=== PATIENT | male | born 1950 | race Caucasian/White ===

== ENCOUNTER → 2018-11-29 | Outpatient (CLI) | payer MEDICARE, OTHER, SELFPAY ==
--- NOTE | 2018-11-29 17:10 | EKG12_ITS ---
Test Reason : PRE-OP Blood Pressure : / mmHG Vent. Rate : 080 BPM Atrial Rate : 080 BPM P-R Int : 146 ms QRS Dur : 092 ms QT Int : 352 ms P-R-T Axes : 056 024 051 degrees QTc Int : 405 ms Normal sinus rhythm with sinus arrhythmia Normal ECG Confirmed by JAX TEIXEIRA, MELODY ([id number]), editor department BERTA MORENO ([id number]) on 11/30/2018 1:43:32 PM Referred By: Rik Banda Confirmed By:MELODY CAMARA MD
[2018-11-29 17:55] LABS: Hematocrit 49.4 % (40-54); Hemoglobin 16.3 g/dL (13.0-16.5); Mean Corpuscular Volume 96.9 fL (80-94); Mean Platelet Vol. 11.1 fl (6.2-12.0); Platelet Count 218 K/mm3 (150-450); RBC Distribution Width CV 12.7 % (11.6-14.6); RBC Distribution Width SD 45.4 fl (35.1-43.9); White Blood Count 8.5 K/mm3 (4.4-11.0)
[2018-11-29 18:00] LABS: Anion Gap 5 (5-15); BUN 18 mg/dL (7-18); BUN/Creat Ratio 10.3 RATIO (10-20); Calcium,Total 9.3 mg/dL (8.5-10.1); Chloride 111 mmol/L (98-107); Creatinine, Serum 1.75 mg/dL (0.70-1.30); EST Glomerular Filtration Rate 41 mL/min (>60); Est Glom Filt Rate - Afr Amer 50 mL/min (>60); Glucose 101 mg/dL (74-106); Potassium 4.5 mmol/L (3.5-5.1); Sodium Level 141 mmol/L (136-145)
== END | disposition home or self-care (01) ==
PROVIDERS: Family Provider Family Medicine; PCP Family Medicine; Referring Provider Urology; Visit Provider Urology
DX: Z01.818 Encounter for other preprocedural examination (principal); R97.20 Elevated prostate specific antigen [PSA]
CPT/HCPCS: 36415; 80048; 85027; 93005

== ENCOUNTER → 2018-12-15 | Outpatient (CLI) | payer MEDICARE, OTHER, SELFPAY ==
--- NOTE | 2018-12-15 15:37 | CT_ITS ---
STUDY: CT ABDOMEN AND PELVIS WITHOUT CONTRAST REASON FOR EXAM: Male, 68 years old. Lower back pain. Elevated creatinine. RADIATION DOSAGE (If Supplied By Facility): CTDIvol = ( 14.36 ) mGy, DLP = ( 720.98 ) mGycm TECHNIQUE: Transaxial images were obtained from the dome of the diaphragm to the symphysis pubis without oral contrast, and without intravenous contrast. Sagittal and coronal images were reconstructed. Individualized dose optimization techniques were used for this CT. COMPARISON: None. FINDINGS: There is a 3 mm calcified granuloma along the pleural surface and right lower lobe as seen on image 2 series 2. Image 4 there is a 4 mm calcification in the medial right lung base. A small crescentic calcification in the right lung base along the pleural surface.: The lungs are otherwise clear. The visualized portions of the heart are within normal limits. Normal liver. Normal gallbladder and extrahepatic biliary system. There are multiple benign calcified granulomata of the spleen. Normal pancreas. Normal bilateral adrenal glands. Multiple small exophytic cyst off the upper pole the right kidney. Off the lower pole there is a larger 5.5 x 5.2 x 5.2 cm simple cyst. No renal calculi or hydronephrosis. Normal right ureter. There is a 9.2 x 7.4 x 6.4 cm exophytic simple cyst off the upper pole with an otherwise normal left kidney. Normal left ureter. Normal visualized stomach. Normal small intestine. Descending and sigmoid diverticulosis without acute inflammatory change. The proximal colon is unremarkable. The appendix is visualized and appears normal. There is diffuse atherosclerotic calcification of the abdominal aorta, without a demonstrated aneurysm. Normal inferior vena cava. Normal retroperitoneum. Normal urinary bladder. The prostate is mildly enlarged. There is no pelvic lymphadenopathy. No free air or free fluid is seen within the peritoneal cavity. Normal abdominal wall. There is loss of normal lumbar lordosis. There are diffuse degenerative changes of the visualized lumbar spine. CT/Abdomen/Pelvis without Cont IMPRESSION: 1. Large bilateral renal cysts. 2. Degenerative changes of the lumbar spine with straightening of lumbar lordosis. 3. Mildly enlarged prostate. 4. Old granulomatous disease. 5. Diverticulosis without acute inflammatory change. Electronically Signed: Prabhjot Taylor DO at 19:24 EDT Tel [phone], Service support ,
== END | disposition home or self-care (01) ==
PROVIDERS: Family Provider Family Medicine; PCP Family Medicine; Referring Provider Urology; Visit Provider Urology
DX: N20.0 Calculus of kidney (principal)
CPT/HCPCS: 74176

== ENCOUNTER → 2018-12-31 15:15 | Outpatient (CLI) | payer MEDICARE, OTHER, SELFPAY | PROVIDERS: Family Provider Family Medicine; PCP Family Medicine; Referring Provider Urology; Visit Provider Urology | DX: R97.20 Elevated prostate specific antigen [PSA] (principal) ==

== ENCOUNTER → 2019-01-03 | Outpatient (CLI) | payer MEDICARE, OTHER, SELFPAY ==
--- NOTE | 2018-12-31 08:00 | PROSBIL_PTH ---
PATIENT: DAVID NORRIS LOC: [facility] U#:[id number] AGE/SX: 68/M ROOM: RE01/03/[address]: Dr. Rik Banda MD : 1950 BED: DIS: 01/03/2019 SPEC #: [id number] RECD: 01/03/19 14:51 STATUS: EMMA RERoman #: [id number] ROSALES: 12/31/18 08:[address]: Rik Banda DEPT: SURGICAL PATHOLOGY RECD BY: Dayana Stephenson ENTERED: 01/03/19 14:52 SP TYPE: PROST BX DANG DR: DO Josy Campbell Tissues: A - PROSTATE RIGHT B - PROSTATE RIGHT C - PROSTATE RIGHT D - PROSTATE LEFT E - PROSTATE LEFT F - PROSTATE LEFT Procedures: PROSTATE BX HEADER OPERATION: Prostate biopsy PRE-OP DIAGNOSIS: Elevated PSA TISSUE SUBMITTED: A - Right base, B - Right mid, C - Right apex, D - Left base, E - Left mid, F - Left apex MICROSCOPIC DIAGNOSIS A. Right prostate, base, core biopsy: Adenocarcinoma: Flaquito grade: 6 (3+3) Cores involved: 1 out of 2 Tissue involved: 20% Greatest tumor length: 3.5 mm B. Right prostate, mid, core biopsy: Adenocarcinoma: Flaquito grade: 6 (3+3) Cores involved: 1 out of 3 Tissue involved: 20% Greatest tumor length: 4 mm (discontinuous) C. Right prostate, apex, core biopsy: Adenocarcinoma: Flaquito grade: 8 (5+3) Cores involved: 2 out of 2 Tissue involved: 70% Greatest tumor length: 7.5 mm Focal perineural invasion: Present D. Left prostate, base, core biopsy: Adenocarcinoma: Flaquito grade: 7 (3+4) Cores involved: 2 out of 2 Tissue involved: 33% Greatest tumor length: 4.5 mm Focal perineural invasion: Present E. Left prostate, mid, core biopsy: Adenocarcinoma: [place] grade: 6 (3+3) Cores involved: 2 out of 2 Tissue involved: 45% Greatest tumor length: 6 mm (discontinuous) Focal perineural invasion: Present F. Left prostate, apex, core biopsy: Adenocarcinoma: Flaquito grade: 7 (3+4) Cores involved: 2 out of 2 Tissue involved: 50% Greatest tumor length: 4 mm (discontinuous) AM:alen 01/04/19 COMMENT Case has been reviewed in consultation with Dr. Abdul who concurs with the above diagnosis. IDC:SJ MICROSCOPIC DESCRIPTION Slides are reviewed. GROSS DESCRIPTION A - Received is one container designated prostate, right base. The specimen consists of two elongated fragments of light white-white soft tissue each measuring 1 cm in length and 0.1 cm in diameter. The specimen is totally submitted in one cassette. B - Received is one container designated prostate, right mid. The specimen consists of three elongated fragments of light white-white soft tissue measuring 0.5 to 1.5 cm in length and 0.1 cm in diameter. The specimen is totally submitted in one cassette. C - Received is one container designated prostate, right apex. The specimen consists of two elongated fragments of light white-white soft tissue each measuring 1.5 cm in length and 0.1 cm in diameter. The specimen is totally submitted in one cassette. D - Received is one container designated prostate, left base. The specimen consists of two elongated fragments of light white-white soft tissue measuring 1 and 1.3 cm in length and 0.1 cm in diameter. The specimen is totally submitted in one cassette. E - Received is one container designated prostate, left mid. The specimen consists of two elongated fragments of light white-white soft tissue each measuring 1 cm in length and 0.1 cm in diameter. The specimen is totally submitted in one cassette. F - Received is one container designated prostate, left apex. The specimen consists of two elongated fragments of light white-white soft tissue measuring 1 and 1.2 cm in length and 0.1 cm in diameter. The specimen is totally submitted in one cassette. / SJ:rg 01/03/19 TC:0 [facility]: [id number]
== END | disposition home or self-care (01) ==
LOC: LABSPEC 14:37
PROVIDERS: Family Provider Family Medicine; PCP Family Medicine; Referring Provider Urology; Visit Provider Urology
DX: R97.20 Elevated prostate specific antigen [PSA] (principal)
CPT/HCPCS: 88305; G0416

== ENCOUNTER → 2019-01-12 | Outpatient (CLI) | payer MEDICARE, OTHER, SELFPAY ==
--- NOTE | 2019-01-12 10:18 | NM_ITS ---
CLINICAL: 68-year-old male with reported history of carcinoma of the prostate. WHOLE BODY 99m Tc MDP RADIONUCLIDE BONE SCINTIGRAPHY COMPARISON: CT of the abdomen-pelvis report 12/15/2018 FINDINGS: Following the intravenous administration of 27.0 mCi of 99m Tc MDP, whole body bone images reveal: 1. Increased radiopharmaceutical concentration is defined in the mid cervical spine posteriorly on the left, the upper and lower cervical spine posteriorly on the right, the acromioclavicular and sternoclavicular compartments of both shoulders, bilateral elbows, the left wrist, both hands, third lumbar vertebra posteriorly on the left, right posterior sacrum, bilateral knees, the right-left ankles. 2. The remaining skeletal structures are scintigraphically unremarkable with normal-appearing renal images and urinary bladder activity identified. Mild asymmetric increased uptake is noted in the greater trochanteric aspect of the left proximal femur most consistent with periostitis and/or trochanteric bursitis. NM/Bone Scan Whole Body IMPRESSION: 1. The increase in radiopharmaceutical concentration identified in the cervical and lumbar spine, sacrum, bilateral shoulders, right and left elbows, left wrist, hands bilaterally, both knee and ankle articulations is most consistent with degenerative arthritis. 2. There is no definitive typical scintigraphic evidence of skeletal metastatic disease on the current examination. Electronically Signed: Tom Acevedo DO at 23:57 EDT Tel , Service support ,
== END | disposition home or self-care (01) ==
LOC: NM 10:15
PROVIDERS: Family Provider Family Medicine; PCP Family Medicine; Referring Provider Urology; Visit Provider Urology
DX: C61 Malignant neoplasm of prostate (principal)
CPT/HCPCS: 78306

== ENCOUNTER → 2019-02-15 | Outpatient (CLI) | payer MEDICARE, OTHER, SELFPAY ==
--- NOTE | 2019-02-15 11:30 | MRI_ITS ---
STUDY: MR PELVIS WITHOUT CONTRAST REASON FOR EXAM: Male, 68 years old. Prostate cancer. Biopsy 6 weeks ago. Scheduled for surgery February 23. TECHNIQUE: Standardized fat and water weighted pulse sequences were obtained in all 3 orthogonal planes. COMPARISON: None. FINDINGS: The prostate is enlarged measuring 4.3 x 5.1 x 4.7 cm with a volume of 52 mL the seminal vesicles are grossly normal. There is a focal area of high signal on diffusion-weighted imaging in the right peripheral zone which demonstrates hypointense signal on ADC mapping and T2-weighted imaging. This is best seen on image 17 of series 5. This measures 0.6 x 0.6 x 0.5 cm in size. The more inferior in the right peripheral zone isn't an area of high signal on diffusion-weighted imaging which is of hypointense signal on ADC mapping and T2-weighted imaging. This measures 1.0 x 0.9 cm and is best seen on image 21 of series 5. There is an area of vaguely increased signal intensity on diffusion-weighted imaging in the left peripheral zone which is hypointense on ADC mapping and T2 weighted imaging. This measures roughly 1.1 x 0.9 cm and is best seen on image 19 of series 5. In the transitional zone. There are multiple focal areas hypointensity on the T2 weighted imaging which have corresponding areas of hypointensity on ADC mapping and high signal intensity on diffusion-weighted imaging. These areas are all less than 1.5 cm in diameter. There is a mildly trabeculated thick-walled urinary bladder. There are no filling defects. Normal visualized small intestine. There is sigmoid diverticulosis without acute inflammatory change. There is no pelvic fluid. There is no pelvic mass lesion or lymphadenopathy. Normal visualized pelvic arteries. Normal osseous structures. Normal abdominal wall. MRI/Pelvis (Routine) IMPRESSION: 1. Enlarged prostate. 2. Multiple small foci in the peripheral zone suspicious for malignancy. The findings suggest PIRADS category 4 lesions. 3. Multiple foci in the transitional zone also suspicious for malignancy. This is scored as PIRADS category 4 lesions 4. No evidence of extraprostatic extension. Lymph node involvement or bone metastases. Electronically Signed: Prabhjot Taylor DO at 20:22 EST Tel [phone], Service support ,
== END | disposition home or self-care (01) ==
LOC: MRI 09:51
PROVIDERS: Family Provider Family Medicine; PCP Family Medicine; Referring Provider Urology; Visit Provider Urology
DX: C61 Malignant neoplasm of prostate (principal)
CPT/HCPCS: 72195

== ENCOUNTER 2019-02-23 08:09 | Inpatient (IN) | payer MEDICARE, OTHER, SELFPAY ==
[2019-02-15 10:15] VITALS: BP 144/78; PULSE 66; RESP 16; TEMP 36.2; O2SAT 95; BMI 30.4
[2019-02-15 10:40] LABS: Hematocrit 44.7 % (40-54); Hemoglobin 14.8 g/dL (13.0-16.5); Mean Corp Hgb Conc 33.1 g/dL (32-36); Mean Corpuscular Hgb 31.5 pg (27.0-32.0); Mean Corpuscular Volume 95.1 fL (80-94); Mean Platelet Vol. 11.1 fl (6.2-12.0); Platelet Count 201 K/mm3 (150-450); RBC Distribution Width CV 12.3 % (11.6-14.6); RBC Distribution Width SD 43.5 fl (35.1-43.9); White Blood Count 7.4 K/mm3 (4.4-11.0)
[2019-02-15 11:13] LABS: ALB/GLOB Ratio 1.1 RATIO (0.9-2.4); AST(SGOT) 18 U/L (15-37); Alanine Aminotransfer ALT/SGPT 38 U/L (16-61); Albumin, Serum 3.8 g/dL (3.2-5.0); Alkaline Phosphatase 64 U/L (45-117); Anion Gap 8 (5-15); BUN 14 mg/dL (7-18); Calcium,Total 8.9 mg/dL (8.5-10.1); Chloride 108 mmol/L (98-107); Creatinine, Serum 1.17 mg/dL (0.70-1.30); EST Glomerular Filtration Rate 66 mL/min (>60); Est Glom Filt Rate - Afr Amer 80 mL/min (>60); Estimated Creatinine Clearance 58.46 ml/min; Globulin 3.5 g/dL (2.2-4.2); Glucose 122 mg/dL (74-106); Potassium 4.2 mmol/L (3.5-5.1); Protein, Total 7.3 g/dL (6.4-8.2); Sodium Level 141 mmol/L (136-145)
[2019-02-23] VITALS (15 sets, daily range): BP systolic 81–147; BP diastolic 40–97; PULSE 55–83; RESP 14–18; TEMP 36.4–37.3; O2SAT 94–99; BMI 30.4
[2019-02-23] MEDS: Lactated Ringers 1,000 ML 100 ML IV ×3 (06:36→10:45)
[2019-02-23] MEDS: Cefazolin 2 GM in 0.9% Normal Saline 100 ML IV (08:00)
--- NOTE | 2019-02-23 08:00 | LYMN_PTH ---
PATIENT: DAVID NORRIS LOC: [facility] U#:[id number] AGE/SX: 68/M [place] [facility] [place]: Dr. Rik Banda MD : 1950 BED: 1 DIS: 02/24/2019 SPEC #: [id number] RECD: 02/23/19 15:23 STATUS: EMMA DANIEL #: [id number] ROSALES: 02/23/19 08:[address]: Rik Banda DEPT: SURGICAL PATHOLOGY RECD BY: Manuela Ansari ENTERED: 02/24/19 10:02 SP TYPE: LYMPH NODE OTHR DR: Dr. Josy Zaman, DO Josy Zaman Tissues: A - LYMPH NODE BIOPSY B - LYMPH NODE BIOPSY C - Adipose tissue D - PROSTATE BIOPSY Procedures: Surgery Specimen Level IV Surgery Specimen Level V Surgery Specimen Level HEADER OPERATION: Lap robotic radical prostatectomy PRE-OP DIAGNOSIS: Malignant neoplasm of prostate, nodular prostate with lower urinary tract symptoms, elevated PSA TISSUE SUBMITTED: A. Right lymph node, B. Left lymph node, C. Fat over prostate, D. Prostate MICROSCOPIC DIAGNOSIS A. Right lymph nodes, biopsy: Two out of two lymph nodes, negative for metastatic carcinoma. B. Left lymph nodes, biopsy: Two out of two lymph nodes, negative for metastatic carcinoma. C. Fat over prostate: A piece of mature adipose tissue, negative for carcinoma. D. Prostate, radical prostatectomy: Prostatic adenocarcinoma. See cancer summary below. SJ:alen 02/25/19 PROSTATE CANCER (RADICAL) SUMMARY: Procedure - radical prostatectomy Prostate size - 4 cm craniocaudally, 4.5 cm anterior posteriorly and 4.5 cm transversely. Prostate weight - 52 gm Lymph node sampling - pelvic lymph node dissection Histologic type - adenocarcinoma (acinar, not otherwise specified) Histologic grade (Flaquito Pattern): Primary pattern - 3 Secondary pattern - 4 Tertiary pattern - not identified Total Flaquito score - 7 Tumor Quantitation: Proportion (%) of prostate involved by tumor - ~20-30% Extraprostatic extension - present, focal Seminal vesicle invasion - not identified Margins - apical margin is involved by invasive carcinoma. Treatment effect on carcinoma - no known presurgical therapy. Lymph-Vascular invasion - not identified Perineural invasion - present, frequent Regional lymph nodes: Number examined - 4 Number involved - 0 Distant metastasis - not applicable Additional pathologic findings - high-grade prostatic intraepithelial neoplasia (HGPIN). - Chronic inflammation. - Benign prostatic hyperplasia. PATHOLOGIC STAGE: pT2c PN0 Mx The above summary is in compliance with [employer] [place] [employer] (CAP) Cancer Protocols Checklist and [place] [employer] Committee on Cancer (AJCC), Staging Manual, 8th Ed. COMMENT The tumor involves both right and left lobes in the apical, mid and basal portion of the prostate. Please make reference to previous specimen ([id number]) right prostate, base, mid and apex and left prostate, base, mid and apex with diagnosis of adenocarcinoma. Case has been reviewed in consultation with Dr. Verduzco who concurs with the above diagnosis. IDC:AM MICROSCOPIC DESCRIPTION Slides are reviewed. GROSS DESCRIPTION A - Received in fixative is one container labeled with the patient's name and designated right lymph node. The specimen consists of a piece of adipose tissue measuring 3.5 x 2.5 x 1 cm. No obvious lymph node is identified. The entire specimen is submitted in three cassettes. Cassettes 2 & 3 contain a possible bisected fatty lymph node. B - Received in fixative is one container labeled with the patient's name and designated left lymph node. Two possible fatty lymph nodes are identified. The entire specimen is submitted in three cassettes as follows: 1 & 2 - each containing one bisected lymph node, 3 - rest of the specimen. C. Received in fixative is one container labeled with the patient's name and designated fat over prostate. The specimen consists of an irregular piece of yellow adipose tissue measuring 5 x 4 x 0.3 cm. No mass lesion is identified. The entire specimen is submitted in three cassettes. D - Received in fixative is one container labeled with the patient's name and designated prostate. The specimen consists of a radical prostatectomy specimen consisting of prostate tissue and bilateral seminal vesicle and vas deferens. The entire specimen weighs 52 gm. The prostate measures 4 cm craniocaudally, 4.5 cm anterior posteriorly and 4.5 cm transversely. The right seminal vesicle measures 2 x 1 x 0.5 cm and the right vas deferens measures 2.5 cm in length and 0.5 cm in diameter. The left seminal vesicle measures 2 x 1 x 0.5 cm and left vas deferens measures 2 cm in length and 0.4 cm in diameter. The prostate is inked as follows: anterior surface - yellow, posterior surface - black, right lateral surface - blue, left lateral surface - green. The seminal vesicle and vas deferens is also inked as follows: posterior surface, left seminal vesicle and vas deferens - black, inferior surface, right seminal vesicle and vas deferens - blue, inferior surface left seminal vesicle and vas deferens - green. Sections of the prostate tissue do not reveal any mass lesion. [employer] sections are submitted in 20 cassettes as follows: 1 - right and left seminal vesicles, 2 - apical distal margin, 3 - bladder base margin, 4 - most basal portion of the prostate, 5-10 - apical portion prostate 11-14 - medial portion prostate, 15-20 - basal portion of prostate. / SJ:rg 02/24/19 TC:0 CPT: 88706, 61765 x2, 44401
--- NOTE | 2019-02-23 08:18 | DCINST_ITS ---
- Discharge Diagnoses Current Active Problems: prostate cancer Reason(s) for Visit for Discharge Instructions: robotic prostatectomy You will use the following diet at home:: Regular Your food should be the consistency of: Regular Discharge Activity: May Not Drive, May Shower Return to work on:: 04/06/19 Lifting Restrictions: no lifing. Call your doctor if your incision/area has: Continuous Slow Oozing, Sudden Increased Bleeding, Increased Pain/ Swelling, Increased Redness, Foul Smelling Discharge, Swelling at the incision site Suture Line Care: Avoid Pulling/Pushing, Avoid Pinching/Bending Catheter: [place] to leg bag Drain: [place] Instructions: Radical Prostatectomy Allergies/Adverse Reactions: Allergies shellfish derived Allergy (Verified 02/23/19 06:10) Swelling Medications to take at Discharge Bupropion HCl [Bupropion Xl] 300 mg PO QHS 02/15/19 Diclofenac Sodium [Voltaren] 1 gm TOPICAL PRN PRN 02/15/19 Lovastatin [Mevacor] 40 mg PO QHS 02/15/19 Metoprolol Tartrate [Lopressor (Beta Erica)] 50 mg PO QHS 02/15/19 Niacin [Niacin ER] 500 mg PO QHS 02/15/19 Omeprazole [Prilosec] 40 mg PO QHS 02/15/19 Acetaminophen [Tylenol Extra Strength] 500 mg PO Q4H PRN PRN #20 tab 02/23/19 Ciprofloxacin [Cipro] 500 mg PO BID #20 tab 02/23/19 Docusate Sodium [Colace] 100 mg PO BID #20 cap 02/23/19 Ibuprofen 600 mg PO Q6H PRN PRN #20 tab 02/23/19 The following prescriptions were given: Ciprofloxacin [Cipro] 500 mg PO BID #20 tab Transmission Status: Pending to [id number] Docusate Sodium [Colace] 100 mg PO BID #20 cap Transmission Status: Pending to [id number] Ibuprofen 600 mg PO Q6H PRN PRN #20 tab PRN Reason: Pain Score 1-10/10 Transmission Status: Pending to [id number] Acetaminophen [Tylenol Extra Strength] 500 mg PO Q4H PRN PRN #20 tab PRN Reason: Pain Or Fever Transmission Status: Pending to [id number] Primary Care Physician: Josy Zaman [Primary Care Provider] - Test Results: Test results from this visit will be discussed in further detail at your follow- up appointment, if applicable. Please Follow Up With: Rik Banda MD When: call for an appt on Mar 07 to d/c ramya Proposed Discharge Date: 02/24/19
[2019-02-23] MEDS: Bupivacaine Mpf 0.5% 30 ML VIAL (12:00)
--- NOTE | 2019-02-23 12:11 | OP.PCM_ITS ---
Report of Operation Date of Procedure: 02/23/19 Pre-Operative Diagnosis: Prostate cancer, frequency urgency. Post-Operative Diagnosis: Same Surgery/Procedure Performed:: Laparoscopic robotic assisted radical prostatectomy, bilateral lymph node dissection, EMG monitoring of pelvic nerves and sphincter Description of Surgical Findings:: 68-year-old male who has prostate cancer was elected to undergo radical prostatectomy, we plan to do bilateral nerve sparing surgery. And we plan to do monitoring of the nerves to make sure the nerves are spared. Patient was taken back to the operating room after smooth induction of general anesthesia he was placed supine on the operating room table. He was then placed in dorsolithotomy position with the back padded and arms and legs properly padded in position. We then prepped and draped the patient's abdomen and testicles and penis in usual sterile fashion, made a small incision at the umbilicus and advanced the Veress needle into the peritoneal cavity. We then insufflated the peritoneal cavity with CO2 gas. I then made an incision in the umbilicus and then placed a camera trocar at the umbilicus. We then placed a right arm trocar left arm trocar and second left arm trocar these were robotic trochars. We then placed the air seal port. And then we placed a suction technician assistant port. We then docked the robot and started with the dissection I first mobilized the sigmoid colon off the l ateral wall this allowed my fourth arm to retract the colon out of the pelvis I then incised the peritoneum over the vas deferens and dissected the vas deferens down to the prostate I opened up the vas deferens and several vesicles on both the right and left side I went below the prostate and dissected the mom BAs fascia from below the prostate all the way to the apex I then put came back to the right vas deferens and dissected the right vas deferens free and transected it I then dissected the right seminal vesicle free. We then went to the left side we transected the left vas deferens and then dissected the left seminal vesicle completely. I then pulled out the pelvis we then incised the lateral attachments of the bladder to the anterior wall released the bladder created the space of Retzius I came across the medial and lateral umbilical ligament and then retracted the prostate and bladder and then created the space of Retzius we then opened up the space on the right side of the space in the left side above the bladder created the space of Retzius. We then went to the lymph nodes in the right side identified the iliac external iliac artery and vein and dissected to the lymph node at [place] in the dissected inferiorly and then we identified the left obturator nerve and an artery. We used clips to ligate then the lymphatic vessels to the lymph node packet and the custom feed corn operator space using the iliac vein the lateral wall and the obturator nerve as our triangle and once we dissected all the lymph nodes off the custom feed corn operator space this was sent off as a specimen as a permanent specimen. We then went to the left side again dissected the lymph node packet off the lateral pelvic wall in front of the iliac vein down to the custom feed corn operator nerve and off the lateral pelvic wall we came across with clips to then released the lymph node packet off the left side and this was done in a meticulous fashion and then the pocket was then sent as a permanent specimen. We then took the fat over the prostate and the fat of the prostate removing the fat of the prostate this was sent off the specimen we then incised the lateral pelvic wall fascia and then dissected the apical prostate area disse cting the levator muscles off the prostate all the way to the apex on the right side on the left side with incised the endopelvic fascia and then freed up the levator muscles off the prostate on the left side all the way to the apex the dorsal vein complex was then identified we then sutured the dorsal vein complex with an 0 Vicryl stitch. I then came back between the junction between the bladder and prostate identified the junction removing the catheter around and then dissected down to the catheter once we get to the catheter we deflated the balloon and then we did dissected below the catheter pulled the catheter back and then the prostate off the bladder and the posterior aspect until we got to the vas deferens and several vesicles. We went to the right side and first we placed the EMG electrodes into the pelvis we identified the pudendal arches and pudendal nerve branch bundles off the right and left side once these were identified then we incised the endopelvic fascia of the prostate swept the sounds very carefully all the way up to the prostate edge worked her way back to the pedicle the pedicles and taken with clips and then we freed up the neurovascular bundle off the right posterior aspect of the prostate all the way to the apex it was somewhat sticky and diffuse places but came off very nicely in general. Once with spared of the neurovascular bundle on the right side all the way to the apex we checked for the EMG electrodes and again this was still present and strong we then went to the left side we incised the endopelvic fascia over the prostate on the left side dissected laterally sweeping the the tissue off the prostate and the left side and then we came to the pedicle on the left side and then swept the nerve bundle off the posterior aspect of the left prostate all the way up to the apex this was a complete nerve sparing on the left side as well we checked for EMG electrodes action potential in the left side again and there was potential was active before and after the dissection we then transected to the dorsal vein complex we placed an extra stitch in the dorsal vein complex we then transected to the urethra and then the prostate was released and put into an Endo Catch bag. Once the prostate was then put an Endo Catch bag we obtain hemostasis and we used FloSeal to attain good hemostasis in the pelvis we then irrigated the pelvis out there was minimal to no blood loss at this point and very minimal bleeding we then performed an anastomosis between the bladder neck and the urethra over catheter this was done with a 3-0 Vicryl's V lock stitch, we ran from the 6 o'clock position to the 12 o'clock position on the right side and on the left side with the same thing pulled the bladder over the urethra and a very nice tight anastomotic fashion we then placed a new catheter into the bladder irrigated there was no leakage whatsoever we inflated 10 cc and the new catheter sits down the suture and then pulled back in the catheter. Catheter was then draining clear yellow urine we then pulled out of the pelvis inspected the abdomen everything looked clear no active bleeding we then extracted the prostate to the supraumbilical site and we then closed our 10-12 Luis Harrison air seal port with a stitch. The robot was undocked we then closed all the stitches with subcuticular stitches patient anesthetic was reversed he was extubated and taken back to the PACU in stable condition. Type of Anesthesia:: General Drains: bui - Admit VTE Documentation VTE Present on Admission: No VTE Mechan Device Prophylaxis: SCD's
[2019-02-23] MEDS: Ketorolac 15 MG/ML Vial IV ×3 (12:52→23:03)
[2019-02-23] MEDS: 0.45% Normal Saline 1,000 ML 125 ML IV ×2 (14:55→23:06)
[2019-02-23] MEDS: Atorvastatin Calcium 10 MG Tablet PO (21:22)
[2019-02-23] MEDS: Docusate Sodium 100 MG Capsule PO (21:22)
[2019-02-23] MEDS: Ciprofloxacin 500 MG Tablet PO (21:22)
[2019-02-23] MEDS: Niacin SA 500 MG Tablet PO (21:22)
[2019-02-23] MEDS: buPROPion (XL) 300 MG TABLET.XL PO (21:22)
[2019-02-24 01:56] VITALS: BP 134/67; PULSE 65; RESP 16; TEMP 36.7; O2SAT 98
[2019-02-24] MEDS: Enoxaparin 40 MG/0.4 ML Syringe SC (05:18)
[2019-02-24] MEDS: Ketorolac 15 MG/ML Vial IV (05:19)
[2019-02-24 05:25] LABS: Hemoglobin 11.9 g/dL (13.0-16.5); Mean Corp Hgb Conc 33.1 g/dL (32-36); Mean Corpuscular Volume 96.8 fL (80-94); Mean Platelet Vol. 11.2 fl (6.2-12.0); Platelet Count 161 K/mm3 (150-450); RBC Distribution Width CV 12.7 % (11.6-14.6); Red Blood Count 3.72 M/mm3 (4.6-6.2); White Blood Count 13.1 K/mm3 (4.4-11.0)
[2019-02-24 05:33] LABS: Anion Gap 7 (5-15); BUN 20 mg/dL (7-18); BUN/Creat Ratio 16.5 RATIO (10-20); Calcium,Total 8.4 mg/dL (8.5-10.1); Chloride 107 mmol/L (98-107); Creatinine, Serum 1.21 mg/dL (0.70-1.30); EST Glomerular Filtration Rate 63 mL/min (>60); Est Glom Filt Rate - Afr Amer 77 mL/min (>60); Estimated Creatinine Clearance 56.53 ml/min; Glucose 101 mg/dL (74-106); Sodium Level 142 mmol/L (136-145)
[2019-02-24] MEDS: 0.45% Normal Saline 1,000 ML 125 ML IV (06:50)
[2019-02-24 07:15] VITALS: O2SAT 97
--- NOTE | 2019-02-24 10:55 | CASEMGMT ---
RN CM Face to Face with patient for initial transition planning/care coordination assessment. RN CM introduced self and role at [facility]. Patient lying in bed, alert and oriented. Patient willing to participate in assessment and is able to answer all questions appropriately. Care providers, pharmacy, and demographics verified. Patient wishes to discharge home, denies need for home health at this time. Patient states he has no further needs or concerns at this time. CM to follow for discharge planning needs that may arise. PCP: Austyn Specialists: Veronika urologist Preferred Pharmacy: [facility] Insurance: [facility], [facility] Prescription Benefit: yes Living Will/HPOA: none LNOK: Living Arrangements: Patient lives with in 2 story home, patient able to ambulate stairs. Patient independent at home. Transportation: self, , son DME/HHC: Patient has cane. Denies need for further DME or HHC. Disposition Plan: Patient to discharge home with family support and follow-up plans in place. Siria BENTLEY, RN, CM
[2019-02-24 11:21] VITALS: BP 134/70; PULSE 72; RESP 18; TEMP 36.7; O2SAT 98
[2019-02-24] MEDS: Pantoprazole Sodium 20 MG Tablet PO (11:23)
[2019-02-24] MEDS: Ciprofloxacin 500 MG Tablet PO (11:23)
[2019-02-24] MEDS: Docusate Sodium 100 MG Capsule PO (11:23)
== END 2019-02-24 14:49 | disposition home or self-care (01) | DRG 708 ==
LOC: SDC 11:03 → MS3 11:03
PROVIDERS: Admitting Provider Urology; Family Provider Family Medicine; PCP Family Medicine; Referring Provider Urology; Visit Provider Urology
PROC: 0VT04ZZ Resection of Prostate, Percutaneous Endoscopic Approach (ICD-10-PCS; CPT 55866; principal; 2019-02-23 07:40)
DX: C61 Malignant neoplasm of prostate (principal); E29.1 Testicular hypofunction; J44.9 Chronic obstructive pulmonary disease, unspecified; I10 Essential (primary) hypertension; K21.9 Gastro-esophageal reflux disease without esophagitis; F32.9 Major depressive disorder, single episode, unspecified; E78.49 Other hyperlipidemia; E66.3 Overweight; Z87.891 Personal history of nicotine dependence; Z79.899 Other long term (current) drug therapy
CPT/HCPCS: 36415; 80048; 80053; 85027; 86850; 86900; 86901; 88304; 88305; 88307; 88309; 99251; J7120; G0463; J2405

== ENCOUNTER → 2019-04-18 09:06 | Outpatient (CLI) | payer MEDICARE, OTHER, SELFPAY ==
[2019-02-23 06:17] VITALS: BMI 30.4
[2019-04-18 09:55] LABS: PSA,Total- Diagnostic < 0.01 ng/mL (0.0-4.0)
== END ==
PROVIDERS: Family Provider Family Medicine; PCP Family Medicine; Referring Provider Urology; Visit Provider Urology
DX: C61 Malignant neoplasm of prostate (principal)
CPT/HCPCS: 36415; 84153

== ENCOUNTER → 2019-08-16 | Outpatient (CLI) | payer MEDICARE, OTHER, SELFPAY ==
[2019-08-16 12:30] LABS: PSA,Total- Diagnostic < 0.01 ng/mL (0.0-4.0)
== END | disposition home or self-care (01) ==
LOC: LAB 10:40
PROVIDERS: PCP Family Medicine; Referring Provider Urology; Visit Provider Urology
DX: C61 Malignant neoplasm of prostate (principal)
CPT/HCPCS: 36415; 84153

== ENCOUNTER → 2019-11-29 | Outpatient (CLI) | payer MEDICARE, OTHER, SELFPAY ==
[2019-02-23 06:17] VITALS: BMI 30.4
[2019-11-29 08:15] LABS: Bacteria 0 SEEN /hpf (None Seen); Mucous, Urine 0 SEEN /hpf (<or=2+); Red Blood Cells-Urine 0 SEEN /hpf (0-5); White Blood Cells 0 SEEN /hpf (0-5)
[2019-11-29 08:57] LABS: Absolute Lymphocyte Count 2.28 X10^3/uL (0.83-4.51); Absolute Neutrophil Count 4.9 X10^3/uL (2.0-7.7); Basophil# 0.08 X10^3/uL; Eosinophil# 0.21 X10^3/uL; Eosinophils% 2.5 % (0-5); Hematocrit 51.1 % (40-54); Hemoglobin 16.7 g/dL (13.0-16.5); Lymphocyte # 2.28 X10^3/ul (4.0); Lymphocyte % 27.5 % (19-41); Mean Corp Hgb Conc 32.7 g/dL (32-36); Mean Corpuscular Hgb 31.2 pg (27.0-32.0); Mean Corpuscular Volume 95.5 fL (80-94); Mean Platelet Vol. 11.7 fl (6.2-12.0); Monocyte# 0.84 X10^3/uL; Monocyte% 10.1 % (0-10); NRBC Flagged by Analyzer 0 % (0-5); Neutrophil # 4.86 X10^3/uL (2.7-7.7); Neutrophil % 58.5 % (47-70); Platelet Count 209 K/mm3 (150-450); RBC Distribution Width CV 12.8 % (11.6-14.6); RBC Distribution Width SD 45.6 fl (35.1-43.9); Red Blood Count 5.35 M/mm3 (4.6-6.2); White Blood Count 8.3 K/mm3 (4.4-11.0)
[2019-11-29 08:59] LABS: Color, Urine Yellow (Yellow); Glucose, Dipstick Normal (Normal); Ketone-Dipstick Negative (Negative); Leukocyte Esterase-Dipstick Negative /ul (Negative); Nitrite-Dipstick Negative (Negative); Occult Blood-Urine Negative /ul (Negative); Protein-Dipstick 15 mg/dl (Negative); Urine Bilirubin Dipstick Negative (Negative); Urine Clarity Sl. Cloudy (Clear); Urine Urobilinogen Normal (Normal)
[2019-11-29 09:22] LABS: Squamous Epithelial Cells - UA 0-5 SEEN /hpf (0-5)
[2019-11-29 09:40] LABS: ALB/GLOB Ratio 1.1 RATIO (0.9-2.4); AST(SGOT) 32 U/L (15-37); Alanine Aminotransfer ALT/SGPT 54 U/L (16-61); Albumin, Serum 3.9 g/dL (3.2-5.0); Alkaline Phosphatase 71 U/L (45-117); Anion Gap 2 (5-15); BUN 14 mg/dL (7-18); BUN/Creat Ratio 11.1 RATIO (10-20); Calcium,Total 8.9 mg/dL (8.5-10.1); Chloride 106 mmol/L (98-107); Cholesterol 131 mg/dL (200); Creatinine, Serum 1.26 mg/dL (0.70-1.30); EST Glomerular Filtration Rate 60 mL/min (>60); Est Glom Filt Rate - Afr Amer 73 mL/min (>60); Globulin 3.7 g/dL (2.2-4.2); Glucose 107 mg/dL (74-106); High Density Lipoprotein 31 mg/dL; PSA,Total- Diagnostic < 0.01 ng/mL (0.0-4.0); Potassium 4.9 mmol/L (3.5-5.1); Protein, Total 7.6 g/dL (6.4-8.2); Sodium Level 138 mmol/L (136-145); Thyroid Stim Hormone (TSH) 2.49 uIU/mL (0.358-3.74); Triglycerides 226 mg/dL; Very Low Density Lipoprotein 45 mg/dL (5-40)
== END | disposition home or self-care (01) ==
LOC: LAB 08:09
PROVIDERS: PCP Family Medicine; Referring Provider Urology; Visit Provider Urology
DX: C61 Malignant neoplasm of prostate (principal); E78.2 Mixed hyperlipidemia; Z13.29 Encounter for screening for other suspected endocrine disorder
CPT/HCPCS: 36415; 80053; 80061; 81001; 84153; 84443; 85025

== ENCOUNTER → 2020-06-04 08:00 | Outpatient (CLI) | payer MEDICARE, OTHER, SELFPAY ==
[2019-02-23 06:17] VITALS: BMI 30.4
[2020-06-04 09:18] LABS: PSA,Total- Diagnostic < 0.01 ng/mL (0.0-4.0)
== END ==
PROVIDERS: PCP Family Medicine; Referring Provider Urology; Visit Provider Urology
DX: C61 Malignant neoplasm of prostate (principal)
CPT/HCPCS: 36415; 84153

== ENCOUNTER → 2020-12-04 08:17 | Outpatient (CLI) | payer MEDICARE, OTHER, SELFPAY ==
[2020-12-04 10:31] LABS: PSA,Total- Diagnostic 0.01 ng/mL (0.0-4.0)
== END ==
PROVIDERS: PCP Family Medicine; Referring Provider Urology; Visit Provider Urology
DX: C61 Malignant neoplasm of prostate (principal)
CPT/HCPCS: 36415; 84153

== ENCOUNTER 2024-11-01 20:40 | Inpatient (IN) | payer MEDICARE, OTHER, SELFPAY ==
[2024-11-01 20:41] VITALS: BP 145/87; PULSE 116; RESP 18; TEMP 36.6; O2SAT 98; BMI 25.7
--- NOTE | 2024-11-01 22:53 | CT_ITS ---
PROCEDURE: ABDOMEN/PELVIS W IV CONT ONLY 11/01/2024 REASON FOR EXAM: ABD PAIN TECHNIQUE: ABDOMEN/PELVIS W IV CONT ONLY Coronal and Sagittal reconstruction series were provided. CONTRAST: Isovue 370 VOLUME: 100 mL One or more dose reduction techniques were used (e.g., Automated exposure control, adjustment of the mA and/or kV according to patient size, use of iterative reconstruction technique. RADIATION DOSE SUMMARY: CTDlvol: 33 mGy DLP: 837 mGycm COMPARISON: 12/15/2018 FINDINGS: Clear lung bases. Normal heart size. Diffuse hepatic steatosis. Status post cholecystectomy. Interval development of a pancreatic cyst, series 2 images 31/38, measuring approximately 2.3 x 3 by 3 cm. Distal pancreatic duct is dilated. There may be focal pancreatitis close to the mass with peripancreatic fat stranding and fluid. There is a peripancreatic loculated fluid collection, series 601, image 46, measuring about 1.6 cm, could be a pseudocyst. Normal spleen, adrenal glands,. Bilateral simple renal cysts. No hydronephrosis. No acute bladder findings. Status post prostatectomy. No retroperitoneal or pelvic adenopathy. No free air. Nondistended bowel. Status post right hemicolectomy, with ileocolic anastomosis. Diverticulosis. No acute large bowel findings. Lumbar spine degeneration. There is a lipoma in the perineum, base of penis on the left, series 2, image 116, doubtful clinical significance. 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 Suspect focal p ancreatitis as result of the tumor. Reading Location: [place] [id number]
[2024-11-01 23:03] LABS: Hematocrit 38.0 % (40-54); Hemoglobin 13.1 g/dL (13.0-16.5); Immature Granulocytes Count 0.060 X10^3/uL (0.0-0.0); Mean Corp Hgb Conc 34.5 g/dL (32-36); Mean Corpuscular Volume 90.7 fL (80-94); Mean Platelet Vol. 10.7 fl (6.2-12.0); NRBC Flagged by Analyzer 0 % (0-5); Platelet Count 288 K/mm3 (150-450); RBC Distribution Width CV 12.6 % (11.6-14.6); RBC Distribution Width SD 41.2 fl (35.1-43.9); Red Blood Count 4.19 M/mm3 (4.6-6.2); White Blood Count 10.2 K/mm3 (4.4-11.0)
[2024-11-01 23:28] LABS: Lipase 147 U/L (13-75); Magnesium 2.1 mg/dL (1.5-2.2)
[2024-11-01] MEDS: 0.9% Normal Saline (1000mL) 1,000 ML 999 ML IV (23:28)
[2024-11-01 23:34] LABS: AST(SGOT) 31 U/L (<=37); Alanine Aminotransfer ALT/SGPT 22 U/L (<=46); Albumin, Serum 4.1 g/dL (3.4-4.8); Alkaline Phosphatase 71 U/L (40-129); Anion Gap 16 (5-15); BUN 10 mg/dL (4-19); BUN/Creat Ratio 11.5 RATIO (10-20); Bilirubin, Direct 0.10 mg/dL (0.00-0.30); Calcium,Total 10.5 mg/dL (7.6-11.0); Carbon Dioxide 20.9 mmol/L (21.0-32.0); Chloride 95 mmol/L (98-108); Estimated Creatinine Clearance 72.07 ml/min (50-250); Globulin 3.5 g/dL (2.2-4.2); Glucose 114 mg/dL (70-99); Potassium 4.0 mmol/L (3.3-5.1)
[2024-11-02] VITALS (9 sets, daily range): BP systolic 125–151; BP diastolic 70–97; PULSE 68–98; RESP 16–18; TEMP 36.4–37.2; O2SAT 92–100; BMI 25.0; BMI 25.6
--- NOTE | 2024-11-02 01:01 | PCM.HP.STD ---
HPI - General General Date of Admission: 11/02/24 Date of Service: 11/02/24 Chief Complaint: Abdominal pain. HPI Narrative The patient is a 74 y/o M w/ PMHx: CKD stage II per previous GFR trending, HTN, HLD, GERD, Anxiety and Depression, Former tobacco use, recent evaluation at for pancreatic mass w/ MRCP/ERCP and Bx w/ mass reportedly nonmalignant who presents to the [facility] ED on 11/02/24 with history of persistent abdominal discomfort for the last several months noted to be dull aching throbbing and stabbing intermittently however severely worsened with any oral intake attempts worsening in the last 4 days than his baseline stating that it actually started when he stressed himself going to catch his when she was about to fall with a significant persistent severe 10 out of 10 abdominal pain with associated nausea with no emesis prompting eventual ED evaluation to be cautious. He does report that the pain medications in the ED did take his pain down to 3-4 out of 10 in severity. He notes he is supposed to have a follow-up in 2 weeks with his [facility] physician Dr. Miguel Angel Ervin and if there is a future plan for surgical intervention but not acutely. Workup in the ED included T98, heart rate 116, BP 145/87, respiratory rate 18, 98% on room air, CBC with WBC 10.2, with 13.1, platelet 288 without marked shift, CMP with sodium 132, chloride 95, carbon oxide 20.9, anion gap 16, BUN/Cr 10/0.87, GFR 91, glucose 114, magnesium 2.1, hepatic profile not marked appearing aside from lipase 147, CT abdomen and pelvis with IV contrast only with a cystic pancreatic mass possibly a cystic pancreatic malignancy with suspected focal pancreatitis as a result of the tumor. In the ED patient ministered 1 L normal saline, Zofran 4 mg IV x 1, morphine 4 mg IV x 1, Dilaudid 0.5 mg IV x 1. [facility] Medical History (Updated 11/02/24 @ 01:[address] Lake Myers, ) Pancreatic mass History of prostate cancer History of malignant neoplasm of appendix GERD (gastroesophageal reflux disease) Hyperlipidemia HTN (hypertension) Home Medications ?Medication ?Instructions ?Recorded ?Last Taken ?Type Lovastatin [Mevacor] 40 mg PO QHS cholesterol 02/15/19 Unknown History bupropion HCl 300 mg 24 hr tablet, 300 mg PO QHS depression 02/15/19 Unknown History extended release diclofenac sodium 1 % topical gel 1 gm topical PRN PRN arthritis 02/15/19 Unknown History niacin 500 mg tablet,extended 500 mg PO QHS heart health 02/15/19 Unknown History release 24 hr omeprazole 20 mg capsule,delayed 40 mg PO QHS gerd 02/15/19 02/23/19 04:30 History release acetaminophen 500 mg tablet 500 mg PO Q4H PRN PRN Pain Or 02/23/19 Unknown Rx Fever #20 tabs docusate sodium 100 mg capsule 100 mg PO BID #20 caps 02/23/19 Unknown Rx ibuprofen 600 mg tablet 600 mg PO Q6H PRN PRN Pain Score 02/23/19 Unknown Rx -01/20 #20 tabs metoprolol succinate 50 mg 50 mg PO QHS bp/hr 02/23/19 Unknown History tablet,extended release 24 hr zisnuz-scdodeca-idjuzek cap PO 09/25/24 Unknown History 36,000-114,000-180,000 unit capsule,delay rel (Creon) Allergy/AdvReac Type Severity Reaction Status Date / Time shellfish derived Allergy Swelling Verified 11/01/24 20:47 Family History (Updated 11/02/24 @ 01:[address] Hanna Holt MD) Mother Cancer Heart disease Father Cancer Heart disease Surgical History (Updated 09/25/24 @ 11:55 by Radha Remy) History of laparoscopy History of cholecystectomy History of appendectomy History of prostatectomy Social History (Updated 11/02/24 @ 01:[address] Hanna Holt MD) household members: spouse Smoking Status: Former smoker alcohol intake: never substance use type: does not use ROS ROS Narrative Admission Review of Systems: CONSTITUTIONAL: No fever, chills, + weakness or fatigue, weight loss. HEENT: Eyes: No visual loss, blurred vision, double vision or yellow sclerae. Ears, Nose, Throat: No hearing loss, sneezing, congestion, runny nose or sore throat. SKIN: No rash or itching, lesions, wounds. CARDIOVASCULAR: No chest pain, chest pressure or chest discomfort, palpitations, edema, orthopnea, syncopal events. RESPIRATORY: No shortness of breath, cough or sputum, wheezing, hemoptysis. GASTROINTESTINAL: + anorexia, nausea, abdominal pain. No vomiting, diarrhea, melena, BRBPR. GENITOURINARY: No dysuria, frequency, urgency or retention. NEUROLOGICAL: No headache, dizziness, syncope, paralysis, ataxia, numbness or tingling in the extremities, focal weakness, change in bowel or bladder control, seizure. MUSCULOSKELETAL: + muscle, back pain, joint pain or stiffness. HEMATOLOGIC: No anemia, bleeding or bruising. LYMPHATICS: No enlarged nodes. No history of splenectomy. PSYCHIATRIC: No history of depression or anxiety. ENDOCRINOLOGIC: No reports of sweating, cold or heat intolerance. No polyuria or polydipsia. ALLERGIES: + History of shellfish allergic reaction. Vital Signs Vital Signs Vital Signs: 11/01/24 20:41 Temperature 98 F Temperature Source Oral Pulse Rate 116 H Respiratory Rate 18 Blood Pressure 145/87 H Blood Pressure Mean 106 Pulse Ox 98 Oxygen Delivery Method Room Air Weight Weight: 169 lb Body Mass Index (BMI) 25.7 Physical Exam Narrative Physical Examination: General: Awake, alert, oriented x 3 and cooperative, seated upright in ED bed, notes pain significantly improved after recent ED pain medication. Skin: Normal color, normal turgor, no icterus, no cyanosis except occasional stage ecchymoses, abrasion. HEENT: AT/NC, EOMI, PERRLA, moderately dry MM, no carotid bruits or JVD noted. Lungs: Mildly diminished, greater bases, poor effort, no rales, ronchi or wheezing. Heart: Mildly tachycardic with regular rhythm; no gallop, rub audible. Abdomen: Soft, some mild discomfort to palpation of the epigastric region although patient did have recent Dilaudid therapy, no marked distention evident, mildly hyperactive BS, no obvious HSM. Extremities: No cyanosis, clubbing, or edema. Neurological: Patient awake, alert, oriented as noted, cognitive function intact; pupils equally reactive to light and accommodation, cranial nerves grossly normal, moving all 4 extremities, no focal deficits, strength mildly to moderately global decrease Psychiatric: Affect appears fatigued, mildly uncomfortable with evaluation but improved given recent ED pain medication, no acute evidence of depressive or anxiety feelings. Results Lab / Micro Data 11/01/24 22:52 11/01/24 22:52 Labs: Laboratory Results - last 24 hr 11/01/24 22:52: WBC 10.2, RBC 4.19 L, Hgb 13.1, Hct 38.0 L, MCV 90.7, MCH 31.3, MCHC 34.5, RDW Std Deviation 41.2, RDW Coeff of Sandie 12.6, Plt Count 288, MPV 10.7, Immature Gran % (Auto) 0.600, Neut % (Auto) 70.0, Lymph % (Auto) 19.1, Bay % (Auto) 8.4, Eos % (Auto) 1.4, Baso % (Auto) 0.5, Absolute Neuts (auto) 7.2, Absolute Lymphs (auto) 1.95, Nucleated RBC % 0, Sodium 132 L, Potassium 4.0, Chloride 95 L, Carbon Dioxide 20.9 L, Anion Gap 16 H, BUN 10, Creatinine 0.87, Estim Creat Clear Calc 72.07, Est GFR (MDRD) Non-Af 91, BUN/Creatinine Ratio 11.5, Glucose 114 H, Calcium 10.5, Magnesium 2.1, Total Bilirubin 0.49, Direct Bilirubin 0.10, AST 31, ALT 22, Alkaline Phosphatase 71, Total Protein 7.6, Albumin 4.1, Globulin 3.5, Lipase 147 H Imaging Radiology Impression Abdomen/Pelvis CT 11/01/24 22:53 IMPRESSION: Cystic pancreatic mass, 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 Suspect focal pancreatitis as result of the tumor. Reading Location: [place] [id number] Assessment & Plan Assessment/Plan (1) Pancreatitis: PLAN: Plan The patient is a 74 y/o M w/ PMHx: CKD stage II per previous GFR trending, HTN, HLD, GERD, Anxiety and Depression, Former tobacco use, recent evaluation at for pancreatic mass w/ MRCP/ERCP and Bx w/ mass reportedly nonmalignant who presents to the [facility] ED on 11/02/24 with history of persistent abdominal discomfort for the last several months noted to be dull aching throbbing and stabbing intermittently however severely worsened with any oral intake attempts worsening in the last 4 days than his baseline stating that it actually started when he stressed himself going to catch his when she was about to fall with a significant persistent severe 10 out of 10 abdominal pain with associated nausea with no emesis prompting eventual ED evaluation to be cautious. #1. Acute pancreatitis w/ abdominal pain complicated by cystic pancreatic mass recently worked up at the [facility] noted to be nonmalignant in nature: Given recent evaluation at the [facility] with MRI of the abdomen, ERCP with biopsy noted to be nonmalignant will defer any further aggressive evaluation or consults however given ongoing abdominal pain and evidence of inflammation with acute pancreatitis, Will admit to [facility], maintain on IVFs, NPO until pain improving, maintain on low-dose scheduled Toradol x 5 doses, maintain on IV PPI, IV/po pain control, trend lipase, CMP. Once patient abdominal pain is improving with advance diet and once able to discharge would have patient follow-up with his surgeon to further discuss plans of more definitive intervention. #2. Acute hyponatremia, hypochloremia: Secondary to poor oral intake likely secondary to abdominal pain, admission sodium 132, chloride 95, will continue aggressive hydration given #1 repeat CMP in AM. #3. Severe protein calorie malnutrition: Patient with significantly poor oral intake overall several weeks with associated weight loss, inability to adequately maintain appropriate nutrition, nutrition consulted for recommendations. #4. Chronic Kidney Disease Stage II per previous GFR trending: Admission BUN/Cr 10/0.87, GFR 91 however previously was in the 60s, baseline renal function primarily previously 1.1-1.2, last noted 11/28/2022 creatinine 1.26 thus labs are remote, repeat BMP in AM to further elucidate chronic creatinine level. #5. Anxiety and depression: Will continue patient home bupropion regimen. #6. Hypertension: Continue home regimen including metoprolol with hold parameters as needed, PRN hydralazine. #7. Hyperlipidemia: Will continue patient on statin therapy. #8. GERD: Will maintain on IV PPI. #9. Former tobacco use: Encourage continued tobacco cessation. #10. DVT prophylaxis: Lovenox. #11. CODE status: Patient ARA is his and living will is currently in place. Discussed CODE status at length including difference between FULL code, DNR-CCA and DNR-CC status. Following discussions about the differences in these status, requested Full Code status. Charges/Coding Visit Charges Inpatient E&M: 23497 Init Hosp L3
--- NOTE | 2024-11-02 01:04 | EDS_ITS ---
HPI History of Present Illness Chief Complaint: Abd Pain Informant: patient and family Narrative Narrative: Patient is a 74-year-old male with past med history of hypertension hyperlipidemia. He states that in September of this year he underwent an MRI which showed a pancreatic mass. Then in early October he had an ERCP which he reports stated it was not cancerous. He states he has been on [place] and this has been controlling his pain. However over the last few days his pain has worsened and he has minimal ability to eat and drink. Secondary to the persistent pain the fact that he has not been eating and drinking and the fact [place] is no longer controlling his symptoms he presents for evaluation [facility] Medical History (Updated 11/02/24 @ 02:[address] Lake Myers, DO) Pancreatic mass History of prostate cancer History of malignant neoplasm of appendix GERD (gastroesophageal reflux disease) Hyperlipidemia HTN (hypertension) Home Medications ?Medication ?Instructions ?Recorded ?Last Taken ?Type Lovastatin [Mevacor] 40 mg PO QHS cholesterol 08/29 Unknown History bupropion HCl 300 mg 24 hr tablet, 300 mg PO QHS depre ssion 02/15/19 Unknown History extended release diclofenac sodium 1 % topical gel 1 gm topical PRN PRN arthritis 02/15/19 Unknown History niacin 500 mg tablet,extended 500 mg PO QHS heart heal th 02/15/19 Unknown History release 24 hr omeprazole 20 mg capsule,delayed 40 mg PO QHS gerd 08/2902/23/19 04:30 History release acetaminophen 500 mg tablet 500 mg PO Q4H PRN PRN Pain Or 02/23/19 Unknown Rx Fever #20 tabs docusate sodium 100 mg capsule 100 mg PO BID #20 caps 02/23/19 Unknown Rx ibuprofen 600 mg tablet 600 mg PO Q6H PRN PRN Pain S core 02/23/19 Unknown Rx -01/20 #20 tabs metoprolol succinate 50 mg 50 mg PO QHS bp/hr 02/23/19 Unknown History tablet,extended release 24 hr [id number] cap PO 09/25/24 Unknown Hist ory 36,000-114,000-180,000 unit capsule,delay rel ([place]) Allergy/AdvReac Type Severity Reaction Status Date / Time shellfish derived Allergy Swelling Verified 11/01/24 20:47 Family History (Updated 11/02/24 @ 01:[address] Hanna Holt MD) Mother Cancer Heart disease Father Cancer Heart disease Surgical History (Updated 09/25/24 @ 11:55 by Radha Remy) History of laparoscopy History of cholecystectomy History of appendectomy History of prostatectomy Social History (Updated 11/02/24 @ 01:[address] Hanna Holt MD) household members: spouse Smoking Status: Former smoker alcohol intake: never substance use type: does not use ROS ROS ED Constitutional Constitutional ED: Denies chills or fever(s) ENT ENT ED: Denies sore throat Cardiovascular Cardiovascular: Denies chest pain Respiratory/Chest Respiratory/Chest: Denies cough or dyspnea Gastrointestinal Gastrointestinal: Reports abdominal pain and nausea; Denies diarrhea or vomiting Genitourinary Genitourinary ED: Denies dysuria Musculoskeletal Musculoskeletal: Denies back pain or myalgias Integumentary Denies rash Neurologic Neurologic: Reports weakness; Denies headache(s) Hematologic/Lymphatic Hematologic/Lymphatic: Denies easy bleeding or easy bruising EXAM Physical Exam Const Vital Signs: 11/01/24 20:41 11/02/24 00:00 Temperature 98 F Temperature Source Oral Pulse Rate 116 H 98 Respiratory Rate 18 18 Blood Pressure 145/87 H 144/74 H Blood Pressure Mean 106 97 Pulse Ox 98 99 Oxygen Delivery Method Room Air Positive well nourished and well developed General Appearance ED: well developed; Negative for pallor HEENT Reports dry mucous membranes HEENT Narrative: No tongue or lip swelling no oral lesions no airway edema or compromise; no secondary findings in the posterior pharynx to suggest infection Mucous membranes are dry and tacky Mouth ED: Yes dry mucous membranes Mouth: dry mucous membranes Eyes PERRL and EOMs intact bilaterally General Eye ED: Negative for scleral icterus Neck supple Neck Narrative: No nuchal rigidity or meningeal signs Resp normal respiratory effort and clear to auscultation bilaterally Cardio regular rate and regular rhythm Rate: other Other Details: Radial and carotid pulses are equal and symmetric GI non-distended and no masses GI Narrative: Abdomen is soft and nondistended with normal active bowel sounds. No voluntary guarding or rigidity or pulsatile mass. No obvious incarcerated hernia noted. There is pain on palpation in the midepigastric region. No peritoneal signs however Auscultation: normoactive bowel sounds Palpation: soft Extremity normal to inspection Extremity Narrative: No asymmetric edema no pitting edema negative Homans' sign bilaterally Neuro oriented x3, CN's II-XII intact bilaterally and no sensory deficits noted Sensorium / Orientation: alert Motor Exam: strength 5/5 throughout Psych mental status grossly normal Skin no rashes or lesions noted and No skin turgor normal Skin Narrative: Skin turgor is elevated consistent with dehydration General Skin Exam: Negative for jaundice or pallor MDM MDM MDM Narrative Medical decision making narrative: Patient arrived to the ER overall stable vitals and a soft nonsurgical abdomen. With his known pancreatic mass and now worsening pain there is concern for potential secondary infection or pancreatitis and with his recent surgical procedure potential perforation. Secondary to this basic labs were obtained as well as a CT scan with IV contrast. Labs revealed no clinically significant fin dings going against clinically significant electrolyte abnormality or acute kidney injury. CT scan confirmed/displayed the mass roughly the same size as the MRI but now it shows focal inflammation concerning for acute pancreatitis. This would explain his worsening pain and symptoms. I do feel he would benefit from IV hydration and IV pain control and therefore I discussed the case with the hospitalist. She agrees to accept him to their service for continued monitoring and care History & Record Review Discussion w/independent historian: Patient and Family Lab Data Attestation: I reviewed the patient's lab results. Labs: Laboratory Results - last 24 hr 11/01/24 22:52 WBC 10.2 RBC 4.19 L Hgb 13.1 Hct 38.0 L MCV 90.7 MCH 31.3 MCHC 34.5 RDW Std Deviation 41.2 RDW Coeff of Sandie 12.6 Plt Count 288 MPV 10.7 Immature Gran % (Auto) 0.600 Neut % (Auto) 70.0 Lymph % (Auto) 19.1 [place] % (Auto) 8.4 Eos % (Auto) 1.4 Baso % (Auto) 0.5 Absolute Neuts (auto) 7.2 Absolute Lymphs (auto) 1.95 Nucleated RBC % 0 Sodium 132 L Potassium 4.0 Chloride 95 L Carbon Dioxide 20.9 L Anion Gap 16 H BUN 10 Creatinine 0.87 Estim Creat Clear Calc 72.07 Est GFR (MDRD) Non-Af 91 BUN/Creatinine Ratio 11.5 Glucose 114 H Calcium 10.5 Phosphorus 3.0 Magnesium 2.1 Total Bilirubin 0.49 Direct Bilirubin 0.10 AST 31 ALT 22 Alkaline Phosphatase 71 Total Protein 7.6 Albumin 4.1 Globulin 3.5 Lipase 147 H Radiography Diagnostic Testing: Clinical Impression(s) from Imaging Studies Abdomen/Pelvis CT 11/01/24 22:53 IMPRESSION: Cystic pancreatic mass, 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 Suspect focal pancreatitis as result of the tumor. Reading Location: [place] [id number] Management Discussion w/another healthcare provider: Hospitalist Discharge Plan Dx/Rx/DC Orders Clinical Impression: Pancreatitis, HTN (hypertension), Hyperlipidemia, Pancreatic mass, Dehydration Disposition Disposition: Acute Care Hospital [facility]
[2024-11-02] MEDS: HYDROmorphone 0.5 MG/0.5 ML SYRINGE IV (01:16)
--- OUTSIDE RECORDS SUMMARY | 2024-11-02 01:16 | XMS RPT_ITS | CCD ---
Author Organization [facility] Care Team Providers Care Candle Extrusion Machine Operator Name Role Phone Narendra Zaman Primary Care Provider MONSE CLIENT ACCOUNT MANAGERROSITA, AVILA Primary Care Physician [phone] Narendra Zaman DO Primary Care Provid er MONSE CLIENT ACCOUNT MANAGERROSITA, AVILA Primary Care Physician [phone] KEYURTES CLIENT ACCOUNT MANAGER-PACKING AND WRAPPING SUPERVISOR, AVILA Attending Unavailabl e BALTES CLIENT ACCOUNT MANAGER-PACKING AND WRAPPING SUPERVISOR, AVILA Primary Care Unavailabl e BALTES CLIENT ACCOUNT MANAGER-PACKING AND WRAPPING SUPERVISOR, AVILA Attending Unavailabl e BALTES CLIENT ACCOUNT MANAGER-PACKING AND WRAPPING SUPERVISOR, AVILA Primary Care Unavailabl DR BILL Okeefe MD Attending Unavailabl e BALTES CLIENT ACCOUNT MANAGER-PACKING AND WRAPPING SUPERVISOR, AVILA Primary Care Unavailabl e BALTES CLIENT ACCOUNT MANAGER-PACKING AND WRAPPING SUPERVISOR, AVILA Attending Unavailabl e BALTES CLIENT ACCOUNT MANAGER-PACKING AND WRAPPING SUPERVISOR, AVILA Primary Care Unavailabl e JOSE LOPEZ DO Attending Unavailable MONSE CLIENT ACCOUNT MANAGER-PACKING AND WRAPPING SUPERVISOR, AVILA Primary Care UnavailDr. Josy Centeno DO Primary Care Provider Dr. Josy Zaman DO Referring Provider [phone] Tito Rodriguez Attending Provider [phone] Tito Abad NP Attending Unavailable Josy Zaman Referring Unavailable Josy Zaman Primary Care Unavailable MONSE CLIENT ACCOUNT MANAGER-PACKING AND WRAPPING SUPERVISOR, AVILA Primary Care Unavailabl e BALTES CLIENT ACCOUNT MANAGER-PACKING AND WRAPPING SUPERVISOR, AVILA Attending Unavailabl e BALTES CLIENT ACCOUNT MANAGER-PACKING AND WRAPPING SUPERVISOR, AVILA Primary Care Unavailabl e BALTES CLIENT ACCOUNT MANAGER-PACKING AND WRAPPING SUPERVISOR, AVILA Attending Unavailabl e BALTES CLIENT ACCOUNT MANAGER-PACKING AND WRAPPING SUPERVISOR, AVILA Attending Unavailabl e BALTES CLIENT ACCOUNT MANAGER-PACKING AND WRAPPING SUPERVISOR, AVILA Primary Care UnavailDR BILL Montez MD Attending Unavailabl e BALTES CLIENT ACCOUNT MANAGER-PACKING AND WRAPPING SUPERVISOR, AVILA Primary Care Unavailabl e BALTES CLIENT ACCOUNT MANAGER-PACKING AND WRAPPING SUPERVISOR, AVILA Attending Jimi SHEA APRN-PACKING AND WRAPPING SUPERVISOR, AVILA Primary Care Unavailabl e MONSE CLIENT ACCOUNT MANAGER-PACKING AND WRAPPING SUPERVISOR, AVILA Attending Jimi SHEA APRN-PACKING AND WRAPPING SUPERVISOR, AVILA Primary Care Unavailabl e Unavailable Primary Care Provider MIGUEL ANGEL Fall Referring Unavailable DAVID VORA Attending Unavailable Allergies Allergy Classification Reported Allergen(s) Allergy Type Date of Onset Reaction(s) Facility Shellfish (4 sources) Shellfish Food Allergy 0 Anaphylaxis [facility] (20 sources) Shellfish; Translations: [shellfish derived] Drug Allergy 0 Anaphylaxis [facility] (20 sources) Pepper (Genus Capsicum); Translations: [PEPPER (GENUS CAPSICUM)] Propensity to adverse reactions to drug 0 Unknown [facility] (14 sources) Bee/Wasp/Ant venom Allergy to substance Swelling [facility] (14 sources) Ibuprofen; Translations: [ibuprofen] Drug Allergy Angina (disorder) [facility] Comment on above: angina (14 sources) Shellfish Food allergy Swelling (morphologic abnormality) [facility] Medications Current Medications Medication Drug Class(es) Dates Sig (Normalized) Sig (Original) acetaminophen 500 mg oral tablet (1 source) Start: 02-23-2019 take 1 tablet by mouth every four hours as needed for pain Acetaminophen 500 MG tablet Active 500 mg PO EVERY 4 HOURS NEEDED as needed for Pain Or Fever February 23, 2019 1:00am acetaminophen 325 mg / HYDROcodone bitartrate 5 mg oral tablet (2 sources) Opioid Agonist Start: 09-13-2024 End: 09-19-2024 take 1 tablet by mouth twice daily as needed for pain acetaminophen-hydro codone 325 mg-5 mg oral tablet Dose = 1 tab(s), Oral, BID, PRN for pain, X 6 day(s), # 12 tab(s), 0 Refill(s), Pharmacy: [facility], Abdominal pain Pancreatitis, 169, cm, 09/13/24 9:56:00 EDT, Height, 78.8, kg, 09/13/24 9:56:00 EDT, Dosing Weight Start Date: 09/13/24 Stop Date: 09/19/24 Status: Ordered Quantity: 12.0 Unit: tab(s) Repeat number: 1 Indications: Unspecified abdominal pain; Acute pancreatitis without necrosis or infection, unspecified; amylase [id number] unt / lipase 99923 unt / protease [id number] unt delayed release oral capsule (4 sources) Start: 09-13-2024 Lsqajb-Bdxhphdm-Obl lase (Creon) 36,000-114,000- 180,000 unit capsule,delayed release(DR/EC) Active NMA PO September 25, 2024 12:00am atorvastatin 10 mg oral tablet (1 source) HMG-CoA Reductase Inhibitor Start: 11-15-2021 Lipitor 10 mg oral tablet Dose : 10 mg = 1 tab(s), Oral, qHS, 0 Refill(s) Start Date: 11/15/21 Status: Ordered 24 hr buPROPion hydrochloride 150 mg extended release oral tablet (20 sources) Aminoketone Start: 09-06-2024 take 1 tablet by mouth every hour, then take 1 tablet by mouth every twenty-four hours buPROPion 150 mg/24 hours (XL) oral tablet, extended release Dose : 150 mg = 1 tab(s), Oral, q24h, dose decreased, # 90 tab(s), 3 Refill(s), Pharmacy: [facility], Mood disorder, 169, cm, 03/18/24 10:24:00 EST, Height, kg, 03/18/24 10:24:00 EST, Dosing Weight Start Date: 09/06/24 Status: Ordered Quantity: 90.0 Unit: tab(s) Repeat number: 4 Indications: Unspecified mood [affective] disorder; Start: 09-17-2023 take 1 tablet by harini th every hour, then take 1 tablet by mouth every twenty-four hours buPROPion 150 mg/24 hours (XL) oral tablet, extended release Dose : 150 mg = 1 tab(s), Oral, q24h, dose decreased, # 90 tab(s), 3 Refill(s), Pharmacy: [facility], Mood disorder, 169, cm, 09/17/23 10:26:00 EDT, Height, kg, 09/17/23 10:26:00 EDT, Dosing Weight Start Date: 09/17/23 Status: Ordered Start: 12-16-2022 take 1 tablet by harini th every hour, then take 1 tablet by mouth every twenty-four hours buPROPion 150 mg/24 hours (XL) oral tablet, extended release Dose : 150 mg = 1 tab(s), Oral, q24h, dose decreased, # 90 tab(s), 3 Refill(s), Pharmacy: [facility] ([facility]), Mood disorder, 170.2, cm, 11/26/22 14:29:00 EDT, Height, kg, 11/26/22 14:29:00 EDT, Dosing Weight Start Date: 12/16/22 Status: Ordered Start: 09-13-2022 take 1 tablet by harini th every hour, then take 1 tablet by mouth once daily at bedtime buPROPion 300 mg/24 hours (XL) oral tablet, extended release Dose : 300 mg = 1 tab(s), Oral, qHS, # 90 tab(s), 3 Refill(s), Pharmacy: [facility] ([facility] ), Mood disorder, 170.2, cm, 09/12/22 9:56:00 EDT, Height, kg, 09/12/22 9:56:00 EDT, Dosing Weight Start Date: 09/13/22 Status: Ordered Start: 01-16-2022 take 1 tablet by harini th every hour, then take 1 tablet by mouth once daily at bedtime buPROPion 300 mg/24 hours (XL) oral tablet, extended release Dose : 300 mg = 1 tab(s), Oral, qHS, # 90 tab(s), 1 Refill(s), Pharmacy: [facility] ([facility]), Mood disorder, 168.91, cm, 01/16/22 10:58:00 EDT, Height, kg, 01/16/22 10:58:00 EDT, Dosing Weight Start Date: 01/16/22 Status: Ordered Start: 09-10-2021 take 1 tablet by harini th every hour, then take 1 tablet by mouth once daily at bedtime buPROPion 300 mg/24 hours (XL) oral tablet, extended release Dose : 300 mg = 1 tab(s), Oral, qHS, # 90 tab(s), 1 Refill(s), Pharmacy: [facility], Mood disorder, 168.91, cm, 09/10/21 9:56:00 EDT, Height Start Date: 09/10/21 Status: Ordered Start: 06-24-2021 take 1 tablet by mouth once da chaim buPROPion XL (WELLBUTRIN XL) 300 mg 24 hr tablet TAKE 1 TABLET BY MOUTH DAILY 90 tablet 3 06/24/2021 Active Start: 12-12-2019 End: 06-26-2020 take 1 tablet by mouth once daily buPROPion XL (WELLBU DINESH XL) 300 mg 24 hr tablet TAKE 1 TABLET BY MOUTH DAILY 90 tablet 3 06/26/2020 Active Start: 02-15-2019 take 1 tablet by harini th every twenty-four hours at bedtime Bupropion Hcl 300 MG tablet extended release 24 hr Active 300 mg PO AT BEDTIME February 15, 2019 1:00am Start: 06-19-2018 take 1 tablet by harini th every hour, then take 1 tablet by mouth once daily at bedtime buPROPion 300 mg/24 hours (XL) oral tablet, extended release Dose : 300 mg = 1 tab(s), Oral, qHS, 0 Refill(s) Start Date: 06/19/18 Status: Ordered Comment on above: Take 1 tablet by harini th once daily. TAKE 1 TABLET BY HARINI TH DAILY cephalexin 500 mg oral tablet (1 source) Cephalosporin Antibacterial Start: 09-26-19 take 1 tablet by mouth three times daily Cephalexin 500 mg tablet Active 500 mg PO THREE TIMES A DAY 30 September 25, 2024 12:00am October 04, 2024 12:00am diclofenac sodium 0.01 mg/mg topical gel (1 source) Nonsteroidal Anti-inflammatory Drug Start: 02-16-20 Diclofenac Sodium 1 APPLIC gel Active 1 g TOPICAL NEEDED as needed for arthritis February 15, 2019 1:00am diphenhydrAMINE hydrochloride 25 mg oral capsule (20 sources) Histamine-1 Receptor Antagonist Start: 09-13-19 Benadryl 25 mg oral capsule Dose : 25 mg = 1 cap(s), Oral, qHS, 0 Refill(s) Start Date: 09/12/20 Status: Ordered Repeat number: 1 Comment on above: Take 25 mg by mouth daily at bedtime. docusate sodium 100 mg oral capsule (1 source) Start: 02-24-20 take 1 capsule by mouth twice daily Docusate Sodium 100 MG capsule Active 100 mg PO TWICE A DAY February 23, 2019 1:00am ibuprofen 600 mg oral tablet (1 source) Nonsteroidal Anti-inflammatory Drug Start: 02-24-20 take 1 tablet by mouth every six hours as needed for pain Ibuprofen 600 MG tablet Active 600 mg PO EVERY 6 HOURS NEEDED as needed for Pain Score February 23, 2019 9:15am losartan potassium 100 mg oral tablet (20 sources) Angiotensin 2 Receptor Erica Start: 02-26-20 losartan 50 mg oral tablet Dose : 50 mg = 1 tab(s), Oral, qDay, # 90 tab(s), 3 Refill(s), Pharmacy: [facility], Hypertension, 169, cm, 09/17/23 10:26:00 EDT, Height, kg, 09/17/23 10:26:00 EDT, Dosing Weight Start Date: 09/17/23 Status: Ordered Start: 08-23-2020 End: 11-21-2020 losartan 100 mg oral tablet Dose : 100 mg = 1 tab(s), Oral, qDay, # 100 tab(s), 3 Refill(s), Pharmacy[facility], 169, cm, 03/18/24 10:24:00 EST, Height, kg, 03/18/24 10:24:00 EST, Dosing Weight Start Date: 09/06/24 Status: Ordered Quantity: 100.0 Unit: tab(s) Repeat number: 4 Start: 08-02-2020 End: 09-20-2020 take 1 tablet by mouth once daily losartan (COZAAR) 50 mg tablet Indications: Essential (primary) hypertension Take 1 tablet by mouth once daily. 30 tablet 3 08/02/2020 09/20/2020 Discontinued (Course of therapy completed) Comment on above: Take 1 tablet by harini th once daily. TAKE ONE TABLET BY M OUTH DAILY lovastatin 40 mg oral tablet (20 sources) HMG-CoA Reductase Inhibitor Start: 06-24-2021 lovastatin 40 mg oral tablet Dose : 40 mg = 1 tab(s), Oral, qDay, # 100 tab(s), 3 Refill(s), Pharmacy: [facility], 169, cm, 03/18/24 10:24:00 EST, Height, kg, 03/18/24 10:24:00 EST, Dosing Weight Start Date: 09/06/24 Status: Ordered Quantity: 100.0 Unit: tab(s) Repeat number: 4 Start: 06-19-2018 End: 06-26-2020 take 1 tablet by mouth once daily lovastatin 40 mg tablet TAKE 1 TABLET BY MOUTH DAILY 90 tablet 3 06/24/2021 Active Comment on above: Take 1 tablet by harini th once daily. TAKE 1 TABLET BY HARINI TH DAILY metoprolol tartrate 50 mg oral tablet (20 sources) beta-Adrenergic Erica Start: 09-06-2024 Metoprolol Succinate ER 50 mg oral TABLET extended release Dose : 50 mg = 1 tab(s), Oral, qDay, # 100 tab(s), 3 Refill(s), Pharmacy: [facility], Hypertension, 169, cm, 03/18/24 10:24:00 EST, Height, kg, 03/18/24 10:24:00 EST, Dosing Weight Start Date: 09/06/24 Status: Ordered Quantity: 100.0 Unit: tab(s) Repeat number: 4 Indications: Essential (primary) hypertension; Start: 09-17-2023 Metoprolol Suc cinate ER 50 mg oral TABLET extended release Dose : 50 mg = 1 tab(s), Oral, qDay, # 90 tab(s), 3 Refill(s), Pharmacy: [facility], Hypertension, 169, cm, 09/17/23 10:26:00 EDT, Height, kg, 09/17/23 10:26:00 EDT, Dosing Weight Start Date: 09/17/23 Status: Ordered Start: 09-13-2022 Metoprolol Suc cinate ER 50 mg oral TABLET extended release Dose : 50 mg = 1 tab(s), Oral, qDay, # 90 tab(s), 3 Refill(s), Pharmacy: [facility] ([facility] ), Hypertension, 170.2, cm, 09/12/22 9:56:00 EDT, Height, kg, 09/12/22 9:56:00 EDT, Dosing Weight Start Date: 6/3/23 Status: Ordered Start: 01-16-2022 Metoprolol Suc cinate ER 50 mg oral TABLET extended release Dose : 50 mg = 1 tab(s), Oral, qDay, # 90 tab(s), 1 Refill(s), Pharmacy: [facility] ([facility]), Hypertension, 168.91, cm, 01/16/22 10:58:00 EDT, Height, kg, 01/16/22 10:58:00 EDT, Dosing Weight Start Date: 01/16/22 Status: Ordered Start: 09-10-2021 Metoprolol Suc cinate ER 50 mg oral TABLET extended release Dose : 50 mg = 1 tab(s), Oral, qDay, # 90 tab(s), 1 Refill(s), Pharmacy: [facility], Hypertension, 168.91, cm, 09/10/21 9:56:00 EDT, Height Start Date: 09/10/21 Status: Ordered Start: 08-02-2020 Metoprolol Suc cinate ER 50 mg oral TABLET extended release Dose : 50 mg = 1 tab(s), Oral, qDay, # 30 tab(s), 0 Refill(s) Start Date: 08/02/20 Status: Ordered Start: 08-02-2020 End: 02-19-2021 take 1 tablet by mouth once daily metoprolol succinate ER (TOPROL XL) 50 mg 24 hr tablet Indications: Essential (primary) hypertension Take 1 tablet by mouth once daily. 90 tablet 3 11/21/2020 Active Start: 11-22-2019 End: 08-23-2020 take 1 tablet by mouth once daily metoprolol succinate ER (TOPROL XL) 100 mg Indications: Essential hypertension Take 1 tablet by mouth once daily. 30 tablet 1 04/17/2020 08/23/2020 Discontinued (Course of therapy completed) Start: 02-23-2019 End: 11-15-2021 metoprolol succinate 50 mg o ral TABLET extended release Start: 11/15/21 8:00:00 EDT, Dose = 50 mg, = 1 tab(s), Oral, give with food/meal, 0, 11/15/21 2:15:00 EDT Start Date: 11/15/21 Stop Date: 11/15/21 Status: Completed Comment on above: Take 100 mg by mouth once daily. Take 1 tablet by harini th once daily. Multiple Vitamins oral capsule (11 sources) Start: 09-12-2020 take 1 capsule by mouth once daily Multiple Vitamins oral capsule Dose = 1 cap(s), Oral, Daily, 0 Refill(s) Start Date: 09/12/20 Status: Ordered 24 hr niacin 500 mg extended release oral tablet (20 sources) Nicotinic Acid Start: 02-15-2019 take 1 tablet by mouth every twenty-four hours at bedtime Niacin 500 MG tablet extended release 24 hr Active 500 mg PO AT BEDTIME February 15, 2019 1:00am Start: 06-19-2018 niacin 500 mg oral tablet Dose : 500 mg = 1 tab(s), Oral, qHS, 0 Refill(s) Start Date: 06/19/18 Status: Ordered Repeat number: 1 take 1 tablet by harini th once daily niacin ER (NIASPAN) 500 mg tablet Take 500 mg by mouth once daily. Active Comment on above: Take 500 mg by mouth once daily. omeprazole 40 mg delayed release oral capsule (20 sources) Proton Pump Inhibitor Start: 09-06-2024 omeprazole 40 mg oral delayed release capsule Dose : 40 mg = 1 cap(s), Oral, qDay, # 90 cap(s), 3 Refill(s), Pharmacy: [facility], 169, cm, 03/18/24 10:24:00 EST, Height, kg, 03/18/24 10:24:00 EST, Dosing Weight Start Date: 09/06/24 Status: Ordered Quantity: 90.0 Unit: cap(s) Repeat number: 4 Start: 01-16-2022 omeprazole 20 mg oral delayed release capsule Dose : 20 mg = 1 cap(s), Oral, qDay, # 90 cap(s), 0 Refill(s), Pharmacy: [facility] ([facility]), GERD (gastroesophageal reflux disease), 168.91, cm, 01/16/22 10:58:00 EDT, Height Start Date: 01/16/22 Status: Ordered Start: 02-15-2019 take 2 capsules by m outh at bedtime Omeprazole 20 MG capsule Active 40 mg PO AT BEDTIME February 15, 2019 1:00am Start: 06-19-2018 End: 06-26-2020 omeprazole 40 mg oral delaye d release capsule Dose : 40 mg = 1 cap(s), Oral, qDay, # 90 cap(s), 3 Refill(s), [facility], 169, cm, 09/17/23 10:26:00 EDT, Height, kg, 09/17/23 10:26:00 EDT, Dosing Weight Start Date: 09/17/23 Status: Ordered Comment on above: Take 1 capsule by [facility] once daily. 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 Dissolve 1 kwame under the tongue 30-60 minutes prior to sexual activity 90 Kwame 1 04/17/2020 Active End: 04-17-2020 tadalafil 20 mg kwame (CPD) Take 20 mg by mouth as directed. Dissolve 1 kwame under the tongue 30-60 minutes prior to sexual activity 0 04/17/2020 Discontinued Comment on above: Take 1 Kwame by [facility] as directed. Dissolve 1 kwame under the tongue 30-60 minutes prior to sexual activity Take 20 mg by mouth as directed. Dissolve 1 kwame under the tongue 30-60 minutes prior to sexual activity Vitamin B Complex with Folic Acid oral tablet (3 sources) Start: 11-26-2022 take 1 tablet by mouth once daily Vitamin B Complex with Folic Acid oral tablet tab(s), Oral, qDay, 0 Refill(s) Start Date: 11/26/22 Status: Ordered Completed/Discontinued Medications Medication Drug Class(es) Dates Sig (Normalized) Sig (Original) 5 ml bupivacaine hydrochloride 2.5 mg/ml injection (1 source) Amide Local Anesthetic Start: 09-20-2020 End: 09-20-2020 bupivacaine (PF) 0.25 % (2.5 mg/mL) 2.5 mg injection (SENSORCAINE MPF) ciprofloxacin 500 mg oral tablet (4 sources) Quinolone Antimicrobial Start: 06-28-2020 End: 07-12-2020 take 1 tablet by mouth twice daily ciprofloxacin HCl (CIPRO) 500 mg tablet Take 1 tablet by mouth twice daily for 14 doses. 14 tablet 0 06/29/2020 07/06/2020 Active Start: 02-23-2019 End: 09-25-2024 take 1 tablet by mouth twice daily ciprofloxacin HCl (CIPRO) 500 mg tablet Take 1 tablet by mouth twice daily for 14 days. 14 tablet 0 03/14/2020 03/28/2020 Comment on above: Take 1 tablet by harini th twice daily for 14 days. Take 1 tablet by harini th twice daily for 14 doses. [id number] 0.3 ml EPINEPHrine 1 mg/ml auto-injector (18 sources) alpha-Adrenergic Agonist, beta-Adrenergic Agonist, Catecholamine End: 08-23-2020 EPINEPHrine (EPIPEN 2-THOMAS) 0.3 mg/0.3 mL auto-injector Inject 0.3 mg intramuscularly as needed. 0 08/23/2020 Discontinued (Course of therapy completed) EPINEPHrine (EPI PEN 2-THOMAS) 0.3 mg/0.3 mL auto-injector Inject 0.3 mg intramuscularly as needed. 0 Active Comment on above: Inject 0.3 mg intram uscularly as needed. 1 ml evolocumab 140 mg/ml auto-injector (11 sources) [id number] Inhibitor Start: End: inject 140 mg by subcutaneous injection every other week evolocumab (REPATHA SURECLICK) 140 mg/mL pen injector Inject 140 mg subcutaneously every 2 weeks. 2 Pen 1 04/19/2020 08/23/2020 Discontinued (Course of therapy completed) Comment on above: Inject 140 mg subcut aneously every 2 weeks. Fish, flax seed, borage (14 sources) Start: Fish, flax seed, borage Fish, flax seed, borage, 2,400 mg, Oral, Daily, 2-1200 mg caps, 0 Refill(s), 89.13 Start Date: 03/12/21 Status: Ordered Repeat number: 1 Start: 03-12-2021 Fish, flax see d, borage Fish, flax seed, borage, 2,400 mg, Oral, Daily, 2-1200 mg caps, 0 Refill(s), 89.13 Start Date: 03/12/21 Status: Ordered Lidocaine (1 source) Antiarrhythmic, Amide Local Anesthetic Start: 09-20-2020 End: 09-20-2020 lidocaine 20 mg/mL (2 %) 60 mg injection (XYLOCAINE) mariguana flower-smokes (6 sources) Start: 03-13-2023 mariguana flower-smokes mariguana flower-smokes, usually once, sometimes twice, 0 Refill(s), 92.3 Start Date: 03/13/23 Status: Ordered Repeat number: 1 Start: 03-13-2023 mariguana flow er-smokes mariguana flower-smokes, usually once, sometimes twice, 0 Refill(s), 92.3 Start Date: 03/13/23 Status: Ordered metroNIDAZOLE 500 mg oral tablet (3 sources) Nitroimidazole Antimicrobial Start: 06-28-2020 End: 07-12-2020 take 1 tablet by mouth three times daily metroNIDAZOLE (FLAGYL) 500 mg tablet Take 1 tablet by mouth three times daily for 21 doses. 21 tablet 0 06/29/2020 07/06/2020 Active Start: 03-14-2020 End: 03-28-2020 take 1 tablet by mouth three times daily metroNIDAZOLE (FLAGYL) 500 mg tablet Take 1 tablet by mouth three times daily for 14 days. 21 tablet 0 03/14/2020 03/28/2020 Comment on above: Take 1 tablet by harini th three times daily for 14 days. Take 1 tablet by harini th three times daily for 21 doses. oxyCODONE hydrochloride 5 mg oral tablet (2 sources) Opioid Agonist Start: 07-22-2021 oxyCODONE 5 mg oral tablet ( IMMEDIATE release ) Dose : 5 mg = 1 tab(s), Oral, q6h, PRN for pain, 0 Refill(s), 90.2 Start Date: 07/22/21 Status: Ordered 1 ml testosterone cypionate 200 mg/ml injection (20 sources) Androgen Start: 07-02-2020 End: 07-02-2020 testosterone cypionate 200 mg injection (DEPO-TESTOSTERONE) Start: 05-31-2020 End: 05-31-2020 testosterone cypionate 200 m g injection (DEPO-TESTOSTERONE) Start: 05-03-2020 End: 05-03-2020 testosterone cypionate 200 m g injection (DEPO-TESTOSTERONE) Start: 03-29-2020 End: 03-29-2020 testosterone cypionate 200 m g injection (DEPO-TESTOSTERONE) Start: 03-01-2020 End: 03-01-2020 testosterone cypionate 200 m g injection (DEPO-TESTOSTERONE) Start: 01-25-2020 End: 08-23-2020 testosterone cypionate (DEPO -TESTOSTERONE) 200 mg/mL injection Indications: Adult ADHD Inject 1 mL intramuscularly every 4 weeks for 30 days. 1 mL 1 05/03/2020 08/23/2020 Discontinued (Course of therapy completed) Comment on above: INJECT 1 ML INTRAMUS CULARLY EVERY 4 WEEKS Inject 1 mL intramus cularly every 4 weeks for 31 days. Inject 1 mL intramus cularly every 4 weeks for 30 days. 1 ml triamcinolone acetonide 40 mg/ml injection (1 source) Corticosteroid Start: 09-20-2020 End: 09-20-2020 triamcinolone acetonide 40 mg injection (KENALOG 40) Problems Active Problems Problem Classification Problem Date Documented Da te Episodic/Chronic Abdominal pain (1 source) Abdominal pain; Translations: [Unspecified abdominal pain] Onset: 2 Episodic Anxiety disorders (2 sources) Anxiety disorder; Translations: [Other specified anxiety disorders] Onset: 2 Chronic Attention-deficit conduct and disruptive behavior disorders (1 source) Adult attention deficit hyperactivity disorder ; Translations: [Adult ADHD] Chronic Cancer of colon (9 sources) 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 Cancer of prostate (14 sources) History of malignant neoplasm of prostate 03-13-2021 Episodic Disorders of lipid metabolism (20 sources) Mixed hyperlipidemia; Translations: [Mixed hyperlipidemia] Onset: 2 04-17-2020 Chronic Esophageal disorders (1 source) Gastroesophageal reflux disease; Translations: [Gastro-esophageal reflux disease without esophagitis] 09-25-2024 Chronic Essential hypertension (20 sources) Essential hypertension; Translations: [Essential (primary) hypertension] Onset: 1 04-17-2020 Chronic Mood disorders (16 sources) Mood disorder; Translations: [Depressive disorder] Onset: 2 03-13-2021 Chronic Osteoarthritis (1 source) Disorder of shoulder; Translations: [Primary osteoarthritis, unspecified shoulder] Chronic Other endocrine disorders (5 sources) Testicular hypofunction; Translations: [Testicular hypofunction] Chronic Other gastrointestinal disorders (14 sources) History of diverticulitis 11-30-2021 Episodic Other gastrointestinal disorders (14 sources) History of pancreatitis 03-12-2021 Episodic Other male genital disorders (20 sources) Secondary erectile dysfunction; Translations: [Male erectile dysfunction, unspecified] Onset: 1 04-17-2020 Chronic Pancreatic disorders (not diabetes) (16 sources) Acute pancreatitis; Translations: [Acute pancreatitis without necrosis or infection, unspecified] Onset: 2 Episodic Residual codes; unclassified (7 sources) History of partial resection of colon 09-24-2022 Episodic Skin and subcutaneous tissue infections (2 sources) Cellulitis; Translations: [Cellulitis, unspecified] 09-25-2024 Episodic Spondylosis; intervertebral disc disorders; other back problems (14 sources) Decreased range of cervical spine movement 09-12-2020 Episodic Unclassified (20 sources) Patient encounter status; Translations: [Screening for thyroid disorder] Onset: 1 04-17-2020 Past or Other Problems Problem Classification Problem Date Documented Da te Episodic/Chronic Other screening for suspected conditions (not mental disorders or infectious disease) (20 sources) Patient encounter status; Translations: [Encounter for screening for other suspected endocrine disorder] Onset: 04-17-2020 04-17-2020 Episodic Results Test Name Value Interpretation Reference Range Facility [facility] 10-19-2024 [facility] Telephone ([facility]) -- DAVID BALDERRAMA ([id number]) 1950 M Date Time Provider Department 10/19/24 MIGUEL ANGEL ERVIN [facility] During your visit today, we recorded the following information about you: Alberto Ng 10/19/2024 4:47 PM Signed calling #[phone] Patient stated he missed a call regarding his lab results, wondering if he is able to still get those results via phone call. Verified call back number listed Thank you Alberto Mcdonald 10/21/2024 8:33 AM Signed Patient calling back to follow up on message on getting results, would like a phone call of some kind today. Number listed in pervious message is the best number Thank you, Miguel Angel Soto MD 10/21/2024 11:11 AM Signed Spoke to patient and informed him that overall, the fluid analysis argues against a cancerous or precancerous cyst. The issue is his ongoing pain. He got ~1 week relief with celiac plexus block, then pain returns. I asked him to have the MRI from [facility] sent to me for review in [facility] conference. He has my office address and will do so jean. I asked him to contact my office 10 days after requesting the images if he has not heard from me. MD Hernandez Tolentino Emma 10/25/2024 7:52 AM Signed Scanned into chart Alberto Ng 10/25/2024 3:47 PM Signed Patient called to make sure we received results as you were waiting for those, let him know we did receive the report and they were sent for review Thank you Alberto Dia Allergies As of Date: 10/19/2024 Noted Allergy Reaction SHELLFISH DERIVED 01/31/2020 10 - Anaphylaxis PEPPER (GENUS CAPSICUM) 01/31/2020 16 - Unknown Date Reviewed: 10/13/2024 Reviewed by: Analia Boothe RN - Fully Assessed Reason for Visit: Results [95] Cmt: Lab Results/ MRI results Prescriptions as of 10/25/2024 - buPROPion XL (WELLBUTRIN XL) 300 mg 24 hr tablet TAKE 1 TABLET BY MOUTH DAILY - lovastatin 40 mg tablet TAKE 1 TABLET BY MOUTH DAILY - losartan (COZAAR) 50 mg tablet TAKE ONE TABLET BY MOUTH DAILY - metoprolol succinate ER (TOPROL XL) 50 mg 24 hr tablet Take 1 tablet by mouth once daily. - losartan (COZAAR) 100 mg tablet Take 1 tablet by mouth once daily. - omeprazole (PRILOSEC) 40 mg capsule TAKE 1 CAPSULE BY MOUTH DAILY - tadalafil 20 mg kwame (CPD) Take 1 Kwame by mouth as directed. Dissolve 1 kwame under the tongue 30-60 minutes prior to sexual activity - diphenhydrAMINE (BENADRYL) 25 mg capsule Take 25 mg by mouth daily at bedtime. - niacin ER (NIASPAN) 500 mg tablet Take 500 mg by mouth once daily. Problem List As Of Date 10/19/2024 Noted Resolved Mixed hyperlipidemia [E78.2] Essential (primary) hypertension [I10] 04/17/2020 ED (erectile dysfunction) of organic origin [N5*04/17/2020 Screening for thyroid disorder [Z13.29] 04/17/2020 Encounter Status:Closed by ALBERTO NG on 10/21/24 [facility] ANES POSTPROC EVALon 025 ANES POSTPROC EVAL HNO ID: [id number] Author: TITO SEWELL MD Service: ? 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 Post Anesthesia Patient Status Patient Evaluation: PACU. PACU/ICU Patient Condition: stable. Anticipated Disposition: phase 2 then home. Neurological Status: aware and responsive. Pulmonary Status: breathing comfortably on room air Airway Control: returned to baseline unsupported. Cardiovascular Status: stable. Pain Management: clinically adequate Postoperative Hydration: acceptable. Intraoperative Events: no significant anesthesia events Post Operative Nausea/Vomiting Status: no significant post operative nausea or vomiting Recommendation: continue current plan of care. Anesthesia Observations No Documentation SIGNATURE: Tito Sewell MD PATIENT NAME: David Balderrama DATE: October 13, 2024 TIME: 12:05 PM CSN: [id number] [facility] ANES PRE-OPon 10-13-2024 ANES PRE-OP HNO ID: [id number] Author: TITO SEWELL MD Service: ? Author Type: Anesthesiologist Type: Anesthesia Preprocedure Evaluation Filed: 10/13/2024 10:31 Note Text: ANESTHESIOLOGY DAY OF SURGERY NOTE : 1950 Procedure Information Date/Time: 10/13/24 1100 Scheduled providers: Miguel Angel Ervin MD; Tito Sewell MD; David Vora APRN.LIAISON PLANNER Procedure: EGD - THERAPEUTIC, EUS, OR TUBE INTERVENTIONS Location: Gastroenterology Estimated body mass index is 30.87 kg/m? as calculated from the following: Height as of 09/20/20: 172.7 cm (5' 8). Weight as of 09/20/20: 92.1 kg (203 lb). Most recent hematocrit and potassium results: Hematocrit 49.7 04/18/2020 Potassium 4.6 04/18/2020 Relevant Problems CARDIO (+) Essential (primary) hypertension I - PHYSICAL EVALUATION AIRWAY Patient intubated: No. Tracheostomy tube not present Mallampati: II. TM distance: >3 FB. Neck ROM: full ROM without neurological symptoms. Mouth opening: adequate. Short neck: no. Thick neck: no II - ANESTHESIA PLAN ASA Score: 3 Anesthetic Plan: MAC NPO Status: adequate Beta Erica Monitoring Plan Monitoring plan: standard ASA. Post Procedure Analgesic Plan Postoperative analgesic plan: parenteral or oral opioids and multimodal analgesia. Informed Consent Anesthetic risks, benefits, alternatives, personnel and consent discussed: yes. Patient / Responsible Green Party agrees to proceed: yes Patient / Surrogate agrees to blood products: Yes Potential Anesthesia issues that may suggest increased risk of complications or contraindication to planned procedure: potential difficult IV access and potential difficult intubation. No vitals data found for the desired time range. Outpatient Medications as of 10/13/2024 Medication Sig buPROPion XL (WELLBUTRIN XL) 300 mg 24 hr tablet TAKE 1 TABLET BY MOUTH DAILY lovastatin 40 mg tablet TAKE 1 TABLET BY MOUTH DAILY losartan (COZAAR) 50 mg tablet TAKE ONE TABLET BY MOUTH DAILY metoprolol succinate ER (TOPROL XL) 50 mg 24 hr tablet Take 1 tablet by mouth once daily. losartan (COZAAR) 100 mg tablet Take 1 tablet by mouth once daily. omeprazole (PRILOSEC) 40 mg capsule TAKE 1 CAPSULE BY MOUTH DAILY tadalafil 20 mg kwame (CPD) Take 1 Kwame by mouth as directed. Dissolve 1 kwame under the tongue 30-60 minutes prior to sexual activity diphenhydrAMINE (BENADRYL) 25 mg capsule Take 25 mg by mouth daily at bedtime. niacin ER (NIASPAN) 500 mg tablet Take 500 mg by mouth once daily. No current facility-administered medications on file as of 10/13/2024. I have interviewed and examined the patient. I have reviewed the medical record and/or the pre-anesthesia evaluation, pertinent labs, and test results. This contains updated information obtained within 48 hours of Surgery/Procedure. SIGNATURE: Tito Sewell MD PATIENT NAME: David Balderrama DATE: October 13, 2024 TIME: 10:30 AM CSN: [id number] [facility] CEA, FLUIDon 10-13-2024 CEA, BODY FLUID 31.2 ng/mL [facility] Comment on above: Order Comment: Speci men Type: FLUID SPECIMEN Ordering Facility: [facility] Address: [address] [place] [address] Result Comment: INTE RPRETIVE INFORMATION: Carcinoembryonic Antigen, Fluid The Jannette CEA electrochemiluminescent immunoassay was used. Results obtained with different assay methods or kits cannot be used interchangeably. The CEA assay value, regardless of level, should not be interpreted as evidence for the presence or absence of malignant disease. For information on body fluid reference ranges and/or interpretive guidance visit [email or web address] This test was developed and its performance characteristics determined by [facility] [employer] [facility]. It has not been cleared or approved by the US Food and Drug Administration. This test was performed in a CLIA certified laboratory and is intended for clinical purposes. Performed By: [facility] [address] [place] [address] Production Counter: Aaron Jackson MD, PhD CLIA Number: [id number] Performed By: #### C EAGA #### [employer] CLIA [id number] [address] [place], [place] [id number] SOURCE, FLUID Pancreatic [facility] Comment on above: Order Comment: Speci men Type: FLUID SPECIMEN Ordering Facility: [facility] Address: [address] [place] [address] Result Comment: Cyst of Pancreas Performed By: #### C EAFL #### [facility] CLIA [id number] [address] [place] [address] CYTOLOGY NON-GYNon 5 AP DISCLAIMER [facility] Comment on above: Order Comment: Speci men Type: SPECIMEN OBTAINED BY [employer] Ordering Facility: [facility] Address: [address] [place] [address] Result Comment: Garcai palacios Developed Test (LDT) Disclaimer: Performance characteristics of immunohistochemical, immunofluorescent, and chromogenic in-situ hybridization tests have been determined by the performing laboratory within [facility]'s [facility] Pathology and Laboratory Medicine Department ([facility], [facility], [facility], [facility], [facility], [facility], or [facility]) in a manner consistent with CLIA requirements. One or more of these tests may not have been cleared or approved by the FDA. [facility] is regulated under CLIA as qualified to perform high-complexity testing. These tests are used for clinical purposes. These should not be regarded as investigational or for research. Positive and negative controls stain appropriately. Performed By: #### C YTONON #### [facility] CLIA [id number] [address] [place] [address] [place] CASE REPORT [facility] Comment on above: Order Comment: Speci men Type: SPECIMEN OBTAINED BY [employer] Ordering Facility: [facility] Address: [address] [place] [address] Result Comment: [facility] Cytology Report Case: [id number] Authorizing Provider: Miguel Angel Ervin MD Collected: 10/13/2024 11:17 AM Ordering Location: Gastroenterology Received: 10/13/2024 04:03 PM Pathologist: Fiordaliza Armstrong MD Specimen: Pancreas, pancreatic cyst Performed By: #### C YTONON #### [facility] CLIA [id number] [address] [place], [place] [id number] [place] CLINICAL HISTORY Pancreatic cyst r/o cancer [facility] Comment on above: Order Comment: Speci men Type: SPECIMEN OBTAINED BY [employer]IR[employer] Ordering Facility: [facility] Address: [address] [place] [address] Performed By: #### C YTONON #### [facility] CLIA [id number] [address] [place], [place] [id number] [place] FINAL DIAGNOSIS [facility] Comment on above: Order Comment: Speci men Type: SPECIMEN OBTAINED BY [employer]IR[employer] Ordering Facility: [facility] Address: [address] [place] [address] Result Comment: A - Pancreas, FNA - pancreatic cyst Negative for malignant cells. Cyst contents. No mucin identified on routine stain. at 1052 EDT Performed By: #### C YTONON #### [facility] CLIA [id number] [address] [place] [address] [place] FINAL PERFORMING LAB Normal [facility] Comment on above: Order Comment: Speci men Type: SPECIMEN OBTAINED BY [employer]IR[employer] Ordering Facility: [facility] Address: [address] [place] [address] Result Comment: Tech nical component, camera systems engineer screening performed at: [facility], [address] [place], [place] [id number] CLIA: [id number] Diagnostic interpretation performed at: [facility], [address] [place] [address] [place] [address] CLIA# [id number] Production Counter: Zeeshan Liu MD Performed By: #### C YTONON #### [facility] CLIA [id number] [address] [place], [place] [id number] [place] GROSS DESCRIPTION A. Pancreas Normal [facility] Comment on above: Order Comment: Speci men Type: SPECIMEN OBTAINED BY ASPIRATION Ordering Facility: [facility] Address: [address] [place] [address] Result Comment: 25 c c hazy red CytoLyt . ThinPrep prepared Performed By: #### C BELEN #### [facility] CLIA [id number] [address] [place] [address] [place] [address] [place] EGD Study observation Narrat iveon 10-13-2024 [facility] Radiology Study observation (narrative) [facility] GLUCOSE, BODY FLUIDon 2024 Glucose (Body fld) [Mass/Vol] 77 mg/dL See Comment [facility] Comment on above: Synovial fluid: Syno vial fluid glucose measurement may be useful in classifying various joint disorders. A concurrent plasma glucose measurement should be performed to determine the glucose plasma minus glucose synovial fluid difference, which is normally <= 10.0 mg/dL. Artificial lowering of synovial fluid glucose, due to glycolytic action of leukocytes, may result from analyses that occur more than one hour from the time of collection. Reference: 1. CLSI. Analysis of Body Fluids in Clinical Chemistry Approved Guideline. CLSI document C49A. FRANKIE Betacnourt: Clinical Laboratory Standards [place]: 2007. Glucose (Body fld) [Mass/Vol ]on 10-13-2024 [facility] Glucose Fld-mCncon Glucose (Body fld) [Mass/Vol] 77 mg/dL Normal See Comment [facility] Comment on above: Order Comment: Speci men Type: FLUID SPECIMEN Ordering Facility: [facility] Address: [address] [place] [address] Result Comment: Syno vial fluid: Synovial fluid glucose measurement may be useful in classifying various joint disorders. A concurrent plasma glucose measurement should be performed to determine the glucose plasma minus glucose synovial fluid???difference, which is normally <= 10.0 mg/dL. Artificial lowering of synovial fluid glucose, due to glycolytic action of leukocytes, may result from analyses that occur more than one hour from the time of collection. Reference: 1. CLSI. Analysis of Body Fluids in Clinical Chemistry Approved Guideline. CLSI document C49A. FRANKIE Betancourt: Clinical Laboratory Standards [place]: 2007. Performed By: #### 2 344-0 #### [facility] CLIA [id number] [address] [place] [address] [place] HISTORY PHYSICALon HISTORY PHYSICAL HNO ID: [id number] Author: MIGUEL ANGEL ERVIN MD Service: Gastroenterology Author Type: Physician Type: H&P Filed: 10/13/2024 11:33 Note Text: HISTORY AND PHYSICAL David Balderrama, 73 year old male Current history and physical on file: No Is a new History and Physical required for today's visit? Yes Indication for procedure: Abdominal pain, pancreatic cyst PROCEDURE(S) SCHEDULED FOR: EUS/FNA (Endoscopic Ultrasound with or without Fine Needle Aspiration), based on clinical findings. Celiac plexus block BASELINE BEHAVIOR: Calm BASELINE ORIENTATION: A AND O x3 All medications and allergies reviewed: Yes Skin Assessment: Warm dry mucus membranes pink Airway/Respiratory Assessment: Airway: visualization of the uvula- Yes Mouth: opening greater than 2 fingerbreadths- Yes Neck: full range of motion- Yes Breath sounds clear/equal- Yes Cardiac Assessment: Regular rate and rhythm without murmur Abdominal Assessment: Abdomen soft, non-tender, no masses or organomegaly. Sedation Plan: Deep Additional Comments: Dr. Gonsales's referral notes reviewed and explained procedure explained to patient. Concerning appearing pancreatic body cyst, EUs-FNA to rule out a cystic neoplasm. Patient is having a lot of epigastric pain. Discussed option for celiac plexus block and patient agrees with this in hopes of obtaining some added pain relief. Miguel Angel Ervin MD [facility] NURSING PROGon 10-13-2024 NURSING PROG HNO ID: [id number] Author: ANALIA BOOTHE RN Service: ? Author Type: Registered Nurse Type: Nursing Progress Note Filed: 10/13/2024 11:51 Note Text: AMBULATORY PATIENT EDUCATION NOTE TOPIC: GI PROCEDURES: Endoscopic Ultrasound (EUS) with or without Fine Needle Aspiration (FNA) READINESS TO LEARN INSTRUCTION PROVIDED TO: Patient, readness to learn accessed prior to procedure COGNITIVE ABILITY: Alert and oriented PTED MOTIVATION TO LEARN: Eager FAMILY SUPPORT: High - Very involved in pt care IPATIENT LEARNS BEST BY: Individual Instruction FACTORS AFFECTING LEARNING: None PHYSICAL LIMITATIONS AFFECTING LEARNING: None LEARNING RESPONSE METHOD OF INSTRUCTION: Individual instruction PATIENT / FAMILY RESPONSE: Verbalizes understanding of: WORSENING CONDITION-Signs and symptoms of a worsening condition that warrant a call to the physician FOLLOW-UP PLAN: Complete - No need for follow-up SUPPLEMENTAL MATERIAL: Procedure Discharge Instructions REFERRAL (RECOMMENDATION): None Electronically Signed By: Analia Boothe RN [facility] NURSING PROG HNO ID: [id number] Author: CHINA TAFOYA RN Service: Nursing Author Type: Registered Nurse Type: Nursing Progress Note Filed: 10/13/2024 10:29 Note Text: PRE OP LEARNING ASSESSMENT PROCEDURE/SURGERY: GI PROCEDURES: EGD READINESS TO LEARN COGNITIVE ABILITY: Alert and oriented MOTIVATION TO LEARN: Eager FAMILY SUPPORT: High - Very involved in pt care PATIENT LEARNS BEST BY: Individual Instruction FACTORS AFFECTING LEARNING: None PHYSICAL LIMITATIONS AFFECTING LEARNING: None Electronically Signed By: China Tafoya RN In Department: GASTROENTEROLOGY [facility] NURSING PROGon 10-06-2024 NURSING PROG HNO ID: [id number] Author: PASCUAL FARIAS RN Service: ? Author Type: Registered Nurse Type: Nursing Progress Note Filed: 10/06/2024 12:51 Note Text: Attempted to reach the patient at the contact number that they provided [phone] (home) . Unable to speak with patient so without identifying the patient the following information was left on their voice mail: Date of procedure, location and report time A message was left informing the patient/patient operations support representative they must have a responsible adult accompany them to their procedure; and remain in the endoscopy area until they are discharged. Failure to have a responsible adult accompany the patient to their procedure appointment prevents the use of sedation or anesthesia for their procedure; and can result in cancellation of the procedure NPO instructions were reviewed. Instructions to contact their primary care provider regarding their medications and which medications to stop in preparation for their procedure Instructions to completely read and follow the written instructions that they recieved regarding their procedure. Number to call with questions or concerns [phone] Number to call to cancel their procedure [phone] Pascual Farias RN [facility] Joseph 10-05-2024 CNPN Telephone ([facility]) -- DAVID BALDERRAMA ([id number]) 1950 M Date Time Provider Department 10/05/24 MIGUEL ANGEL ERVIN GASTMN During your visit today, we recorded the following information about you: Alberto Ng 10/05/2024 12:59 PM Signed Scanned full doc into chart Miguel Angel Ervin MD 10/06/2024 11:30 AM Signed Schedulers, please call patient to arrange: EUS with me for evaluation of a pancreatic cystic lesion. Miguel Angel Ervin MD Allergies As of Date: 10/05/2024 Noted Allergy Reaction SHELLFISH DERIVED 01/31/2020 10 - Anaphylaxis PEPPER (GENUS CAPSICUM) 01/31/2020 16 - Unknown Date Reviewed: 09/20/2020 Reviewed by: Narendra Zaman DO - Fully Assessed Reason for Visit: Orders [681] Cmt: Referral Dr. 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 - losartan (COZAAR) 100 mg tablet Take 1 tablet by mouth once daily. - omeprazole (PRILOSEC) 40 mg capsule TAKE 1 CAPSULE BY MOUTH DAILY - tadalafil 20 mg kwame (CPD) Take 1 Kwame by mouth as directed. Dissolve 1 kwame under the tongue 30-60 minutes prior to sexual activity - diphenhydrAMINE (BENADRYL) 25 mg capsule Take 25 mg by mouth daily at bedtime. - niacin ER (NIASPAN) 500 mg tablet Take 500 mg by mouth once daily. Problem List As Of Date 10/05/2024 Noted Resolved Mixed hyperlipidemia [E78.2] Essential (primary) hypertension [I10] 04/17/2020 ED (erectile dysfunction) of organic origin [N5*04/17/2020 Screening for thyroid disorder [Z13.29] 04/17/2020 Encounter Status:Closed by MIGUEL ANGEL ERVIN on 10/06/24 [facility] MRI PANCREASon 09-30-2024 MRI PANCREAS ORIGINAL EXAMINATION: MRI OF THE ABDOMEN WITHOUT AND WITH CONTRAST, 09/30/2024 10:57 am TECHNIQUE: Multiplanar multisequence MRI of the abdomen was performed without and with the administration of intravenous contrast. COMPARISON: CT scans September 13, 2024, November 14, 2021 HISTORY: ORDERING SYSTEM PROVIDED HISTORY: Reason for Exam: rule out mass, thicking, pancreatitis PAIN ACROSS MID BACK, 30 POUND WT LOSS IN 4 MONTHS-HX PANCREATITISABNORMAL CT FINDINGS: There is a 2.2 cm lesion at the body of the pancreas. This is cystic, with some peripheral enhancement and at least 1 internal septation. No soft tissue or nodular component is evident and there is no other unusual enhancement. Distal to this, there is some pancreatic atrophy and ductal dilatation. More proximal portions of the pancreas are unremarkable. No peripancreatic infiltrative change seen. Bilateral renal cysts are present. No other kidney abnormality identified. No additional contributory finding. IMPRESSION: Cystic lesion at the body of the pancreas with distal ductal dilatation and parenchymal atrophy. 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 ERCP and EUS are recommended for initial further assessment. Interpreted by: Jess Carrasco MD Preliminary Report By: Jess Carrasco MD Electronically signed By Jess Carrasco MD Dictated Date: 09/30/2024 11:11:27 AM Prelim Date: 09/30/2024 11:18:39 AM Sign Date: 09/30/2024 11:18:39 AM Ordering Provider: AVILA Gill [facility] Urgent Care Visit Reporton 0 09-25-2024 Urgent Care Visit Report [facility] [address], [address] [place] [address] OFFICE VISIT Date of Service: 09/25/24 MR#: [id number] Acct: [id number] Name: DAVID BALDERRAMA Rep #: [id number] : 1950 Provider: ANGELES montaño Age/Sex: 73/M Location: [facility] Status: Signed Intake Vital Signs 02/23/19 06:17 09/25/24 11:56 Height 5 ft 8 in 5 ft 8 in Weight: 175 lb 6 oz BMI 26.6 BP 108/60 Blood Pressure Location Rt brachial Position Sitting Respiration 16 Pulse 92 Pulse Source NIBP Temp 98.8 F Temp Source Oral Pulse Oximetry (%) 95 Oxygen Delivery Method room air Intake Visit Reasons: BUG BITE L SHOULDER Chief Complaint: left shoulder Grab Operator Required: No Is patient in pain?: Yes Allergies shellfish derived Allergy (Verified 09/25/24 12:01) Swelling Have you fallen in the past year?: No Nurse's Note: c/o bug bite to left shoulder x 1 week. very large area of redness and warmth to left shoulder with what appears to be puncture wound. c/o tenderness to same. PFSH Medical History (Updated 09/25/24 @ 12:15 by Tito Abad [employer] WORK[employer], [employer]) History of prostate cancer History of malignant neoplasm of appendix GERD (gastroesophageal reflux disease) Hyperlipidemia HTN (hypertension) Surgical History (Updated 09/25/24 @ 11:55 by Radha Remy) History of laparoscopy History of cholecystectomy History of appendectomy History of prostatectomy Family History (Updated 09/25/24 @ 11:55 by Radha Remy) Other Cancer Heart disease Social History (Updated 09/25/24 @ 11:55 by Radha Remy) Smoking Status: Former smoker alcohol intake: never substance use type: does not use HPI HPI Chief Complaint: left shoulder Details: DAVID BALDERRAMA, is a 73 M who presents to the office today for concerns regarding bite. He feels this to be worsening. ROS Const Constitutional: No body ache, chills, fatigue, fever(s) or headache(s) ENT ENT: No headache(s) Skin Skin: Positive for redness Neuro Neurology: No headache(s) Endo Endocrine: No fatigue Exam Const General: cooperative, healthy appearing, comfortable and no acute distress Orientation: alert and awake Skin General: other Other: Left shoulder: redness, blanches, warm to touch, no drainage, center bite area, non-raised. Extends shoulder and into axillary region. Circular. Coding Level of Care Code Off vis,new,level 3 Diagnoses Cellulitis of other specified site L03.818 Site of cellulitis: other site Assessment and Plan Assessment and Plan (1) Cellulitis: Status: Acute Qualifiers: Site of cellulitis: other site Qualified Code(s): L03.818 - Cellulitis of other sites Plan: This is noted on left shoulder. Will add antibiotic. Recommended to add hydrocortisone cream to help with inflammation. Encouraged to get plenty of rest, drink lots of clear liquids, and use Tylenol or Ibuprofen (unless contraindicated) for fever and comfort. Patient also educated on other symptomatic management techniques. To be seen in 7-10 days if no improvement; sooner if worsening of symptoms.??? Patient advised of potential red flags and when appropriate to report to the ED.??? Patient verbalized understanding and agreement with all the above. Medications: New cephalexin 500 mg PO TID 10 days 30 tabs 0RF Discontinued ciprofloxacin HCl Discontinued Reason: Order Completed 500 mg PO BID 20 tabs 0RF Clinical Quality Measures Falls Risk Screening/Assistive Devices Have you fallen in the past year?: No 09/25/24 1217 Date Tito Abad NP [employer] Cosigner Signature: Date (if applicable) CC: Dr. Josy Zaman, [facility] CT ABDOMEN/PELVIS W/CONTRAST on 09-14-2024 CT ABDOMEN/PELVIS W/CONTRAST ORIGINAL EXAMINATION: CT OF THE ABDOMEN AND PELVIS WITH CONTRAST 09/14/2024 11:57 am TECHNIQUE: CT of the abdomen and pelvis was performed with the administration of intravenous contrast. Multiplanar reformatted images are provided for review. Automated exposure control, iterative reconstruction, and/or weight based adjustment of the mA/kV was utilized to reduce the radiation dose to as low as reasonably achievable. COMPARISON: November 14, 2021 HISTORY: ORDERING SYSTEM PROVIDED HISTORY: Reason for Exam: pain, unexplained weight loss pancreatitis pain 5 months, constipation, hx colon ca FINDINGS: Avhe-ae-yjfdhfkq degenerative changes are noted in the spine. SI joint and hip joint degenerative changes are also seen. No acute osseous abnormality seen. The lung bases are unremarkable. Minimal focal fatty infiltration along the falciform ligament fissure is evident. No other liver lesion. The gallbladder is not evident and may be absent or contracted. The adrenal glands and spleen are unremarkable. A prominent left upper pole renal cyst is evident and there are scattered right renal cysts as well. No other kidney finding. At the proximal body of the pancreas, there is abrupt ductal dilatation extending to the body and tail of the pancreas with minor parenchymal atrophy. These findings are new since the previous exam. I do not identify significant peripancreatic infiltrative changes on this exam. No adjacent fluid collections seen. No adenopathy, free air or free fluid is evident. The urinary bladder is grossly normal. Prominent sigmoid diverticulosis is present and there are scattered diverticula elsewhere as well. No evidence for diverticulitis. Right colon anastomosis is present from previous surgery. No other GI tract abnormality seen. No additional contributory finding. IMPRESSION: 1. Abrupt pancreatic ductal dilatation with mild distal atrophy at the proximal pancreatic body. These findings could indicate a stricture in the pancreatic duct, although a small/non visible pancreatic parenchymal neoplasm must be considered. MRI pancreas is recommended for additional further assessment when feasible. 2. Prominent diverticulosis without diverticulitis. 3. No indicators of active/acute edematous interstitial pancreatitis. 4. No other potential acute finding. Interpreted by: Jess Carrasco MD Preliminary Report By: Jess Carrasco MD Electronically signed By Jess Carrasco MD Dictated Date: 09/14/2024 12:43:02 PM Prelim Date: 09/14/2024 12:52:48 PM Sign Date: 09/14/2024 12:52:48 PM Ordering Provider: AVILA Gill [facility] XR CHEST 2 VIEWSon XR CHEST 2 VIEWS ORIGINAL EXAMINATION: TWO XRAY VIEWS OF THE CHEST09/13/2024 10:53 am COMPARISON: None HISTORY: ORDERING SYSTEM PROVIDED HISTORY: Reason for Exam: unexplained weight loss FINDINGS: The heart size is normal. There is no pulmonary consolidation. No pneumothorax or pleural effusion. No aggressive osseous lesions identified.Degenerative changes seen of the spine. IMPRESSION: No acute radiographic findings. Interpreted by: Rakan Mccabe MD Preliminary Report By: Rakan Mccabe MD Electronically signed By Rakan Mccabe MD Dictated Date: 09/14/2024 11:01:07 AM Prelim Date: 09/14/2024 11:01:42 AM Sign Date: 09/14/2024 11:01:42 AM Ordering Provider: AVILA Gill [facility] .Auto Diffon 09-13-2024 Basophil, Absolute 0.1 10 3/mcL Normal 0.0-0.3 [facility] Comment on above: Performed By: #### C RP, GFR, CMP, ANEU, PREET, CBC, ADIFF, LIP, ESR #### [address] [address] Basophils/100 WBC (Bld) 0.6 % Normal 0.0-2.5 [facility] Comment on above: Performed By: #### C RP, GFR, CMP, ANEU, PREET, CBC, ADIFF, LIP, ESR #### [address] [address] Eosinophil, Absolute 0.3 10 3/mcL Normal 0.0-0.7 [facility] Comment on above: Performed By: #### C RP, GFR, CMP, ANEU, PREET, CBC, ADIFF, LIP, ESR #### [address] [address] Eosinophils/100 WBC (Bld) 2.7 % Normal 0.0-6.0 [facility] Comment on above: Performed By: #### C RP, GFR, CMP, ANEU, PREET, CBC, ADIFF, LIP, ESR #### [address] [address] Lymphocyte, Absolute 1.9 10 3/mcL Normal 0.9-4.3 [facility] Comment on above: Performed By: #### C RP, GFR, CMP, ANEU, PREET, CBC, ADIFF, LIP, ESR #### [address] [address] Lymphocytes/100 WBC (Bld) 17.8 % Low 20.0-40.0 [facility] Comment on above: Performed By: #### C RP, GFR, CMP, ANEU, PREET, CBC, ADIFF, LIP, ESR #### [address] [address] Monocyte, Absolute 0.9 10 3/mcL Normal 0.1-1.4 [facility] Comment on above: Performed By: #### C RP, GFR, CMP, ANEU, PREET, CBC, ADIFF, LIP, ESR #### [address] [address] Monocytes/100 WBC (Bld) 8.3 % Normal 2.0-13.0 [facility] Comment on above: Performed By: #### C RP, GFR, CMP, ANEU, PREET, CBC, ADIFF, LIP, ESR #### [address] [address] Neutrophils/100 WBC (Bld) 70.6 % Normal 50.0-75.0 [facility] Comment on above: Performed By: #### C RP, GFR, CMP, ANEU, PREET, CBC, ADIFF, LIP, ESR #### [address] [address] .GFRon 09-13-2024 Estimated Glomerular Filtration Rate 77 ml/min/1.73sqm Normal [facility] Comment on above: Result Comment: Stages of Chronic Kidney Disease (CKD) Stage Description eGFR(ml/min/1.73 sq.m.) CKD 1 Normal kidney function or >=90 normal kindney function with possible kidney damage (ex. Proteinuria) CKD 2 Kidney damage with mild loss 60-89 of kidney function CKD 3a Mild to moderate loss of kidney 45-59 function CKD 3b Moderate to severe loss of 30-44 of kindey function CKD 4 Severe loss of kidney function 15-29 CKD 5 Kidney failure <15 Note: (go live 2024) the eGFR calculation was updated to the 2020 CKD-EPI creatinine equation without a race factor to calculate the eGFR results. Performed By: #### C RP, GFR, CMP, ANEU, PREET, CBC, ADIFF, LIP, ESR ####[address] [address] .NEUABSon 09-13-2024 Neutrophil, Absolute 7.5 10 3/mcL Normal 2.3-8.1 [facility] Comment on above: Performed By: #### C RP, GFR, CMP, ANEU, PREET, CBC, ADIFF, LIP, ESR #### [address] [address] AMYon 09-13-2024 Amylase [Catalytic activity/Vol] 72 U/L Normal 25-115 [facility] Comment on above: Performed By: #### C RP, GFR, CMP, ANEU, PREET, CBC, ADIFF, LIP, ESR #### [place] [address] CBCon 09-13-2024 Erythrocyte distribution width (RBC) [Ratio] 13.6 % Normal 11.5-15.5 [facility] Comment on above: Performed By: #### C RP, GFR, CMP, ANEU, PREET, CBC, ADIFF, LIP, ESR #### [place] [id number] Hematocrit (Bld) [Volume fraction] 42.7 % Normal 40.0-52.0 [facility] Comment on above: Performed By: #### C RP, GFR, CMP, ANEU, PREET, CBC, ADIFF, LIP, ESR #### [place] [id number] Hgb 14.4 G/dL Normal 13.0-17.5 [facility] Comment on above: Performed By: #### C RP, GFR, CMP, ANEU, PREET, CBC, ADIFF, LIP, ESR #### [place] [address] MCH (RBC) [Entitic mass] 31.6 pg Normal 27.0-33.0 [facility] Comment on above: Performed By: #### C RP, GFR, CMP, ANEU, PREET, CBC, ADIFF, LIP, ESR #### [place] [address] MCHC 33.8 G/dL Normal 32.0-36.0 [facility] Comment on above: Performed By: #### C RP, GFR, CMP, ANEU, PREET, CBC, ADIFF, LIP, ESR #### [address] [address] MCV (RBC) [Entitic vol] 93.6 fL Normal 81.0-100.0 [facility] Comment on above: Performed By: #### C RP, GFR, CMP, ANEU, PREET, CBC, ADIFF, LIP, ESR #### [address] [address] Platelet 216 10 3/mcL Normal 150-450 [facility] Comment on above: Performed By: #### C RP, GFR, CMP, ANEU, PREET, CBC, ADIFF, LIP, ESR #### [address] [address] Platelet mean volume (Bld) [Entitic vol] 10.3 fL Normal 6.4-10.5 [facility] Comment on above: Performed By: #### C RP, GFR, CMP, ANEU, PREET, CBC, ADIFF, LIP, ESR #### [address] [address] RBC 4.57 10 6/mcL Normal 4.50-6.00 [facility] Comment on above: Performed By: #### C RP, GFR, CMP, ANEU, PREET, CBC, ADIFF, LIP, ESR #### [address] [address] WBC 10.6 10 3/mcL Normal 4.5-10.8 [facility] Comment on above: Performed By: #### C RP, GFR, CMP, ANEU, PREET, CBC, ADIFF, LIP, ESR #### [address] [address] CMPon 09-13-2024 Albumin Level 4.1 G/dL Normal 3.4-4.8 [facility] Comment on above: Performed By: #### C RP, GFR, CMP, ANEU, PREET, CBC, ADIFF, LIP, ESR ####[facility] [place], [place] [address] Albumin/Globulin [Mass ratio] 1.2 {ratio} Normal 1.1-2.5 [facility] Comment on above: Performed By: #### C RP, GFR, CMP, ANEU, PREET, CBC, ADIFF, LIP, ESR ####[id number] [place], [place] [address] ALP [Catalytic activity/Vol] 76 U/L Normal 40-135 [facility] Comment on above: Performed By: #### C RP, GFR, CMP, ANEU, PREET, CBC, ADIFF, LIP, ESR ####[id number] [place], [place] [address] ALT [Catalytic activity/Vol] 36 U/L Normal 16-63 [facility] Comment on above: Performed By: #### C RP, GFR, CMP, ANEU, PREET, CBC, ADIFF, LIP, ESR ####[place] [address] [place], [place] [address] AST [Catalytic activity/Vol] 22 U/L Normal 10-40 [facility] Comment on above: Performed By: #### C RP, GFR, CMP, ANEU, PREET, CBC, ADIFF, LIP, ESR ####[id number] [place], [place] [address] Bili Total 0.5 mg/dL Normal 0.2-1.0 [facility] Comment on above: Result Comment: Use of this assay is not recommended for patients undergoing treatment with eltrombopag due to the potential for falsely elevated results. Performed By: #### C RP, GFR, CMP, ANEU, PREET, CBC, ADIFF, LIP, ESR ####[facility] [place], [place] [address] BUN/Creatinine Ratio 15 ratio Normal 7-27 [facility] Comment on above: Performed By: #### C RP, GFR, CMP, ANEU, PREET, CBC, ADIFF, LIP, ESR ####[facility] [place], [place] [address] Calcium [Mass/Vol] 9.8 mg/dL Normal 8.4-10.2 [facility] Comment on above: Performed By: #### C RP, GFR, CMP, ANEU, PREET, CBC, ADIFF, LIP, ESR ####[address] [address] Chloride [Moles/Vol] 104 mmol/L Normal 98-107 [facility] Comment on above: Performed By: #### C RP, GFR, CMP, ANEU, PREET, CBC, ADIFF, LIP, ESR ####[address] [address] CO2 [Moles/Vol] 28 mmol/L Normal 23-31 [facility] Comment on above: Performed By: #### C RP, GFR, CMP, ANEU, PREET, CBC, ADIFF, LIP, ESR ####[place] [address] [place], [place] [address] Creatinine [Mass/Vol] 1.03 mg/dL Normal 0.67-1.17 [facility] Comment on above: Performed By: #### C RP, GFR, CMP, ANEU, PREET, CBC, ADIFF, LIP, ESR ####[address] [address] Electrolyte Balance 7.0 mEq/L Normal 4.0-15.0 [facility] Comment on above: Performed By: #### C RP, GFR, CMP, ANEU, PREET, CBC, ADIFF, LIP, ESR ####[address] [address] Globulin 3.5 G/dL Normal 2.7-4.4 [facility] Comment on above: Performed By: #### C RP, GFR, CMP, ANEU, PREET, CBC, ADIFF, LIP, ESR ####[place] [address] [place], [place] [address] Glucose [Mass/Vol] 104 mg/dL Normal 83-110 [facility] Comment on above: Performed By: #### C RP, GFR, CMP, ANEU, PREET, CBC, ADIFF, LIP, ESR ####[address] [address] Potassium [Moles/Vol] 4.4 mmol/L Normal 3.5-5.1 [facility] Comment on above: Performed By: #### C RP, GFR, CMP, ANEU, PREET, CBC, ADIFF, LIP, ESR ####[address] [address] Sodium [Moles/Vol] 139 mmol/L Normal 136-145 [facility] Comment on above: Performed By: #### C RP, GFR, CMP, ANEU, PREET, CBC, ADIFF, LIP, ESR ####[place] [address] [place], [place] [address] Total Protein 7.6 G/dL Normal 6.4-8.2 [facility] Comment on above: Performed By: #### C RP, GFR, CMP, ANEU, PREET, CBC, ADIFF, LIP, ESR ####[place] [address] Urea nitrogen [Mass/Vol] 15 mg/dL Normal 7-18 [facility] Comment on above: Performed By: #### C RP, GFR, CMP, ANEU, PREET, CBC, ADIFF, LIP, ESR ####[address] [address] CRPon 09-13-2024 C-Reactive Protein 0.2 mg/dL Normal 0.0-0.3 [facility] Comment on above: Performed By: #### C RP, GFR, CMP, ANEU, PREET, CBC, ADIFF, LIP, ESR #### [address] [address] ESRon 09-13-2024 Erythrocyte Sed Rate 21 mm/hr High 0-20 [facility] Comment on above: Performed By: #### C RP, GFR, CMP, ANEU, PREET, CBC, ADIFF, LIP, ESR #### [place] [address] [place], [place] [address] LABORATORYOrdered By: SYSTEM SYSTEM on 09-13-2024 Albumin BCP dye [Mass/Vol] 4.1 G/dL Normal 3.4 - 4.8 G/dL AO ADM SS Albumin/Globulin [Mass ratio] 1.2 {ratio} Normal 1.1 - 2.5 ratio AO ADM SS ALP [Catalytic activity/Vol] 76 U/L Normal 40 - 135 U/L AO ADM SS ALT With P-5'-P [Catalytic activity/Vol] 36 U/L Normal 16 - 63 U/L AO ADM SS Amylase [Catalytic activity/Vol] 72 U/L Normal 25 - 115 U/L AO ADM SS AST With P-5'-P [Catalytic activity/Vol] 22 U/L Normal 10 - 40 U/L AO ADM SS Basophils (Bld) [#/Vol] 0.1 103/mcL Normal 0.0 - 0.3 10^3/mcL AO Workflow SS Basophils/100 WBC (Bld) 0.6 % Normal 0.0 - 2.5 % AO Workflow SS Bilirubin [Mass/Vol] 0.5 mg/dL Normal 0.2 - 1 .0 mg/dL AO ADM SS Comment on above: Interpretive Data: U se of this assay is not recommended for patients undergoing treatment with eltrombopag due to the potential for falsely elevated results. Calcium [Mass/Vol] 9.8 mg/dL Normal 8.4 - 10. 2 mg/dL AO ADM SS Chloride [Moles/Vol] 104 mmol/L Normal 98 - 10 7 mmol/L AO ADM SS CO2 [Moles/Vol] 28 mmol/L Normal 23 - 31 mmol/L AO ADM SS Creatinine [Mass/Vol] 1.03 mg/dL Normal 0.67 - 1.17 mg/dL AO ADM SS CRP [Mass/Vol] 0.2 mg/dL Normal 0.0 - 0.3 mg/dL AO ADM SS Electrolyte Balance 7.0 mEq/L Normal 4.0 - 15 .0 mEq/L AO ADM SS Eosinophil, Absolute 0.3 103/mcL Normal 0.0 - 0 .7 10^3/mcL AO Workflow SS Eosinophils/100 WBC (Bld) 2.7 % Normal 0.0 - 6.0 % AO Workflow SS Erythrocyte distribution width (RBC) [Ratio] 13.6 % Normal 11.5 - 15.5 % AO Workflow SS Estimated Glomerular Filtration Rate 77 ml/min/1.73sqm Invalid Interpretation Code AO Chemistry S Comment on above: Interpretive Data: Stages of Chronic Kidney Disease (CKD) Stage Description eGFR(ml/min/1.73 sq.m.) CKD 1 Normal kidney function or >=90 normal kindney function with possible kidney damage (ex. Proteinuria) CKD 2 Kidney damage with mild loss 60-89 of kidney function CKD 3a Mild to moderate loss of kidney 45-59 function CKD 3b Moderate to severe loss of 30-44 of kindey function CKD 4 Severe loss of kidney function 15-29 CKD 5 Kidney failure <15 Note: (go live 2024) the eGFR calculation was updated to the 2020 CKD-EPI creatinine equation without a race factor to calculate the eGFR results. Globulin 3.5 G/dL Normal 2.7 - 4.4 G/dL AO ADM SS Glucose [Mass/Vol] 104 mg/dL Normal 83 - 110 mg/dL AO ADM SS Hematocrit (Bld) [Volume fraction] 42.7 % Normal 40.0 - 52.0 % AO Workflow SS Hemoglobin (Bld) [Mass/Vol] 14.4 G/dL Normal 13.0 - 17.5 G/dL AO Workflow SS Lipase [Catalytic activity/Vol] 185 U/L High 16 - 77 U/L AO ADM SS Lymphocytes (Bld) [#/Vol] 1.9 103/mcL Normal 0.9 - 4.3 10^3/mcL AO Workflow SS Lymphocytes/100 WBC (Bld) 17.8 % Low 20.0 - 40.0 % AO Workflow SS MCH (RBC) [Entitic mass] 31.6 pg Normal 27.0 - 33.0 pg AO Workflow SS MCHC 33.8 G/dL Normal 32.0 - 36.0 G/dL AO Workflow SS MCV (RBC) [Entitic vol] 93.6 fL Normal 81.0 - 100.0 fL AO Workflow SS Monocytes (Bld) [#/Vol] 0.9 103/mcL Normal 0.1 - 1.4 10^3/mcL AO Workflow SS Monocytes/100 WBC (Bld) 8.3 % Normal 2.0 - 13.0 % AO Workflow SS Neutrophils (Bld) [#/Vol] 7.5 103/mcL Normal 2.3 - 8.1 10^3/mcL AO Workflow SS Neutrophils/100 WBC (Bld) 70.6 % Normal 50.0 - 75.0 % AO Workflow SS Platelet mean volume (Bld) [Entitic vol] 10.3 fL Normal 6.4 - 10.5 fL AO Workflow SS Platelets (Bld) [#/Vol] 216 103/mcL Normal 150 - 450 10^3/mcL AO Workflow SS Potassium [Moles/Vol] 4.4 mmol/L Normal 3.5 - 5.1 mmol/L AO ADM SS Protein [Mass/Vol] 7.6 G/dL Normal 6.4 - 8.2 G/dL AO ADM SS RBC (Bld) [#/Vol] 4.57 106/mcL Normal 4.50 - 6.0 0 10^6/mcL AO Workflow SS Sodium [Moles/Vol] 139 mmol/L Normal 136 - 145 mmol/L AO ADM SS Urea nitrogen [Mass/Vol] 15 mg/dL Normal 7 - 18 mg/dL AO ADM SS Urea nitrogen/Creatinine [Mass ratio] 15 ratio Normal 7 - 27 ratio AO ADM SS WBC (Bld) [#/Vol] 10.6 103/mcL Normal 4.5 - 10.8 10^3/mcL AO Workflow SS LABORATORYOrdered By: Sae Garsia on 09-13-2024 ESR Photometric method (Bld) [Velocity] 21 mm/hr High 0 - 20 mm/hr AO Man Heme SS LIPon 09-13-2024 Lipase Level 185 U/L High 16-77 [facility] Comment on above: Performed By: #### C RP, GFR, CMP, ANEU, PREET, CBC, ADIFF, LIP, ESR #### [place] [address] [place], [place] [address] .Auto Diffon 09-02-2024 Basophil, Absolute 0.0 10 3/mcL Normal 0.0-0.3 [facility] Comment on above: Performed By: #### A UYEN, ADIFF, A1C, GFR, CMP, LIP, CBC ####[facility] [place], [place] [address] Basophils/100 WBC (Bld) 0.4 % Normal 0.0-2.5 [facility] Comment on above: Performed By: #### A UYEN, ADIFF, A1C, GFR, CMP, LIP, CBC ####[facility] [place], [place] [address] Eosinophil, Absolute 0.1 10 3/mcL Normal 0.0-0.7 [facility] Comment on above: Performed By: #### A UYEN, ADIFF, A1C, GFR, CMP, LIP, CBC ####[place] [address] [place], [place] [address] Eosinophils/100 WBC (Bld) 0.5 % Normal 0.0-6.0 [facility] Comment on above: Performed By: #### A UYEN, ADIFF, A1C, GFR, CMP, LIP, CBC ####[address] [address] Lymphocyte, Absolute 1.5 10 3/mcL Normal 0.9-4.3 [facility] Comment on above: Performed By: #### A UYEN, ADIFF, A1C, GFR, CMP, LIP, CBC ####[place] [address] [place], [place] [address] Lymphocytes/100 WBC (Bld) 12.7 % Low 20.0-40.0 [facility] Comment on above: Performed By: #### A UYEN, ADIFF, A1C, GFR, CMP, LIP, CBC ####[address] [address] Monocyte, Absolute 0.8 10 3/mcL Normal 0.1-1.4 [facility] Comment on above: Performed By: #### A UYEN, ADIFF, A1C, GFR, CMP, LIP, CBC ####[address] [address] Monocytes/100 WBC (Bld) 6.6 % Normal 2.0-13.0 [facility] Comment on above: Performed By: #### A UYEN, ADIFF, A1C, GFR, CMP, LIP, CBC ####[address] [address] Neutrophils/100 WBC (Bld) 79.8 % High 50.0-75.0 [facility] Comment on above: Performed By: #### A UYEN, ADIFF, A1C, GFR, CMP, LIP, CBC ####[address] [address] .GFRon 09-02-2024 Estimated Glomerular Filtration Rate 87 ml/min/1.73sqm Normal [facility] Comment on above: Result Comment: Stages of Chronic Kidney Disease (CKD) Stage Description eGFR(ml/min/1.73 sq.m.) CKD 1 Normal kidney function or >=90 normal kindney function with possible kidney damage (ex. Proteinuria) CKD 2 Kidney damage with mild loss 60-89 of kidney function CKD 3a Mild to moderate loss of kidney 45-59 function CKD 3b Moderate to severe loss of 30-44 of kindey function CKD 4 Severe loss of kidney function 15-29 CKD 5 Kidney failure <15 Note: (go live 2024) the eGFR calculation was updated to the 2020 CKD-EPI creatinine equation without a race factor to calculate the eGFR results. Performed By: #### A UYEN, ADIFF, A1C, GFR, CMP, LIP, CBC ####[place] [address] [place], [place] [address] .NEUABSon 09-02-2024 Neutrophil, Absolute 9.5 10 3/mcL High 2.3-8.1 [facility] Comment on above: Performed By: #### A UYEN, ADIFF, A1C, GFR, CMP, LIP, CBC ####[place] [address] [place], [place] [address] A1Con 09-02-2024 Glucose [Mass/Vol] 117 mg/dL Normal [facility] Comment on above: Result Comment: June mated Average Glucose calculated by equation ((28.7xA1C)-46.7) Estimated average glucose (eAG) is a calculated value from Hemoglobin A1C and is operations support representative of the average blood glucose level in the last 2-3 month period. Normal range: less than 114 mg/dL Performed By: #### A UYEN, ADIFF, A1C, GFR, CMP, LIP, CBC ####[place] [address] [place], [place] [address] HbA1c (Bld) [Mass fraction] 5.7 % Normal 4.3-6.4 [facility] Comment on above: Performed By: #### A UYEN, ADIFF, A1C, GFR, CMP, LIP, CBC ####[place] [address] [place], [place] [address] CBCon 09-02-2024 Erythrocyte distribution width (RBC) [Ratio] 13.9 % Normal 11.5-15.5 [facility] Comment on above: Order Comment: STAT Performed By: #### A UYEN, ADIFF, A1C, GFR, CMP, LIP, CBC ####[address] [address] Hematocrit (Bld) [Volume fraction] 41.9 % Normal 40.0-52.0 [facility] Comment on above: Order Comment: STAT Performed By: #### A UYEN, ADIFF, A1C, GFR, CMP, LIP, CBC ####[address] [address] Hgb 14.1 G/dL Normal 13.0-17.5 [facility] Comment on above: Order Comment: STAT Performed By: #### A UYEN, ADIFF, A1C, GFR, CMP, LIP, CBC ####[place] [id number] MCH (RBC) [Entitic mass] 31.5 pg Normal 27.0-33.0 [facility] Comment on above: Order Comment: STAT Performed By: #### A UYEN, ADIFF, A1C, GFR, CMP, LIP, CBC ####[address] [address] MCHC 33.6 G/dL Normal 32.0-36.0 [facility] Comment on above: Order Comment: STAT Performed By: #### A UYEN, ADIFF, A1C, GFR, CMP, LIP, CBC ####[address] [address] MCV (RBC) [Entitic vol] 93.5 fL Normal 81.0-100.0 [facility] Comment on above: Order Comment: STAT Performed By: #### A UYEN, ADIFF, A1C, GFR, CMP, LIP, CBC ####[address] [address] Platelet 220 10 3/mcL Normal 150-450 [facility] Comment on above: Order Comment: STAT Performed By: #### A UYEN, ADIFF, A1C, GFR, CMP, LIP, CBC ####Jermaine [address] [place], [place] [address] Platelet mean volume (Bld) [Entitic vol] 9.1 fL Normal 6.4-10.5 [facility] Comment on above: Order Comment: STAT Performed By: #### A UYEN, ADIFF, A1C, GFR, CMP, LIP, CBC ####Jermaine [address] [place], [place] [address] RBC 4.49 10 6/mcL Low 4.50-6.00 [facility] Comment on above: Order Comment: STAT Performed By: #### A UYEN, ADIFF, A1C, GFR, CMP, LIP, CBC ####[address] [place], [place] [address] WBC 11.9 10 3/mcL High 4.5-10.8 [facility] Comment on above: Order Comment: STAT Performed By: #### A UYEN, ADIFF, A1C, GFR, CMP, LIP, CBC ####Jermaine [address] [place], [place] [address] CMPon 09-02-2024 Albumin Level 4.0 G/dL Normal 3.4-4.8 [facility] Comment on above: Order Comment: STAT Performed By: #### A UYEN, ADIFF, A1C, GFR, CMP, LIP, CBC ####Jermaine [address] [place], [place] [address] Albumin/Globulin [Mass ratio] 1.1 {ratio} Normal 1.1-2.5 [facility] Comment on above: Order Comment: STAT Performed By: #### A UYEN, ADIFF, A1C, GFR, CMP, LIP, CBC ####[facility] [place], [place] [address] ALP [Catalytic activity/Vol] 84 U/L Normal 40-135 [facility] Comment on above: Order Comment: STAT Performed By: #### A UYEN, ADIFF, A1C, GFR, CMP, LIP, CBC ####[facility] [place], [place] [address] ALT [Catalytic activity/Vol] 35 U/L Normal 16-63 [facility] Comment on above: Order Comment: STAT Performed By: #### A UYEN, ADIFF, A1C, GFR, CMP, LIP, CBC ####[address] [address] AST [Catalytic activity/Vol] 20 U/L Normal 10-40 [facility] Comment on above: Order Comment: STAT Performed By: #### A UYEN, ADIFF, A1C, GFR, CMP, LIP, CBC ####[address] [address] Bili Total 0.6 mg/dL Normal 0.2-1.0 [facility] Comment on above: Order Comment: STAT Result Comment: Use of this assay is not recommended for patients undergoing treatment with eltrombopag due to the potential for falsely elevated results. Performed By: #### A UYEN, ADIFF, A1C, GFR, CMP, LIP, CBC ####[place] [id number] BUN/Creatinine Ratio 15 ratio Normal 7-27 [facility] Comment on above: Order Comment: STAT Performed By: #### A UYEN, ADIFF, A1C, GFR, CMP, LIP, CBC ####[address] [address] Calcium [Mass/Vol] 9.9 mg/dL Normal 8.4-10.2 [facility] Comment on above: Order Comment: STAT Performed By: #### A UYEN, ADIFF, A1C, GFR, CMP, LIP, CBC ####[address] [address] Chloride [Moles/Vol] 104 mmol/L Normal 98-107 [facility] Comment on above: Order Comment: STAT Performed By: #### A UYEN, ADIFF, A1C, GFR, CMP, LIP, CBC ####[place] [address] [place], [place] [address] CO2 [Moles/Vol] 30 mmol/L Normal 23-31 [facility] Comment on above: Order Comment: STAT Performed By: #### A UYEN, ADIFF, A1C, GFR, CMP, LIP, CBC ####Jermaine [address] [place], [place] [address] Creatinine [Mass/Vol] 0.93 mg/dL Normal 0.67-1.17 [facility] Comment on above: Order Comment: STAT Performed By: #### A UYEN, ADIFF, A1C, GFR, CMP, LIP, CBC ####Jermaine [address] [place], [place] [address] Electrolyte Balance 5.0 mEq/L Normal 4.0-15.0 [facility] Comment on above: Order Comment: STAT Performed By: #### A UYEN, ADIFF, A1C, GFR, CMP, LIP, CBC ####Jermaine [address] [place], [place] [address] Globulin 3.6 G/dL Normal 2.7-4.4 [facility] Comment on above: Order Comment: STAT Performed By: #### A UYEN, ADIFF, A1C, GFR, CMP, LIP, CBC ####[address] [address] Glucose [Mass/Vol] 137 mg/dL High 83-110 [facility] Comment on above: Order Comment: STAT Performed By: #### A UYEN, ADIFF, A1C, GFR, CMP, LIP, CBC ####Jermaine [address] [place], [place] [address] Potassium [Moles/Vol] 4.4 mmol/L Normal 3.5-5.1 [facility] Comment on above: Order Comment: STAT Performed By: #### A UYEN, ADIFF, A1C, GFR, CMP, LIP, CBC ####[place] [address] [place], [place] [address] Sodium [Moles/Vol] 139 mmol/L Normal 136-145 [facility] Comment on above: Order Comment: STAT Performed By: #### A UYEN, ADIFF, A1C, GFR, CMP, LIP, CBC ####[place] [address] [place], [place] [address] Total Protein 7.6 G/dL Normal 6.4-8.2 [facility] Comment on above: Order Comment: STAT Performed By: #### A UYEN, ADIFF, A1C, GFR, CMP, LIP, CBC ####[address]ermaine [address] [place], [place] [address] Urea nitrogen [Mass/Vol] 14 mg/dL Normal 7-18 [facility] Comment on above: Order Comment: STAT Performed By: #### A UYEN, ADIFF, A1C, GFR, CMP, LIP, CBC ####[address] [place], [place] [address] LIPon 09-02-2024 Lipase Level >375 High 16-77 [facility] Comment on above: Order Comment: STAT Performed By: #### A UYEN, ADIFF, A1C, GFR, CMP, LIP, CBC ####[address] [place], [place] [address] HFPon 06-29-2024 Bili Indirect 0.8 mg/dL Normal [facility] Comment on above: Performed By: #### L IP, HFP ####Jermaine [address] [place], [place] [address] Albumin Level 4.2 G/dL Normal 3.4-4.8 [facility] Comment on above: Performed By: #### L IP, HFP ####Jermaine [address] [place], [place] [address] Albumin/Globulin [Mass ratio] 1.2 {ratio} Normal 1.1-2.5 [facility] Comment on above: Performed By: #### L IP, HFP ####[address] [place], [place] [address] ALP [Catalytic activity/Vol] 84 U/L Normal 40-135 [facility] Comment on above: Performed By: #### L IP, HFP ####Jermaine [address] [place], [place] [address] ALT [Catalytic activity/Vol] 53 U/L Normal 16-63 [facility] Comment on above: Performed By: #### L IP, HFP ####Jermaine [address] [place], [place] [address] AST [Catalytic activity/Vol] 30 U/L Normal 10-40 [facility] Comment on above: Performed By: #### L IP, HFP ####Jermaine [address] [place], [place] [address] Bili Direct 0.2 mg/dL Normal 0.0-0.2 [facility] Comment on above: Result Comment: Use of this assay is not recommended for patients undergoing treatment with eltrombopag due to the potential for falsely elevated results. Performed By: #### L IP, HFP ####Jermaine [address] [place], [place] [address] Bili Total 1.0 mg/dL Normal 0.2-1.0 [facility] Comment on above: Result Comment: Use of this assay is not recommended for patients undergoing treatment with eltrombopag due to the potential for falsely elevated results. Performed By: #### L IP, HFP ####Jermaine [address] [place], [place] [address] Globulin 3.5 G/dL Normal 1.5-3.8 [facility] Comment on above: Performed By: #### L IP, HFP ####Jermaine [address] [place], [place] [address] Total Protein 7.7 G/dL Normal 6.4-8.2 [facility] Comment on above: Performed By: #### L IP, HFP ####[address] [place], [place] [address] LIPon 06-29-2024 Lipase Level 203 U/L High 16-77 [facility] Comment on above: Performed By: #### L IP, HFP ####Jermaine [address] [place], [place] [address] .Auto Diffon 03-24-2024 Basophil, Absolute 0.1 10 3/mcL Normal 0.0-0.2 [facility] Comment on above: Performed By: #### C MP, PSA, ANEU, ADIFF, CBC, LIPID, GFR ####[address] [place], [place] [address] Basophils/100 WBC (Bld) 0.9 % Normal 0.0-2.5 [facility] Comment on above: Performed By: #### C MP, PSA, ANEU, ADIFF, CBC, LIPID, GFR ####[facility] [place], [place] [address] Eosinophil, Absolute 0.2 10 3/mcL Normal 0.0-0.7 [facility] Comment on above: Performed By: #### C MP, PSA, ANEU, ADIFF, CBC, LIPID, GFR ####[address] [address] Eosinophils/100 WBC (Bld) 3.1 % Normal 0.0-7.0 [facility] Comment on above: Performed By: #### C MP, PSA, ANEU, ADIFF, CBC, LIPID, GFR ####[place] [address] [place], [place] [address] Lymphocyte, Absolute 2.2 10 3/mcL Normal 0.9-4.3 [facility] Comment on above: Performed By: #### C MP, PSA, ANEU, ADIFF, CBC, LIPID, GFR ####[address] [address] Lymphocytes/100 WBC (Bld) 27.9 % Normal 20.0-40.0 [facility] Comment on above: Performed By: #### C MP, PSA, ANEU, ADIFF, CBC, LIPID, GFR ####[place] [address] [place], [place] [address] Monocyte, Absolute 0.7 10 3/mcL Normal 0.1-1.4 [facility] Comment on above: Performed By: #### C MP, PSA, ANEU, ADIFF, CBC, LIPID, GFR ####[address] [address] Monocytes/100 WBC (Bld) 8.4 % Normal 2.0-13.0 [facility] Comment on above: Performed By: #### C MP, PSA, ANEU, ADIFF, CBC, LIPID, GFR ####[address] [address] Neutrophils/100 WBC (Bld) 59.7 % Normal 50.0-75.0 [facility] Comment on above: Performed By: #### C MP, PSA, ANEU, ADIFF, CBC, LIPID, GFR ####Jermaine [address] [place], [place] [address] .GFRon 03-24-2024 GFR 77 ml/min/1.73sqm Normal [facility] Comment on above: Result Comment: GFR Population mean for , Non- Americans Ages 20-29 = 116 mL/min/1.73 sq.m. Ages 30-39 = 107 mL/min/1.73 sq.m. Ages 40-49 = 99 mL/min/1.73 sq.m. Ages 50-59 = 93 mL/min/1.73 sq.m. Ages 60-69 = 85 mL/min/1.73 sq.m. Ages 70+ = 75 mL/min/1.73 sq.m. Chronic Kidney Disease: Less than 60 mL/min/1.73 square meters End Stage Renal Disease: Less than 15 mL/min/1.73 square meters Performed By: #### C MP, PSA, ANEU, ADIFF, CBC, LIPID, GFR ####[facility] [place], [place] [address] GFR Non- 64 ml/min/1.73sqm Normal [facility] Comment on above: Result Comment: GFR Population mean for , Non- Americans Ages 20-29 = 116 mL/min/1.73 sq.m. Ages 30-39 = 107 mL/min/1.73 sq.m. Ages 40-49 = 99 mL/min/1.73 sq.m. Ages 50-59 = 93 mL/min/1.73 sq.m. Ages 60-69 = 85 mL/min/1.73 sq.m. Ages 70+ = 75 mL/min/1.73 sq.m. Chronic Kidney Disease: Less than 60 mL/min/1.73 square meters End Stage Renal Disease: Less than 15 mL/min/1.73 square meters Performed By: #### C MP, PSA, ANEU, ADIFF, CBC, LIPID, GFR ####Jermaine [address] [place], [place] [address] .NEUABSon 03-24-2024 Neutrophil, Absolute 4.7 10 3/mcL Normal 2.3-8.1 [facility] Comment on above: Performed By: #### C MP, PSA, ANEU, ADIFF, CBC, LIPID, GFR ####[facility] [place], [place] [address] CBCon 03-24-2024 Erythrocyte distribution width (RBC) [Ratio] 13.3 % Normal 11.5-15.5 [facility] Comment on above: Performed By: #### C MP, PSA, ANEU, ADIFF, CBC, LIPID, GFR ####[address] [address] Hematocrit (Bld) [Volume fraction] 42.7 % Normal 40.0-52.0 [facility] Comment on above: Performed By: #### C MP, PSA, ANEU, ADIFF, CBC, LIPID, GFR ####[place] [id number] Hgb 14.6 G/dL Normal 13.0-17.5 [facility] Comment on above: Performed By: #### C MP, PSA, ANEU, ADIFF, CBC, LIPID, GFR ####[address] [address] MCH (RBC) [Entitic mass] 32.0 pg Normal 27.0-33.0 [facility] Comment on above: Performed By: #### C MP, PSA, ANEU, ADIFF, CBC, LIPID, GFR ####[place] [id number] MCHC 34.3 G/dL Normal 32.0-36.0 [facility] Comment on above: Performed By: #### C MP, PSA, ANEU, ADIFF, CBC, LIPID, GFR ####[address] [address] MCV (RBC) [Entitic vol] 93.4 fL Normal 81.0-100.0 [facility] Comment on above: Performed By: #### C MP, PSA, ANEU, ADIFF, CBC, LIPID, GFR ####Jermaine [address] [place], [place] [address] Platelet 173 10 3/mcL Normal 150-450 [facility] Comment on above: Performed By: #### C MP, PSA, ANEU, ADIFF, CBC, LIPID, GFR ####[address] [place], [place] [address] Platelet mean volume (Bld) [Entitic vol] 9.8 fL Normal 6.4-10.5 [facility] Comment on above: Performed By: #### C MP, PSA, ANEU, ADIFF, CBC, LIPID, GFR ####Jermaine [address] [place], [place] [address] RBC 4.58 10 6/mcL Normal 4.50-6.00 [facility] Comment on above: Performed By: #### C MP, PSA, ANEU, ADIFF, CBC, LIPID, GFR ####Jermaine [address] [place], [place] [address] WBC 7.9 10 3/mcL Normal 4.5-10.8 [facility] Comment on above: Performed By: #### C MP, PSA, ANEU, ADIFF, CBC, LIPID, GFR ####[facility] [place], [place] [address] CMPon 03-24-2024 Albumin Level 4.0 G/dL Normal 3.4-4.8 [facility] Comment on above: Performed By: #### C MP, PSA, ANEU, ADIFF, CBC, LIPID, GFR ####Jermaine [address] [place], [place] [address] Albumin/Globulin [Mass ratio] 1.4 {ratio} Normal 1.1-2.5 [facility] Comment on above: Performed By: #### C MP, PSA, ANEU, ADIFF, CBC, LIPID, GFR ####Jermaine [address] [place], [place] [address] ALP [Catalytic activity/Vol] 81 U/L Normal 40-135 [facility] Comment on above: Performed By: #### C MP, PSA, ANEU, ADIFF, CBC, LIPID, GFR ####[address] [address] ALT [Catalytic activity/Vol] 71 U/L High 16-63 [facility] Comment on above: Performed By: #### C MP, PSA, ANEU, ADIFF, CBC, LIPID, GFR ####[address] [address] AST [Catalytic activity/Vol] 39 U/L Normal 10-40 [facility] Comment on above: Performed By: #### C MP, PSA, ANEU, ADIFF, CBC, LIPID, GFR ####[address] [address] Bili Total 0.6 mg/dL Normal 0.2-1.0 [facility] Comment on above: Result Comment: Use of this assay is not recommended for patients undergoing treatment with eltrombopag due to the potential for falsely elevated results. Performed By: #### C MP, PSA, ANEU, ADIFF, CBC, LIPID, GFR ####[address] [address] BUN/Creatinine Ratio 15 ratio Normal 7-27 [facility] Comment on above: Performed By: #### C MP, PSA, ANEU, ADIFF, CBC, LIPID, GFR ####[address] [address] Calcium [Mass/Vol] 9.7 mg/dL Normal 8.4-10.2 [facility] Comment on above: Performed By: #### C MP, PSA, ANEU, ADIFF, CBC, LIPID, GFR ####[address] [address] Chloride [Moles/Vol] 105 mmol/L Normal 98-107 [facility] Comment on above: Performed By: #### C MP, PSA, ANEU, ADIFF, CBC, LIPID, GFR ####[address] [address] CO2 [Moles/Vol] 27 mmol/L Normal 23-31 [facility] Comment on above: Performed By: #### C MP, PSA, ANEU, ADIFF, CBC, LIPID, GFR ####[address] [address] Creatinine [Mass/Vol] 1.13 mg/dL Normal 0.70-1.30 [facility] Comment on above: Result Comment: Test ing performed on Siemens Dimension EXL analyzer using a modified kinetic Audra technique. Performed By: #### C MP, PSA, ANEU, ADIFF, CBC, LIPID, GFR ####[address] [address] Electrolyte Balance 8.0 mEq/L Normal 4.0-15.0 [facility] Comment on above: Performed By: #### C MP, PSA, ANEU, ADIFF, CBC, LIPID, GFR ####[address] [address] Globulin 2.9 G/dL Normal [facility] Comment on above: Performed By: #### C MP, PSA, ANEU, ADIFF, CBC, LIPID, GFR ####[address] [address] Glucose [Mass/Vol] 117 mg/dL High 83-110 [facility] Comment on above: Performed By: #### C MP, PSA, ANEU, ADIFF, CBC, LIPID, GFR ####[address] [address] Potassium [Moles/Vol] 4.7 mmol/L Normal 3.5-5.1 [facility] Comment on above: Performed By: #### C MP, PSA, ANEU, ADIFF, CBC, LIPID, GFR ####[address] [address] Sodium [Moles/Vol] 140 mmol/L Normal 136-145 [facility] Comment on above: Performed By: #### C MP, PSA, ANEU, ADIFF, CBC, LIPID, GFR ####[address] [address] Total Protein 6.9 G/dL Normal 6.4-8.2 [facility] Comment on above: Performed By: #### C MP, PSA, ANEU, ADIFF, CBC, LIPID, GFR ####[address] [place], [place] [address] Urea nitrogen [Mass/Vol] 17 mg/dL Normal 7-18 [facility] Comment on above: Performed By: #### C MP, PSA, ANEU, ADIFF, CBC, LIPID, GFR ####[facility] [place], [place] [address] LABORATORYOrdered By: SYSTEM SYSTEM on 03-24-2024 Albumin BCP dye [Mass/Vol] 4.0 G/dL Normal 3.4 - 4.8 G/dL AO ADM SS Albumin/Globulin [Mass ratio] 1.4 {ratio} Normal 1.1 - 2.5 ratio AO ADM SS ALP [Catalytic activity/Vol] 81 U/L Normal 40 - 135 U/L AO ADM SS ALT With P-5'-P [Catalytic activity/Vol] 71 U/L High 16 - 63 U/L AO ADM SS AST With P-5'-P [Catalytic activity/Vol] 39 U/L Normal 10 - 40 U/L AO ADM SS Basophils (Bld) [#/Vol] 0.1 103/mcL Normal 0.0 - 0.2 10^3/mcL AO Workflow SS Basophils/100 WBC (Bld) 0.9 % Normal 0.0 - 2.5 % AO Workflow SS Bilirubin [Mass/Vol] 0.6 mg/dL Normal 0.2 - 1 .0 mg/dL AO ADM SS Comment on above: Interpretive Data: U se of this assay is not recommended for patients undergoing treatment with eltrombopag due to the potential for falsely elevated results. Calcium [Mass/Vol] 9.7 mg/dL Normal 8.4 - 10. 2 mg/dL AO ADM SS Chloride [Moles/Vol] 105 mmol/L Normal 98 - 10 7 mmol/L AO ADM SS CO2 [Moles/Vol] 27 mmol/L Normal 23 - 31 mmol/L AO ADM SS Creatinine [Mass/Vol] 1.13 mg/dL Normal 0.70 - 1.30 mg/dL AO ADM SS Comment on above: Interpretive Data: T esting performed on Siemens Dimension EXL analyzer using a modified kinetic Audra technique. Electrolyte Balance 8.0 mEq/L Normal 4.0 - 15 .0 mEq/L AO ADM SS Eosinophil, Absolute 0.2 103/mcL Normal 0.0 - 0 .7 10^3/mcL AO Workflow SS Eosinophils/100 WBC (Bld) 3.1 % Normal 0.0 - 7.0 % AO Workflow SS Erythrocyte distribution width (RBC) [Ratio] 13.3 % Normal 11.5 - 15.5 % AO Workflow SS GFR/1.73 sq M.predicted among blacks MDRD (S/P/Bld) [Vol rate/Area] 77 ml/min/1.73sqm Invalid Interpretation Code AO Chemistry S Comment on above: Interpretive Data: GFR Population mean for , Non- Americans Ages 20-29 = 116 mL/min/1.73 sq.m. Ages 30-39 = 107 mL/min/1.73 sq.m. Ages 40-49 = 99 mL/min/1.73 sq.m. Ages 50-59 = 93 mL/min/1.73 sq.m. Ages 60-69 = 85 mL/min/1.73 sq.m. Ages 70+ = 75 mL/min/1.73 sq.m. Chronic Kidney Disease: Less than 60 mL/min/1.73 square meters End Stage Renal Disease: Less than 15 mL/min/1.73 square meters GFR/1.73 sq M.predicted among non-blacks MDRD (S/P/Bld) [Vol rate/Area] 64 ml/min/1.73sqm Invalid Interpretation Code AO Chemistry S Comment on above: Interpretive Data: GFR Population mean for , Non- Americans Ages 20-29 = 116 mL/min/1.73 sq.m. Ages 30-39 = 107 mL/min/1.73 sq.m. Ages 40-49 = 99 mL/min/1.73 sq.m. Ages 50-59 = 93 mL/min/1.73 sq.m. Ages 60-69 = 85 mL/min/1.73 sq.m. Ages 70+ = 75 mL/min/1.73 sq.m. Chronic Kidney Disease: Less than 60 mL/min/1.73 square meters End Stage Renal Disease: Less than 15 mL/min/1.73 square meters Globulin 2.9 G/dL Invalid Interpretation Code AO ADM SS Glucose [Mass/Vol] 117 mg/dL High 83 - 110 mg/dL AO ADM SS Hematocrit (Bld) [Volume fraction] 42.7 % Normal 40.0 - 52.0 % AO Workflow SS Hemoglobin (Bld) [Mass/Vol] 14.6 G/dL Normal 13.0 - 17.5 G/dL AO Workflow SS Lymphocytes (Bld) [#/Vol] 2.2 103/mcL Normal 0.9 - 4.3 10^3/mcL AO Workflow SS Lymphocytes/100 WBC (Bld) 27.9 % Normal 20.0 - 40.0 % AO Workflow SS MCH (RBC) [Entitic mass] 32.0 pg Normal 27.0 - 33.0 pg AO Workflow SS MCHC 34.3 G/dL Normal 32.0 - 36.0 G/dL AO Workflow SS MCV (RBC) [Entitic vol] 93.4 fL Normal 81.0 - 100.0 fL AO Workflow SS Monocytes (Bld) [#/Vol] 0.7 103/mcL Normal 0.1 - 1.4 10^3/mcL AO Workflow SS Monocytes/100 WBC (Bld) 8.4 % Normal 2.0 - 13.0 % AO Workflow SS Neutrophils (Bld) [#/Vol] 4.7 103/mcL Normal 2.3 - 8.1 10^3/mcL AO Workflow SS Neutrophils/100 WBC (Bld) 59.7 % Normal 50.0 - 75.0 % AO Workflow SS Platelet mean volume (Bld) [Entitic vol] 9.8 fL Normal 6.4 - 10.5 fL AO Workflow SS Platelets (Bld) [#/Vol] 173 103/mcL Normal 150 - 450 10^3/mcL AO Workflow SS Potassium [Moles/Vol] 4.7 mmol/L Normal 3.5 - 5.1 mmol/L AO ADM SS Prostate specific Ag [Mass/Vol] 0.21 ng/mL Normal 0.00 - 4.00 ng/mL AO ADM SS Protein [Mass/Vol] 6.9 G/dL Normal 6.4 - 8.2 G/dL AO ADM SS RBC (Bld) [#/Vol] 4.58 106/mcL Normal 4.50 - 6.0 0 10^6/mcL AO Workflow SS Sodium [Moles/Vol] 140 mmol/L Normal 136 - 145 mmol/L AO ADM SS Urea nitrogen [Mass/Vol] 17 mg/dL Normal 7 - 18 mg/dL AO ADM SS Urea nitrogen/Creatinine [Mass ratio] 15 ratio Normal 7 - 27 ratio AO ADM SS WBC (Bld) [#/Vol] 7.9 103/mcL Normal 4.5 - 10.8 10^3/mcL AO Workflow SS LABORATORYOrdered By: Cecile Yan on 03-24-2024 Cholesterol [Mass/Vol] 107 mg/dL Normal 0 - 200 mg/dL AO ADM SS Comment on above: Interpretive Data: C holesterol Reference Interval: Less than 200 Desirable 200-239 Borderline high risk 240 and above High risk Cholesterol in HDL [Mass/Vol] 37 mg/dL Low 40 - 60 mg/dL AO ADM SS Cholesterol in LDL [Mass/Vol] 50 mg/dL Normal 0 - 130 mg/dL AO ADM SS Triglyceride [Mass/Vol] 101 mg/dL Normal 0 - 150 mg/dL AO ADM SS Comment on above: Interpretive Data: T riglyceride Reference Interval: Less than 150 Normal 150-199 Borderline high risk 200-499 High risk 500 or higher Very high risk LIPIDon 03-24-2024 Cholesterol [Mass/Vol] 107 mg/dL Normal 0-200 [facility] Comment on above: Result Comment: Chol esterol Reference Interval: Less than 200 Desirable 200-239 Borderline high risk 240 and above High risk Performed By: #### C MP, PSA, ANEU, ADIFF, CBC, LIPID, GFR ####[id number] [place], [place] [address] Cholesterol in HDL [Mass/Vol] 37 mg/dL Low 40-60 [facility] Comment on above: Performed By: #### C MP, PSA, ANEU, ADIFF, CBC, LIPID, GFR ####[facility] [place], [place] [address] Cholesterol in LDL [Mass/Vol] 50 mg/dL Normal 0-130 [facility] Comment on above: Performed By: #### C MP, PSA, ANEU, ADIFF, CBC, LIPID, GFR ####[facility] [place], [place] [address] Triglyceride [Mass/Vol] 101 mg/dL Normal 0-150 [facility] Comment on above: Result Comment: Trig lyceride Reference Interval: Less than 150 Normal 150-199 Borderline high risk 200-499 High risk 500 or higher Very high risk Performed By: #### C MP, PSA, ANEU, ADIFF, CBC, LIPID, GFR ####[address] [place], [place] [address] PSAon 03-24-2024 Prostate Specific Antigen 0.21 ng/mL Normal 0.00-4.00 [facility] Comment on above: Performed By: #### C MP, PSA, ANEU, ADIFF, CBC, LIPID, GFR ####[address] [place], [place] [address] .GFRon 09-18-2023 GFR 74 ml/min/1.73sqm Normal [facility] ([place]) Comment on above: Result Comment: GFR Population mean for , Non- Americans Ages 20-29 = 116 mL/min/1.73 sq.m. Ages 30-39 = 107 mL/min/1.73 sq.m. Ages 40-49 = 99 mL/min/1.73 sq.m. Ages 50-59 = 93 mL/min/1.73 sq.m. Ages 60-69 = 85 mL/min/1.73 sq.m. Ages 70+ = 75 mL/min/1.73 sq.m. Chronic Kidney Disease: Less than 60 mL/min/1.73 square meters End Stage Renal Disease: Less than 15 mL/min/1.73 square meters Performed By: #### G FR, BMP #### [place] [address] [place], [place] [address] #### HCV1 #### [address] [address] GFR Non- 61 ml/min/1.73sqm Normal [facility] ([place] Comment on above: Result Comment: GFR Population mean for , Non- Americans Ages 20-29 = 116 mL/min/1.73 sq.m. Ages 30-39 = 107 mL/min/1.73 sq.m. Ages 40-49 = 99 mL/min/1.73 sq.m. Ages 50-59 = 93 mL/min/1.73 sq.m. Ages 60-69 = 85 mL/min/1.73 sq.m. Ages 70+ = 75 mL/min/1.73 sq.m. Chronic Kidney Disease: Less than 60 mL/min/1.73 square meters End Stage Renal Disease: Less than 15 mL/min/1.73 square meters Performed By: #### G FR, BMP #### [address] [address] #### HCV1 #### [address] [address] BMPon 09-18-2023 BUN/Creatinine Ratio 15 ratio Normal 7-27 [facility] ([place] Comment on above: Performed By: #### Beth PEARSON, BMP #### [place] [address] #### HCV1 #### [address] [address] Calcium [Mass/Vol] 9.6 mg/dL Normal 8.4-10.2 [facility] ([place]) Comment on above: Performed By: #### Beth FR, BMP #### [place] [address] #### HCV1 #### [address] [address] Chloride [Moles/Vol] 105 mmol/L Normal 98-107 [facility] ([place] Comment on above: Performed By: #### Beth PEARSON, BMP #### [place] [address] #### HCV1 #### [address] [address] CO2 [Moles/Vol] 31 mmol/L Normal 23-31 [facility] ([place] Comment on above: Performed By: #### Beth FR, BMP #### [address] [address] #### HCV1 #### [address] [address] Creatinine [Mass/Vol] 1.17 mg/dL Normal 0.70-1.30 [facility] ([place] Comment on above: Performed By: #### G FR, BMP #### [address] [address] #### HCV1 #### [address] [address] Electrolyte Balance 7.0 mEq/L Normal 4.0-15.0 [facility] ([place] Comment on above: Performed By: #### G FR, BMP #### [place] [address] #### HCV1 #### [address] [address] Glucose [Mass/Vol] 151 mg/dL High 83-110 [facility] ([place] Comment on above: Performed By: #### G FR, BMP #### [place] [address] #### HCV1 #### [address] [address] Potassium [Moles/Vol] 5.3 mmol/L High 3.5-5.1 [facility] ([place] Comment on above: Performed By: #### Beth FR, BMP #### [place] [address] #### HCV1 #### [address] [address] Sodium [Moles/Vol] 143 mmol/L Normal 136-145 [facility] ([place] Comment on above: Performed By: #### G FR, BMP #### [place] [address] #### HCV1 #### [address] [address] Urea nitrogen [Mass/Vol] 18 mg/dL Normal 7-18 [facility] ([place] Comment on above: Performed By: #### G FR, BMP #### [place] [id number] #### HCV1 #### [address] [address] HCVon 09-18-2023 Hep C Ab Non-Reactive Normal Non-Reactiv e [facility] ([place] Comment on above: Performed By: #### G FR BMP #### [address] [address] #### HCV1 #### [place] [address] Hep C Ab Int Normal [facility] ([place] Comment on above: Result Comment: Nonr eactive: Samples with a value < 0.80 are considered nonreactive (negative) for antibodies to HCV. A negative test result does not exclude the possibility of exposure to or infection with HCV. HCV antibodies may be undetectable in some stages of the infection and in some clinical conditions. See Interp Performed By: #### G FR BMP #### [place] [id number] #### HCV1 #### [address] [address] LABORATORYOrdered By: Andrew Roberts on 09-17-2023 Albumin DL <= 20 mg/L (U) [Mass/Vol] 1318 mcg/dL Invalid Interpretation Code AO ADM SS Albumin/Creatinine DL <= 20 mg/L (U) [Mass ratio] 11 mcg/mg Normal 0 - 30 mcg/mg AO ADM SS Creatinine (U) [Mass/Vol] 122.7 mg/dL Normal 39.0 - 259.0 mg/dL AO ADM SS MALBRon 09-17-2023 U Creatinine 122.7 mg/dL Normal 39.0-259.0 [facility] ([place] Comment on above: Performed By: #### M ALBR #### [address] [address] U Microalb 1318 mcg/dL Normal [facility] ([place] Comment on above: Performed By: #### M ALBR #### [address] [address] U Ratio Alb/Cre 11 mcg/mg Normal 0-30 [facility] ([place] Comment on above: Performed By: #### M ALBR #### [address] [address] HFPon 08-14-2023 Bili Indirect 0.7 mg/dL Normal [facility] ([place] Comment on above: Performed By: #### Beth FR, BMP #### [address] [address] #### HCV1 #### [place] [address] Albumin Level 4.5 G/dL Normal 3.4-4.8 [facility] ([place] Comment on above: Performed By: #### Beth FR, BMP #### [place] [id number] #### HCV1 #### [place] [address] Albumin/Globulin [Mass ratio] 1.4 {ratio} Normal 1.1-2.5 [facility] ([place] Comment on above: Performed By: #### Beth FR, BMP #### [place] [address] #### HCV1 #### [address] [address] ALP [Catalytic activity/Vol] 77 U/L Normal 40-135 [facility] ([place]) Comment on above: Performed By: #### Beth FR, BMP #### [address] [address] #### HCV1 #### [address] [address] ALT [Catalytic activity/Vol] 58 U/L Normal 16-63 [facility] ([place]) Comment on above: Performed By: #### Beth FR, BMP #### [address] [address] #### HCV1 #### [address] [address] AST [Catalytic activity/Vol] 28 U/L Normal 10-40 [facility] ([place]) Comment on above: Performed By: #### Beth FR, BMP #### [place] [id number] #### HCV1 #### [address] [address] Bili Direct 0.2 mg/dL Normal 0.0-0.2 [facility] ([place] Comment on above: Result Comment: Use of this assay is not recommended for patients undergoing treatment with eltrombopag due to the potential for falsely elevated results. Performed By: #### G FR, BMP #### [address] [address] #### HCV1 #### [place] [address] Bili Total 0.9 mg/dL Normal 0.2-1.0 [facility] ([place] Comment on above: Result Comment: Use of this assay is not recommended for patients undergoing treatment with eltrombopag due to the potential for falsely elevated results. Performed By: #### G , BMP #### [address] [address] #### HCV1 #### [place] [address] Globulin 3.2 G/dL Normal [facility] ([place] Comment on above: Performed By: #### G , BMP #### [place] [address] #### HCV1 #### [place] [address] Total Protein 7.7 G/dL Normal 6.4-8.2 [facility] ([place] Comment on above: Performed By: #### G FR, BMP #### [place] [address] #### HCV1 #### [place] [address] LABORATORYOrdered By: SYSTEM SYSTEM on 08-14-2023 Albumin BCP dye [Mass/Vol] 4.5 G/dL Normal 3.4 - 4.8 G/dL AO ADM SS Albumin/Globulin [Mass ratio] 1.4 {ratio} Normal 1.1 - 2.5 ratio AO ADM SS ALP [Catalytic activity/Vol] 77 U/L Normal 40 - 135 U/L AO ADM SS ALT With P-5'-P [Catalytic activity/Vol] 58 U/L Normal 16 - 63 U/L AO ADM SS AST With P-5'-P [Catalytic activity/Vol] 28 U/L Normal 10 - 40 U/L AO ADM SS Bilirubin [Mass/Vol] 0.9 mg/dL Normal 0.2 - 1 .0 mg/dL AO ADM SS Comment on above: Interpretive Data: U se of this assay is not recommended for patients undergoing treatment with eltrombopag due to the potential for falsely elevated results. Bilirubin.direct [Mass/Vol] 0.2 mg/dL Normal 0.0 - 0.2 mg/dL AO ADM SS Comment on above: Interpretive Data: U se of this assay is not recommended for patients undergoing treatment with eltrombopag due to the potential for falsely elevated results. Bilirubin.direct [Mass/Vol] 0.7 mg/dL Invalid Interpretation Code AO Chemistry S Globulin 3.2 G/dL Invalid Interpretation Code AO ADM SS Lipase [Catalytic activity/Vol] 193 U/L High 16 - 77 U/L AO ADM SS Protein [Mass/Vol] 7.7 G/dL Normal 6.4 - 8.2 G/dL AO ADM SS LIPon 08-14-2023 Lipase Level 193 U/L High 16-77 [facility] ([place] Comment on above: Performed By: #### G FR, BMP #### [address] [address] #### HCV1 #### [address] [address] .Auto Diffon 03-17-2023 Basophil, Absolute 0.0 10 3/mcL Normal 0.0-0.2 [facility] ([place] Comment on above: Performed By: #### P SA, ADIFF, GFR, LIPID, ANEU, CMP, CBC #### [address] [address] Basophils/100 WBC (Bld) 0.5 % Normal 0.0-2.5 [facility] ([place] Comment on above: Performed By: #### P SA, ADIFF, GFR, LIPID, ANEU, CMP, CBC #### [address] [address] Eosinophil, Absolute 0.3 10 3/mcL Normal 0.0-0.4 [facility] ([place] Comment on above: Performed By: #### P SA, ADIFF, GFR, LIPID, ANEU, CMP, CBC #### [address] [address] Eosinophils/100 WBC (Bld) 2.6 % Normal 0.0-7.0 [facility] ([place] Comment on above: Performed By: #### P SA, ADIFF, GFR, LIPID, ANEU, CMP, CBC #### [address] [address] Lymphocyte, Absolute 2.8 10 3/mcL Normal 0.8-3.9 [facility] ([place] Comment on above: Performed By: #### P SA, ADIFF, GFR, LIPID, ANEU, CMP, CBC #### [address] [address] Lymphocytes/100 WBC (Bld) 28.6 % Normal 10.0-50.0 [facility] ([place] Comment on above: Performed By: #### P SA, ADIFF, GFR, LIPID, ANEU, CMP, CBC #### [address] [address] Monocyte, Absolute 0.8 10 3/mcL Normal 0.2-1.0 [facility] ([place] Comment on above: Performed By: #### P SA, ADIFF, GFR, LIPID, ANEU, CMP, CBC #### [address] [address] Monocytes/100 WBC (Bld) 8.5 % Normal 1.7-13.0 [facility] ([place] Comment on above: Performed By: #### P SA, ADIFF, GFR, LIPID, ANEU, CMP, CBC #### [address] [address] Neutrophils/100 WBC (Bld) 59.8 % Normal 37.0-80.0 [facility] ([place] Comment on above: Performed By: #### P SA, ADIFF, GFR, LIPID, ANEU, CMP, CBC #### [address] [address] .GFRon 03-17-2023 GFR 64 ml/min/1.73sqm Normal [facility] ([place] Comment on above: Result Comment: GFR Population mean for , Non- Americans Ages 20-29 = 116 mL/min/1.73 sq.m. Ages 30-39 = 107 mL/min/1.73 sq.m. Ages 40-49 = 99 mL/min/1.73 sq.m. Ages 50-59 = 93 mL/min/1.73 sq.m. Ages 60-69 = 85 mL/min/1.73 sq.m. Ages 70+ = 75 mL/min/1.73 sq.m. Chronic Kidney Disease: Less than 60 mL/min/1.73 square meters End Stage Renal Disease: Less than 15 mL/min/1.73 square meters Performed By: #### P SA, ADIFF, GFR, LIPID, ANEU, CMP, CBC #### [address] [address] GFR Non- 52 ml/min/1.73sqm Normal [facility] ([place] Comment on above: Result Comment: GFR Population mean for , Non- Americans Ages 20-29 = 116 mL/min/1.73 sq.m. Ages 30-39 = 107 mL/min/1.73 sq.m. Ages 40-49 = 99 mL/min/1.73 sq.m. Ages 50-59 = 93 mL/min/1.73 sq.m. Ages 60-69 = 85 mL/min/1.73 sq.m. Ages 70+ = 75 mL/min/1.73 sq.m. Chronic Kidney Disease: Less than 60 mL/min/1.73 square meters End Stage Renal Disease: Less than 15 mL/min/1.73 square meters Performed By: #### P SA, ADIFF, GFR, LIPID, ANEU, CMP, CBC #### [address] [address] .NEUABSon 03-17-2023 Neutrophil, Absolute 5.8 10 3/mcL Normal 2.9-6.2 [facility] ([place] Comment on above: Performed By: #### P SA, ADIFF, GFR, LIPID, ANEU, CMP, CBC #### [address] [address] CBCon 03-17-2023 Erythrocyte distribution width (RBC) [Ratio] 13.3 % Normal 11.5-14.5 [facility] ([place] Comment on above: Performed By: #### P SA, ADIFF, GFR, LIPID, ANEU, CMP, CBC #### [place] [address] Hematocrit (Bld) [Volume fraction] 43.7 % Normal 42.0-52.0 [facility] ([place] Comment on above: Performed By: #### P SA, ADIFF, GFR, LIPID, ANEU, CMP, CBC #### [place] [id number] Hgb 14.6 G/dL Normal 14.0-18.0 [facility] ([place] Comment on above: Performed By: #### P SA, ADIFF, GFR, LIPID, ANEU, CMP, CBC #### [address] [address] MCH (RBC) [Entitic mass] 31.2 pg Normal 27.0-31.2 [facility] ([place] Comment on above: Performed By: #### P SA, ADIFF, GFR, LIPID, ANEU, CMP, CBC #### [address] [address] MCHC 33.4 G/dL Normal 31.8-35.4 [facility] ([place] Comment on above: Performed By: #### P SA, ADIFF, GFR, LIPID, ANEU, CMP, CBC #### [address] [address] MCV (RBC) [Entitic vol] 93.3 fL Normal 80.0-94.0 [facility] ([place] Comment on above: Performed By: #### P SA, ADIFF, GFR, LIPID, ANEU, CMP, CBC #### [place] [id number] Platelet 219 10 3/mcL Normal 130-400 [facility] ([place] Comment on above: Performed By: #### P SA, ADIFF, GFR, LIPID, ANEU, CMP, CBC #### [address] [address] Platelet mean volume (Bld) [Entitic vol] 9.5 fL Normal 7.4-10.4 [facility] ([place] Comment on above: Performed By: #### P SA, ADIFF, GFR, LIPID, ANEU, CMP, CBC #### [address] [address] RBC 4.68 10 6/mcL Normal 4.04-6.13 [facility] ([place] Comment on above: Performed By: #### P SA, ADIFF, GFR, LIPID, ANEU, CMP, CBC #### [address] [address] WBC 9.7 10 3/mcL Normal 4.6-10.8 [facility] ([place] Comment on above: Performed By: #### P SA, ADIFF, GFR, LIPID, ANEU, CMP, CBC #### [address] [address] CMPon 03-17-2023 Albumin Level 4.2 G/dL Normal 3.4-4.8 [facility]) Comment on above: Performed By: #### P SA, ADIFF, GFR, LIPID, ANEU, CMP, CBC #### [address] [address] Albumin/Globulin [Mass ratio] 1.2 {ratio} Normal 1.1-2.5 [facility]) Comment on above: Performed By: #### P SA, ADIFF, GFR, LIPID, ANEU, CMP, CBC #### [address] [address] ALP [Catalytic activity/Vol] 77 U/L Normal 40-135 [facility]) Comment on above: Performed By: #### P SA, ADIFF, GFR, LIPID, ANEU, CMP, CBC #### [address] [address] ALT [Catalytic activity/Vol] 73 U/L High 16-63 [facility] ([place] Comment on above: Performed By: #### P SA, ADIFF, GFR, LIPID, ANEU, CMP, CBC #### [address] [address] AST [Catalytic activity/Vol] 34 U/L Normal 10-40 [facility] ([place] Comment on above: Performed By: #### P SA, ADIFF, GFR, LIPID, ANEU, CMP, CBC #### [address] [address] Bili Total 0.5 mg/dL Normal 0.2-1.0 [facility] ([place] Comment on above: Result Comment: Use of this assay is not recommended for patients undergoing treatment with eltrombopag due to the potential for falsely elevated results. Performed By: #### P SA, ADIFF, GFR, LIPID, ANEU, CMP, CBC #### [address] [address] BUN/Creatinine Ratio 15 ratio Normal 7-27 [facility] ([place] Comment on above: Performed By: #### P SA, ADIFF, GFR, LIPID, ANEU, CMP, CBC #### [address] [address] Calcium [Mass/Vol] 10.1 mg/dL Normal 8.4-10.2 [facility] ([place] Comment on above: Performed By: #### P SA, ADIFF, GFR, LIPID, ANEU, CMP, CBC #### [address] [address] Chloride [Moles/Vol] 103 mmol/L Normal 98-107 [facility] ([place] Comment on above: Performed By: #### P SA, ADIFF, GFR, LIPID, ANEU, CMP, CBC #### [address] [address] CO2 [Moles/Vol] 27 mmol/L Normal 23-31 [facility] ([place] Comment on above: Performed By: #### P SA, ADIFF, GFR, LIPID, ANEU, CMP, CBC #### [address] [address] Creatinine [Mass/Vol] 1.34 mg/dL High 0.70-1.30 [facility] ([place] Comment on above: Performed By: #### P SA, ADIFF, GFR, LIPID, ANEU, CMP, CBC #### [address] [address] Electrolyte Balance 13.0 mEq/L Normal 4.0-15.0 [facility] ([place] Comment on above: Performed By: #### P SA, ADIFF, GFR, LIPID, ANEU, CMP, CBC #### [address] [address] Globulin 3.5 G/dL Normal [facility] ([place] Comment on above: Performed By: #### P SA, ADIFF, GFR, LIPID, ANEU, CMP, CBC #### [address] [address] Glucose [Mass/Vol] 116 mg/dL High 83-110 [facility] ([place] Comment on above: Performed By: #### P SA, ADIFF, GFR, LIPID, ANEU, CMP, CBC #### [address] [address] Potassium [Moles/Vol] 4.9 mmol/L Normal 3.5-5.1 [facility] ([place] Comment on above: Performed By: #### P SA, ADIFF, GFR, LIPID, ANEU, CMP, CBC #### [address] [address] Sodium [Moles/Vol] 143 mmol/L Normal 136-145 [facility] ([place] Comment on above: Performed By: #### P SA, ADIFF, GFR, LIPID, ANEU, CMP, CBC #### [address] [address] Total Protein 7.7 G/dL Normal 6.4-8.2 [facility] ([place] Comment on above: Performed By: #### P SA, ADIFF, GFR, LIPID, ANEU, CMP, CBC #### [address] [address] Urea nitrogen [Mass/Vol] 20 mg/dL High 7-18 [facility] ([place] Comment on above: Performed By: #### P SA, ADIFF, GFR, LIPID, ANEU, CMP, CBC #### [address] [address] LIPIDon 03-17-2023 Cholesterol [Mass/Vol] 120 mg/dL Normal 0-200 [facility] ([place] Comment on above: Result Comment: Chol esterol Reference Interval: Less than 200 Desirable 200-239 Borderline high risk 240 and above High risk Performed By: #### G FR, BMP #### [address] [address] #### HCV1 #### [address] [address] Cholesterol in HDL [Mass/Vol] 37 mg/dL Low 40-60 [facility] ([place] Comment on above: Performed By: #### G FR, BMP #### [address] [address] #### HCV1 #### [address] [address] Cholesterol in LDL [Mass/Vol] 57 mg/dL Normal 0-130 [facility] ([place] Comment on above: Performed By: #### G FR, BMP #### [place] [address] #### HCV1 #### [address] [address] Triglyceride [Mass/Vol] 129 mg/dL Normal 0-150 [facility] ([place] Comment on above: Result Comment: Trig lyceride Reference Interval: Less than 150 Normal 150-199 Borderline high risk 200-499 High risk 500 or higher Very high risk Performed By: #### G FR, BMP #### [address] [address] #### HCV1 #### [address] [address] PSAon 03-17-2023 Prostate Specific Antigen 0.05 ng/mL Normal 0.00-4.00 [facility] ([place] Comment on above: Performed By: #### P SA, ADIFF, GFR, LIPID, ANEU, CMP, CBC #### [place] [address] [place], [place] [address] LABORATORYOrdered By: Modesta Aggarwal on 02-17-2022 Cholesterol [Mass/Vol] 121 mg/dL Invalid Interpretation Code 0 - 200 mg/dL AO ADM SS Cholesterol in HDL [Mass/Vol] 41 mg/dL Invalid Interpretation Code 40 - 60 mg/dL AO ADM SS Cholesterol in LDL [Mass/Vol] 59 mg/dL Invalid Interpretation Code 0 - 130 mg/dL AO ADM SS Prostate specific Ag [Mass/Vol] ng/mL Invalid Interpretation Code 0.00 - 4.00 ng/mL AO ADM SS Triglyceride [Mass/Vol] 104 mg/dL Invalid Interpretation Code 0 - 150 mg/dL AO ADM SS LABORATORYOrdered By: Yani Lopez on 11-15-2021 Albumin BCP dye [Mass/Vol] 3.6 G/dL Invalid Interpretation Code 3.4 - 4.8 G/dL AO ADM SS Albumin/Globulin [Mass ratio] 1.4 {ratio} Invalid Interpretation Code 1.1 - 2.5 ratio AO ADM SS ALP [Catalytic activity/Vol] 68 U/L Invalid Interpretation Code 40 - 135 U/L AO ADM SS ALT With P-5'-P [Catalytic activity/Vol] 37 U/L Invalid Interpretation Code 16 - 63 U/L AO ADM SS AST With P-5'-P [Catalytic activity/Vol] 18 U/L Invalid Interpretation Code 10 - 40 U/L AO ADM SS Basophil, Absolute 0.0 103/mcL Invalid Interpretation Code 0.0 - 0.2 10^3/mcL AO Workflow SS Basophils/100 WBC (Bld) 0.6 % Invalid Interpretation Code 0.0 - 2.5 % AO Workflow SS Bilirubin [Mass/Vol] 0.8 mg/dL Invalid Interpretation Code 0.2 - 1.0 mg/dL AO ADM SS Calcium [Mass/Vol] 9.1 mg/dL Invalid Interpretation Code 8.4 - 10.2 mg/dL AO ADM SS Chloride [Moles/Vol] 105 mmol/L Invalid Interpretation Code 98 - 107 mmol/L AO ADM SS Cholesterol [Mass/Vol] 101 mg/dL Invalid Interpretation Code 0 - 200 mg/dL AO ADM SS Cholesterol in HDL [Mass/Vol] 30 mg/dL Invalid Interpretation Code 40 - 60 mg/dL AO ADM SS Cholesterol in LDL [Mass/Vol] 54 mg/dL Invalid Interpretation Code 0 - 130 mg/dL AO ADM SS CO2 [Moles/Vol] 22 mmol/L Invalid Interpretation Code 23 - 31 mmol/L AO ADM SS Creatinine [Mass/Vol] 1.15 mg/dL Invalid Interpretation Code 0.70 - 1.30 mg/dL AO ADM SS Electrolyte Balance 11.0 mEq/L Invalid Interpretation Code 4.0 - 15.0 mEq/L AO ADM SS Eosinophil, Absolute 0.1 103/mcL Invalid Interpretation Code 0.0 - 0.4 10^3/mcL AO Workflow SS Eosinophils/100 WBC (Bld) 1.0 % Invalid Interpretation Code 0.0 - 7.0 % AO Workflow SS Erythrocyte distribution width (RBC) [Ratio] 13.1 % Invalid Interpretation Code 11.5 - 14.5 % AO Workflow SS Globulin 2.5 G/dL Invalid Interpretation Code AO ADM SS Glucose [Mass/Vol] 90 mg/dL Invalid Interpretation Code 83 - 110 mg/dL AO ADM SS Hematocrit (Bld) [Volume fraction] 37.4 % Invalid Interpretation Code 42.0 - 52.0 % AO Workflow SS Hemoglobin (Bld) [Mass/Vol] 12.9 G/dL Invalid Interpretation Code 14.0 - 18.0 G/dL AO Workflow SS Lipase [Catalytic activity/Vol] 743 U/L Invalid Interpretation Code 73 - 393 U/L AO ADM SS Lymphocyte, Absolute 2.4 103/mcL Invalid Interpretation Code 0.8 - 3.9 10^3/mcL AO Workflow SS Lymphocytes/100 WBC (Bld) 27.2 % Invalid Interpretation Code 10.0 - 50.0 % AO Workflow SS Magnesium [Mass/Vol] 1.9 mg/dL Invalid Interpretation Code 1.8 - 2.4 mg/dL AO ADM SS MCH (RBC) [Entitic mass] 31.7 pg Invalid Interpretation Code 27.0 - 31.2 pg AO Workflow SS MCHC 34.5 G/dL Invalid Interpretation Code 31.8 - 35.4 G/dL AO Workflow SS MCV (RBC) [Entitic vol] 91.9 fL Invalid Interpretation Code 80.0 - 94.0 fL AO Workflow SS Monocyte, Absolute 0.8 103/mcL Invalid Interpretation Code 0.2 - 1.0 10^3/mcL AO Workflow SS Monocytes/100 WBC (Bld) 9.2 % Invalid Interpretation Code 1.7 - 13.0 % AO Workflow SS Neutrophil, Absolute 5.4 103/mcL Invalid Interpretation Code 2.9 - 6.2 10^3/mcL AO Workflow SS Neutrophils/100 WBC (Bld) 62.0 % Invalid Interpretation Code 37.0 - 80.0 % AO Workflow SS Platelet mean volume (Bld) [Entitic vol] 9.2 fL Invalid Interpretation Code 7.4 - 10.4 fL AO Workflow SS Platelets (Bld) [#/Vol] 190 103/mcL Invalid Interpretation Code 130 - 400 10^3/mcL AO Workflow SS Potassium [Moles/Vol] 4.1 mmol/L Invalid Interpretation Code 3.5 - 5.1 mmol/L AO ADM SS Protein [Mass/Vol] 6.1 G/dL Invalid Interpretation Code 6.4 - 8.2 G/dL AO ADM SS RBC (Bld) [#/Vol] 4.07 106/mcL Invalid Interpretation Code 4.04 - 6.13 10^6/mcL AO Workflow SS Sodium [Moles/Vol] 138 mmol/L Invalid Interpretation Code 136 - 145 mmol/L AO ADM SS Triglyceride [Mass/Vol] 87 mg/dL Invalid Interpretation Code 0 - 150 mg/dL AO ADM SS Urea nitrogen [Mass/Vol] 20 mg/dL Invalid Interpretation Code 7 - 18 mg/dL AO ADM SS Urea nitrogen/Creatinine [Mass ratio] 17 ratio Invalid Interpretation Code 7 - 27 ratio AO ADM SS WBC 8.7 103/mcL Invalid Interpretation Code 4.6 - 10.8 10^3/mcL AO Workflow SS LABORATORYOrdered By: SYSTEM SYSTEM on 11-15-2021 GFR 76 ml/min/1.73sqm Invalid Interpretation Code AO Chemistry S GFR Non- 63 ml/min/1.73sqm Invalid Interpretation Code AO Chemistry S Monocyte distribution width Auto (Bld) [Entitic vol] Not Performed 1 *NA* (11/15/21 5:30 AM) Invalid Interpretation Code 0.00 - 20.00 AO Hematology S Comment on above: Result Comment: MDW testing performed only on adult ER patients between the ages of 18-89 years. LABORATORYOrdered By: Yani Lopez on 11-14-2021 Albumin BCP dye [Mass/Vol] 4.2 G/dL Invalid Interpretation Code 3.4 - 4.8 G/dL AO ADM SS Albumin/Globulin [Mass ratio] 1.3 {ratio} Invalid Interpretation Code 1.1 - 2.5 ratio AO ADM SS ALP [Catalytic activity/Vol] 73 U/L Invalid Interpretation Code 40 - 135 U/L AO ADM SS ALT With P-5'-P [Catalytic activity/Vol] 48 U/L Invalid Interpretation Code 16 - 63 U/L AO ADM SS AST With P-5'-P [Catalytic activity/Vol] 20 U/L Invalid Interpretation Code 10 - 40 U/L AO ADM SS Bilirubin [Mass/Vol] 0.6 mg/dL Invalid Interpretation Code 0.2 - 1.0 mg/dL AO ADM SS Calcium [Mass/Vol] 9.9 mg/dL Invalid Interpretation Code 8.4 - 10.2 mg/dL AO ADM SS Chloride [Moles/Vol] 102 mmol/L Invalid Interpretation Code 98 - 107 mmol/L AO ADM SS CO2 [Moles/Vol] 26 mmol/L Invalid Interpretation Code 23 - 31 mmol/L AO ADM SS Creatinine [Mass/Vol] 1.17 mg/dL Invalid Interpretation Code 0.70 - 1.30 mg/dL AO ADM SS Electrolyte Balance 9.0 mEq/L Invalid Interpretation Code 4.0 - 15.0 mEq/L AO ADM SS Globulin 3.2 G/dL Invalid Interpretation Code AO ADM SS Glucose [Mass/Vol] 126 mg/dL Invalid Interpretation Code 83 - 110 mg/dL AO ADM SS Lipase [Catalytic activity/Vol] U/L 1 Invalid Interpretation Code 73 - 393 U/L AO ADM SS Potassium [Moles/Vol] 4.3 mmol/L Invalid Interpretation Code 3.5 - 5.1 mmol/L AO ADM SS Protein [Mass/Vol] 7.4 G/dL Invalid Interpretation Code 6.4 - 8.2 G/dL AO ADM SS Sodium [Moles/Vol] 137 mmol/L Invalid Interpretation Code 136 - 145 mmol/L AO ADM SS Urea nitrogen [Mass/Vol] 19 mg/dL Invalid Interpretation Code 7 - 18 mg/dL AO ADM SS Urea nitrogen/Creatinine [Mass ratio] 16 ratio Invalid Interpretation Code 7 - 27 ratio AO ADM SS Appearance (U) Slightly Cloudy *ABN* (11/14/21 6:31 AM) Invalid Interpretation Code Clear AO Auto Urine SS Basophil, Absolute 0.1 103/mcL Invalid Interpretation Code 0.0 - 0.2 10^3/mcL AO Workflow SS Basophils/100 WBC (Bld) 0.4 % Invalid Interpretation Code 0.0 - 2.5 % AO Workflow SS Bilirubin Ql (U) Negative (11/14/21 6:31 AM) Invalid Interpretation Code Negative AO Auto Urine SS Color (U) Yellow (11/14/21 6:31 AM) Invalid Interpretation Code AO Auto Urine SS Crystals.amorphous LM.HPF (Urine sed) [#/Area] 1 /[HPF] Invalid Interpretation Code AO Auto Urine SS Eosinophil, Absolute 0.0 103/mcL Invalid Interpretation Code 0.0 - 0.4 10^3/mcL AO Workflow SS Eosinophils/100 WBC (Bld) 0.4 % Invalid Interpretation Code 0.0 - 7.0 % AO Workflow SS Erythrocyte distribution width (RBC) [Ratio] 13.4 % Invalid Interpretation Code 11.5 - 14.5 % AO Workflow SS Glucose Test strip (U) [Mass/Vol] Negative Invalid Interpretation Code Negativemg/ dL AO Auto Urine SS Hematocrit (Bld) [Volume fraction] 44.2 % Invalid Interpretation Code 42.0 - 52.0 % AO Workflow SS Hemoglobin (Bld) [Mass/Vol] 15.4 G/dL Invalid Interpretation Code 14.0 - 18.0 G/dL AO Workflow SS Hemoglobin Auto test strip (U) [Mass/Vol] Trace *ABN* (11/14/21 6:31 AM) Invalid Interpretation Code Negative AO Auto Urine SS Ketones Ql (U) 15 mg/dL Invalid Interpretation Code Negativemg/ dL AO Auto Urine SS Lymphocyte, Absolute 1.9 103/mcL Invalid Interpretation Code 0.8 - 3.9 10^3/mcL AO Workflow SS Lymphocytes/100 WBC (Bld) 15.2 % Invalid Interpretation Code 10.0 - 50.0 % AO Workflow SS MCH (RBC) [Entitic mass] 31.8 pg Invalid Interpretation Code 27.0 - 31.2 pg AO Workflow SS MCHC 34.8 G/dL Invalid Interpretation Code 31.8 - 35.4 G/dL AO Workflow SS MCV (RBC) [Entitic vol] 91.5 fL Invalid Interpretation Code 80.0 - 94.0 fL AO Workflow SS Monocyte distribution width Auto (Bld) [Entitic vol] 18.25 Invalid Interpretation Code 0.00 - 20.00 AO Workflow SS Comment on above: Result Comment: For ED adult patients suspected of sepsis, MDW<=20.0 does not rule out sepsis or risk of sepsis Monocyte, Absolute 0.8 103/mcL Invalid Interpretation Code 0.2 - 1.0 10^3/mcL AO Workflow SS Monocytes/100 WBC (Bld) 6.2 % Invalid Interpretation Code 1.7 - 13.0 % AO Workflow SS Neutrophil, Absolute 9.7 103/mcL Invalid Interpretation Code 2.9 - 6.2 10^3/mcL AO Workflow SS Neutrophils/100 WBC (Bld) 77.8 % Invalid Interpretation Code 37.0 - 80.0 % AO Workflow SS Platelet mean volume (Bld) [Entitic vol] 9.2 fL Invalid Interpretation Code 7.4 - 10.4 fL AO Workflow SS Platelets (Bld) [#/Vol] 244 103/mcL Invalid Interpretation Code 130 - 400 10^3/mcL AO Workflow SS RBC (Bld) [#/Vol] 4.83 106/mcL Invalid Interpretation Code 4.04 - 6.13 10^6/mcL AO Workflow SS UA Leuk Est Negative (11/14/21 6:31 AM) Invalid Interpretation Code Negative AO Auto Urine SS UA Mucous 4+ /HPF Invalid Interpretation Code AO Auto Urine SS UA Nitrite Negative (11/14/21 6:31 AM) Invalid Interpretation Code Negative AO Auto Urine SS UA pH 6.0 (11/14/21 6:31 AM) Invalid Interpretation Code 5.0 - 8.0 AO Auto Urine SS UA Protein 30 mg/dL Invalid Interpretation Code Negativemg/ dL AO Auto Urine SS UA RBC 0-5 /HPF Invalid Interpretation Code None Seen/HPF AO Auto Urine SS UA Spec Grav >=1.030 *ABN* (11/14/21 6:31 AM) Invalid Interpretation Code 1.015-1.025 AO Auto Urine SS UA Specimen Type Clean Catch (11/14/21 6:31 AM) Invalid Interpretation Code AO Auto Urine SS UA Squam Epithelial None Seen /HPF Invalid Interpretation Code None Seen/HPF AO Auto Urine SS UA Urobilinogen 0.2 E.U./dL Invalid Interpretation Code 0.2-1.0E.U. /dL AO Auto Urine SS WBC 12.5 103/mcL Invalid Interpretation Code 4.6 - 10.8 10^3/mcL AO Workflow SS WBC LM.HPF (Urine sed) [#/Area] None Seen /HPF Invalid Interpretation Code None Seen/HPF AO Auto Urine SS LABORATORYOrdered By: SYSTEM SYSTEM on 11-14-2021 GFR 74 ml/min/1.73sqm Invalid Interpretation Code AO Chemistry S GFR Non- 61 ml/min/1.73sqm Invalid Interpretation Code AO Chemistry S CNPNon 08-23-2021 CNPN Telephone (FPDOYL) -- DAVID BALDERRAMA ([id number]) 1950 M Date Time Provider Department 08/23/21 NARENDRA ZAMAN During your visit today, we recorded the following information about you: Basia Guerrero 08/23/2021 1:06 PM Signed Left message for pt to return call to schedule and appt for 6 mos htn f/u Basia Masters Allergies As of Date: 08/23/2021 Noted Allergy Reaction SHELLFISH DERIVED 01/31/2020 10 - Anaphylaxis PEPPER (GENUS CAPSICUM) 01/31/2020 16 - Unknown Date Reviewed: 09/20/2020 Reviewed by: Narendra Zaman DO - Fully Assessed Reason for Visit: Appointment [186] Prescriptions as of 08/23/2021 - buPROPion XL (WELLBUTRIN XL) 300 mg 24 hr tablet TAKE 1 TABLET BY MOUTH DAILY - lovastatin 40 mg tablet TAKE 1 TABLET BY MOUTH DAILY - losartan (COZAAR) 50 mg tablet TAKE ONE TABLET BY MOUTH DAILY - metoprolol succinate ER (TOPROL XL) 50 mg 24 hr tablet Take 1 tablet by mouth once daily. - losartan (COZAAR) 100 mg tablet Take 1 tablet by mouth once daily. - omeprazole (PRILOSEC) 40 mg capsule TAKE 1 CAPSULE BY MOUTH DAILY - tadalafil 20 mg kwame (CPD) Take 1 Kwame by mouth as directed. Dissolve 1 kwame under the tongue 30-60 minutes prior to sexual activity - diphenhydrAMINE (BENADRYL) 25 mg capsule Take 25 mg by mouth daily at bedtime. - niacin ER (NIASPAN) 500 mg tablet Take 500 mg by mouth once daily. 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 Screening for thyroid disorder [Z13.29] 04/17/2020 Encounter Status:Closed by BASIA MASTERS on 08/23/21 [facility] LABORATORYOrdered By: Doreen Bruner on 06-06-2021 Albumin BCP dye [Mass/Vol] 4.1 G/dL Invalid Interpretation Code 3.4 - 4.8 G/dL AO ADM SS Albumin/Globulin [Mass ratio] 1.4 {ratio} Invalid Interpretation Code 1.1 - 2.5 ratio AO ADM SS ALP [Catalytic activity/Vol] 77 U/L Invalid Interpretation Code 40 - 135 U/L AO ADM SS ALT With P-5'-P [Catalytic activity/Vol] 56 U/L Invalid Interpretation Code 16 - 63 U/L AO ADM SS AST With P-5'-P [Catalytic activity/Vol] 31 U/L Invalid Interpretation Code 10 - 40 U/L AO ADM SS Bili Indirect 0.3 mg/dL Invalid Interpretation Code AO Chemistry S Bilirubin [Mass/Vol] 0.4 mg/dL Invalid Interpretation Code 0.2 - 1.0 mg/dL AO ADM SS Bilirubin.direct [Mass/Vol] 0.1 mg/dL Invalid Interpretation Code 0.0 - 0.2 mg/dL AO ADM SS Globulin 3.0 G/dL Invalid Interpretation Code AO ADM SS Lipase [Catalytic activity/Vol] 324 U/L Invalid Interpretation Code 73 - 393 U/L AO ADM SS Protein [Mass/Vol] 7.1 G/dL Invalid Interpretation Code 6.4 - 8.2 G/dL AO ADM SS LABORATORYOrdered By: Doreen Bruner on 06-03-2021 Basophil, Absolute 0.00 103/mcL Invalid Interpretation Code 0.00 - 0.19 10^3/mcL AO Auto Heme SS Basophils/100 WBC (Bld) 0.2 % Invalid Interpretation Code 0.0 - 2.5 % AO Auto Heme SS Calcium [Mass/Vol] 8.7 mg/dL Invalid Interpretation Code 8.4 - 10.2 mg/dL AO ADM SS Chloride [Moles/Vol] 106 mmol/L Invalid Interpretation Code 98 - 107 mmol/L AO ADM SS CO2 [Moles/Vol] 24 mmol/L Invalid Interpretation Code 23 - 31 mmol/L AO ADM SS Creatinine [Mass/Vol] 1.00 mg/dL Invalid Interpretation Code 0.70 - 1.30 mg/dL AO ADM SS Electrolyte Balance 12.0 mEq/L Invalid Interpretation Code 4.0 - 15.0 mEq/L AO ADM SS Eosinophil, Absolute 0.10 103/mcL Invalid Interpretation Code 0.00 - 0.40 10^3/mcL AO Auto Heme SS Eosinophils/100 WBC (Bld) 0.6 % Invalid Interpretation Code 0.0 - 7.0 % AO Auto Heme SS Erythrocyte distribution width (RBC) [Ratio] 13.1 % Invalid Interpretation Code 11.5 - 14.5 % AO Auto Heme SS Glucose [Mass/Vol] 95 mg/dL Invalid Interpretation Code 83 - 110 mg/dL AO ADM SS Hematocrit (Bld) [Volume fraction] 38.0 % Invalid Interpretation Code 42.0 - 52.0 % AO Auto Heme SS Hemoglobin (Bld) [Mass/Vol] 12.8 G/dL Invalid Interpretation Code 14.0 - 18.0 G/dL AO Auto Heme SS Lipase [Catalytic activity/Vol] U/L 1 Invalid Interpretation Code 73 - 393 U/L AO ADM SS Lymphocyte, Absolute 1.80 103/mcL Invalid Interpretation Code 0.77 - 3.85 10^3/mcL AO Auto Heme SS Lymphocytes/100 WBC (Bld) 17.9 % Invalid Interpretation Code 10.0 - 50.0 % AO Auto Heme SS MCH (RBC) [Entitic mass] 31.3 pg Invalid Interpretation Code 27.0 - 31.2 pg AO Auto Heme SS MCHC (RBC) [Mass/Vol] 33.8 G/dL Invalid Interpretation Code 31.8 - 35.4 G/dL AO Auto Heme SS MCV (RBC) [Entitic vol] 92.8 fL Invalid Interpretation Code 80.0 - 94.0 fL AO Auto Heme SS Monocyte, Absolute 0.80 103/mcL Invalid Interpretation Code 0.15 - 1.00 10^3/mcL AO Auto Heme SS Monocytes/100 WBC (Bld) 7.7 % Invalid Interpretation Code 1.7 - 13.0 % AO Auto Heme SS Neutrophil, Absolute 7.20 103/mcL Invalid Interpretation Code 2.85 - 6.16 10^3/mcL AO Auto Heme SS Neutrophils/100 WBC (Bld) 73.6 % Invalid Interpretation Code 37.0 - 80.0 % AO Auto Heme SS Platelet mean volume (Bld) [Entitic vol] 9.7 fL Invalid Interpretation Code 7.4 - 10.4 fL AO Auto Heme SS Platelets (Bld) [#/Vol] 206 103/mcL Invalid Interpretation Code 130 - 400 10^3/mcL AO Auto Heme SS Potassium [Moles/Vol] 4.3 mmol/L Invalid Interpretation Code 3.5 - 5.1 mmol/L AO ADM SS RBC (Bld) [#/Vol] 4.09 106/mcL Invalid Interpretation Code 4.04 - 6.13 10^6/mcL AO Auto Heme SS Sodium [Moles/Vol] 142 mmol/L Invalid Interpretation Code 136 - 145 mmol/L AO ADM SS Urea nitrogen [Mass/Vol] 14 mg/dL Invalid Interpretation Code 7 - 18 mg/dL AO ADM SS Urea nitrogen/Creatinine [Mass ratio] 14 ratio Invalid Interpretation Code 7 - 27 ratio AO ADM SS WBC (Bld) [#/Vol] 9.80 103/mcL Invalid Interpretation Code 4.60 - 10.80 10^3/mcL AO Auto Heme SS LABORATORYOrdered By: SYSTEM SYSTEM on 06-03-2021 GFR 90 ml/min/1.73sqm Invalid Interpretation Code AO Chemistry S GFR Non- 74 ml/min/1.73sqm Invalid Interpretation Code AO Chemistry S LABORATORYOrdered By: Modesta Aggarwal on 06-02-2021 Albumin BCP dye [Mass/Vol] 4.2 G/dL Invalid Interpretation Code 3.4 - 4.8 G/dL AO ADM SS Albumin/Globulin [Mass ratio] 1.4 {ratio} Invalid Interpretation Code 1.1 - 2.5 ratio AO ADM SS ALP [Catalytic activity/Vol] 78 U/L Invalid Interpretation Code 40 - 135 U/L AO ADM SS ALT With P-5'-P [Catalytic activity/Vol] 43 U/L Invalid Interpretation Code 16 - 63 U/L AO ADM SS AST With P-5'-P [Catalytic activity/Vol] 21 U/L Invalid Interpretation Code 10 - 40 U/L AO ADM SS Basophil, Absolute 0.10 103/mcL Invalid Interpretation Code 0.00 - 0.19 10^3/mcL AO Auto Heme SS Basophils/100 WBC (Bld) 0.6 % Invalid Interpretation Code 0.0 - 2.5 % AO Auto Heme SS Bilirubin [Mass/Vol] 0.6 mg/dL Invalid Interpretation Code 0.2 - 1.0 mg/dL AO ADM SS Calcium [Mass/Vol] 9.3 mg/dL Invalid Interpretation Code 8.4 - 10.2 mg/dL AO ADM SS Chloride [Moles/Vol] 105 mmol/L Invalid Interpretation Code 98 - 107 mmol/L AO ADM SS Cholesterol [Mass/Vol] 133 mg/dL Invalid Interpretation Code 0 - 200 mg/dL AO ADM SS Cholesterol in HDL [Mass/Vol] 36 mg/dL Invalid Interpretation Code 40 - 60 mg/dL AO ADM SS Cholesterol in LDL [Mass/Vol] 72 mg/dL Invalid Interpretation Code 0 - 130 mg/dL AO ADM SS CO2 [Moles/Vol] 25 mmol/L Invalid Interpretation Code 23 - 31 mmol/L AO ADM SS Creatinine [Mass/Vol] 1.10 mg/dL Invalid Interpretation Code 0.70 - 1.30 mg/dL AO Chemistry S Electrolyte Balance 12.0 mEq/L Invalid Interpretation Code 4.0 - 15.0 mEq/L AO ADM SS Eosinophil, Absolute 0.10 103/mcL Invalid Interpretation Code 0.00 - 0.40 10^3/mcL AO Auto Heme SS Eosinophils/100 WBC (Bld) 1.2 % Invalid Interpretation Code 0.0 - 7.0 % AO Auto Heme SS Erythrocyte distribution width (RBC) [Ratio] 13.3 % Invalid Interpretation Code 11.5 - 14.5 % AO Auto Heme SS Globulin 3.0 G/dL Invalid Interpretation Code AO ADM SS Glucose [Mass/Vol] 96 mg/dL Invalid Interpretation Code 83 - 110 mg/dL AO ADM SS Hematocrit (Bld) [Volume fraction] 42.2 % Invalid Interpretation Code 42.0 - 52.0 % AO Auto Heme SS Hemoglobin (Bld) [Mass/Vol] 14.2 G/dL Invalid Interpretation Code 14.0 - 18.0 G/dL AO Auto Heme SS Lipase [Catalytic activity/Vol] U/L 1 Invalid Interpretation Code 73 - 393 U/L AO ADM SS Lymphocyte, Absolute 2.40 103/mcL Invalid Interpretation Code 0.77 - 3.85 10^3/mcL AO Auto Heme SS Lymphocytes/100 WBC (Bld) 19.5 % Invalid Interpretation Code 10.0 - 50.0 % AO Auto Heme SS Magnesium [Mass/Vol] 2.3 mg/dL Invalid Interpretation Code 1.8 - 2.4 mg/dL AO ADM SS MCH (RBC) [Entitic mass] 31.1 pg Invalid Interpretation Code 27.0 - 31.2 pg AO Auto Heme SS MCHC (RBC) [Mass/Vol] 33.7 G/dL Invalid Interpretation Code 31.8 - 35.4 G/dL AO Auto Heme SS MCV (RBC) [Entitic vol] 92.2 fL Invalid Interpretation Code 80.0 - 94.0 fL AO Auto Heme SS Monocyte, Absolute 1.00 103/mcL Invalid Interpretation Code 0.15 - 1.00 10^3/mcL AO Auto Heme SS Monocytes/100 WBC (Bld) 7.9 % Invalid Interpretation Code 1.7 - 13.0 % AO Auto Heme SS Neutrophil, Absolute 8.70 103/mcL Invalid Interpretation Code 2.85 - 6.16 10^3/mcL AO Auto Heme SS Neutrophils/100 WBC (Bld) 70.8 % Invalid Interpretation Code 37.0 - 80.0 % AO Auto Heme SS Platelet mean volume (Bld) [Entitic vol] 9.4 fL Invalid Interpretation Code 7.4 - 10.4 fL AO Auto Heme SS Platelets (Bld) [#/Vol] 223 103/mcL Invalid Interpretation Code 130 - 400 10^3/mcL AO Auto Heme SS Potassium [Moles/Vol] 4.2 mmol/L Invalid Interpretation Code 3.5 - 5.1 mmol/L AO ADM SS Protein [Mass/Vol] 7.2 G/dL Invalid Interpretation Code 6.4 - 8.2 G/dL AO ADM SS RBC (Bld) [#/Vol] 4.57 106/mcL Invalid Interpretation Code 4.04 - 6.13 10^6/mcL AO Auto Heme SS Sodium [Moles/Vol] 142 mmol/L Invalid Interpretation Code 136 - 145 mmol/L AO ADM SS Triglyceride [Mass/Vol] 125 mg/dL Invalid Interpretation Code 0 - 150 mg/dL AO ADM SS Urea nitrogen [Mass/Vol] 17 mg/dL Invalid Interpretation Code 7 - 18 mg/dL AO ADM SS Urea nitrogen/Creatinine [Mass ratio] 15 ratio Invalid Interpretation Code 7 - 27 ratio AO ADM SS WBC (Bld) [#/Vol] 12.20 103/mcL Invalid Interpretation Code 4.60 - 10.80 10^3/mcL AO Auto Heme SS LABORATORYOrdered By: SYSTEM SYSTEM on 06-02-2021 GFR 80 ml/min/1.73sqm Invalid Interpretation Code AO Chemistry S GFR Non- 66 ml/min/1.73sqm Invalid Interpretation Code AO Chemistry S OBSOLETEon 02-25-2021 OBSOLETE Refill (FPDOYL) -- DAVID BALDERRAMA ([id number]) 1950 Date Time Provider Department 02/25/21 NARENDRA ZAMAN FPDOYL During your visit today, we recorded the following information about you: Nadege Dexter LPN 02/25/2021 10:13 AM Signed Pharmacy faxed requesting the following refill Refill(s) Requested: Pending Prescriptions Disp Refills LOSARTAN 50 MG TABLET 30 tablet 0 Sig: TAKE ONE TABLET BY MOUTH DAILY NEGRA: Yes ALLERGIES Allergen Reactions - Shellfish Derived Anaphylaxis - Pepper (Genus Capsi* Unknown (home) [phone] (cell) Last Office Visit Date: 09/20/2020 Last [facility] Visit: 04/17/2020 Future Appointment: 03/22/2021 The patients preferred pharmacy has been captured for this encounter? yes Request is for script(s) to be escript to pharmacy. Nadege Dexter LPN Allergies As of Date: 02/25/2021 Noted Allergy Reaction SHELLFISH DERIVED 01/31/2020 10 - Anaphylaxis PEPPER (GENUS CAPSICUM) 01/31/2020 16 - Unknown Date Reviewed: 09/20/2020 Reviewed by: DO Justin Fierro Fully Assessed Reason for Visit: Refill Request [94] Visit Diagnosis:Essential (primary) hypertension [I10] Order(s):losartan (COZAAR) 50 mg tabletTAKE ONE TABLET BY MOUTH DAILYDisp: 30 tabletRfl: 0 Prescriptions as of 02/25/2021 - losartan (COZAAR) 50 mg tablet TAKE ONE TABLET BY MOUTH DAILY - metoprolol succinate ER (TOPROL XL) 50 mg 24 hr tablet Take 1 tablet by mouth once daily. - losartan (COZAAR) 100 mg tablet Take 1 tablet by mouth once daily. - buPROPion XL (WELLBUTRIN XL) 300 mg 24 hr tablet TAKE 1 TABLET BY MOUTH DAILY - lovastatin 40 mg tablet TAKE 1 TABLET BY MOUTH DAILY - omeprazole (PRILOSEC) 40 mg capsule TAKE 1 CAPSULE BY MOUTH DAILY - tadalafil 20 mg kwame (CPD) Take 1 Kwame by mouth as directed. Dissolve 1 kwame under the tongue 30-60 minutes prior to sexual activity - diphenhydrAMINE (BENADRYL) 25 mg capsule Take 25 mg by mouth daily at bedtime. - niacin ER (NIASPAN) 500 mg tablet Take 500 mg by mouth once daily. Problem List As Of Date 02/25/2021 Noted Resolved Mixed hyperlipidemia [E78.2] Essential (primary) hypertension [I10] 04/17/2020 ED (erectile dysfunction) of organic origin [N5*04/17/2020 Screening for thyroid disorder [Z13.29] 04/17/2020 Prescriptions ordered this encounter Disp Refills Start End LOSARTAN 50 MG TABLET 30 t* 0 02/25/2021 Sig: TAKE ONE TABLET BY MOUTH DAILY Encounter Status:Closed by NARENDRA ZAMAN on 02/25/21 [facility] OBSOLETEon 11-21-2020 OBSOLETE Refill (FPDOYL) -- DAVID BALDERRAMA ([id number]) 1950 M Date Time Provider Department 11/21/20 NARENDRA ZAMAN FPDOYL During your visit today, we recorded the following information about you: Evi Hardin 11/21/2020 10:19 AM Signed Pt wants: Metoprolol succinate ER 50 mg. Taking 1 per day Pt wants this script to go to [facility] Evi Hardin Allergies As of Date: 11/21/2020 Noted Allergy Reaction SHELLFISH DERIVED 01/31/2020 10 - Anaphylaxis PEPPER (GENUS CAPSICUM) 01/31/2020 16 - Unknown Date Reviewed: 09/20/2020 Reviewed by: Narendra Zaman DO - Fully Assessed Reason for Visit: Rx Refills [128] Cmt: metoprolol succinate Visit Diagnosis:Essential (primary) hypertension [I10] Order(s):metoprolol succinate ER (TOPROL XL) 50 mg 24 hr tabletTake 1 tablet by mouth once daily.Disp: 90 tabletRfl: 3 Prescriptions as of 11/21/2020 - metoprolol succinate ER (TOPROL XL) 50 mg 24 hr tablet Take 1 tablet by mouth once daily. - losartan (COZAAR) 100 mg tablet Take 1 tablet by mouth once daily. - buPROPion XL (WELLBUTRIN XL) 300 mg 24 hr tablet TAKE 1 TABLET BY MOUTH DAILY - lovastatin 40 mg tablet TAKE 1 TABLET BY MOUTH DAILY - omeprazole (PRILOSEC) 40 mg capsule TAKE 1 CAPSULE BY MOUTH DAILY - tadalafil 20 mg kwame (CPD) Take 1 Kwame by mouth as directed. Dissolve 1 kwame under the tongue 30-60 minutes prior to sexual activity - diphenhydrAMINE (BENADRYL) 25 mg capsule Take 25 mg by mouth daily at bedtime. - niacin ER (NIASPAN) 500 mg tablet Take 500 mg by mouth once daily. Problem List As Of Date 11/21/2020 Noted Resolved Mixed hyperlipidemia [E78.2] Essential (primary) hypertension [I10] 04/17/2020 ED (erectile dysfunction) of organic origin [N5*04/17/2020 Screening for thyroid disorder [Z13.29] 04/17/2020 Prescriptions ordered this encounter Disp Refills Start End METOPROLOL SUCCINATE ER 50 MG TABLET* 90 t* 3 11/21/2020 02/19/2021 Route: ORAL Sig: Take 1 tablet by mouth once daily. Medications Discontinued During This Encounter Prescriptions - metoprolol succinate ER (TOPROL XL) 50 mg 24 hr tablet (Discontinued) Take 1 tablet by mouth once daily. Encounter Status:Closed by NARENDRA ZAMAN on 11/21/20 [facility] 09-20-2020 [facility] Office Visit (FPDOYL ) -- BALDERRAMADAVID HAMEED ([id number]) 1950 M Date Time Provider Department 09/20/20 8:45 AM NARENDRA ZAMANYL During your visit today, we recorded the following information about you: Temperature Pulse Blood pressure Weight 97.4 degrees 81/minute 134/84 92.1 kg Height 1.727 m Narendra Zaman DO 09/26/2020 8:26 PM Signed [facility] [place] Narendra Zaman DO [address] [place] [address] Date of Evaluation: 09/20/2020 Patient Name: David Balderrama : 1950 Chief Complaint: Hypertension (4 week follow after change in medications ) and Pain (Shoulder Pain) (right) Nursing Intake: There are no exam notes on file for this visit. Subjective Mr. Balderrama is a 69 year old male who presents with the following complaint(s): The history is provided by the patient. No floor framer was used. Hypertension This is a chronic problem. The current episode started more than 1 year ago. Pertinent negatives include no blurred vision, chest pain, headaches, malaise/fatigue, orthopnea, palpitations, PND or shortness of breath. Pain (Shoulder Pain) This is a chronic (Right shoulder ) problem. The current episode started more than 1 year ago. The problem occurs daily. The problem has been unchanged. Pertinent negatives include no abdominal pain, chest pain, coughing, headaches, myalgias or weakness. Review of Systems Constitutional: Negative for malaise/fatigue and weight loss. HENT: Negative for nosebleeds. Eyes: Negative for blurred vision and double vision. Respiratory: Negative for cough and shortness of breath. Cardiovascular: Negative for chest pain, palpitations, orthopnea, claudication, leg swelling and PND. Gastrointestinal: Negative for abdominal pain. Genitourinary: Negative for hematuria. Musculoskeletal: Positive for joint pain (Right shoulder ). Negative for myalgias. Skin: Negative. Neurological: Negative for dizziness, tingling, sensory change, focal weakness, weakness and headaches. Endo/Heme/Allergies: Does not bruise/bleed easily. Psychiatric/Behavioral: Negative for depression. The patient is not nervous/anxious and does not have insomnia. PAST MEDICAL HISTORY Diagnosis Date - Anaphylaxis - Body mass index (BMI) 29.0-29.9, adult - Cancer (HCC) appendix diagnosed 07/2020 - Chronic obstructive pulmonary disease, unspecified (HCC) - Elevated prostate specific antigen (PSA) - Essential (primary) hypertension - Fatigue - Gastro-esophageal reflux disease without esophagitis - Major depressive disorder, recurrent episode, moderate (HCC) - Mixed hyperlipidemia - Myalgia - Other male erectile dysfunction - Testicular hypofunction - Vitamin D deficiency PAST SURGICAL HISTORY Procedure Laterality Date - APPENDECTOMY HX - COLONOSCOPY 08/23/2010 - EYE SURGERY HX Cataract - TONSILLECTOMY HX FAMILY HISTORY Problem Relation Age of Onset - Coronary Artery Disease Mother - Prostate Cancer Father Social History Tobacco Use - Smoking status: Former Smoker Packs/day: 1.00 Types: Cigarettes Quit date: 04/2006 Years since quittin.4 - Smokeless tobacco: Never Used Vaping Use - Vaping Use: Never used Substance Use Topics - Alcohol use: Yes Comment: Beer daily - Drug use: Yes Types: Marijuana Current Meds losartan (COZAAR) 100 mg tablet Take 1 tablet by mouth once daily. metoprolol succinate ER (TOPROL XL) 50 mg 24 hr tablet Take 1 tablet by mouth once daily. buPROPion XL (WELLBUTRIN XL) 300 mg 24 hr tablet TAKE 1 TABLET BY MOUTH DAILY lovastatin 40 mg tablet TAKE 1 TABLET BY MOUTH DAILY omeprazole (PRILOSEC) 40 mg capsule TAKE 1 CAPSULE BY MOUTH DAILY tadalafil 20 mg kwame (CPD) Take 1 Kwame by mouth as directed. Dissolve 1 kwame under the tongue 30-60 minutes prior to sexual activity diphenhydrAMINE (BENADRYL) 25 mg capsule Take 25 mg by mouth daily at bedtime. niacin ER (NIASPAN) 500 mg tablet Take 500 mg by mouth once daily. I have confirmed and edited as necessary the past medical, family and social histories, HPI, and ROS obtained by others. Objective BP 134/84 (BP Site: Left Arm, BP Position: Sitting) Pulse 81 Temp 36.3 ?C (97.4 ?F) Ht 5' 8 (1.727 m) Wt 203 lb (92.1 kg) SpO2 98% BMI 30.87 kg/m? Physical Exam Vitals and nursing note reviewed. Constitutional: General: He is not in acute distress. Appearance: Normal appearance. He is well-developed. He is not ill-appearing. HENT: Head: Normocephalic. Right Ear: Tympanic membrane, ear canal and external ear normal. There is no impacted cerumen. Left Ear: Tympanic membrane, ear canal and external ear normal. There is no impacted cerumen. Nose: Nose normal. Mouth/Throat: Mouth: Mucous memb (more content not included)... Normal [facility] 04-18-2020 Cholesterol [Mass/Vol] 115 mg/dL <200 mg/dL [facility] Cholesterol in HDL [Mass/Vol] 27 mg/dL Low >39 mg/dL [facility] Cholesterol in LDL [Mass/Vol] 43 mg/dL <100 mg/dL [facility] Triglyceride [Mass/Vol] 225 mg/dL High <150 mg/dL [facility] Hematologyon 04-18-2020 Basophils (Bld) [#/Vol] 0.09 10*3/uL <0.11 k/uL [facility] Basophils/100 WBC (Bld) 1.0 % [facility] Eosinophils (Bld) [#/Vol] 0.31 10*3/uL <0.46 k/uL [facility] Eosinophils/100 WBC (Bld) 3.5 % [facility] Hematocrit (Bld) [Volume fraction] 49.7 % 39.0 - 51.0 % [facility] Hemoglobin (Bld) [Mass/Vol] 16.7 g/dL 13.0 - 17.0 g/dL [facility] Lymphocytes (Bld) [#/Vol] 2.32 10*3/uL 1.00 - 4.00 k/uL [facility] Lymphocytes/100 WBC (Bld) 26.0 % [facility] [facility] MCH (RBC) [Entitic mass] 30.6 pg 26.0 - 34.0 pg [facility] MCV (RBC) [Entitic vol] 91.2 fL 80.0 - 100.0 fL [facility] Monocytes (Bld) [#/Vol] 0.78 10*3/uL <0.87 k/uL [facility] Monocytes/100 WBC (Bld) 8.8 % [facility] Neutrophils (Bld) [#/Vol] 5.35 10*3/uL 1.45 - 7.50 k/uL [facility] Neutrophils/100 WBC (Bld) 60.0 % [facility] Nucleated RBC (Bld) [#/Vol] 10*3/uL <0.01 k/uL [facility] Platelets (Bld) [#/Vol] 194 10*3/uL 150 - 400 k/uL [facility] RBC (Bld) [#/Vol] 5.45 10*6/uL 4.20 - 6.0 0 m/uL [facility] WBC (Bld) [#/Vol] 8.91 10*3/uL 3.70 - 11.00 k/uL [facility] Metabolic Panelon 04-18-2020 Albumin [Mass/Vol] 4.6 g/dL 3.9 - 4.9 g/dL [facility] ALP [Catalytic activity/Vol] 71 U/L 38 - 113 U/L [facility] Anion gap [Moles/Vol] 9 mmol/L 9 - 18 mmol/L [facility] Bilirubin [Mass/Vol] 0.7 mg/dL 0.2 - 1 .3 mg/dL [facility] Calcium [Mass/Vol] 9.5 mg/dL 8.5 - 10. 2 mg/dL [facility] Chloride [Moles/Vol] 103 mmol/L 97 - 10 5 mmol/L [facility] CO2 [Moles/Vol] 27 mmol/L 22 - 30 mmol/L [facility] Creatinine [Mass/Vol] 1.11 mg/dL 0.73 - 1.22 mg/dL [facility] Glucose [Mass/Vol] 102 mg/dL High 74 - 99 mg/dL [facility] Potassium [Moles/Vol] 4.6 mmol/L 3.7 - 5.1 mmol/L [facility] Protein [Mass/Vol] 6.9 g/dL 6.3 - 8.0 g/dL [facility] Sodium [Moles/Vol] 139 mmol/L 136 - 144 mmol/L [facility] Urea nitrogen [Mass/Vol] 12 mg/dL 9 - 24 mg/dL [facility] Otheron 04-18-2020 Cholesterol in LDL/Cholesterol in HDL [Mass ratio] 1.59 <2.54 [facility] Cholesterol in VLDL [Mass/Vol] 45 mg/dL High <30 mg/dL [facility] Cholesterol non HDL [Mass/Vol] 88 mg/dL <130 mg/dL [facility] Cholesterol.total/Ch olesterol in HDL [Mass ratio] 4.26 {ratio} <5.10 [facility] Fasting Time 12 hrs [facility] ALT With P-5'-P [Catalytic activity/Vol] 30 U/L 10 - 54 U/L [facility] AST With P-5'-P [Catalytic activity/Vol] 27 U/L 14 - 40 U/L [facility] GFR/1.73 sq M.predicted MDRD (S/P/Bld) [Vol rate/Area] mL/min/{1.73_m2} [facility] Abs Immature Gran 0.06 k/uL <0.10 k/uL [facility] Differential cell count method Nom (Bld) Auto [facility] Erythrocyte distribution width (RBC) [Ratio] 13.8 % 11.5 - 15.0 % [facility] Immature Gran % 0.7 % [facility] MCHC (RBC) [Mass/Vol] 33.6 g/dL 30.5 - 36.0 g/dL [facility] Nucleated RBC/100 WBC (Bld) [Ratio] 0.0 /100 WBC 0.0 /100 WBC [facility] Platelet mean volume (Bld) [Entitic vol] 11.3 fL 9.0 - 12.7 fL [facility] Thyroidon 04-18-2020 TSH Qn 2.180 uU/mL 0.270 - 4.200 uU/mL [facility] Metabolic Panelon 11-29-2018 Anion gap [Moles/Vol] 5 mmol/L [facility] Calcium [Mass/Vol] 9.3 mg/dL [facility] Chloride [Moles/Vol] 111 mmol/L [facility] CO2 [Moles/Vol] 25 mmol/L [facility] Creatinine [Mass/Vol] 1.75 mg/dL [facility] Glucose [Mass/Vol] 101 mg/dL [facility] Potassium [Moles/Vol] 4.5 mmol/L [facility] Sodium [Moles/Vol] 141 mmol/L [facility] Urea nitrogen [Mass/Vol] 18 mg/dL [facility] Vital Signs Date Time Vital Sign Value Performing Clinician Facility 10-13-2024 13:29-0400 Diastolic blood pressure 68 mm[Hg] Miguel Angel Ervin MD Work Phone: [facility] Comment on above: STANDING 10-13-2024 13:29-0400 Heart rate 81 /min Miguel Angel Ervin MD Work Phone: [facility] 10-13-2024 13:29-0400 SaO2% (BldA) [Mass fraction] 97 % Miguel Angel Ervin MD Work Phone: [facility] 10-13-2024 13:29-0400 Systolic blood pressure 125 mm[Hg] Miguel Angel Ervin MD Work Phone: [facility] Comment on above: STANDING 10-13-2024 12:40-0400 Respiratory rate 16 /min Miguel Angel Ervin MD Work Phone: [facility] 10-13-2024 11:47-0400 Body temperature 97.9 [degF] Miguel Angel Ervin MD Work Phone: [facility] 10-13-2024 10:35-0400 Body height 172.7 cm Miguel Angel Ervin MD Work Phone: [facility] 10-13-2024 10:35-0400 Body mass index (BMI) [Ratio] 30.87 kg/m2 Miguel Angel Ervin MD Work Phone: [facility] 10-13-2024 10:35-0400 Body weight 92.08 kg Miguel Angel Ervin MD Work Phone: [facility] 09-25-2024 11:56-0400 Body height 172.[address] Josy Zaman DO Work Phone: [facility] 09-25-2024 11:56-0400 Body mass index (BMI) [Ratio] 26.6 kg/m2 Dr. Josy Zaman DO Work Phone: [facility] 09-25-2024 11:56-0400 Body temperature 98.8 [degF] Dr. Josy Zaman DO Work Phone: [facility] 09-25-2024 11:56-0400 Body weight 79.[address] Josy Zaman DO Work Phone: [facility] 09-25-2024 11:56-0400 Diastolic blood pressure 60 mm[Hg] Dr. Josy Zaman DO Work Phone: [facility] 09-25-2024 11:56-0400 Heart rate 92 /min Dr. Josy Zaman DO Work Phone: [facility] 09-25-2024 11:56-0400 Respiratory rate 16 /min Dr. Josy Zaman DO Work Phone: [facility] 09-25-2024 11:56-0400 SaO2% (BldA) [Mass fraction] 95 % Dr. Josy Zaman DO Work Phone: [facility] 09-25-2024 11:56-0400 Systolic blood pressure 108 mm[Hg] Dr. Josy Zaman DO Work Phone: [facility] 10-01-2022 09:49-0400 Diastolic Blood Pressure Non-Invasive 68 1 JOSE LOPEZ DO [facility] 10-01-2022 09:49-0400 Heart rate 68 /min JOSE LOPEZ DO [facility] 10-01-2022 09:49-0400 Respiratory rate 15 /min JOSE LOPEZ DO [facility] 10-01-2022 09:49-0400 Systolic Blood Pressure Non-Invasive 116 1 JOSE JOHN DO [facility] 10-01-2022 09:44-0400 Diastolic Blood Pressure Non-Invasive 76 1 JOSE JOHN DO [facility] 10-01-2022 09:44-0400 Heart rate 71 /min JOSE JOHN DO [facility] 10-01-2022 09:44-0400 Respiratory rate 15 /min JOSE JOHN DO [facility] 10-01-2022 09:44-0400 Systolic Blood Pressure Non-Invasive 120 1 JOSE JOHN DO [facility] 10-01-2022 09:40-0400 Diastolic Blood Pressure Non-Invasive 68 1 JOSE JOHN DO [facility] 10-01-2022 09:40-0400 Heart rate 66 /min JOSE JOHN DO [facility] 10-01-2022 09:40-0400 Respiratory rate 13 /min JOSE JOHN DO [facility] 10-01-2022 09:40-0400 Systolic Blood Pressure Non-Invasive 121 1 JOSE JOHN DO [facility] 10-01-2022 09:30-0400 Heart rate 68 /min JOSE JOHN DO [facility] 10-01-2022 09:30-0400 Respiratory Rate - Anes 7 br/min JOSE JOHN DO [facility] 10-01-2022 09:25-0400 Heart rate 77 /min JOSE JOHN DO [facility] 10-01-2022 09:25-0400 Respiratory Rate - Anes 15 br/min JOSE JOHN DO [facility] 10-01-2022 09:12-0400 Body height 170.2 cm JOSE JOHN DO [facility] 10-01-2022 09:12-0400 Body temperature 97.7 [degF] JOSE JOHN DO [facility] 10-01-2022 09:12-0400 Body weight 91.2 kg JOSE STEWARTY DO [facility] 11-15-2021 12:31-0400 Body temperature 98.06 [degF] RILEY COWAN CLIENT ACCOUNT MANAGER-[employer] [facility] 11-15-2021 12:31-0400 Diastolic blood pressure 72 mm[Hg] RILEY COWAN CLIENT ACCOUNT MANAGER[employer] SUPER[employer] [facility] 11-15-2021 12:31-0400 Heart rate 69 /min RILEY COWAN CLIENT ACCOUNT MANAGER[employer] SUPER[employer] [facility] 11-15-2021 12:31-0400 Reason For Taking VItal Signs RILEY COWAN CLIENT ACCOUNT MANAGER[employer] SUPER[employer] [facility] 11-15-2021 12:31-0400 Respiratory rate 18 /min RILEY COWAN CLIENT ACCOUNT MANAGER[employer] SUPER[employer] [facility] 11-15-2021 12:31-0400 Systolic blood pressure 140 mm[Hg] RILEY COWAN CLIENT ACCOUNT MANAGER[employer] SUPER[employer] [facility] 11-15-2021 08:42-0400 Heart rate 74 /min RILEY COWAN CLIENT ACCOUNT MANAGER[employer] SUPER[employer] [facility] 11-15-2021 07:17-0400 Body temperature 97.7 [degF] RILEY BURNETTN CLIENT ACCOUNT MANAGER-[employer] SUPER[employer] [facility] 11-15-2021 07:17-0400 Diastolic blood pressure 68 mm[Hg] RILEY COWAN CLIENT ACCOUNT MANAGER-[employer] SUPER[employer] [facility] 11-15-2021 07:17-0400 Heart rate 73 /min RILEY COWAN CLIENT ACCOUNT MANAGER[employer] SUPER[employer] [facility] 11-15-2021 07:17-0400 Reason For Taking VItal Signs RILEY COWAN CLIENT ACCOUNT MANAGER-[employer] SUPER[employer] [facility] 11-15-2021 07:17-0400 Respiratory rate 18 /min RILEY COWAN CLIENT ACCOUNT MANAGER-[employer] SUPER[employer] [facility] 11-15-2021 07:17-0400 Systolic blood pressure 130 mm[Hg] RILEY BURNETTN CLIENT ACCOUNT MANAGER-[employer] SUPER[employer] [facility] 11-15-2021 04:10-0400 Body temperature 98.06 [degF] RILEY COWAN CLIENT ACCOUNT MANAGER-[employer] SUPER[employer] [facility] 11-15-2021 04:10-0400 Diastolic blood pressure 45 mm[Hg] RILEY BURNETTN CLIENT ACCOUNT MANAGER-[employer] SUPER[employer] [facility] 11-15-2021 04:10-0400 Heart rate 89 /min RILEY BURNETTN CLIENT ACCOUNT MANAGER[employer] SUPER[employer] [facility] 11-15-2021 04:10-0400 Mean blood pressure 68 mm[Hg] RILEY BURNETTN CLIENT ACCOUNT MANAGER[employer] SUPER[employer] [facility] 11-15-2021 04:10-0400 Reason For Taking VItal Signs RILEY COWAN CLIENT ACCOUNT MANAGER-[employer] SUPER[employer] [facility] 11-15-2021 04:10-0400 Respiratory rate 18 /min RILEY COWAN CLIENT ACCOUNT MANAGER-[employer] SUPER[employer] [facility] 11-15-2021 04:10-0400 Systolic blood pressure 114 mm[Hg] RILEY COWAN CLIENT ACCOUNT MANAGER-[employer] SUPER[employer] [facility] 11-14-2021 22:52-0400 Heart rate 85 /min RILEY COWAN CLIENT ACCOUNT MANAGER-[employer] SUPER[employer] [facility] 11-14-2021 19:13-0400 Heart rate 80 /min RILEY COWAN CLIENT ACCOUNT MANAGER-[employer] SUPER[employer] [facility] 11-14-2021 13:18-0400 Heart rate 78 /min RILEY COWAN CLIENT ACCOUNT MANAGER-[employer] SUPER[employer] [facility] 11-14-2021 10:32-0400 Body height 172.7 cm RILEY COWAN CLIENT ACCOUNT MANAGER-[employer] SUPER[employer] [facility] 11-14-2021 10:32-0400 Body weight 88.6 kg RILEY COWAN CLIENT ACCOUNT MANAGER-[employer] SUPER[employer] [facility] 11-14-2021 10:32-0400 Body weight 29.71 kg/m2 RILEY COWAN CLIENT ACCOUNT MANAGER-[employer]PER[employer] [facility] 07-22-2021 17:35-0400 Body temperature 96.08 [degF] DR SHELLY RANDHAWA MD [facility] 07-22-2021 17:35-0400 Diastolic blood pressure 77 mm[Hg] DR SHELLY RANDHAWA MD [facility] 07-22-2021 17:35-0400 Heart rate 66 /min DR SHELLY RANDHAWA MD [facility] 07-22-2021 17:35-0400 Respiratory rate 16 /min DR SHELLY RANDHAWA MD [facility] 07-22-2021 17:35-0400 Systolic blood pressure 135 mm[Hg] DR SHELLY RANDHAWA MD [facility] 07-22-2021 15:46-0400 Body temperature 96.44 [degF] DR SHELLY RANDHAWA MD [facility] 07-22-2021 15:46-0400 Diastolic blood pressure 80 mm[Hg] DR SHELLY RANDHAWA MD [facility] 07-22-2021 15:46-0400 Heart rate 66 /min DR SHELLY RANDHAWA MD [facility] 07-22-2021 15:46-0400 Reason For Taking VItal Signs DR SHELLY RANDHAWA MD [facility] 07-22-2021 15:46-0400 Respiratory rate 16 /min DR SHELLY RANDHAWA MD [facility] 07-22-2021 15:46-0400 Systolic blood pressure 120 mm[Hg] DR SHELLY RANDHAWA MD [facility] 07-22-2021 14:55-0400 Body temperature 95.9 [degF] DR SHELLY RANDHAWA MD [facility] 07-22-2021 14:55-0400 Diastolic blood pressure 77 mm[Hg] DR SHELLY RANDHAWA MD [facility] 07-22-2021 14:55-0400 Heart rate 68 /min DR SHELLY RANDHAWA MD [facility] 07-22-2021 14:55-0400 Mean blood pressure 97 mm[Hg] DR SHELLY RANDHAWA MD [facility] 07-22-2021 14:55-0400 Reason For Taking VItal Signs DR SHELLY RANDHAWA MD [facility] 07-22-2021 14:55-0400 Respiratory rate 16 /min DR SHELLY RANDHAWA MD [facility] 07-22-2021 14:55-0400 Systolic blood pressure 137 mm[Hg] DR SHELLY RANDHAWA MD [facility] 07-22-2021 14:39-0400 Body temperature 96.98 [degF] DR SHELLY RANDHAWA MD [facility] 07-22-2021 14:39-0400 Diastolic Blood Pressure NBP [address] SHELLY RANDHAWA MD [facility] 07-22-2021 14:39-0400 Heart rate 53 /min DR SHELLY RANDHAWA MD [facility] 07-22-2021 14:39-0400 Mean blood pressure 94 mm[Hg] DR SHELLY RANDHAWA MD [facility] 07-22-2021 14:39-0400 Systolic Blood Pressure NBP [address] SHELLY RANDHAWA MD [facility] 07-22-2021 14:33-0400 Diastolic Blood Pressure NBP [address] SHELLY RANDHAWA MD [facility] 07-22-2021 14:33-0400 Heart rate 54 /min DR SHELLY RANDHAWA MD [facility] 07-22-2021 14:33-0400 Mean blood pressure 97 mm[Hg] DR SHELLY RANDHAWA MD [facility] 07-22-2021 14:33-0400 Systolic Blood Pressure NBP [address] SHELLY RANDHAWA MD [facility] 07-22-2021 14:19-0400 Diastolic Blood Pressure NBP [address] SHELLY RANDHAWA MD [facility] 07-22-2021 14:19-0400 Heart rate 60 /min DR SHELLY RANDHAWA MD [facility] 07-22-2021 14:19-0400 Mean blood pressure 115 mm[Hg] DR SHELLY RANDHAWA MD [facility] 07-22-2021 14:19-0400 Systolic Blood Pressure NBP [address] SHELLY RANDHAWA MD [facility] 07-22-2021 13:50-0400 Body temperature 96.67 [degF] DR SHELLY RANDHAWA MD [facility] 07-22-2021 13:45-0400 Body temperature 96.71 [degF] DR SHELLY RANDHAWA MD [facility] 07-22-2021 13:40-0400 Body temperature 96.76 [degF] DR SHELLY RANDHAWA MD [facility] 07-22-2021 11:06-0400 Body height 172.[address] SHELLY RANDHAWA MD [facility] 07-22-2021 11:06-0400 Body weight 90.[address] SHELLY RANDHAWA MD [facility] 07-22-2021 11:06-0400 Mean blood pressure 105 mm[Hg] DR SHELLY RANDHAWA MD [facility] 06-04-2021 08:35-0500 Heart rate 68 /min KALLI JESSE CLIENT ACCOUNT MANAGER-[employer] SUPER[employer]OR [facility] 06-04-2021 06:54-0500 Body temperature 97.7 [degF] KALLI JESSE CLIENT ACCOUNT MANAGER-[employer] SUPER[employer]OR [facility] 06-04-2021 06:54-0500 Diastolic blood pressure 90 mm[Hg] KALLI JESSE CLIENT ACCOUNT MANAGER-[employer] SUPER[employer]OR [facility] 06-04-2021 06:54-0500 Heart rate 80 /min KALLI JESSE CLIENT ACCOUNT MANAGER-[employer] SUPER[employer]OR [facility] 06-04-2021 06:54-0500 Reason For Taking VItal Signs KALLI JESSE CLIENT ACCOUNT MANAGER-[employer] SUPER[employer]OR [facility] 06-04-2021 06:54-0500 Respiratory rate 18 /min KALLI MOLINA CLIENT ACCOUNT MANAGER-[employer]ING SUPER[employer]OR [facility] 06-04-2021 06:54-0500 Systolic blood pressure 164 mm[Hg] KALLI ARDONELY CLIENT ACCOUNT MANAGER-[employer]ING SUPER[employer]OR [facility] 06-04-2021 03:55-0500 Body temperature 97.88 [degF] KALLI JESSE CLIENT ACCOUNT MANAGER-[employer]ING SUPER[employer]OR [facility] 06-04-2021 03:55-0500 Diastolic blood pressure 68 mm[Hg] KALLI JESSE CLIENT ACCOUNT MANAGER-[employer] SUPER[employer]OR [facility] 06-04-2021 03:55-0500 Heart rate 80 /min KALLI ARDONELY CLIENT ACCOUNT MANAGER-[employer] SUPER[employer]OR [facility] 06-04-2021 03:55-0500 Reason For Taking VItal Signs KALLI ARDONELY CLIENT ACCOUNT MANAGER-[employer]ING SUPERVISOR [facility] 06-04-2021 03:55-0500 Respiratory rate 18 /min KALLI ARDONELY CLIENT ACCOUNT MANAGER-[employer] SUPER[employer]OR [facility] 06-04-2021 03:55-0500 Systolic blood pressure 140 mm[Hg] KALLI JESSE CLIENT ACCOUNT MANAGER-[employer] SUPER[employer]OR [facility] 06-03-2021 18:33-0500 Body temperature 98.06 [degF] KALLI JESSE CLIENT ACCOUNT MANAGER-[employer] SUPER[employer]OR [facility] 06-03-2021 18:33-0500 Diastolic blood pressure 75 mm[Hg] KALLI MOLINA CLIENT ACCOUNT MANAGER-[employer] SUPER[employer]OR [facility] 06-03-2021 18:33-0500 Heart rate 77 /min KALLI MOLINA CLIENT ACCOUNT MANAGER-[employer] SUPERVISOR [facility] 06-03-2021 18:33-0500 Reason For Taking VItal Signs KALLI MOLINA CLIENT ACCOUNT MANAGER-[employer] SUPERVISOR [facility] 06-03-2021 18:33-0500 Respiratory rate 18 /min KALLI MOLINA CLIENT ACCOUNT MANAGER-[employer] SUPER[employer]OR [facility] 06-03-2021 18:33-0500 Systolic blood pressure 153 mm[Hg] KALLI MOLINA CLIENT ACCOUNT MANAGER-[employer] SUPER[employer]OR [facility] 06-03-2021 12:00-0500 Heart rate 65 /min KALLI MOLINA CLIENT ACCOUNT MANAGER-[employer] SUPER[employer]OR [facility] 06-03-2021 08:52-0500 Heart rate 68 /min KALLI MOLINA CLIENT ACCOUNT MANAGER-[employer] SUPER[employer]OR [facility] 06-03-2021 04:03-0500 Heart rate 71 /min KALLI MOLINA CLIENT ACCOUNT MANAGER-[employer] SUPER[employer]OR [facility] 06-02-2021 21:06-0500 Body height 170 cm KALLI MOLINA CLIENT ACCOUNT MANAGER-[employer] SUPER[employer]OR [facility] 06-02-2021 21:06-0500 Body weight 94 kg KALLI MOLINA CLIENT ACCOUNT MANAGER-[employer] SUPER[employer]OR [facility] 06-02-2021 21:06-0500 Body weight 32.53 kg/m2 KALLI MOLINA CLIENT ACCOUNT MANAGER-[employer] SUPER[employer]OR [facility] 06-02-2021 20:56-0500 Body height 170 cm KALLI MOLINA CLIENT ACCOUNT MANAGER-[employer]ING SUPERVISOR [facility] 06-02-2021 20:56-0500 Body weight 94 kg KALLI MOLINA CLIENT ACCOUNT MANAGER-[employer]ING SUPERVISOR [facility] 06-02-2021 20:56-0500 Body weight 32.53 kg/m2 KALLI MOLINA CLIENT ACCOUNT MANAGER-[employer]ING SUPER[employer]OR [facility] 06-02-2021 17:59-0500 Body weight 94 kg KALLI MOLINA CLIENT ACCOUNT MANAGER-[employer] SUPER[employer]OR [facility] 09-20-2020 08:34-0400 Body height 172.7 cm Lacona Austyn DO Work Phone: [facility] 09-20-2020 08:34-0400 Body temperature 97.39 [degF] Lacona Austyn DO Work Phone: [facility] 09-20-2020 08:34-0400 Body weight 92.08 kg Lacona Austyn DO Work Phone: [facility] 09-20-2020 08:34-0400 Diastolic blood pressure 84 mm[Hg] Lacona Austyn DO Work Phone: [facility] 09-20-2020 08:34-0400 Heart rate 81 /min Narendra Austyn DO Work Phone: [facility] 09-20-2020 08:34-0400 SaO2% (BldA) [Mass fraction] 98 % Lacona Austyn DO Work Phone: [facility] 09-20-2020 08:34-0400 Systolic blood pressure 134 mm[Hg] Narendra Austyn DO Work Phone: [facility] 08-23-2020 09:10-0400 Diastolic blood pressure 80 mm[Hg] Lacona Austyn DO Work Phone: [facility] 08-23-2020 09:10-0400 Systolic blood pressure 150 mm[Hg] Lacona Austyn DO Work Phone: [facility] 08-23-2020 08:44-0400 Body height 172.7 cm Lacona Austyn DO Work Phone: [facility] 08-23-2020 08:44-0400 Body temperature 97.5 [degF] Nraendra Austyn DO Work Phone: [facility] 08-23-2020 08:44-0400 Body weight 91.63 kg Narendra Austyn DO Work Phone: [facility] 08-23-2020 08:44-0400 Heart rate 92 /min Lacona Austyn DO Work Phone: [facility] 08-23-2020 08:44-0400 SaO2% (BldA) [Mass fraction] 97 % Lacona Austyn DO Work Phone: [facility] 08-02-2020 08:48-0400 Body height 172.7 cm Lacona Austyn Work Phone: [facility] 08-02-2020 08:48-0400 Body temperature 97.3 [degF] Lacona Austyn Work Phone: [facility] 08-02-2020 08:48-0400 Body weight 89.81 kg Narendra Austyn Work Phone: [facility] 08-02-2020 08:48-0400 Diastolic blood pressure 90 mm[Hg] Lacona Austyn Work Phone: [facility] 08-02-2020 08:48-0400 Heart rate 75 /min Narendra Austyn Work Phone: [facility] 08-02-2020 08:48-0400 SaO2% (BldA) [Mass fraction] 97 % Lacona Austyn Work Phone: [facility] 08-02-2020 08:48-0400 Systolic blood pressure 144 mm[Hg] Lacona Austyn Work Phone: [facility] 07-02-2020 09:02-0400 Body Temperature 96.91 [degF] Nurse [place] [facility] 07-02-2020 09:02-0400 Body weight 91.63 kg Nurse [place] [facility] 07-02-2020 09:02-0400 BP Diastolic 82 mm[Hg] Nurse [facility] 07-02-2020 09:02-0400 BP Systolic 138 mm[Hg] Nurse [facility] 07-02-2020 09:02-0400 Pulse (Heart Rate) 74 /min Nurse [place] [facility] 07-02-2020 09:02-0400 Pulse Oximetry 98 % Nurse [place] [facility] 05-31-2020 09:06-0500 Body Temperature 97.3 [degF] Nurse [facility] 05-31-2020 09:06-0500 Body weight 92.99 kg Nurse [place] [facility] 05-31-2020 09:06-0500 BP Diastolic 84 mm[Hg] Nurse [place] [facility] 05-31-2020 09:06-0500 BP Systolic 156 mm[Hg] Nurse [facility] 05-31-2020 09:06-0500 Pulse (Heart Rate) 88 /min [facility] [place] [facility] 05-31-2020 09:06-0500 Pulse Oximetry 97 % Nurse [place] [facility] 05-03-2020 09:06-0500 Body Temperature 96.91 [degF] Nurse [place] [facility] 05-03-2020 09:06-0500 Body weight 92.53 kg Nurse [place] [facility] 05-03-2020 09:06-0500 BP Diastolic 78 mm[Hg] Nurse [place] [facility] 05-03-2020 09:06-0500 BP Systolic 142 mm[Hg] Nurse [place] [facility] 05-03-2020 09:06-0500 Pulse (Heart Rate) 76 /min Nurse [place] [facility] 05-03-2020 09:06-0500 Pulse Oximetry 96 % Nurse [place] [facility] 03-29-2020 08:52-0500 Body Temperature 97.59 [degF] Nurse [facility] 03-29-2020 08:52-0500 BP Diastolic 88 mm[Hg] Nurse [place] [facility] 03-29-2020 08:52-0500 BP Systolic 158 mm[Hg] Nurse [place] [facility] 03-29-2020 08:52-0500 Pulse (Heart Rate) 81 /min Nurse [place] [facility] 03-29-2020 08:52-0500 Pulse Oximetry 97 % Nurse [facility] 03-01-2020 08:52-0500 Body Temperature 97.7 [degF] Nurse [place] [facility] 03-01-2020 08:52-0500 BP Diastolic 94 mm[Hg] Nurse [place] [facility] 03-01-2020 08:52-0500 BP Systolic 154 mm[Hg] Nurse [place] [facility] 03-01-2020 08:52-0500 Pulse (Heart Rate) 78 /min Nurse [place] [facility] 03-01-2020 08:52-0500 Pulse Oximetry 95 % Nurse [facility] 01-30-2020 13:13-0400 Body weight 94.8 kg [facility] 01-30-2020 13:13-0400 BP Diastolic 84 mm[Hg] [facility] 01-30-2020 13:13-0400 BP Systolic 160 mm[Hg] [facility] 01-30-2020 13:13-0400 Height 172.7 cm [facility] 12-22-2019 13:15-0400 Body Temperature 97.7 [degF] [facility] 12-22-2019 13:15-0400 Pulse (Heart Rate) 80 /min [facility] 12-22-2019 13:15-0400 Pulse Oximetry 95 % [facility] 12-22-2019 13:15-0400 Respiratory Rate 22 /min [facility] silvestre Encounters Encounter Date Encounter Type Care Provider Facility Start: 10-19-2024 End: 10-21-2024 Telephone encounter Miguel Angel Ervin MD Work Phone: Gastroenterology Comment on above: Results (Lab Results ) Start: 10-13-2024 ambulatory MIGUEL ANGEL ERVIN Facilit y:[facility] Start: 10-13-2024 End: 10-13-2024 Subsequent hospital visit by physician Miguel Angel Ervin MD Work Phone: Gastroenterology Comment on above: 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 Hill) Start: 09-30-2024 End: 09-30-2024 ambulatory AVILA SHEA CLIENT ACCOUNT MANAGER-PACKING AND WRAPPING SUPERVISOR Facility:[facility] Start: 09-30-2024 End: 09-30-2024 Patient encounter procedure AVILA SHEA CLIENT ACCOUNT MANAGER-PACKING AND WRAPPING SUPERVISOR [facility] Start: 09-25-2024 End: 09-25-2024 Patient encounter procedure [facility] Work Phone: Start: 09-25-2024 End: 09-25-[address] Josy Zaman DO Work Phone: [facility] Work Phone: Start: 09-13-2024 End: 09-13-2024 ambulatory AVILA BALTES CLIENT ACCOUNT MANAGER-PACKING AND WRAPPING SUPERVISOR Facility:[facility] Start: 09-13-2024 End: 09-13-2024 Patient encounter procedure AVILA BALTES CLIENT ACCOUNT MANAGER-PACKING AND WRAPPING SUPERVISOR [facility] Start: 09-02-2024 End: 09-02-2024 ambulatory AVILA KEYURTES CLIENT ACCOUNT MANAGER-PACKING AND WRAPPING SUPERVISOR Facility:[facility] Start: 06-29-2024 End: 06-29-[address] BILL HILL MD Facility:[facility] Start: 03-24-2024 End: 03-24-2024 ambulatory AVILA KEYURTES CLIENT ACCOUNT MANAGER-PACKING AND WRAPPING SUPERVISOR Facility:[facility] Start: 03-24-2024 End: 03-24-2024 Patient encounter procedure AVILA MONSE CLIENT ACCOUNT MANAGER-PACKING AND WRAPPING SUPERVISOR [facility] Start: 09-18-2023 End: 09-18-2023 ambulatory AVILA BALTES CLIENT ACCOUNT MANAGER-PACKING AND WRAPPING SUPERVISOR Facility:[facility] Start: 09-17-2023 ambulatory AVILA MONSE CLIENT ACCOUNT MANAGER-PACKING AND WRAPPING SUPERVISOR Facility:[facility] Start: 09-17-2023 End: 09-21-2023 Outreach Lab AVILA BALEZEQUIEL CLIENT ACCOUNT MANAGER-PACKING AND WRAPPING SUPERVISOR [facility] Start: 08-14-2023 End: 08-14-[address] BILL HILL MD Facility:[facility] Start: 08-14-2023 End: 08-14-[address] BILL HILL MD [facility] Start: 03-17-2023 End: 03-17-2023 ambulatory AVILA BAEREZEQUIEL CLIENT ACCOUNT MANAGER-PACKING AND WRAPPING SUPERVISOR Facility:[facility] Start: 10-01-2022 End: 10-01-2022 ambulatory JOSE Fer STEWARTY DO Facility:[facility] Start: 10-01-2022 End: 10-01-2022 Minor Procedure JOSE Fer JOHN DO [facility] Start: 02-17-2022 End: 02-17-2022 Patient encounter procedure AVILA SHEA CLIENT ACCOUNT MANAGER-PACKING AND WRAPPING SUPERVISOR [facility] Start: 11-14-2021 End: 11-15-2021 Evaluation and management of inpatient RILEY COWAN CLIENT ACCOUNT MANAGER-PACKING AND WRAPPING SUPERVISOR [facility] Start: 08-23-2021 Telephone encounter Narendra Zaman DO Work Phone: [facility] [place] Comment on above: Appointment Start: 08-14-2021 End: 08-14-[address] SHELLY RANDHAWA MD [facility] Start: 07-22-2021 End: 07-22-[address] SHELLY RANDHAWA MD [facility] Start: 07-03-2021 End: 07-03-[address] SHELLY RANDHAWA MD [facility] Start: 06-06-2021 End: 06-06-[address] BILL HILL MD [facility] Start: 06-02-2021 End: 06-04-2021 Observation KALLI MOLINA CLIENT ACCOUNT MANAGER-PACKING AND WRAPPING SUPERVISOR [facility] Start: 02-25-2021 Refill Narendra Zaman DO Work Phone: [facility] [place] Comment on above: Refill Request Start: 11-21-2020 End: 11-21-2020 Refill Narendra Zaman DO Work Phone: [facility] [place] Comment on above: Rx Refills (metoprol ol succinate ) Start: 09-20-2020 End: 09-20-2020 Patient encounter procedure Narendra Zaman DO Work Phone: [facility] [place] Comment on above: Essential (primary) hypertension (Primary Dx); Mixed hyperlipidemia; Arthritis, shoulder region Start: 08-23-2020 End: 08-23-2020 Patient encounter procedure Narendra Zaman DO Work Phone: [facility] [place] Comment on above: Hypertension, essent ial (Primary Dx) Start: 08-02-2020 End: 08-02-2020 Patient encounter procedure Narendra Zaman Work Phone: [facility] [place] Comment on above: Essential (primary) hypertension (Primary Dx) Start: 07-02-2020 End: 07-02-2020 Nursing evaluation of patient and report Nurse Romel Chao [place] Work Phone: [facility] [place] Comment on above: Testicular hypofunct ion (Primary Dx) Start: 06-28-2020 End: 06-28-2020 Telephone encounter Narendra Zaman Work Phone: [facility] [place] Comment on above: Diverticulitis Start: 06-26-2020 End: 06-26-2020 Refill Narendra Zaman Work Phone: [facility] [place] Comment on above: Refill Request Start: 06-13-2020 End: 06-13-2020 Telephone encounter Narendra Zaman Work Phone: [facility] [place] Comment on above: Results (psa) Start: 06-08-2020 End: 06-08-2020 Patient encounter procedure [facility] Provider [facility] Start: 06-08-2020 Results Only [facility] Provider [facility] Department Start: 05-31-2020 End: 05-31-2020 Nursing evaluation of patient and report Nurse Romel Green Work Phone: [facility] [place] Comment on above: Testicular hypofunct ion (Primary Dx) Start: 05-23-2020 End: 05-23-2020 Telephone encounter Narendra Navaluiz Zaman Work Phone: [facility] [place] Comment on above: Patient Question Start: 05-03-2020 End: 05-03-2020 Nursing evaluation of patient and report Nurse Romel Green Work Phone: [facility] [place] Comment on above: Testicular hypofunct ion (Primary Dx) Start: 04-19-2020 End: 04-19-2020 Telephone encounter Lacona Ricoluiz Zaman Work Phone: [facility] [place] Comment on above: Results Start: 04-18-2020 End: 04-18-2020 Refill Lacona Ricoluiz Zaman Work Phone: [facility] [place] Comment on above: Rx Refills Start: 04-17-2020 End: 04-17-2020 [facility] Narendra Gómez Austyn Work Phone: [facility] [place] Comment on above: Essential hypertensi on (Primary Dx); Mixed hyperlipidemia; ED (erectile dysfunction) of organic origin; Screening for thyroid disorder Start: 03-29-2020 End: 03-29-2020 Nursing evaluation of patient and report Nurse Romel Green Work Phone: [facility] Comment on above: Testicular hypofunct ion (Primary Dx) Start: 03-13-2020 End: 03-13-2020 Telephone encounter Narendra Zaman Work Phone: [facility] Comment on above: Diverticulitis Start: 03-05-2020 End: 03-05-2020 Refill Narendra Zaman Work Phone: [facility] Comment on above: Refill Request Start: 03-01-2020 End: 03-01-2020 Nursing evaluation of patient and report Nurse [facility] Work Phone: [facility] Comment on above: Testicular hypofunct ion (Primary Dx) Start: 01-31-2020 End: 01-31-2020 Chart abstracting Narendra Gómez Austyn Work Phone: [facility] Procedures Date Procedure Procedure Detail Performing Clinician Start: 10-13-2024 Esophagoscp rig nicole soral hypopharynx crv esoph Miguel Angel Ervin MD Work Phone: Start: 10-13-2024 Glucose body fluid o ther than blood Miguel Angel Ervin MD Work Phone: Start: 07-22-[address] LUCI RANDHAWA MD Comment on above: Robotically assisted laparoscopic cholecystectomy Start: 09-25-2020 Excision of colon IVA MOLINA CLIENT ACCOUNT MANAGER-PACKING AND WRAPPING SUPERVISOR Comment on above: Robotically assisted laparoscopic ascending colectomy with intracorporeal anastomosis Intraoperative fluorescent angiography Start: 08-02-2020 Adult depression scr eening assessment Narendra Zaman Work Phone: Start: 07-21-2020 Laparoscopic appendectomy KALLI JESSE CLIENT ACCOUNT MANAGER-PACKING AND WRAPPING SUPERVISOR Start: 06-08-2020 LAB [facility] Provid er Start: 04-18-2020 Lipid 1996 panel - S grace or Plasma Miguel Angel Ervin MD Work Phone: Start: 04-13-[address] SHELLY RANDHAWA MD Start: 11-29-2018 BMP EXTERNAL QAI C[facility] Pr ovider Start: 04-13-[address] SHELLY RANDHAWA MD Cataract care KALLI JESSE Scott PRN-PACKING AND WRAPPING SUPERVISOR Comment on above: bilateral Cataract extraction and insertion of intraocular lens KALLI JESSE CLIENT ACCOUNT MANAGER-PACKING AND WRAPPING SUPERVISOR Comment on above: Hany Dentition (body structure) A LEIA MOLINA CLIENT ACCOUNT MANAGER-PACKING AND WRAPPING SUPERVISOR Comment on above: dental surgery Excision KALLI MOLINA AP RN-PACKING AND WRAPPING SUPERVISOR Comment on above: nose, cheek, right s lesvia excision for melonoma History of appendectomy S/P appe ndectomy( Confirmed ) KALLI MOLINA CLIENT ACCOUNT MANAGER-PACKING AND WRAPPING SUPERVISOR Prostatectomy KALLI MOLINA Sonia PRN-PACKING AND WRAPPING SUPERVISOR Tonsillectomy KALLI JESSE Sonia PRN-PACKING AND WRAPPING SUPERVISOR Plan of Treatment Date Care Activity Detail Author Start: 04-18-2025 Lipid panel Lipid Screening [facility] Start: 04-18-2025 LIPID SCREEN LIPID SCREEN [facility] Start: 12-12-2024 Influenza vaccination [facility] Start: 10-13-2024 End: 10-13-2024 Patient encounter procedure 10/13/2024 11:00 AM EDT Appointment Gastroenterology [address] [id number] Miguel Angel Ervin MD [address] [place] [address] 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] Gastroenterology Comment on above: 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] Start: 07-04-2024 Covid-19 Vaccine ( season) Covid-19 Vaccine () [facility] Start: 04-13-2024 Advance Directive Discussion Advance Directive Discussion [facility] Start: 12-13-2023 Covid-19 Vaccine () Covid-19 Vaccine () [facility] Start: 04-18-2023 DIABETES SCREEN DIABETES SCREEN [facility] Start: 04-18-2023 Diabetes Screening Diabetes Screening [facility] Start: 11-29-2021 DIABETES SCREEN DIABETES SCREEN [facility] Start: 09-20-2021 ANNUAL PCP TEAM CHRONIC DISEASE VISIT ANNUAL PCP TEAM CHRONIC DISEASE VISIT [facility] Start: 08-23-2021 ANNUAL PCP TEAM CHRONIC DISEASE VISIT ANNUAL PCP TEAM CHRONIC DISEASE VISIT [facility] Start: 08-02-2021 Adult depression screening assessment DEPRESSION SCREENING [facility] Start: 08-02-2021 ANNUAL PCP TEAM CHRONIC DISEASE VISIT ANNUAL PCP TEAM CHRONIC DISEASE VISIT [facility] Start: 04-17-2021 ANNUAL PCP TEAM CHRONIC DISEASE VISIT ANNUAL PCP TEAM CHRONIC DISEASE VISIT [facility] Start: 04-13-2021 ADVANCE DIRECTIVE DISCUSSION ADVANCE DIRECTIVE DISCUSSION [facility] Start: 12-27-2020 COVID-19 VACCINE (3 - Booster for Moderna series) COVID-19 VACCINE (3 - Booster for Moderna series) [facility] Start: 12-12-2020 Influenza vaccination INFLUENZA (#1) [facility] Start: 06-26-2020 COVID-19 VACCINE (2 - Moderna 2-dose series) COVID-19 VACCINE (2 - Moderna 2-dose series) [facility] Start: 06-26-2020 COVID-19 VACCINE (2 of 2 - Moderna series) COVID-19 VACCINE (2 of 2 - Moderna series) [facility] Start: 12-13-2019 Influenza vaccination INFLUENZA (#1) [facility] Start: 10-15-2015 ADVANCE DIRECTIVE DISCUSSION ADVANCE DIRECTIVE DISCUSSION [facility] Start: 10-15-2015 PNEUMOVAX AGE 65 AND OVER WITH 5YR LOOKBACK (#1) PNEUMOVAX AGE 65 AND OVER WITH 5YR LOOKBACK (#1) [facility] Start: 10-12-2015 Medicare Annual Wellness Visit Medicare Annual Wellness Visit [facility] Start: 2000 COLORECTAL CANCER SCREENING,SEE MODIFIER COLORECTAL CANCER SCREENING,SEE MODIFIER [facility] Start: 2000 Screening for malignant neoplasm of colon [facility] Start: 2000 SHINGRIX VACCINE (1 of 2) SHINGRIX VACCINE (1 of 2) [facility] Start: 2000 Tuberculosis screening COLORECTAL CANCER SCREENING,SEE MODIFIER [facility] Start: 10-15-1995 COLOGUARD (FIT-DNA) COLOGUARD (FIT-DNA) [facility] Start: 10-15-1995 Colonoscopy COLONOSCOPY [facility] Start: 10-15-1995 COLORECTAL CANCER SCREENING COLORECTAL CANCER SCREENING [facility] Start: 10-15-[address] COLONOGRAPHY [facility] Start: 10-15-1995 FECAL OCCULT BLOOD FECAL OCCULT BLOOD [facility] Start: 10-15-1995 Screening for malignant neoplasm of colon [facility] Start: 10-15-1995 SIGMOIDOSCOPY SIGMOIDOSCOPY [facility] Start: 1985 LIPID SCREEN LIPID SCREEN [facility] Start: 1969 Urine microalbumin profile [facility] Start: 1968 ANNUAL PCP TEAM CHRONIC DISEASE VISIT ANNUAL PCP TEAM CHRONIC DISEASE VISIT [facility] Start: 1968 Anxiety Screening Anxiety Screening [facility] Start: 1968 BP CONTROLLED (<130/80) BP CONTROLLED (<130/80) [facility] Start: 1968 Depression Screening Depression Screening [facility] Start: 1968 HEPATITIS C SCREENING HEPATITIS C SCREENING [facility] Start: 1968 Hepatitis C screening Hepatitis C Screening [facility] Start: 1962 Adult depression screening assessment DEPRESSION SCREENING [facility] Start: 1950 ABDOMINAL AORTIC ANEURYSM SCREENING ABDOMINAL AORTIC ANEURYSM SCREENING [facility] Start: 1950 Abdominal aortic aneurysm screening Abdominal Aortic Aneurysm Screening [facility] End: 04-19-2021 ALP [Catalytic activity/Vol] ALKALINE PHOSPHATASE Lab Routine Screening for lipid disorders 1 Occurrences starting 04/19/2020 until 04/19/2021 [facility] Comment on above: 1 Occurrences starting 04/19/2020 until 04/19/2021 End: 04-19-2021 ALT [Catalytic activity/Vol] ALT/SGPT Lab Routine Screening for lipid disorders 1 Occurrences starting 04/19/2020 until 04/19/2021 [facility] Comment on above: 1 Occurrences starting 04/19/2020 until 04/19/2021 End: 04-19-2021 AST [Catalytic activity/Vol] AST/SGOT BLD Lab Routine Screening for lipid disorders 1 Occurrences starting 04/19/2020 until 04/19/2021 [facility] Comment on above: 1 Occurrences starting 04/19/2020 until 04/19/2021 End: 04-19-2021 Bilirubin [Mass/Vol] BILIRUBIN TOTAL BLD Lab Routine Screening for lipid disorders 1 Occurrences starting 04/19/2020 until 04/19/2021 [facility] Comment on above: 1 Occurrences starting 04/19/2020 until 04/19/2021 CEA, FLUID [facility] Work Phone: Comment on above: Release Upon Ordering for 1 Occurrences starting 10/13/2024 CYTOLOGY NON-ELECTROENCEPHALOGRAPH TECHNOLOGIST [facility] linic Comment on above: Release Upon Ordering for 1 Occurrences starting 10/13/2024, 1 completed End: 10-06-2025 EGD - THERAPEUTIC, EUS, OR TUBE INTERVENTIONS EGD - THERAPEUTIC, EUS, OR TUBE INTERVENTIONS Endoscopy Routine Pancreas cyst (HCC) 1 Occurrences starting 10/06/2024 until 10/06/2025 [facility] Work Phone: Comment on above: 1 Occurrences starting 10/06/2024 until 10/06/2025 End: 04-19-2021 LIPID PANEL BASIC LIPID PANEL BASIC Lab Routine Screening for lipid disorders 1 Occurrences starting 04/19/2020 until 04/19/2021 [facility] Comment on above: 1 Occurrences starting 04/19/2020 until 04/19/2021 [facility] Immunizations Immunization Date Immunization Notes Care Provider [facility] 01-05-2024 influenza virus vaccine, unspecified formulation AVILA SHEA CLIENT ACCOUNT MANAGER-PACKING AND WRAPPING SUPERVISOR [facility] 01-05-2024 SARS-CoV-2 (COVID-19 ) [id number] AVILA SHEA CLIENT ACCOUNT MANAGER-PACKING AND WRAPPING SUPERVISOR [facility] 06-27-2023 SARS-CoV-2 (COVID-19 ) [id number] AVILA SHEA CLIENT ACCOUNT MANAGER-PACKING AND WRAPPING SUPERVISOR [facility] 02-03-2023 influenza virus vaccine, unspecified formulation DR BILL HILL MD [facility] 02-03-2023 pneumococcal 20-[place] nt conjugate vaccine DR BILL HILL MD [facility] 01-12-2023 respiratory syncytia l virus (RSV) vaccine, adjuvanted (AREXVY) Miguel Angel Ervin MD Work Phone: [facility] 01-12-2023 RSV vaccine preF3, recombinant DR BILL HILL MD [facility] 01-12-2023 SARS-CoV-2 (COVID-19 ) [id number] DR BILL HILL MD [facility] 12-18-2021 influenza (HD-IIV4) vaccine, age 65+ yr, high dose, quadrivalent, PF (FLUZONE HIGH-DOSE) Miguel Angel Ervin MD Work Phone: [facility] 12-18-2021 influenza nasal, unspecified formulation Miguel Angel Ervin MD Work Phone: [facility] 12-18-2021 influenza virus vaccine, unspecified formulation AIVLA SHEA CLIENT ACCOUNT MANAGER-PACKING AND WRAPPING SUPERVISOR [facility] 07-30-2021 COVID-19 vaccine, fu ll dose (MODERNA) Narendra Austyn DO Work Phone: [facility] 02-07-2021 SARS-CoV-2 (COVID-19 ) [id number] vaccine KALLI JESSE CLIENT ACCOUNT MANAGER-PACKING AND WRAPPING SUPERVISOR [facility] 01-11-2021 influenza (aIIV4) vaccine, age 65+ yr, quadrivalent, PF (FLUAD QUADRIVALENT) Narendra Austyn DO Work Phone: [facility] 01-11-2021 influenza nasal, unspecified formulation Miguel Angel Ervin MD Work Phone: [facility] 01-11-2021 influenza virus vaccine, unspecified formulation KALLI MOLINA CLIENT ACCOUNT MANAGER-PACKING AND WRAPPING SUPERVISOR [facility] 06-26-2020 COVID-19 vaccine (MODERNA) [facility] 05-29-2020 COVID-19 vaccine (MODERNA) Nurse [facility] 01-26-2020 influenza (aIIV4) vaccine, age 65+ yr, quadrivalent, PF (FLUAD QUADRIVALENT) [facility] Work Phone: [facility] 01-26-2020 influenza nasal, unspecified formulation Miguel Angel Ervin MD Work Phone: [facility] 01-26-2020 influenza virus vaccine, unspecified formulation KALLI MOLINA CLIENT ACCOUNT MANAGER-PACKING AND WRAPPING SUPERVISOR [facility] 01-26-2020 influenza, high dose seasonal, preservative-free Nurse [facility] 01-12-2019 influenza nasal, unspecified formulation Miguel Angel Ervin MD Work Phone: [facility] 01-12-2019 influenza virus vaccine, unspecified formulation KALLI MOLINA CLIENT ACCOUNT MANAGER-PACKING AND WRAPPING SUPERVISOR [facility] 01-12-2019 influenza, high dose seasonal, preservative-free [facility] 01-12-2019 influenza, injectabl e, quadrivalent, contains preservative Nurse [facility] 01-03-2019 influenza nasal, unspecified formulation Miguel Angel Ervin MD Work Phone: [facility] 01-03-2019 influenza virus vaccine, unspecified formulation KALLI MOLINA CLIENT ACCOUNT MANAGER-PACKING AND WRAPPING SUPERVISOR [facility] 01-03-2019 Seasonal trivalent influenza vaccine, adjuvanted, preservative free Nurse [facility] 10-11-2018 zoster vaccine recombinant Nurse [facility] 06-03-2018 zoster vaccine recombinant Nurse [facility] Comment on above: Admin Note: administ ered at [facility] [id number] 01-05-2018 influenza nasal, unspecified formulation Miguel Angel Ervin MD Work Phone: [facility] 01-05-2018 Seasonal trivalent influenza vaccine, adjuvanted, preservative free Nurse [facility] 01-05-2018 influenza virus vaccine, unspecified formulation KALLI MOLINA CLIENT ACCOUNT MANAGER-PACKING AND WRAPPING SUPERVISOR [facility] Comment on above: Admin Note: administ ered at [employer] [id number] -information provided by [employer]. For vaccine administration record only 12-23-2016 pneumococcal conjuga te vaccine, 13 valent Nurse [facility] 12-22-2016 influenza nasal, unspecified formulation Miguel Angel Ervin MD Work Phone: [facility] 12-22-2016 influenza virus vaccine, unspecified formulation KALLI MOLINA CLIENT ACCOUNT MANAGER-PACKING AND WRAPPING SUPERVISOR [facility] 12-22-2016 influenza, high dose seasonal, preservative-free Nurse [facility] 01-16-2016 influenza nasal, unspecified formulation Miguel Angel Ervin MD Work Phone: [facility] 01-16-2016 influenza virus vaccine, unspecified formulation KALLI MOLINA CLIENT ACCOUNT MANAGER-PACKING AND WRAPPING SUPERVISOR [facility] 01-16-2016 influenza, seasonal, injectable Nurse [facility] 01-16-2016 pneumococcal polysaccharide vaccine, 23 valent Nurse [facility] 01-16-2016 zoster vaccine, live Nurse [facility] 01-12-2015 influenza nasal, unspecified formulation Miguel Angel Ervin MD Work Phone: [facility] 01-12-2015 influenza virus vaccine, unspecified formulation KALLI MOLINA CLIENT ACCOUNT MANAGER-PACKING AND WRAPPING SUPERVISOR [facility] 01-12-2015 influenza, seasonal, injectable Nurse [facility] 01-11-2015 influenza nasal, unspecified formulation Nurse [facility] 12-27-2013 influenza, high dose seasonal, preservative-free Nurse [facility] 01-13-2012 influenza nasal, unspecified formulation Miguel Angel Ervin MD Work Phone: [facility] 01-13-2012 influenza virus vaccine, unspecified formulation KALLI MOLINA CLIENT ACCOUNT MANAGER-PACKING AND WRAPPING SUPERVISOR [facility] 01-13-2012 influenza, seasonal, injectable, preservative free Nurse [facility] 02-16-2009 influenza virus vaccine, whole virus Nurse [facility] Payers Date Payer Category Payer Self-pay [id number] 2022 Private Health Insurance [id number] 2019 Private Health Insurance [facility] [id number] 2019-Present [facility] [id number] 2015 Medicare [id number] 2015 Medicare [id number] 2015 Medicare [id number] 2013 Private Health Insurance [id number] [id number] 1950 Unknown [id number]. 2.627 1950 Unknown [id number] [id number]. 2.627 1950 Unknown [id number] [id number]. 2.62 1950 Unknown [id number] [id number]. 2. 1950 Unknown [id number] 2.16.840.1.551268.3.579. 2. 1950 Unknown [id number] 2.16.840.1.251340.3.579. 2. 1950 Unknown [id number] [id number]. 2. 1950 Unknown [id number] 2.16.840.1.140540.3.579. 2. 1950 Unknown [id number] 2.16.840.1.209749.3.579. 2. 1950 Unknown [id number] 2.16.840.1.018308.3.579. 2. 1950 Unknown [id number] [id number]. 2.627 Unknown [id number]. 2.462 Social History Date Type Detail Facility Start: 01-31-2020 End: 09-13-2024 Tobacco smoking status NHIS Former smoker [facility] End: 04-13-2006 History of tobacco use Current smoker [facility] End: 04-13-2006 History of tobacco use Cigarette Smoker [facility] Start: 01-31-2020 End: 04-17-2020 Cigarettes smoked current (pack per day) - Reported [facility] Start: 01-31-2020 End: 09-20-2020 Tobacco use and exposure Never used [facility] Start: 01-31-2020 End: 10-13-2024 Alcohol intake Current drinker of alcohol (finding) [facility] Start: 01-31-2020 Alcohol Comment Beer daily [facility] Start: 1950 Sex Assigned At Not on file [facility] Exposure to SARS-CoV -2 (event) Not sure [facility] Sex Assigned At [facility] Start: 02-15-2019 Tobacco Use Tobacco Use [facility] Start: 1950 Sex Assigned At Male [facility] Start: 05-30-2018 Sex Male (finding) [facility] Start: 04-17-2020 End: 09-20-2020 Tobacco use panel [facility] Adult Depression Screening Assessment 0 [facility] Medical Equipment Procedure Code Equipment Code Equipment Origin al Text Equipment Identifier Dates JOSE MIGUELHIRASHANE PALENCIA FDA Start: 02-23-2019 ELIANA GILLESPIE LG FDA Start: 02-23-2019 ELIANA GILLESPIE LG FDA Start: 02-23-2019 JOSE MIGUELHEMSHANE PALENCIA FDA Start: 02-23-2019 JOSE MIGUELHEMSHANE PALENCIA FDA Start: 02-23-2019 SEALANT,FLOSEAL HEMOSTATIC 5ML FDA Start: 02-23-2019 Functional Status Date Assessment Result Facility 10-01-2022 Functional Status Awake, Resting [facility] 11-15-2021 Functional Status Room check performed [facility] 11-15-2021 Functional Status [facility] 11-15-2021 Functional Status bilateral knee high [facility] 11-15-2021 Functional Status [facility] 11-15-2021 Functional Status [facility] 11-14-2021 Functional Status [facility] 11-14-2021 Functional Status Steady without support [facility] 11-14-2021 Functional Status Assistive Device None A [facility] 07-22-2021 Functional Status [facility] 07-22-2021 Functional Status [facility] 07-22-2021 Functional Status [facility] 07-22-2021 Functional Status Jermaine duong Mental Status Date Assessment Result Facility 10-01-2022 Mental Status Oriented x 4 [facility] 11-15-2021 Mental Status Oriented x 4 [facility] 11-14-2021 Mental Status [facility] 11-14-2021 Mental Status [facility] 07-22-2021 Mental Status [facility] mensah 07-22-2021 Mental Status [facility] mensah 07-22-2021 Mental Status Jerm[facility] mensah Clinical Notes 08-02-2020 to 10-21-2024 Telephone Encounter - Miguel Angel Ervin MD - 10/21/2024 11:09 AM EDTTelephone Encounter - Miguel Angel Ervin MD - 10/21/2024 11:09 AM EDTTelephone Encounter - Alberto Ng - 10/21/2024 8:30 AM EDT Note Date & Type Note Facility 10-21-2024 Telephone encounter Note Spoke to patient and informed him that overall, the fluid analysis argues against a cancerous or precancerous cyst. The issue is his ongoing pain. He got ~1 week relief with celiac plexus block, then pain returns. I asked him to have the MRI from [facility] sent to me for review in [facility] conference. He has my office address and will do so jean. I asked him to contact my office 10 days after requesting the images if he has not heard from me. Miguel Angel Ervin MD [facility] Work Phone: 10-21-2024 Miscellaneous Notes Spoke to patient and informed him that overall, the fluid analysis argues against a cancerous or precancerous cyst. The issue is his ongoing pain. He got ~1 week relief with celiac plexus block, then pain returns. I asked him to have the MRI from [facility] sent to me for review in [facility] conference. He has my office address and will do so jean. I asked him to contact my office 10 days after requesting the images if he has not heard from me. Miguel Angel Ervin MD Patient calling back to follow up on message on getting results, would like a phone call of some kind today. Number listed in pervious message is the best number Thank you, Alberto R calling #[phone] Patient stated he missed a call regarding his lab results, wondering if he is able to still get those results via phone call. Verified call back number listed Thank you Alberto R documented in this encounter [facility] 10-21-2024 Telephone encounter Note Patient calling back to follow up on message on getting results, would like a phone call of some kind today. Number listed in pervious message is the best number Thank you, Alberto R [facility] 10-19-2024 Telephone encounter Note calling #[phone] Patient stated he missed a call regarding his lab results, wondering if he is able to still get those results via phone call. Verified call back number listed Thank you Alberto R [facility] 10-13-2024 Nurse Note AMBULATORY PATIENT EDUCATION NOTE TOPIC: GI PROCEDURES: Endoscopic Ultrasound (EUS) with or without Fine Needle Aspiration (FNA) READINESS TO LEARN INSTRUCTION PROVIDED TO: Patient, readness to learn accessed prior to procedure COGNITIVE ABILITY: Alert and oriented PTED MOTIVATION TO LEARN: Eager FAMILY SUPPORT: High - Very involved in pt care IPATIENT LEARNS BEST BY: Individual Instruction FACTORS AFFECTING LEARNING: None PHYSICAL LIMITATIONS AFFECTING LEARNING: None LEARNING RESPONSE METHOD OF INSTRUCTION: Individual instruction PATIENT / FAMILY RESPONSE: Verbalizes understanding of: WORSENING CONDITION-Signs and symptoms of a worsening condition that warrant a call to the physician FOLLOW-UP PLAN: Complete - No need for follow-up SUPPLEMENTAL MATERIAL: Procedure Discharge Instructions REFERRAL (RECOMMENDATION): None [facility] 10-13-2024 Nurse Note AMBULATORY PATIENT EDUCATION NOTE TOPIC: GI PROCEDURES: Endoscopic Ultrasound (EUS) with or without Fine Needle Aspiration (FNA) READINESS TO LEARN INSTRUCTION PROVIDED TO: Patient, readness to learn accessed prior to procedure COGNITIVE ABILITY: Alert and oriented PTED MOTIVATION TO LEARN: Eager FAMILY SUPPORT: High - Very involved in pt care IPATIENT LEARNS BEST BY: Individual Instruction FACTORS AFFECTING LEARNING: None PHYSICAL LIMITATIONS AFFECTING LEARNING: None LEARNING RESPONSE METHOD OF INSTRUCTION: Individual instruction PATIENT / FAMILY RESPONSE: Verbalizes understanding of: WORSENING CONDITION-Signs and symptoms of a worsening condition that warrant a call to the physician FOLLOW-UP PLAN: Complete - No need for follow-up SUPPLEMENTAL MATERIAL: Procedure Discharge Instructions REFERRAL (RECOMMENDATION): None PRE OP LEARNING ASSESSMENT PROCEDURE/SURGERY: GI PROCEDURES: EGD READINESS TO LEARN COGNITIVE ABILITY: Alert and oriented MOTIVATION TO LEARN: Eager FAMILY SUPPORT: High - Very involved in pt care PATIENT LEARNS BEST BY: Individual Instruction FACTORS AFFECTING LEARNING: None PHYSICAL LIMITATIONS AFFECTING LEARNING: None Electronically Signed By: China Tafoya RN In Department: GASTROENTEROLOGY documented in this encounter [facility] 10-13-2024 Note HNO ID: [id number] Author: DAVID VORA APRN.LIAISON PLANNER Service: ? Author Type: Nurse Purchasing Manager/Sales Type: Anesthesia Procedure Notes Filed: 10/13/2024 11:41 Note Text: ANESTHESIOLOGY PROCEDURE NOTE PIV General Information Procedure Start Time/Medication Administration: 10/13/2024 11:41 AM Procedure End Time: 10/13/2024 11:41 AM Patient Location: OR Staffing Performed by: anesthesiologist Preparation Sterility Preparation: hand hygiene performed prior to procedure, surgical cap used, mask used, skin prep agent completely dried prior to procedure Sterility Technique Not Completely Performed Due to Extreme Emergency: No Site Prep: alcohol Procedure Details Indication: need for IV access Needle Size/Type: 18 gauge angiocath Orientation: Left Location: Hand Imaging Guidance Used: Yes Image in Chart: No SIGNATURE: David Vora APRN.LIAISON PLANNER PATIENT NAME: David Balderrama DATE: October 13, 2024 TIME: 11:41 AM CSN: [id number] [facility] 10-13-2024 Note Q3 Patient Name: David Balderrama Procedure Date: 10/13/2024 10:39 AM Date of : 1950 Admit Type: Outpatient Age: 73 Gender: Male Note Status: Finalized Attending MD: Miguel Angel Ervin MD, [id number] Procedure: Upper EUS Indications: Pancreatic cyst on MRI, Celiac plexus block for pain secondary to chronic pancreatitis Providers: Miguel Angel Ervin MD Patient Profile: This is a 73 year old male. Referring Physician: Miguel Angel Ervin MD (Referring MD) Medicines: Monitored Anesthesia Care, Ampicillin 2 g IV Complications: No immediate complications. Requesting Provider: Procedure: Pre-Anesthesia Assessment: - Prior to the procedure, a History and Physical was performed, and patient medications and allergies were reviewed. The patient's tolerance of previous anesthesia was also reviewed. The risks and benefits of the procedure and the sedation options and risks were discussed with the patient. All questions were answered, and informed consent was obtained. Prior Anticoagulants: The patient has taken no anticoagulant or antiplatelet agents. ASA Grade Assessment: III - A patient with severe systemic disease. After reviewing the risks and benefits, the patient was deemed in satisfactory condition to undergo the procedure. After obtaining informed consent, the endoscope was passed under direct vision. Throughout the procedure, the patient's blood pressure, pulse, and oxygen saturations were monitored continuously. The Endoscope was introduced through the mouth, and advanced to the second part of duodenum. The Endoscope was introduced through the mouth, and advanced to the second part of duodenum. The upper GI endoscopy was accomplished without difficulty. The patient tolerated the procedure well. Moderate Sedation: MAC anesthesia was administered by the anesthesia team. Findings: ENDOSCOPIC FINDING: : The examined esophagus was endoscopically normal. The entire examined stomach was endoscopically normal. The examined duodenum was endoscopically normal. ENDOSONOGRAPHIC FINDING: : A multicystic lesion suggestive of a cyst was identified in the pancreatic body. The lesion measured 30 mm by 20 mm in maximal cross-sectional diameter. There were a few compartments thickly septated. The outer wall of the lesion was thick. Diagnostic needle aspiration for fluid was performed. Color Doppler imaging was utilized prior to needle puncture to confirm a lack of significant vascular structures within the needle path. One pass was made with the 22 gauge needle using a transgastric approach. The fluid was slightly viscous. Sample(s) were sent for cytology and CEA. Celiac plexus block was performed. The region of the celiac plexus and celiac ganglia was identified endosonographically with Color Doppler imaging, using the take-off of the celiac trunk from the anterior aspect of the aorta as the main anatomical landmark. Color Doppler guidance was also used to confirm a lack of significant vascular structures within the injection needle path. Using a transgastric approach, a 22 gauge needle was advanced to the area of the celiac ganglia. Needle aspiration was performed prior to injection to exclude entry into a blood vessel. A total of 20 mL of 2% ropivacaine was injected for the celiac plexus block. The needle was then withdrawn. Impression: - Normal esophagus. - Normal stomach. - Normal examined duodenum. - A cystic lesion was seen in the pancreatic body. Fine needle aspiration for fluid performed. - Celiac plexus block performed. Estimated Blood Loss: Estimated blood loss: none. Attending Participation: I personally performed the entire procedure. Scope In: 11:02:53 AM Scope Out: 11:19:03 AM MD Miguel Angel Vásquez MD 10/13/2024 11:26:14 AM This report has been signed electronically by Miguel Angel Ervin MD Number of Addenda: 0 Note Initiated On: 10/13/2024 10:39 AM [facility] 10-13-2024 Note Q3 Patient Name: David Balderrama Procedure Date: 10/13/2024 10:39 AM Date of : 1950 Admit Type: Outpatient Age: 73 Gender: Male Note Status: Finalized Attending MD: Miguel Angel Ervin MD, [id number] Procedure: Upper EUS Indications: Pancreatic cyst on MRI, Celiac plexus block for pain secondary to chronic pancreatitis Providers: Miguel Angel Ervin MD Patient Profile: This is a 73 year old male. Referring Physician: Miguel Angel Ervin MD (Referring MD) Medicines: Monitored Anesthesia Care, Ampicillin 2 g IV Complications: No immediate complications. Requesting Provider: Procedure: Pre-Anesthesia Assessment: - Prior to the procedure, a History and Physical was performed, and patient medications and allergies were reviewed. The patient's tolerance of previous anesthesia was also reviewed. The risks and benefits of the procedure and the sedation options and risks were discussed with the patient. All questions were answered, and informed consent was obtained. Prior Anticoagulants: The patient has taken no anticoagulant or antiplatelet agents. ASA Grade Assessment: III - A patient with severe systemic disease. After reviewing the risks and benefits, the patient was deemed in satisfactory condition to undergo the procedure. After obtaining informed consent, the endoscope was passed under direct vision. Throughout the procedure, the patient's blood pressure, pulse, and oxygen saturations were monitored continuously. The Endoscope was introduced through the mouth, and advanced to the second part of duodenum. The Endoscope was introduced through the mouth, and advanced to the second part of duodenum. The upper GI endoscopy was accomplished without difficulty. The patient tolerated the procedure well. Moderate Sedation: MAC anesthesia was administered by the anesthesia team. Findings: ENDOSCOPIC FINDING: : The examined esophagus was endoscopically normal. The entire examined stomach was endoscopically normal. The examined duodenum was endoscopically normal. ENDOSONOGRAPHIC FINDING: : A multicystic lesion suggestive of a cyst was identified in the pancreatic body. The lesion measured 30 mm by 20 mm in maximal cross-sectional diameter. There were a few compartments thickly septated. The outer wall of the lesion was thick. Diagnostic needle aspiration for fluid was performed. Color Doppler imaging was utilized prior to needle puncture to confirm a lack of significant vascular structures within the needle path. One pass was made with the 22 gauge needle using a transgastric approach. The fluid was slightly viscous. Sample(s) were sent for cytology and CEA. Celiac plexus block was performed. The region of the celiac plexus and celiac ganglia was identified endosonographically with Color Doppler imaging, using the take-off of the celiac trunk from the anterior aspect of the aorta as the main anatomical landmark. Color Doppler guidance was also used to confirm a lack of significant vascular structures within the injection needle path. Using a transgastric approach, a 22 gauge needle was advanced to the area of the celiac ganglia. Needle aspiration was performed prior to injection to exclude entry into a blood vessel. A total of 20 mL of 2% ropivacaine was injected for the celiac plexus block. The needle was then withdrawn. Impression: - Normal esophagus. - Normal stomach. - Normal examined duodenum. - A cystic lesion was seen in the pancreatic body. Fine needle aspiration for fluid performed. - Celiac plexus block performed. Estimated Blood Loss: Estimated blood loss: none. Attending Participation: I personally performed the entire procedure. Scope In: 11:02:53 AM Scope Out: 11:19:03 AM MD Miguel Angel Vásquez MD 10/13/2024 11:26:14 AM This report has been signed electronically by Miguel Angel Ervin MD Number of Addenda: 0 Note Initiated On: 10/13/2024 10:39 AM [facility] 10-13-2024 Nurse Note PRE OP LEARNING ASSESSMENT PROCEDURE/SURGERY: GI PROCEDURES: EGD READINESS TO LEARN COGNITIVE ABILITY: Alert and oriented MOTIVATION TO LEARN: Eager FAMILY SUPPORT: High - Very involved in pt care PATIENT LEARNS BEST BY: Individual Instruction FACTORS AFFECTING LEARNING: None PHYSICAL LIMITATIONS AFFECTING LEARNING: None Electronically Signed By: China Tafoya RN In Department: GASTROENTEROLOGY [facility] 10-13-2024 History and physical note HISTORY AND PHYSICAL David Balderrama, 73 year old male Current history and physical on file: No Is a new History and Physical required for today's visit? Yes Indication for procedure: Abdominal pain, pancreatic cyst PROCEDURE(S) SCHEDULED FOR: EUS/FNA (Endoscopic Ultrasound with or without Fine Needle Aspiration), based on clinical findings. Celiac plexus block BASELINE BEHAVIOR: Calm BASELINE ORIENTATION: A & O x3 All medications and allergies reviewed: Yes Skin Assessment: Warm dry mucus membranes pink Airway/Respiratory Assessment: Airway: visualization of the uvula- Yes Mouth: opening greater than 2 fingerbreadths- Yes Neck: full range of motion- Yes Breath sounds clear/equal- Yes Cardiac Assessment: Regular rate and rhythm without murmur Abdominal Assessment: Abdomen soft, non-tender, no masses or organomegaly. Sedation Plan: Deep Additional Comments: Dr. Gonsales's referral notes reviewed and explained procedure explained to patient. Concerning appearing pancreatic body cyst, EUs-FNA to rule out a cystic neoplasm. Patient is having a lot of epigastric pain. Discussed option for celiac plexus block and patient agrees with this in hopes of obtaining some added pain relief. Miguel Angel Ervin MD [facility] 10-13-2024 History and physical note HISTORY AND PHYSICAL David Balderrama, 73 year old male Current history and physical on file: No Is a new History and Physical required for today's visit? Yes Indication for procedure: Abdominal pain, pancreatic cyst PROCEDURE(S) SCHEDULED FOR: EUS/FNA (Endoscopic Ultrasound with or without Fine Needle Aspiration), based on clinical findings. Celiac plexus block BASELINE BEHAVIOR: Calm BASELINE ORIENTATION: A & O x3 All medications and allergies reviewed: Yes Skin Assessment: Warm dry mucus membranes pink Airway/Respiratory Assessment: Airway: visualization of the uvula- Yes Mouth: opening greater than 2 fingerbreadths- Yes Neck: full range of motion- Yes Breath sounds clear/equal- Yes Cardiac Assessment: Regular rate and rhythm without murmur Abdominal Assessment: Abdomen soft, non-tender, no masses or organomegaly. Sedation Plan: Deep Additional Comments: Dr. Gonsales's referral notes reviewed and explained procedure explained to patient. Concerning appearing pancreatic body cyst, EUs-FNA to rule out a cystic neoplasm. Patient is having a lot of epigastric pain. Discussed option for celiac plexus block and patient agrees with this in hopes of obtaining some added pain relief. Miguel Angel Ervin MD documented in this encounter [facility] 10-06-2024 Telephone encounter Note Schedulers, please call patient to arrange: EUS with me for evaluation of a pancreatic cystic lesion. Miguel Angel Ervin MD [facility] 10-06-2024 Miscellaneous Notes Schedulers, please call patient to arrange: EUS with me for evaluation of a pancreatic cystic lesion. Miguel Angel Ervin MD Images from the original note were not included. Scanned full doc into chart documented in this encounter [facility] 10-05-2024 Telephone encounter Note Images from the original note were not included. Scanned full doc into chart [facility] 09-30-2024 Note Exam Date Time Procedure Performing Provider Status 09/30/24 10:56 AM MRI Pancreas JESS CARRASCO MD; Auth (Verified) [id number] ORIGINAL EXAMINATION: MRI OF THE ABDOMEN WITHOUT AND WITH CONTRAST, 09/30/2024 10:57 am TECHNIQUE: Multiplanar multisequence MRI of the abdomen was performed without and with the administration of intravenous contrast. COMPARISON: CT scans September 13, 2024, November 14, 2021 HISTORY: ORDERING SYSTEM PROVIDED HISTORY: Reason for Exam: rule out mass, thicking, pancreatitis PAIN ACROSS MID BACK, 30 POUND WT LOSS IN 4 MONTHS-HX PANCREATITISABNORMAL CT FINDINGS: There is a 2.2 cm lesion at the body of the pancreas. This is cystic, with some peripheral enhancement and at least 1 internal septation. No soft tissue or nodular component is evident and there is no other unusual enhancement. Distal to this, there is some pancreatic atrophy and ductal dilatation. More proximal portions of the pancreas are unremarkable. No peripancreatic infiltrative change seen. Bilateral renal cysts are present. No other kidney abnormality identified. No additional contributory finding. IMPRESSION: Cystic lesion at the body of the pancreas with distal ductal dilatation and parenchymal atrophy. 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 ERCP and EUS are recommended for initial further assessment. Interpreted by: Jess Carrasco MD Preliminary Report By: Jess Carrasco MD Electronically signed By Jess Carrasco MD Dictated Date: 09/30/2024 11:11:27 AM Prelim Date: 09/30/2024 11:18:39 AM Sign Date: 09/30/2024 11:18:39 AM Ordering Provider: [facility]06[facility]15[facility]2025 Progress [facility] [address], [address] [place] [address] OFFICE VISIT Date of Service: 09/25/24 MR#: [id number] Acct: [id number] Name: DAVID BALDERRAMA Rep #: [id number] : 1950 Provider: ANGELES Abad Age/Sex: 73/M Location: [facility] Status: Signed Intake Vital Signs 02/23/19 06:17 09/25/24 11:56 Height 5 ft 8 in 5 ft 8 in Weight: 175 lb 6 oz BMI 26.6 BP 108/60 Blood Pressure Location Rt brachial Position Sitting Respiration 16 Pulse 92 Pulse Source NIBP Temp 98.8 F Temp Source Oral Pulse Oximetry (%) 95 Oxygen Delivery Method room air Intake Visit Reasons: BUG BITE L SHOULDER Chief Complaint: left shoulder Grab Operator Required: No Is patient in pain?: Yes Allergies shellfish derived Allergy (Verified 09/25/24 12:01) Swelling Have you fallen in the past year?: No Nurse's Note: c/o bug bite to left shoulder x 1 week. very large area of redness and warmth to left shoulder withwhat appears to be puncture wound. c/o tenderness to same. [facility] Medical History (Updated 09/25/24 @ 12:15 by Tito Abad BURLAP WORKER, BURLAP WORKER-C) History of prostate cancer History of malignant neoplasm of appendix GERD (gastroesophageal reflux disease) Hyperlipidemia HTN (hypertension) Surgical History (Updated 09/25/24 @ 11:55 by Radha Remy) History of laparoscopy History of cholecystectomy History of appendectomy History of prostatectomy Family History (Updated 09/25/24 @ 11:55 by Radha Remy) Other Cancer Heart disease Social History (Updated 09/25/24 @ 11:55 by Radha Remy) Smoking Status: Former smoker alcohol intake: never substance use type: does not use HPI HPI Chief Complaint: left shoulder Details: DAVID BALDERRAMA, is a 73 M who presents to the office today for concerns regarding bite. He feels this to be worsening. ROS Const Constitutional: No body ache, chills, fatigue, fever(s) or headache(s) ENT ENT: No headache(s) Skin Skin: Positive for redness Neuro Neurology: No headache(s) Endo Endocrine: No fatigue Exam Const General: cooperative, healthy appearing, comfortable and no acute distress Orientation: alert and awake Skin General: other Other: Left shoulder: redness, blanches, warm to touch, no drainage, center bite area, non-raised. Extendsshoulder and into axillary region. Circular. Coding Level of Care Code Off vis,new,level 3 Diagnoses Cellulitis of other specified site L03.818 Site of cellulitis: other site Assessment and Plan Assessment and Plan (1) Cellulitis: Status: Acute Qualifiers: Site of cellulitis: other site Qualified Code(s): L03.818 - Cellulitis of other sites Plan: This is noted on left shoulder. Will add antibiotic. Recommended to add hydrocortisone cream to help with inflammation. Encouraged to get plenty of rest, drink lots of clear liquids, and use Tylenol or Ibuprofen (unless contraindicated) for fever and comfort. Patient also educated on other symptomat ic management techniques. To be seen in 7-10 days if no improvement; sooner if worsening of symptoms.? Patient advised of potential red flags and when appropriate to report to the ED.? Patient verbalized understanding and agreement with all the above. Medications: New cephalexin 500 mg PO TID 10 days 30 tabs 0RF Discontinued ciprofloxacin HCl Discontinued Reason: Order Completed 500 mg PO BID 20 tabs 0RF Clinical Quality Measures Falls Risk Screening/Assistive Devices Have you fallen in the past year?: No 09/25/24 1217 P BURLAP WORKER-C> Date _ Tito Abad NP BURLAP WORKER-C Cosigner Signature: Date (if applicable) CC: Dr. Josy Zaman, DO ~ [facility]06-15-2025 Progress note Author Tito Abad [facility] Note Date/Time September 25, 2024 12:1 7pm [facility] [address], [address] [place] [address] OFFICE VISIT Date of Service: 09/25/24 MR#: [id number] Acct: [id number] Name: DAVID BALDERRAMA Rep #: [id number] : 1950 Provider: ANGELES Abad Age/Sex: 73/M Location: [facility] Status: Signed Intake Vital Signs 02/23/19 06:17 09/25/24 11:56 Height 5 ft 8 in 5 ft 8 in Weight: 175 lb 6 oz BMI 26.6 BP 108/60 Blood Pressure Location Rt brachial Position Sitting Respiration 16 Pulse 92 Pulse Source NIBP Temp 98.8 F Temp Source Oral Pulse Oximetry (%) 95 Oxygen Delivery Method room air Intake Visit Reasons: BUG BITE L SHOULDER Chief Complaint: left shoulder Grab Operator Required: No Is patient in pain?: Yes Allergies shellfish derived Allergy (Verified 09/25/24 12:01) Swelling Have you fallen in the past year?: No Nurse's Note: c/o bug bite to left shoulder x 1 week. very large area of redness and warmth to left shoulder with what appears to be puncture wound. c/o tenderness to same. [facility] Medical History (Updated 09/25/24 @ 12:15 by Tito Abad BURLAP WORKER, BURLAP WORKER-C) History of prostate cancer History of malignant neoplasm of appendix GERD (gastroesophageal reflux disease) Hyperlipidemia HTN (hypertension) Surgical History (Updated 09/25/24 @ 11:55 by Radha Remy) History of laparoscopy History of cholecystectomy History of appendectomy History of prostatectomy Family History (Updated 09/25/24 @ 11:55 by Radha Remy) Other Cancer Heart disease Social History (Updated 09/25/24 @ 11:55 by Radha Remy) Smoking Status: Former smoker alcohol intake: never substance use type: does not use HPI HPI Chief Complaint: left shoulder Details: DAVID BALDERRAMA, is a 73 M who presents to the office today for concerns regarding bite. He feels this to be worsening. ROS Const Constitutional: No body ache, chills, fatigue, fever(s) or headache(s) ENT ENT: No headache(s) Skin Skin: Positive for redness Neuro Neurology: No headache(s) Endo Endocrine: No fatigue Exam Const General: cooperative, healthy appearing, comfortable and no acute distress Orientation: alert and awake Skin General: other Other: Left shoulder: redness, blanches, warm to touch, no drainage, center bite area, non-raised. Extends shoulder and into axillary region. Circular. Coding Level of Care Code Off vis,new,level 3 Diagnoses Cellulitis of other specified site L03.818 Site of cellulitis: other site Assessment and Plan Assessment and Plan (1) Cellulitis: Status: Acute Qualifiers: Site of cellulitis: other site Qualified Code(s): L03.818 - Cellulitis of other sites Plan: This is noted on left shoulder. Will add antibiotic. Recommended to add hydrocortisone cream to help with inflammation. Encouraged to get plenty of rest, drink lots of clear liquids, and use Tylenol or Ibuprofen (unless contraindicated) for fever and comfort. Patient also educated on other symptomatic management techniques. To be seen in 7-10 days if no improvement; sooner if worsening of symptoms.? Patient advised of potential red flags and when appropriate to report to the ED.? Patient verbalized understanding and agreement with all the above. Medications: New cephalexin 500 mg PO TID 10 days 30 tabs 0RF Discontinued ciprofloxacin HCl Discontinued Reason: Order Completed 500 mg PO BID 20 tabs 0RF Clinical Quality Measures Falls Risk Screening/Assistive Devices Have you fallen in the past year?: No 09/25/24 1217 <Electronically signed by Tito Navarro NP-C> Date _ Tito Abad NP BURLAP WORKER-C Cosigner Signature: Date (if applicable) CC: Dr. Josy Zaman, DO ~ [facility] Work Phone: [phone]) 403-719105-13-2024 Evaluation + Plan note Future Scheduled Tests Laboratory* Basic Metabolic Panel 08/24/23 [facility] 06-21-2023 Evaluation + Plan noteExtracted from: Title:Clinical Document Author:JOSE LOPEZ ate:10/01/22 [place] ADMISSION HISTORY AN D PHYSICIAL CHIEF COMPLAINT: Colorectal cancer screening HISTORY OF PRESENT ILLNESS: Colorectal cancer screening, history of appendiceal carcinoma, history of colon polyps REVIEW OF SYSTEMS: Constitutional: denies weight loss Cardiovascular:denies chest pain, palpitations Respiratory:denies shortness of breath Gastrointestinal:no abd pain Musculoskeletal: no arthralgias Skin: no rashes . ACTIVE PROBLEMS: (30) Anxiety (10565400) Arthritis (5954839) BMI 31.0-31.9,adult (411341539) Cancer of skin of face (2598223541) Cataract (528583771) Colon cancer screening (800031479) Decreased ROM of intervertebral discs of cervical spine (668736288) Depression (87903744) Diverticulitis (030174910) GERD (gastroesophageal reflux disease) (329128876) Glasses (9197454600) Hard of hearing (337021982) Hearing aid (47037052) Hip pain (74723501) History of diverticulitis (9229488694) History of pancreatitis (8087247165) History of prostate cancer (1491502732) Hypercholesteremia (30008090) Hyperlipidemia (96391126) Hypertension (0172833800) Marijuana use (0763731661) Mood disorder (40386258) Need for hepatitis C screening test (455747638) Pancreatitis (671181993) 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 Weights display the last 5 within 7 days. Initial Wt: No Data Available Current Wt: No Data Available physical exam alert and oriented cardio; regular without murmur pulm; clear abd; soft, nontender LABS: No 36hr Lab Data DIAGNOSTICS: IMPRESSION: Colorectal cancer screening History of colon polyps History of appendiceal carcinoma PLAN: Proceed with colonoscopy as discussed in the office Future Appointments Appointment Date:03/13/2023 10:00:00 AM Scheduled Provider:AVILA SHEA Location:[facility] Appointment Type: OV Future Scheduled Tests Laboratory* Prostate Specific Antigen 03/14/23 * Complete Blood Count 03/14/23 * Lipid Profile 03/14/23 * Complete Metabolic Panel 03/14/23 [facility] 06-21-2023 Hospital Discharge instructions Patient Education 10/01/2022 09:40:13 Monitored Anesthesia Care, Care After Monitored Anesthesia Care, Care After These instructions provide you with information about caring for yourself after your procedure. Your health care provider may also give you more specific instructions. Your treatment has been plannedaccording to current medical practices, but problems sometimes occur. Call your health care provider if you have any problems or questions after your procedure. What can I expect after the procedure? After your procedure, you may: Feel sleepy for several hours. Feel clumsy and have poor balance for several hours. Feel forgetful about what happened after the procedure. Have poor judgment for several hours. Feel nauseous or vomit. Have a sore throat if you had a breathing tube during the procedure. Follow these instructions at home: For at least 24 hours after the procedure: Have a responsible adult stay with you. It is important to have someone help care for you until youare awake and alert. Rest as needed. Do not: ?Participate in activities in which you could fall or become injured. ?Drive. ?Use heavy machinery. ?Drink alcohol. ?Take sleeping pills or medicines that cause drowsiness. ?Make important decisions or sign legal documents. ?Take care of children on your own. Eating and drinking Follow the diet that is recommended by your health care provider. If you vomit, drink water, juice, or soup when you can drink without vomiting. Make sure you have little or no nausea before eating solid foods. General instructions Take loil-bdv-iaejsev and prescription medicines only as told by your health care provider. If you have sleep apnea, surgery and certain medicines can increase your risk for breathing problems. Follow instructions from your health care provider about wearing your sleep device: ?Anytime you are sleeping, including during daytime naps. ?While taking prescription pain medicines, sleeping medicines, or medicines that make you drowsy. If you smoke, do not smoke without supervision. Keep all follow-up visits as told by your health care provider. This is important. Contact a health care provider if: You keep feeling nauseous or you keep vomiting. You feel light-headed. You develop a rash. You have a fever. Get help right away if: You have trouble breathing. Summary For several hours after your procedure, you may feel sleepy and have poor judgment. Have a responsible adult stay with you for at least 24 hours or until you are awake and alert. This information is not intended to replace advice given to you by your health care provider. Make sure you discuss any questions you have with your health care provider. Document Released: 07/20/2016 Document Revised: 06/28/2018 Document Reviewed: 07/20/2016 [email or web address] Patient Education 2020 [employer]. 10/01/2022 09:40:11 Colonoscopy, Adult, Care After Colonoscopy, Adult, Care After This sheet gives you information about how to care for yourself after your procedure. Your health care provider may also give you more specific instructions. If you have problems or questions, contact your health care provider. What can I expect after the procedure? After the procedure, it is common to have: A small amount of blood in your stool for 24 hours after the procedure. Some gas. Mild abdominal cramping or bloating. Follow these instructions at home: General instructions For the first 24 hours after the procedure: ?Do not drive or use machinery. ?Do not sign important documents. ?Do not drink alcohol. ?Do your regular daily activities at a slower pace than normal. ?Eat soft, siyq-ik-yqslch foods. Take ghrn-rwp-syoupdc or prescription medicines only as told by your health care provider. Relieving cramping and bloating Try walking around when you have cramps or feel bloated. Apply heat to your abdomen as told by your health care provider. Use a heat source that your healthcare provider recommends, such as a moist heat pack or a heating pad. ?Place a towel between your skin and the heat source. ?Leave the heat on for 20 30 minutes. ?Remove the heat if your skin turns bright red. This is especially important if you are unable to feel pain, heat, or cold. You may have a greater risk of getting burned. Eating and drinking Drink enough fluid to keep your urine pale yellow. Resume your normal diet as instructed by your health care provider. Avoid heavy or fried foods thatare hard to digest. Avoid drinking alcohol for as long as instructed by your health care provider. Contact a health care provider if: You have blood in your stool 2 3 days after the procedure. Get help right away if: You have more than a small spotting of blood in your stool. You pass large blood clots in your stool. Your abdomen is swollen. You have nausea or vomiting. You have a fever. You have increasing abdominal pain that is not relieved with medicine. Summary After the procedure, it is common to have a small amount of blood in your stool. You may also have mild abdominal cramping and bloating. For the first 24 hours after the procedure, do not drive or use machinery, sign important documents, or drink alcohol. Contact your health care provider if you have a lot of blood in your stool, nausea or vomiting, a fever, or increased abdominal pain. This information is not intended to replace advice given to you by your health care provider. Make sure you discuss any questions you have with your health care provider. Document Released: 11/11/2004 Document Revised: 01/20/2018 Document Reviewed: 06/10/2016 [email or web address] Patient Education 2020 [employer]. Follow Up Care 09/24/2022 12:55:21 With:AVILA SHEA APRN-PACKING AND WRAPPING SUPERVISOR Address: [address] [facility] [place] [address]- [phone] When: Unknown [facility] 06-21-2023 Summary of episode note Discharge Instructions Thank you for allowing [facility] to assist you with your healthcare needs. The following is importantdischarge information regarding your hospital visit. Your Care Team AVILA SHEA What to do next Instructions From Your Doctor Colonoscopy in 5 years Scheduled Follow-Up Appointments Appointment Type When With Where Contact InformationPC 03/13/2023 10:00 AM EST AVILA SHEA [facility] [address] [phone] Follow Up Appointments Follow Up with AVILA SHEA When Where: [address] [place] [phone] The Following Activity and Diet Have Been Ordered for You Discharge Activity - Ordered -- Driving Restricted, No driving until tomorrow, 10/01/22 9:00:00 EDT Discharge Return to Work, School, or Sports (Discharge Return to status) - Ordered -- May return to: work, 10/01/22 9:00:00 EDT Discharge Diet - Ordered -- Type of Diet: Regular Diet, 10/01/22 9:00:00 EDT Someone Will Contact You Regarding These Home Health Referrals No home referrals have been ordered for you. No one will call you. Allergies ibuprofen (Angina) Bee Stings (Swelling) Shellfish (Swelling) Medications Please ask your primary doctor or pharmacist before taking any other medication not listed, including over the counter drugs, herbal medications, vitamins and or supplements as they may interact withyour home medications. What How Much When Why Instructions Last Dose Unchanged buPROPion (buPROPion 300 mg/ 24 hours (XL) oral tablet, extended release) 1 tab(s) by mouth Daily at bedtime Mood disorder Unchanged diphenhydrAMINE (Benadryl 25 mg oral capsule) 1 cap by mouth Daily at bedtime Unchanged losartan (losartan 50 mg oral tablet) 1 tab(s) by mouth Once a day Hypertension Unchanged lovastatin (lovastatin 40 mg oral tablet) 1 tab(s) by mouth Once a day Unchanged metoprolol (Metoprolol Succinate ER 50 mg oral TABLET extended release) 1 tab(s) by mouth Once a day Hypertension Unchanged Misc Medication (Fish, flax seed, borage) 2,400 Milligram by mouth Every day 2-1200 mg caps Unchanged multivitamin (Multiple Vitamins oral capsule) 1 cap by mouth Every day Unchanged niacin (niacin 500 mg oral tablet) 1 tab(s) by mouth Daily at bedtime Unchanged omeprazole (omeprazole 40 mg oral delayed release capsule) 1 cap by mouth Once a day Please take this list to your next doctor s visit. Bring all medications you take, including over the counter medications, herbals and other supplements with you to your doctor s visit. Patients and families are reminded to discard old lists and to update any records with all medication providers or retail pharmacies. Education Materials Monitored Anesthesia Care, Care After These instructions provide you with information about caring for yourself after your procedure. Your health care provider may also give you more specific instructions. Your treatment has been plannedaccording to current medical practices, but problems sometimes occur. Call your health care provider if you have any problems or questions after your procedure. What can I expect after the procedure? After your procedure, you may: Feel sleepy for several hours. Feel clumsy and have poor balance for several hours. Feel forgetful about what happened after the procedure. Have poor judgment for several hours. Feel nauseous or vomit. Have a sore throat if you had a breathing tube during the procedure. Follow these instructions at home: For at least 24 hours after the procedure: Have a responsible adult stay with you. It is important to have someone help care for you until youare awake and alert. Rest as needed. Do not: ? Participate in activities in which you could fall or become injured. ? Drive. ? Use heavy machinery. ? Drink alcohol. ? Take sleeping pills or medicines that cause drowsiness. ? Make important decisions or sign legal documents. ? Take care of children on your own. Eating and drinking Follow the diet that is recommended by your health care provider. If you vomit, drink water, juice, or soup when you can drink without vomiting. Make sure you have little or no nausea before eating solid foods. General instructions Take tnse-ccu-dvgchmc and prescription medicines only as told by your health care provider. If you have sleep apnea, surgery and certain medicines can increase your risk for breathing problems. Follow instructions from your health care provider about wearing your sleep device: ? Anytime you are sleeping, including during daytime naps. ? While taking prescription pain medicines, sleeping medicines, or medicines that make you drowsy. If you smoke, do not smoke without supervision. Keep all follow-up visits as told by your health care provider. This is important. Contact a health care provider if: You keep feeling nauseous or you keep vomiting. You feel light-headed. You develop a rash. You have a fever. Get help right away if: You have trouble breathing. Summary For several hours after your procedure, you may feel sleepy and have poor judgment. Have a responsible adult stay with you for at least 24 hours or until you are awake and alert. This information is not intended to replace advice given to you by your health care provider. Make sure you discuss any questions you have with your health care provider. Document Released: 07/20/2016 Document Revised: 06/28/2018 Document Reviewed: 07/20/2016 [email or web address] Patient Education 2020 [employer]. Colonoscopy, Adult, Care After This sheet gives you information about how to care for yourself after your procedure. Your health care provider may also give you more specific instructions. If you have problems or questions, contact your health care provider. What can I expect after the procedure? After the procedure, it is common to have: A small amount of blood in your stool for 24 hours after the procedure. Some gas. Mild abdominal cramping or bloating. Follow these instructions at home: General instructions For the first 24 hours after the procedure: ? Do not drive or use machinery. ? Do not sign important documents. ? Do not drink alcohol. ? Do your regular daily activities at a slower pace than normal. ? Eat soft, qmfn-vq-nzxskq foods. Take rmwl-pfb-neeuvro or prescription medicines only as told by your health care provider. Relieving cramping and bloating Try walking around when you have cramps or feel bloated. Apply heat to your abdomen as told by your health care provider. Use a heat source that your healthcare provider recommends, such as a moist heat pack or a heating pad. ? Place a towel between your skin and the heat source. ? Leave the heat on for 20 30 minutes. ? Remove the heat if your skin turns bright red. This is especially important if you are unable to feel pain, heat, or cold. You may have a greater risk of getting burned. Eating and drinking Drink enough fluid to keep your urine pale yellow. Resume your normal diet as instructed by your health care provider. Avoid heavy or fried foods thatare hard to digest. Avoid drinking alcohol for as long as instructed by your health care provider. Contact a health care provider if: You have blood in your stool 2 3 days after the procedure. Get help right away if: You have more than a small spotting of blood in your stool. You pass large blood clots in your stool. Your abdomen is swollen. You have nausea or vomiting. You have a fever. You have increasing abdominal pain that is not relieved with medicine. Summary After the procedure, it is common to have a small amount of blood in your stool. You may also have mild abdominal cramping and bloating. For the first 24 hours after the procedure, do not drive or use machinery, sign important documents, or drink alcohol. Contact your health care provider if you have a lot of blood in your stool, nausea or vomiting, a fever, or increased abdominal pain. This information is not intended to replace advice given to you by your health care provider. Make sure you discuss any questions you have with your health care provider. Document Released: 11/11/2004 Document Revised: 01/20/2018 Document Reviewed: 06/10/2016 [email or web address] Patient Education 2020 [employer]. Additional Information VACCINATE! IT SAVES LIVES! Members of the community who have not yet received the COVID-19 vaccine and would like to receive it can visit one of [facility] vaccine clinics. There are many vaccine clinic locations within the [facility]. For locations and available times, please visit [email or web address].[place].gov/. It is important to note that some COVID mobile vaccine clinics are held outdoors and may be canceled in rainy or stormy conditions. To learn more about pediatric vaccinations (ages 5-11), we invite you to visit the [facility] webpage. [email or web address] learn more about the COVID-19 vaccine, we invite you to visit the CDC website for a list of frequently asked questions.https://www.cdc.gov/coronavirus/2019-ncov/vaccines/faq.html [facility] Patient Portal Access Instructions: Stay connected with your healthcare team and access your personal medical information anytime with the [employer] Patient Portal. Please follow the directions below to create your [employer] account: 1.Access the email account you provided upon registration to the hospital/physician office.2.Look for an invitation email from [facility].3.Open the email and access the invitation link: AcceptInvitation to [employer].4.Fill in the required bashir to create your account. To access your account, visit [email or web address]. Click the blue button labeled Access Patient Portal and then log in with the username and password that you created in the steps above. You will be able to view your test results, lab results, a summary of your visits, upcoming appointments and more. There is also a convenient messaging option where you can send secure messages to your p [employer]. In addition, you will have the ability to download any documents or summaries to your computer and/or send the information securely to a physician. Remember that your healthcare information is confidential, so carefully consider who you will allowto register on the [employer] Patient Portal for access to your information. You can also access the [employer] Patient Portal on the [facility]. Simply click on Patient Portal and then log into your account. If you would like to receive a full copy of your medical records, please contact the [facility] Medical Records Department by calling [phone], Thursday through Thursday between 8 a.m. and 4:30 p.m. HOW TO SAFELY DISPOSE OF PRESCRIPTION MEDICATIONS Please use one of the following methods to safely dispose of your unused medications. 1.Use a drug disposal kit: the drug disposal pouch allows you to safely discard your old and unuseddrugs. Ask your nurse to give you one when you are discharged.2.Visit a local take-back location: Many local pharmacies and police departments have programs that collect old and unwanted prescriptiondrugs. Call your local pharmacy or go to http://bit.ly/6X1Rq7u to find one close to you.3.Make use of household items: Use cat litter or old coffee grounds to dispose medications if other options arenot available. Mix your drugs with these household products, seal them in an airtight container andthrow it into the garbage. Call [facility]: [phone] to be sure your drugs can be disposed of in this way. Some medicines may require a different approach.4.Never flush your medications down the toilet. IF YOU HAVE BEEN PRESCRIBED AN OPIOID FOR PAIN If you have been prescribed an opioid (such as hydrocodone, oxycodone or morphine), it is critical to understand the possible side effects and risks of opioid pain medications. Even when taken as directed, opioids can have several side effects including: Tolerance, meaning you might need to take more of a medication for the same pain relief. Nausea, vomiting and/or constipation. Sleepiness, dizziness, dry mouth, confusion, depression or itching. Physical dependence, meaning you have withdrawal symptoms when a medication is stopped, can develop within a few days. KNOW YOUR RESPONSIBILITIES It is important to know exactly how much and how often to take the opioid pain medications you are prescribed. Never take opioids in higher amounts or more often than prescribed. Do not combine opioids with alcohol or other drugs that cause drowsiness, such as benzodiazepines, also known as benzos, including diazepam and alprazolam, muscle relaxants or sleep aids. Never sell or share prescription opioids. This is illegal. Store opioids in a secure place and out of reach of others (including children, family, friends and visitors). The last page of this document has been signed and retained as a CHART COPY. Signatures Patient Education Materials Monitored Anesthesia Care, Care After Colonoscopy, Adult, Care After Medication Leaflets My discharge plan and instructions have been reviewed and explained to me and I,DAVID BALDERRAMA understand my current condition and have read and understand these discharge instructions. I have received a written copy of the plan/instructions. If I have questions, I am aware that I should contactmy doctor. 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 Signature: Date/Time: Relationship to Patient: Witness Name/Signature: Date/Time: [facility]06-21-2023 Anesthesiology Consult note Patient: DAVID BALDERRAMA Age: 71 years Sex: Male : 1950 Associated Diagnoses: None Author: CASSANDRA LYNNE Assessment Postanesthesia assessment Vitals: Vital signs from flowsheet : Vital Signs 10/01/2022 9:25 EDT Heart Rate Monitored 77 bpm bpm Respiratory Rate - Anes 15 br/min br/min Systolic Blood Pressure Non-Invasive 105 mmHg mmHg Diastolic Blood Pressure Non-Invasive 66 mmHg mmHg 10/01/2022 9:22 EDT Systolic Blood Pressure Non-Invasive 132 mmHg mmHg Diastolic Blood Pressure Non-Invasive 81 mmHg mmHg 10/01/2022 9:12 EDT Temperature Temporal Artery 36.5 DegC Apical Heart Rate 66 bpm Respiratory Rate 12 br/min LOW Systolic Blood Pressure Non-Invasive 127 mmHg Diastolic Blood Pressure Non-Invasive 72 mmHg . Mental status: alert & oriented x 4. Respiratory function: lungs are clear to auscultation. Respiratory support: none. CV function: Normal rate. Cardiovascular support: none. Pain. Nausea status: see nursing documentation of medications. Postoperative hydration status: within normal limits. Digitally Signed by CASSANDRA LYNNE on 10/01/2022 09:33 AM [facility]06-21-2023 Anesthesiology Consult note Patient: DAVID BALDERRAMA Age: 71 years Sex: Male : 1950 Associated Diagnoses: None Author: CASSANDRA LYNNE Preoperative Information Time of last food or liquid consumption: 09/30/2022 21:00:00 Anesthesia history Patient's history: negative. Family's history: negative. Review of Systems Ear/Nose/Mouth/Throat: Negative except as documented in history of present illness. Respiratory: Negative except as documented in history of present illness. Cardiovascular: Negative except as documented in history of present illness. Gastrointestinal: Negative except as documented in history of present illness. Genitourinary: Negative except as documented in history of present illness. Endocrine: Negative except as documented in history of present illness. Musculoskeletal: Negative except as documented in history of present illness. Integumentary: Negative except as documented in history of present illness. Neurologic: Negative except as documented in history of present illness. Health Status Allergies: Allergic Reactions (Selected) Severe Ibuprofen- Angina. Severity Not Documented Bee Stings- Swelling. Shellfish- Swelling., Allergies (3) ActiveReaction ibuprofenAngina Bee StingsSwelling ShellfishSwelling Current medications: (Selected) Prescriptions Prescribed Metoprolol Succinate ER 50 mg oral TABLET extended release: 50 mg, 1 tab(s), Oral, qDay, 90 tab(s),3 Refill(s) PEG-3350 with Electrolytes (Eqv-GoLYTELY) oral powder for reconstitution: See Instructions, Take asdirected 1 day before colonoscopy. Follow instructions as provided by your GI provider at [facility]., 1 EA, 0 Refill(s) buPROPion 300 mg/24 hours (XL) oral tablet, extended release: 300 mg, 1 tab(s), Oral, qHS, 90 tab(s), 3 Refill(s) losartan 50 mg oral tablet: 50 mg, 1 tab(s), Oral, qDay, 90 tab(s), 3 Refill(s) lovastatin 40 mg oral tablet: 40 mg, 1 tab(s), Oral, qDay, 90 tab(s), 3 Refill(s) omeprazole 40 mg oral delayed release capsule: 40 mg, 1 cap(s), Oral, qDay, 90 cap(s), 3 Refill(s) Documented Medications Documented Benadryl 25 mg oral capsule: 25 mg, 1 cap(s), Oral, qHS, 0 Refill(s) Fish, flax seed, borage: 2,400 mg, Oral, Daily, 2-1200 mg caps, 0 Refill(s) Multiple Vitamins oral capsule: 1 cap(s), Oral, Daily, 0 Refill(s) niacin 500 mg oral tablet: 500 mg, 1 tab(s), Oral, qHS, 0 Refill(s), No qualifying data available Problem list: Medical Primary appendiceal adenocarcinoma / SNOMED CT 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 / Confirmed Decreased ROM of intervertebral discs of cervical spine / SNOMED CT 763384379 / Confirmed S/P appendectomy / SNOMED CT 0875445378 / Confirmed History of diverticulitis / SNOMED CT 0247667063 / Confirmed History of prostate cancer / SNOMED CT 1335415196 / Confirmed History of pancreatitis / SNOMED CT 8616487229 / Confirmed S/P right hemicolectomy / SNOMED CT 9169137192 / Confirmed Hyperlipidemia / SNOMED CT 75231942 / Confirmed Mood disorder / SNOMED CT 06709352 / Confirmed Pancreatitis / SNOMED CT 667425041 / Confirmed Screening for prostate cancer / SNOMED CT 350098779 / Confirmed Colon cancer screening / SNOMED CT 594555628 / Confirmed Need for hepatitis C screening test / SNOMED CT 772986939 / Confirmed Resolved: Adenocarcinoma of appendix / SNOMED CT 8979111110 Canceled: Chemotherapy / SNOMED CT 589835529, Active Problems (30) Anxiety Arthritis BMI 31.0-31.9,adult Cancer of skin of face Cataract Colon cancer screening Decreased ROM of intervertebral discs of cervical spine Depression Diverticulitis GERD (gastroesophageal reflux disease) Glasses Hard of hearing Hearing aid Hip pain History of diverticulitis History of pancreatitis History of prostate cancer Hypercholesteremia Hyperlipidemia Hypertension Marijuana use Mood disorder Need for hepatitis C screening test Pancreatitis Primary appendiceal adenocarcinoma S/P appendectomy S/P right hemicolectomy Screening for prostate cancer Seasonal allergy Vertigo Histories Past Medical History: Active Decreased ROM of intervertebral discs of cervical spine (745326811) Resolved Adenocarcinoma of appendix (4419854320): Resolved. Family History: Diabetes mellitus Grandparent Hypertension Mother Father Grandparent Heart disease Grandparent Mother Diabetes mellitus type 1 Grandparent Arthritis Mother Father Grandparent Hypercholesterolemia Grandparent Cancer Grandparent Malignant tumor of prostate Father Malignant tumor of head and/or neck Mother High cholesterol Grandparent Mother Father Procedure history: Cholecystectomy ([id number]) on 07/22/2021 at 70 Years. Comments: 08/12/2021 14:24 EDT - Lea Calero LPN Robotically assisted laparoscopic cholecystectomy Colectomy ([id number]) on 09/25/2020 at 69 Years. Comments: 10/09/2020 9:53 EDT - Cindy Watkins CMA Robotically assisted laparoscopic ascending colectomy with intracorporeal anastomosis Intraoperative fluorescent angiography Laparoscopic appendectomy ([id number]) on 07/21/2020 at 69 Years. Prostatectomy (519511596) in 2020 at 69 Years. Tonsillectomy (602331271) in 1959 at 9 Years. Cataract care (4357914086). Comments: 10/10/2020 10:23 Krista Avina CMA bilateral Teeth ([id number]). Comments: 10/10/2020 10:23 Krista Avina CMA dental surgery Excision ([id number]). Comments: 10/10/2020 10:24 Krista Avina CMA nose, cheek, right side excision for melonoma Cataract extraction and insertion of intraocular lens ([id number]). Comments: 03/12/2021 11:25 EST - Mónica Lopez LPN [place] Social History Social & Psychosocial Habits Alcohol 11/21/2021 Use: Past Type: Beer Frequency: 1-2 times per year Do you ever drink more than intended: No Comment: Maybe one beer weekly - 03/12/2021 11:20 - Mónica Lopez LPN; PT HASNT HAD A DRINK IN OVER A YEAR - 11/14/2021 17:22 - Elis Verdin RN; No beer anymore. - 11/21/2021 13:06 - Mónica Lopez LPN Substance Abuse 09/12/2022 Use: Current Type: Marijuana Frequency: Daily Comment: Has prescription for medical marijuana - 09/12/2022 10:12 - Mónica Lopez LPN Tobacco 06/19/2018 Tobacco Use: Former smoker, quit more Type: Cigarettes Stopped at age: 50 Years Home/Environment 07/08/2021 Domestic Concerns Denies, None Living situation: Home/Independent Lives In Multilevel home Current Home Treatments OCCASSIONAL CANE USAGE Special Services and Community Resources None Nutrition/Health 07/08/2021 Type of diet: Regular Appetite Excellent Eating Difficulties Full top denture and partial on bottom, None Caffeine intake amount: 2 coffee or pop daily Sexual 06/19/2018 Sexually active: No . Physical Examination No qualifying data available General: Alert and oriented. Airway: Normal neck range of motion. Mallampati classification: II (soft palate, fauces, uvula visible). Head: Normocephalic. Dentition Evaluation: Intact, Own teeth. Neck: Full range of motion. Respiratory: Lungs are clear to auscultation. Cardiovascular: Normal rate. Heart Sounds: Normal. Gastrointestinal: Soft. Musculoskeletal Normal range of motion. Integumentary: Intact, Warm, Dry. Neurologic: Alert, Oriented. Review / Management Results review: No qualifying data available , Lab results 10/01/2022 7:09 EDT [place] History and Physical 09/30/2022 13:00 EDT Endocrinology Phone Message General Message (Modified) 09/30/2022 10:52 EDT Primary Care Phone Message Primary Care Dept/Phone Message (Modified) . Assessment and Plan [place] [employer] of Anesthesiologists (ASA) physical status classification: Class III. Anesthetic Preoperative Plan Premedication: intravenous. Anesthetic technique: MAC. Induction: intravenously. Maintenance airway: Mask. Risks discussed: nausea, vomiting, headache, sore throat, dental injury, hypotension, allergic reaction, serious complications. Informed consent: signed by patient. Notes: GERD; HTN; HLD; Hx of pancreatitis. Digitally Signed by CASSANDRA LYNNE on 10/01/2022 09:06 AM Digitally Signed by CASSANDRA LYNNE on 10/01/2022 09:33 AM [facility]06-21-2023 Note [place] ADMISSION HISTORY AND PHYSICIAL CHIEF COMPLAINT: Colorectal cancer screening HISTORY OF PRESENT ILLNESS: Colorectal cancer screening, history of appendiceal carcinoma, history of colon polyps REVIEW OF SYSTEMS: Constitutional: denies weight loss Cardiovascular:denies chest pain, palpitations Respiratory:denies shortness of breath Gastrointestinal:no abd pain Musculoskeletal: no arthralgias Skin: no rashes . ACTIVE PROBLEMS: (30) Anxiety (74030387) Arthritis (4393910) BMI 31.0-31.9,adult (347292308) Cancer of skin of face (7611695866) Cataract (128029232) Colon cancer screening (333530679) Decreased ROM of intervertebral discs of cervical spine (512364969) Depression (69963081) Diverticulitis (845817220) GERD (gastroesophageal reflux disease) (106064840) Glasses (5790255190) Hard of hearing (985330531) Hearing aid (36523861) Hip pain (14002251) History of diverticulitis (5935751922) History of pancreatitis (3079466945) History of prostate cancer (1767856972) Hypercholesteremia (35924502) Hyperlipidemia (83652365) Hypertension (1080998624) Marijuana use (3361325260) Mood disorder (15084046) Need for hepatitis C screening test (075468939) Pancreatitis (785701265) Primary appendiceal adenocarcinoma (4318361771) S/P appendectomy (7691498332) S/P right hemicolectomy (1424465043) Screening for prostate cancer (637264703) Seasonal allergy (5376205528) Vertigo (0282452988) MEDICATIONS: Active Inpt Meds: None Active PRN Meds: None One Time Meds: None Active IV Meds: None ALLERGIES: (3) ibuprofen Bee Stings Shellfish FAMILY HISTORY: SOCIAL HISTORY: PHYSICAL EXAM: VITALS: No Data Available 24 Hr Tmax: No Data Available 36 Hr Tmax: No Data Available Vital Signs are the last 5 in the past 48 hours. Weights display the last 5 within 7 days. Initial Wt: No Data Available Current Wt: No Data Available physical exam alert and oriented cardio; regular without murmur pulm; clear abd; soft, nontender LABS: No 36hr Lab Data DIAGNOSTICS: IMPRESSION: Colorectal cancer screening History of colon polyps History of appendiceal carcinoma PLAN: Proceed with colonoscopy as discussed in the office Digitally Signed by JOSE LOPEZ DO on 10/01/2022 07:10 AM [facility]08-05-2022 Hospital Discharge instructions Patient Education 11/15/2021 14:38:42 Acute Pancreatitis, Lvsc-ns-Piyg Acute Pancreatitis Acute pancreatitis happens when the pancreas gets swollen. The pancreas is a large gland in the body that helps to control blood sugar. It also makes enzymes that help to digest food. This condition can last a few days and cause serious problems. The lungs, heart, and kidneys may stop working. What are the causes? Causes include: Alcohol abuse. Drug abuse. Gallstones. A tumor in the pancreas. Other causes include: Some medicines. Some chemicals. Diabetes. An infection. Damage caused by an accident. The poison (venom) from a scorpion bite. Belly (abdominal) surgery. The body's defense system (immune system) attacking the pancreas (autoimmune pancreatitis). Genes that are passed from parent to child (inherited). In some cases, the cause is not known. What are the signs or symptoms? Pain in the upper belly that may be felt in the back. The pain may be very bad. Swelling of the belly. Feeling sick to your stomach (nauseous) and throwing up (vomiting). Fever. How is this treated? You will likely have to stay in the hospital. Treatment may include: Pain medicine. Fluid through an IV tube. Placing a tube in the stomach to take out the stomach contents. This may help you stop throwing up. Not eating for 3 4 days. Antibiotic medicines, if you have an infection. Treating any other problems that may be the cause. Steroid medicines, if your problem is caused by your defense system attacking your body's own tissues. Surgery. Follow these instructions at home: Eating and drinking Follow instructions from your doctor about what to eat and drink. Eat foods that do not have a lot of fat in them. Eat small meals often. Do not eat big meals. Drink enough fluid to keep your pee (urine) pale yellow. Do not drink alcohol if it caused your condition. Medicines Take rnco-bmj-xqyofay and prescription medicines only as told by your doctor. Ask your doctor if the medicine prescribed to you: ?Requires you to avoid driving or using heavy machinery. ?Can cause trouble pooping (constipation). You may need to take steps to prevent or treat trouble pooping: ?Take gnow-ubj-shhzzxn or prescription medicines. ?Eat foods that are high in fiber. These include beans, whole grains, and fresh fruits and vegetables. ?Limit foods that are high in fat and sugar. These include fried or sweet foods. General instructions Do not use any products that contain nicotine or tobacco, such as cigarettes, e- cigarettes, and chewing tobacco. If you need help quitting, ask your doctor. Get plenty of rest. Check your blood sugar at home as told by your doctor. Keep all follow-up visits as told by your doctor. This is important. Contact a doctor if: You do not get better as quickly as expected. You have new symptoms. Your symptoms get worse. You have pain or weakness that lasts a long time. You keep feeling sick to your stomach. You get better and then you have pain again. You have a fever. Get help right away if: You cannot eat or keep fluids down. Your pain gets very bad. Your skin or the white part of your eyes turns yellow. You have sudden swelling in your belly. You throw up. You feel dizzy or you pass out (faint). Your blood sugar is high (over 300 mg/dL). Summary Acute pancreatitis happens when the pancreas gets swollen. This condition is often caused by alcohol abuse, drug abuse, or gallstones. You will likely have to stay in the hospital for treatment. This information is not intended to replace advice given to you by your health care provider. Make sure you discuss any questions you have with your health care provider. Document Released: 09/15/2008 Document Revised: 01/17/2019 Document Reviewed: 01/17/2019 [employer] Patient Education 2020 [employer]. 11/14/2021 06:14:55 Abdominal Pain Abdominal Pain Abdominal pain is pain in the stomach or belly area. Everyone has this pain from time to time. In many cases it goes away on its own. But abdominal pain can sometimes be due to a serious problem, such as appendicitis. So it s important to know when to get help. Causes of abdominal pain There are many possible causes of abdominal pain. Common causes in adults include: Constipation, diarrhea, or gas Stomach acid flowing back up into the esophagus (acid reflux or heartburn) Severe acid reflux, called GERD (gastroesophageal reflux disease) A sore in the lining of the stomach or small intestine (peptic ulcer) Inflammation of the gallbladder, liver, or pancreas Gallstones or kidney stones Appendicitis Intestinal blockage An internal organ pushing through a muscle or other tissue (hernia) Urinary tract infections In women, menstrual cramps, fibroids, ovarian cysts, pelvic inflammatory disease, or endometriosis Inflammation or infection of the intestines, including Crohn's disease and ulcerative colitis Irritable bowel syndrome Diagnosing the cause of abdominal pain Your healthcare provider will give you a physical exam help find the cause of your pain. If needed,you will have tests. Belly pain has many possible causes. So it can be hard to find the reason for your pain. Giving details about your pain can help. Tell your provider where and when you feel the pain, and what makes it better or worse. Also let your provider know if you have other symptoms such as: Fever Tiredness Upset stomach (nausea) Vomiting Changes in bathroom habits Blood in the stool or black, tarry stool Weight loss that you can't explain (involuntary weight loss?) Also report any family history of stomach or intestinal problems, or cancers. Tell your provider about all your alcohol use and drug use. Tell your provider about all medicines you use, including herbs, vitamins, and supplements. Treating abdominal pain Some causes of pain need emergency medical treatment right away. These include appendicitis or a bowel blockage. Other problems can be treated with rest, fluids, or medicines. Your healthcare provider can give you specific instructions for treatment or self-care based on what is causing your pain. If you have vomiting or diarrhea, sip water or other clear fluids. When you are ready to eat solid foods again, start with small amounts of wwvf-hq-mmzxfs, low- fat foods. These include apple sauce, toast, or crackers. When to get medical care Call 911 or go to the hospital right away if you: Can t pass stool and are vomiting Are vomiting blood or have bloody diarrhea or black, tarry diarrhea Have chest, neck, or shoulder pain Feel like you might pass out Have pain in your shoulder blades with nausea Have sudden, severe belly pain Have new, severe pain unlike any you have felt before Have a belly that is rigid, hard, and hurts to touch Call your healthcare provider if you have: Pain for more than 5 days Bloating for more than 2 days Diarrhea for more than 5 days A fever of 100.4 F (38 C) or higher, or as directed by your healthcare provider Pain that gets worse Weight loss for no reason Continued lack of appetite Blood in your stool How to prevent abdominal pain Here are some tips to help prevent abdominal pain: Eat smaller amounts of food at each meal. Don't eat greasy, fried, or other high-fat foods. Don't eat foods that give you gas. Exercise regularly. Drink plenty of fluids. To help prevent GERD symptoms: Quit smoking. Reduce alcohol and foods that increase stomach acid. Don't use aspirin or ttwf-onu-almvalx pain and fever medicines, if possible. This includes nonsteroidal anti-inflammatory drugs (NSAIDs). Lose excess weight. Finish eating at least 2 hours before you go to bed or lie down. Raise the head of your bed. [id number] [employer]. [address] [place] [address], [place] [address]. All rights reserved. This information is not intended as a substitute for professional medical care. Always follow yourhealthcare professional's instructions. Follow Up Care 11/14/2021 06:02:31 With:AVILA SHEA Address: [address] [place] [phone] When:11/21/2021 13:00:00 Comments:Follow-up as scheduled [facility] 08-05-2022 Note Discharge Instructions Thank you for allowing [facility] to assist you with your healthcare needs. The following is importantdischarge information regarding your hospital visit. Your Care Team [facility] Your Diagnosis Acute pancreatitis Nausea Anxiety Depression Hypertension Hypercholesteremia Abdominal pain Abdominal pain Back pain GERD (gastroesophageal reflux disease) Hyperlipidemia Mood disorder What to do next Instructions From Your Doctor You were admitted with acute pancreatitis confirmed by CT of the abdomen/pelvis. Your lipase was greater than 2250 on admission but decreased to 743 today. Normal lipase is usually between 0-160. Continue a soft diet as tolerated and advance as your are able. Be sure to follow-up with your PCP as scheduled to discuss any further testing they would recommend. Your cholesterol levels were within normal limits today and your bilirubin was normal so there is no concern for a gallstone. Scheduled Follow-Up Appointments Appointment Type When With [facility] 11/21/2021 01:00 PM EDT AVILA SHEA [address] [phone] [facility] Medicare 03/18/2022 10:30 AM EST AVILA SHEA [address] [phone] Follow Up Appointments Follow Up with AVILA SHEA When 11/21/2021 01:00 PM EDT Why: Follow-up as scheduled Where: [address] [place] [phone] The Following Activity and Diet Have Been Ordered for You Discharge Activity - Ordered -- NO activity restrictions, 11/15/21 16:05:00 EDT Discharge Diet - Ordered -- Type of Diet: Soft Diet, 11/15/21 16:05:00 EDT Allergies ibuprofen (Angina) Bee Stings (Swelling) Shellfish (Swelling) Medications Please ask your primary doctor or pharmacist before taking any other medication not listed, including over the counter drugs, herbal medications, vitamins and or supplements as they may interact withyour home medications. What How Much When Why Instructions Last Dose New atorvastatin (Lipitor 10 mg oral tablet) 1 tab(s) by mouth Daily at bedtime NOT GIVEN Unchanged buPROPion (buPROPion 300 mg/ 24 hours (XL) oral tablet, extended release) 1 tab(s) by mouth Daily at bedtime Mood disorder NOT GIVEN Unchanged diphenhydrAMINE (Benadryl 25 mg oral capsule) 1 cap by mouth Daily at bedtime NOT GIVEN Unchanged losartan (losartan 50 mg oral tablet) 1 tab(s) by mouth Once a day Hypertension NOT GIVEN Unchanged metoprolol (Metoprolol Succinate ER 50 mg oral TABLET extended release) 1 tab(s) by mouth Once a day Hypertension 11/15/21 @ 830AM Unchanged Misc Medication (Fish, flax seed, borage) 2,400 Milligram by mouth Every day 2-1200 mg caps NOT GIVEN Unchanged multivitamin (Multiple Vitamins oral capsule) 1 cap by mouth Every day NOT GIVEN Unchanged niacin (niacin 500 mg oral tablet) 1 tab(s) by mouth Daily at bedtime NOT GIVEN Unchanged omeprazole (omeprazole 40 mg oral delayed release capsule) 1 cap by mouth Once a day GERD (gastroesophageal reflux disease) 11/15/21 @ 6AM What How Much When Why Comments Stop Taking lovastatin (lovastatin 40 mg oral tablet) 1 tab(s) by mouth Daily at bedtime Hyperlipidemia Please take this list to your next doctor s visit. Bring all medications you take, including over the counter medications, herbals and other supplements with you to your doctor s visit. Patients and families are reminded to discard old lists and to update any records with all medication providers or retail pharmacies. Education Materials Acute Pancreatitis Acute pancreatitis happens when the pancreas gets swollen. The pancreas is a large gland in the body that helps to control blood sugar. It also makes enzymes that help to digest food. This condition can last a few days and cause serious problems. The lungs, heart, and kidneys may stop working. What are the causes? Causes include: Alcohol abuse. Drug abuse. Gallstones. A tumor in the pancreas. Other causes include: Some medicines. Some chemicals. Diabetes. An infection. Damage caused by an accident. The poison (venom) from a scorpion bite. Belly (abdominal) surgery. The body's defense system (immune system) attacking the pancreas (autoimmune pancreatitis). Genes that are passed from parent to child (inherited). In some cases, the cause is not known. What are the signs or symptoms? Pain in the upper belly that may be felt in the back. The pain may be very bad. Swelling of the belly. Feeling sick to your stomach (nauseous) and throwing up (vomiting). Fever. How is this treated? You will likely have to stay in the hospital. Treatment may include: Pain medicine. Fluid through an IV tube. Placing a tube in the stomach to take out the stomach contents. This may help you stop throwing up. Not eating for 3 4 days. Antibiotic medicines, if you have an infection. Treating any other problems that may be the cause. Steroid medicines, if your problem is caused by your defense system attacking your body's own tissues. Surgery. Follow these instructions at home: Eating and drinking Follow instructions from your doctor about what to eat and drink. Eat foods that do not have a lot of fat in them. Eat small meals often. Do not eat big meals. Drink enough fluid to keep your pee (urine) pale yellow. Do not drink alcohol if it caused your condition. Medicines Take vyvz-qgt-ojioobt and prescription medicines only as told by your doctor. Ask your doctor if the medicine prescribed to you: ? Requires you to avoid driving or using heavy machinery. ? Can cause trouble pooping (constipation). You may need to take steps to prevent or treat trouble pooping: ? Take bprn-dlq-mkscjjs or prescription medicines. ? Eat foods that are high in fiber. These include beans, whole grains, and fresh fruits and vegetables. ? Limit foods that are high in fat and sugar. These include fried or sweet foods. General instructions Do not use any products that contain nicotine or tobacco, such as cigarettes, e- cigarettes, and chewing tobacco. If you need help quitting, ask your doctor. Get plenty of rest. Check your blood sugar at home as told by your doctor. Keep all follow-up visits as told by your doctor. This is important. Contact a doctor if: You do not get better as quickly as expected. You have new symptoms. Your symptoms get worse. You have pain or weakness that lasts a long time. You keep feeling sick to your stomach. You get better and then you have pain again. You have a fever. Get help right away if: You cannot eat or keep fluids down. Your pain gets very bad. Your skin or the white part of your eyes turns yellow. You have sudden swelling in your belly. You throw up. You feel dizzy or you pass out (faint). Your blood sugar is high (over 300 mg/dL). Summary Acute pancreatitis happens when the pancreas gets swollen. This condition is often caused by alcohol abuse, drug abuse, or gallstones. You will likely have to stay in the hospital for treatment. This information is not intended to replace advice given to you by your health care provider. Make sure you discuss any questions you have with your health care provider. Document Released: 09/15/2008 Document Revised: 01/17/2019 Document Reviewed: 01/17/2019 [email or web address] Patient Education 2020 [employer]. Abdominal Pain Abdominal pain is pain in the stomach or belly area. Everyone has this pain from time to time. In many cases it goes away on its own. But abdominal pain can sometimes be due to a serious problem, such as appendicitis. So it s important to know when to get help. Causes of abdominal pain There are many possible causes of abdominal pain. Common causes in adults include: Constipation, diarrhea, or gas Stomach acid flowing back up into the esophagus (acid reflux or heartburn) Severe acid reflux, called GERD (gastroesophageal reflux disease) A sore in the lining of the stomach or small intestine (peptic ulcer) Inflammation of the gallbladder, liver, or pancreas Gallstones or kidney stones Appendicitis Intestinal blockage An internal organ pushing through a muscle or other tissue (hernia) Urinary tract infections In women, menstrual cramps, fibroids, ovarian cysts, pelvic inflammatory disease, or endometriosis Inflammation or infection of the intestines, including Crohn's disease and ulcerative colitis Irritable bowel syndrome Diagnosing the cause of abdominal pain Your healthcare provider will give you a physical exam help find the cause of your pain. If needed,you will have tests. Belly pain has many possible causes. So it can be hard to find the reason for your pain. Giving details about your pain can help. Tell your provider where and when you feel the pain, and what makes it better or worse. Also let your provider know if you have other symptoms such as: Fever Tiredness Upset stomach (nausea) Vomiting Changes in bathroom habits Blood in the stool or black, tarry stool Weight loss that you can't explain (involuntary weight loss?) Also report any family history of stomach or intestinal problems, or cancers. Tell your provider about all your alcohol use and drug use. Tell your provider about all medicines you use, including herbs, vitamins, and supplements. Treating abdominal pain Some causes of pain need emergency medical treatment right away. These include appendicitis or a bowel blockage. Other problems can be treated with rest, fluids, or medicines. Your healthcare provider can give you specific instructions for treatment or self-care based on what is causing your pain. If you have vomiting or diarrhea, sip water or other clear fluids. When you are ready to eat solid foods again, start with small amounts of xcjw-zs-puvepi, low- fat foods. These include apple sauce, toast, or crackers. When to get medical care Call 911 or go to the hospital right away if you: Can t pass stool and are vomiting Are vomiting blood or have bloody diarrhea or black, tarry diarrhea Have chest, neck, or shoulder pain Feel like you might pass out Have pain in your shoulder blades with nausea Have sudden, severe belly pain Have new, severe pain unlike any you have felt before Have a belly that is rigid, hard, and hurts to touch Call your healthcare provider if you have: Pain for more than 5 days Bloating for more than 2 days Diarrhea for more than 5 days A fever of 100.4 F (38 C) or higher, or as directed by your healthcare provider Pain that gets worse Weight loss for no reason Continued lack of appetite Blood in your stool How to prevent abdominal pain Here are some tips to help prevent abdominal pain: Eat smaller amounts of food at each meal. Don't eat greasy, fried, or other high-fat foods. Don't eat foods that give you gas. Exercise regularly. Drink plenty of fluids. To help prevent GERD symptoms: Quit smoking. Reduce alcohol and foods that increase stomach acid. Don't use aspirin or fnbh-kne-xrqwtkz pain and fever medicines, if possible. This includes nonsteroidal anti-inflammatory drugs (NSAIDs). Lose excess weight. Finish eating at least 2 hours before you go to bed or lie down. Raise the head of your bed. [id number] [employer]. [address] [place] [address], [place] [address]. All rights reserved. This information is not intended as a substitute for professional medical care. Always follow yourhealthcare professional's instructions. Additional Information VACCINATE! IT SAVES LIVES! Members of the community who have not yet received the COVID-19 vaccine and would like to receive it can visit one of [facility] vaccine clinics. There are many vaccine clinic locations within the [facility]. For locations and available times, please visit https://[email or web address].[place].gov/. It is important to note that some COVID mobile vaccine clinics are held outdoors and may be canceled in rainy or stormy conditions. To learn more about pediatric vaccinations (ages 5-11), we invite you to visit the [employer] [facility] webpage. [email or web address] [email or web address] learn more about the COVID-19 vaccine, we invite you to visit the [employer] website for a list of frequently asked questions. [email or web address] [employer] Patient Portal Access Instructions: Stay connected with your healthcare team and access your personal medical information anytime with the [employer] Patient Portal.If you would like a full copy of your medical records, please contact the [facility] Medical Records Department, Thursday through Thursday between 8a.m. and 4:30p.m. Please follow the directions below to access the portal: 1.Access the email account you provided upon registration to the hospital.2.Look for an invitation email from [facility].3.Open the email and access the invitation link: Accept Invitation to [employer]4.Fill in the required bashir to create your account. Sign into [email or web address] with your username and password that you created in the above steps to stay up to date. You can then view a summary of results, a summary of your visits, and the ability to download your summaries to your computer or send the information securely to a physician. Remember that your healthcare information is confidential, so carefully consider who you will allow to register on the [employer] Patient Portal for access to your information. You can also access the [employer] Patient Portal on the [employer] miller. Simply click on Health Records under [employer] and then click on the [employer] logo. HOW TO SAFELY DISPOSE OF PRESCRIPTION MEDICATIONS Please use one of the following methods to safely dispose of your unused medications. 1.Use a drug disposal kit: the drug disposal pouch allows you to safely discard your old and unuseddrugs. Ask your nurse to give you one when you are discharged.2.Visit a local take-back location: Many local pharmacies and police departments have programs that collect old and unwanted prescriptiondrugs. Call your local pharmacy or go to http://[employer].Enerpulse/2U0Fy3w to find one close to you.3.Make use of household items: Use cat litter or old coffee grounds to dispose medications if other options arenot available. Mix your drugs with these household products, seal them in an airtight container andthrow it into the garbage. Call [facility]: [phone] to be sure your drugs can be disposed of in this way. Some medicines may require a different approach.4.Never flush your medications down the toilet. IF YOU HAVE BEEN PRESCRIBED AN OPIOID FOR PAIN If you have been prescribed an opioid (such as hydrocodone, oxycodone or morphine), it is critical to understand the possible side effects and risks of opioid pain medications. Even when taken as directed, opioids can have several side effects including: Tolerance, meaning you might need to take more of a medication for the same pain relief. Nausea, vomiting and/or constipation. Sleepiness, dizziness, dry mouth, confusion, depression or itching. Physical dependence, meaning you have withdrawal symptoms when a medication is stopped, can develop within a few days. KNOW YOUR RESPONSIBILITIES It is important to know exactly how much and how often to take the opioid pain medications you are prescribed. Never take opioids in higher amounts or more often than prescribed. Do not combine opioids with alcohol or other drugs that cause drowsiness, such as benzodiazepines, also known as benzos, including diazepam and alprazolam, muscle relaxants or sleep aids. Never sell or share prescription opioids. This is illegal. Store opioids in a secure place and out of reach of others (including children, family, friends and visitors). The last page of this document has been signed and retained as a CHART COPY. Signatures Patient Education Materials Acute Pancreatitis, Mbtu-mm-Qpla Abdominal Pain Medication Leaflets My discharge plan and instructions have been reviewed and explained to me and I,DAVID BALDERRAMA understand my current condition and have read and understand these discharge instructions. I have received a written copy of the plan/instructions. If I have questions, I am aware that I should contactmy doctor. 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 Patient is experiencing abdominal pain, nausea, and back pain. Patient states that he knows how to take care of it but this time the symptomsare not resolving. History of Present Illness Patient is a 71-year-old male, who follows with Avila Shea CNP with a past medical history significant for hypertension, hyperlipidemia and depression, presents to [facility] emergency department with the chief complaint of nausea and vomiting. Patient states that his abdominal pain started on Thursday and has been mild. It is sharp in the right upper quadrant and radiatesinto his back. He states that the pain has improved, however, he developed nausea and vomiting thathas not been controlled at home. He adds that he was here with the same back in May [address] was [address] Dr[address] Hill. Dr. Hill recommended that patient have his gallbladder removed. Patient states that he had a cholecystectomy in July and has been fine since then. This developed out of the blue on Thursday. Patient denies any fever, chills, cough, shortness of breath, chest pain, palpitations or dysuria. In the emergency department, CT of the abdomen/pelvis revealed mild acute interstitial edematous pancreatitis with no adjacent fluid collection, distal colonic diverticulosis without diverticulitis and hepatic steatosis. White blood cell count 12.5. BMP significant for glucose 126, BUN 19 and creatinine 1.17. Patient was administered 4 mg Zofran IV for nausea and NS bolus in the ED. He will be transferred to medical surgical for observation. We will continue IV fluids at 150 cc/hr. We will keeppatient NPO except for sips and chips. Continue Zofran 4 mg IV as needed for nausea. Start Dilaudid0.5 mg IV as needed for pain. Repeat CBC, CMP, and lipase in am. Check lipid profile in am. Review of Systems Review of Systems: Reviewed in detail, including general health, HEENT, cardiovascular, respiratory, gastrointestinal, genitourinary, endocrine, musculoskeletal, neurologic, vascular, skin, and psychiatric. All are negative except for those listed in the History of Present Illness. Physical Exam Vitals and Measurements T: 36.9 C (Oral) HR: 78 RR: 18 BP: 132/70 SpO2: 97% HT: 172.7 cm WT: 88.6 kg BMI: 29.71 Weight Dosing Weight: 88.6 kg (11/14/21) General: No acute distress. Patient is alert and appropriate. Skin: No rash. Skin is warm, dry and intact. HEENT: Head is normocephalic, atraumatic. Pupils are equal, round and reactive. Mouth is without lesion. Nose without septal deviation. Neck: Supple. No lymphadenopathy, thyromegaly. Lungs: Bilaterally clear but diminished without crepitation or wheeze. Unlabored. Heart: Heart is regular rhythm, S1, S2. No murmurs, gallops or rubs. Abdomen: Abdomen is soft, nontender. Bowels sounds present in all quadrants. Extremities: No clubbing, cyanosis, or edema. Peripheral pulses palpable. No calf tenderness. Neurological: Patient is awake and alert to person, place and time. Following simple commands, moving all extremities. Lab Results 11/14 07:01 Glucose Level: 126 H Sodium Level: 137 Potassium Level: 4.3 BUN: 19 H Creatinine Lvl (s): 1.17 11/14 06:31 WBC: 12.5 H Hgb: 15.4 Hct: 44.2 Platelet: 244 Neutrophil %: 77.8 Imaging Results and Diagnostics CT Abd/Pelvis w/ IV Contrast Only Result Date: November 14, 2021 Verified By: JESS CARRASCO MD CLINICAL STATEMENT: IMPRESSION: 1. Findings compatible with mild acute interstitial edematous pancreatitis.No adjacent drainable fluid collection. 2. Distal colonic diverticulosis without diverticulitis. 3. Hepatic steatosis. I have personally reviewed the images of this examination and agree with theresident's findings and interpretations. Assessment/Plan 1. Acute pancreatitis Acute, new onset *Continue Zofran 4 mg IV as needed for nausea. *Start Dilaudid 0.5 mg IV as needed for pain. *Start NS @ 150cc/hr. *Patient will be NPO except for sips and chips. *Repeat CBC, BMP, lipase in am. *Check lipid profile in am. *Check IgG4 in am. 2. Nausea Acute, secondary to acute pancreatitis. *Continue Zofran IV as needed. 3. Anxiety Chronic *Continue current home medication. 4. Depression Chronic *Continue current home medication. 5. Hypertension Chronic *Continue current home medication. *Hold ARB tonight as may be contributing to acute pancreatitis. 6. Hypercholesteremia Chronic *Continue current home medication. DVT prophylaxis with SCDs. Patient wishes to remain a FULL CODE. This case was discussed with collaborating physician, Dr. Catalino Coreas. Problem List/Past Medical History Ongoing Colon cancer screening Decreased ROM of intervertebral discs of cervical spine History of diverticulitis History of pancreatitis History of prostate cancer Mood disorder Need for hepatitis C screening test S/P appendectomy Screening for prostate cancer Historical Adenocarcinoma of appendix Procedure/Surgical History Cholecystectomy: 07/22/21 Colectomy: 09/25/20 Laparoscopic appendectomy: 07/21/20 Prostatectomy: 2019 Tonsillectomy: 1960 Cataract extraction and insertion of intraocular lens Cataract care Teeth Excision Medications Home Medications (9) Active Benadryl 25 mg oral capsule 25 mg = 1 cap(s), Oral, qHS buPROPion 300 mg/24 hours (XL) oral tablet, extended release 300 mg = 1 tab(s), Oral, qHS Fish, flax seed, borage 2,400 mg, Oral, Daily losartan 50 mg oral tablet 50 mg = 1 tab(s), Oral, qDay lovastatin 40 mg oral tablet 40 mg = 1 tab(s), Oral, qHS Metoprolol Succinate ER 50 mg oral TABLET extended release 50 mg = 1 tab(s), Oral, qDay Multiple Vitamins oral capsule 1 cap(s), Oral, Daily niacin 500 mg oral tablet 500 mg = 1 tab(s), Oral, qHS omeprazole 40 mg oral delayed release capsule 40 mg = 1 cap(s), Oral, qDay Allergies ibuprofen (Angina) Bee Stings (Swelling) Shellfish (Swelling) Social History Alcohol Use: Past. Type: Beer. Frequency: 1-2 times per year. Do you ever drink more than intended: No., 07/08/2021 Home/Environment Domestic Concerns: None, Denies. Living situation: Home/Independent. Lives In: Multilevel home. Current Home Treatments OCCASSIONAL CANE USAGE. Professional Skilled Services or Special Community Resources None., 07/08/2021 Nutrition/Health Type of diet: Regular. Appetite Excellent. Eating Difficulties None, Full top denture and partial on bottom. Caffeine intake amount: 2 coffee or pop daily., 07/08/2021 Sexual Sexually active: No., 06/19/2018 Substance Abuse Use: Current. Type: Marijuana. Frequency: Daily., 07/21/2020 Tobacco Tobacco Use: Former smoker, quit more than 30 days ago. Type: Cigarettes. Stopped at age: 50 Years., 06/19/2018 Family History Arthritis: Mother, Father and Grandparent. Cancer: Grandparent. Diabetes mellitus: Grandparent. Diabetes mellitus type 1: Grandparent. Heart disease: Mother and Grandparent. High cholesterol: Mother, Father and Grandparent. Hypercholesterolemia: Grandparent. Hypertension: Mother, Father and Grandparent. Malignant tumor of head and/or neck: Mother. Malignant tumor of prostate: Father. Immunizations pneumococcal 13-valent conjugate vaccine: 0.5 unknown unit (12/23/16) pneumococcal 23-valent vaccine(Pneumovax: 0 unknown unit (01/16/16) SARS-CoV-2 (COVID-19) mRNA-1273 vaccine: 0.25 unknown unit (07/30/21) SARS-CoV-2 (COVID-19) mRNA-1273 vaccine: 0.25 unknown unit (02/07/21) SARS-CoV-2 (COVID-19) mRNA-1273 vaccine: 0.5 unknown unit (06/26/20) SARS-CoV-2 (COVID-19) mRNA-1273 vaccine: 0.5 unknown unit (05/29/20) zoster vaccine live: 0 unknown unit (01/16/16) zoster vaccine, inactivated: 1 unknown unit (10/11/18) zoster vaccine, inactivated: 0.5 mL (06/03/18) Code Status Code Status - Ordered -- 11/14/21 9:48:00 EDT, Full Code, Constant Order Digitally Signed by SHARONDA CASTRO on 11/14/2021 03:10 PM [facility]08-04-2022 Evaluation + Plan noteExtracted from: Title:History and Physical Author:SHARONDA CASTRO Date:11/14/21 1. Acute pancreatitis Acute, new onset *Continue Zofran 4 mg IV as needed for nausea. *Start Dilaudid 0.5 mg IV as needed for pain. *Start NS @ 150cc/hr. *Patient will be NPO except for sips and chips. *Repeat CBC, BMP, lipase in am. *Check lipid profile in am. *Check IgG4 in am. 2. Nausea Acute, secondary to acute pancreatitis. *Continue Zofran IV as needed. 3. Anxiety Chronic *Continue current home medication. 4. Depression Chronic *Continue current home medication. 5. Hypertension Chronic *Continue current home medication. *Hold ARB tonight as may be contributing to acute pancreatitis. 6. Hypercholesteremia Chronic *Continue current home medication. DVT prophylaxis with SCDs. Patient wishes to remain a FULL CODE. This case was discussed with collaborating physician, Dr. Catalino Coreas. Future Appointments Appointment Date:11/21/2021 01:00:00 PM Scheduled Provider:AVILA SHEA Location:[facility] Appointment Type:[facility] Hospital Follow-Up Appointment Date:03/18/2022 10:30:00 AM Scheduled Provider:AVILA SHAE Location:[facility] Appointment Type:[facility] Wellness Medicare Diagnostic Tests Pending * IgG Subclass 1,2,3,4 11/15/21 Future Scheduled Tests Laboratory* Prostate Specific Antigen 06/18/21 * Prostate Specific Antigen 09/10/21 * Hepatitis C Antibody IgG 09/10/21 [facility] 08-04-2022 Note ORIGINAL EXAMINATION: CT OF THE ABDOMEN AND PELVIS WITHOUT CONTRAST11/14/2021 8:34 am TECHNIQUE: CT of the abdomen and pelvis was performed after attempted administration of intravenous contrast. Multiplanar reformatted images are provided for review. Automated exposure control, iterative reconstruction, and/or weight based adjustment of the mA/kV was utilized to reduce the radiation dose to as low as reasonably achievable. Of note, IV infiltrated and therefore this is a noncontrast exam. COMPARISON: CT abdomen/pelvis June 02, 2021 HISTORY: ORDERING SYSTEM PROVIDED HISTORY: Reason for Exam: Left upper quadrant pain, history of pancreatitis.. FINDINGS: The lung bases are clear. The stomach and small bowel are unremarkable. There is moderate diverticulosis of the descending and sigmoid colon without inflammation. Postsurgical changes relating to partial bowel resection are noted. The appendix is surgically absent. There is diffusely decreased attenuation of the liver. No focal hepatic lesion. Prior cholecystectomy. Granulomatous calcifications of the spleen. The adrenal glands are unremarkable. There is mild peripancreatic mesenteric inflammation. No pancreatic ductal dilatation or drainable fluid collection. The kidneys appear symmetric without obstructive uropathy. There are bilateral simple renal cysts measuring up to 9.2 cm on the left and 6.2 cm on the right. The ureters and bladder are unremarkable. Mild atherosclerotic calcifications of the nonaneurysmal abdominal aorta and branching vasculature. There is a circumaortic left renal vein.. No lymphadenopathy or free intraperitoneal fluid or CT gas. Partially visualized 5.5 cm soft tissue lipoma the left perineum is unchanged. The prostate is unremarkable. Degenerative changes of the spine without acute osseous abnormality. Bridging osteophytes of the bilateral sacroiliac joints are noted. Minimal retrolisthesis of L5 on S1 on a degenerative basis. IMPRESSION: 1. Findings compatible with mild acute interstitial edematous pancreatitis. No adjacent drainable fluid collection. 2. Distal colonic diverticulosis without diverticulitis. 3. Hepatic steatosis. I have personally reviewed the images of this examination and agree with the resident's findings and interpretations. Interpreted by: Jess Carrasco MD Preliminary Report By: Kuldeep Casarez Electronically signed By Jess Carrasco MD Dictated Date: 11/14/2021 8:37:31 AM Prelim Date: 11/14/2021 9:01:32 AM Sign Date: 11/14/2021 11:16:46 AM Ordering Provider: CHANTELLE [facility]08-04-2022 Note ORIGINAL EXAMINATION: CT OF THE ABDOMEN AND PELVIS WITHOUT CONTRAST11/14/2021 8:34 am TECHNIQUE: CT of the abdomen and pelvis was performed after attempted administration of intravenous contrast. Multiplanar reformatted images are provided for review. Automated exposure control, iterative reconstruction, and/or weight based adjustment of the mA/kV was utilized to reduce the radiation dose to as low as reasonably achievable. Of note, IV infiltrated and therefore this is a noncontrast exam. COMPARISON: CT abdomen/pelvis June 02, 2021 HISTORY: ORDERING SYSTEM PROVIDED HISTORY: Reason for Exam: Left upper quadrant pain, history of pancreatitis.. FINDINGS: The lung bases are clear. The stomach and small bowel are unremarkable. There is moderate diverticulosis of the descending and sigmoid colon without inflammation. Postsurgical changes relating to partial bowel resection are noted. The appendix is surgically absent. There is diffusely decreased attenuation of the liver. No focal hepatic lesion. Prior cholecystectomy. Granulomatous calcifications of the spleen. The adrenal glands are unremarkable. There is mild peripancreatic mesenteric inflammation. No pancreatic ductal dilatation or drainable fluid collection. The kidneys appear symmetric without obstructive uropathy. There are bilateral simple renal cysts measuring up to 9.2 cm on the left and 6.2 cm on the right. The ureters and bladder are unremarkable. Mild atherosclerotic calcifications of the nonaneurysmal abdominal aorta and branching vasculature. There is a circumaortic left renal vein.. No lymphadenopathy or free intraperitoneal fluid or CT gas. Partially visualized 5.5 cm soft tissue lipoma the left perineum is unchanged. The prostate is unremarkable. Degenerative changes of the spine without acute osseous abnormality. Bridging osteophytes of the bilateral sacroiliac joints are noted. Minimal retrolisthesis of L5 on S1 on a degenerative basis. IMPRESSION: 1. Findings compatible with mild acute interstitial edematous pancreatitis. No adjacent drainable fluid collection. 2. Distal colonic diverticulosis without diverticulitis. 3. Hepatic steatosis. I have personally reviewed the images of this examination and agree with the resident's findings and interpretations. Interpreted by: Jess Carrasco MD Preliminary Report By: Kuldeep Casarez Electronically signed By Jess Carrasco MD Dictated Date: 11/14/2021 8:37:31 AM Prelim Date: 11/14/2021 9:01:32 AM Sign Date: 11/14/2021 11:16:46 AM Ordering Provider: [facility]EL[facility]05-13-2022 Miscellaneous Notes* Telephone Encounter - Basia Masters - 08/23/2021 1:05 PM EDT Left message for pt to return call to schedule and appt for 6 mos htn f/u Basia Masters documented in this encounterOhio[facility] Hospital Discharge instructions Patient Education 07/22/2021 14:00:26 Laparoscopic Cholecystectomy, Care After Laparoscopic Cholecystectomy, Care After This sheet gives you information about how to care for yourself after your procedure. Your health care provider may also give you more specific instructions. If you have problems or questions, contact your health care provider. What can I expect after the procedure? After the procedure, it is common to have: Pain at your incision sites. You will be given medicines to control this pain. Mild nausea or vomiting. Bloating and possible shoulder pain from the air-like gas that was used during the procedure. Follow these instructions at home: Incision care Follow instructions from your health care provider about how to take care of your incisions. Make sure you: ?Wash your hands with soap and water before you change your bandage (dressing). If soap and water are not available, use hand machine brusher. ?Change your dressing as told by your health care provider. ?Leave stitches (sutures), skin glue, or adhesive strips in place. These skin closures may need to be in place for 2 weeks or longer. If adhesive strip edges start to loosen and curl up, you may trimthe loose edges. Do not remove adhesive strips completely unless your health care provider tells you to do that. Do not take baths, swim, or use a hot tub until your health care provider approves. Ask your healthcare provider if you can take showers. You may only be allowed to take sponge baths for bathing. Check your incision area every day for signs of infection. Check for: ?More redness, swelling, or pain. ?More fluid or blood. ?Warmth. ?Pus or a bad smell. Activity Do not drive or use heavy machinery while taking prescription pain medicine. Do not lift anything that is heavier than 10 lb (4.5 kg) until your health care provider approves. Do not play contact sports until your health care provider approves. Do not drive for 24 hours if you were given a medicine to help you relax (sedative). Rest as needed. Do not return to work or school until your health care provider approves. General instructions Take ette-ojd-okxoves and prescription medicines only as told by your health care provider. To prevent or treat constipation while you are taking prescription pain medicine, your health care provider may recommend that you: ?Drink enough fluid to keep your urine clear or pale yellow. ?Take rwry-zup-ruduyhe or prescription medicines. ?Eat foods that are high in fiber, such as fresh fruits and vegetables, whole grains, and beans. ?Limit foods that are high in fat and processed sugars, such as fried and sweet foods. Contact a health care provider if: You develop a rash. You have more redness, swelling, or pain around your incisions. You have more fluid or blood coming from your incisions. Your incisions feel warm to the touch. You have pus or a bad smell coming from your incisions. You have a fever. One or more of your incisions breaks open. Get help right away if: You have trouble breathing. You have chest pain. You have increasing pain in your shoulders. You faint or feel dizzy when you stand. You have severe pain in your abdomen. You have nausea or vomiting that lasts for more than one day. You have leg pain. This information is not intended to replace advice given to you by your health care provider. Make sure you discuss any questions you have with your health care provider. Document Released: 03/30/2006 Document Revised: 03/12/2018 Document Reviewed: 09/15/2016 [employer] Patient Education 2020 [employer] Follow Up Care 07/03/2021 10:33:36 With:SHELLY RANDHAWA Address: [address] [place] [phone] Business (1) When: Unknown Comments:Follow-up with Dr. Randhawa in 10-14 daysPlease call the office with any questions or concernsIbuprofen/Advil/Motrin 400 mg by mouth 4 times a day with meals; may alternate with 650 mg of Tylenol 4 times a day With:AVILA SHEA Address:Unknown When: Unknown [facility] 02-22-2022 Hospital Discharge instructions Patient Education 06/04/2021 14:26:24 Acute Pancreatitis, Memd-iz-Mfyv Acute Pancreatitis Acute pancreatitis happens when the pancreas gets swollen. The pancreas is a large gland in the body that helps to control blood sugar. It also makes enzymes that help to digest food. This condition can last a few days and cause serious problems. The lungs, heart, and kidneys may stop working. What are the causes? Causes include: Alcohol abuse. Drug abuse. Gallstones. A tumor in the pancreas. Other causes include: Some medicines. Some chemicals. Diabetes. An infection. Damage caused by an accident. The poison (venom) from a scorpion bite. Belly (abdominal) surgery. The body's defense system (immune system) attacking the pancreas (autoimmune pancreatitis). Genes that are passed from parent to child (inherited). In some cases, the cause is not known. What are the signs or symptoms? Pain in the upper belly that may be felt in the back. The pain may be very bad. Swelling of the belly. Feeling sick to your stomach (nauseous) and throwing up (vomiting). Fever. How is this treated? You will likely have to stay in the hospital. Treatment may include: Pain medicine. Fluid through an IV tube. Placing a tube in the stomach to take out the stomach contents. This may help you stop throwing up. Not eating for 3 4 days. Antibiotic medicines, if you have an infection. Treating any other problems that may be the cause. Steroid medicines, if your problem is caused by your defense system attacking your body's own tissues. Surgery. Follow these instructions at home: Eating and drinking Follow instructions from your doctor about what to eat and drink. Eat foods that do not have a lot of fat in them. Eat small meals often. Do not eat big meals. Drink enough fluid to keep your pee (urine) pale yellow. Do not drink alcohol if it caused your condition. Medicines Take axtr-cpj-czplouk and prescription medicines only as told by your doctor. Ask your doctor if the medicine prescribed to you: ?Requires you to avoid driving or using heavy machinery. ?Can cause trouble pooping (constipation). You may need to take steps to prevent or treat trouble pooping: ?Take dlzg-rtd-rwrvwiq or prescription medicines. ?Eat foods that are high in fiber. These include beans, whole grains, and fresh fruits and vegetables. ?Limit foods that are high in fat and sugar. These include fried or sweet foods. General instructions Do not use any products that contain nicotine or tobacco, such as cigarettes, e- cigarettes, and chewing tobacco. If you need help quitting, ask your doctor. Get plenty of rest. Check your blood sugar at home as told by your doctor. Keep all follow-up visits as told by your doctor. This is important. Contact a doctor if: You do not get better as quickly as expected. You have new symptoms. Your symptoms get worse. You have pain or weakness that lasts a long time. You keep feeling sick to your stomach. You get better and then you have pain again. You have a fever. Get help right away if: You cannot eat or keep fluids down. Your pain gets very bad. Your skin or the white part of your eyes turns yellow. You have sudden swelling in your belly. You throw up. You feel dizzy or you pass out (faint). Your blood sugar is high (over 300 mg/dL). Summary Acute pancreatitis happens when the pancreas gets swollen. This condition is often caused by alcohol abuse, drug abuse, or gallstones. You will likely have to stay in the hospital for treatment. This information is not intended to replace advice given to you by your health care provider. Make sure you discuss any questions you have with your health care provider. Document Released: 09/15/2008 Document Revised: 01/17/2019 Document Reviewed: 01/17/2019 [employer] Patient Education 2020 [employer] Follow Up Care 06/02/2021 17:53:08 With:BILL HILL MD Address: [address] [place] [address] [address] [place] [phone] When:06/06/2021 15:45:00 Comments:This is your GI appointment. Please complete the paperwork and bring it with you. The office is in the Specialty Referral hallway behind therapy services. With:AVILA SHEA APRN-[facility] Address: [address] [facility] [place] [phone] When:06/11/2021 11:30:00 Comments:This is your post-hospital follow-up appointment. [facility] 02-21-2022 Evaluation + Plan noteExtracted from: Title:History and Physical Author:RILEY COWAN Date:06/03/21 1. Pancreatitis 2. Hypertension 3. HLD (hyperlipidemia) 4. Anxiety with depression Pancreatitis-lipase elevated greater than 2250. CBC and CMP all within normal limits. CT abdomen and pelvis show no acute process. Patient denies any alcohol use, lipid panel is unremarkable. He does admit to daily cannabis use for chronic pain. This may be the cause. Abdominal ultrasound was unremarkable. Patient does continue to have intermittent nausea this evening. Will monitor patient overnight and continue with IV fluids and reevaluate in the morning. Continue IV fluids. Patient has appointment with gastroenterology scheduled for this coming . Hypertension continue home antihypertensives. SBP goal 140 or less and avoid hypotension. Hyperlipidemia lipid panel within normal limits. Continue home statin. Anxiety with depression continue home dose of Wellbutrin. Labs, diagnostics, and progress notes reviewed as noted in HPI Code Status: Full code Plan of care discussed with patient. All questions answered. Patient verbalizes understanding is agreeable to plan of care. Discussed with collaborating physician, Dr. Quiles This dictation was performed using voice recognition software and may include grammatical and/or spelling errors. Future Appointments Appointment Date:06/11/2021 11:30:00 AM Scheduled Provider:AVILA SHEA Location:[facility] Appointment Type:[facility] Hospital Follow-Up Appointment Date:09/10/2021 10:00:00 AM Scheduled Provider:AVILA SHEA Location:[facility] Appointment Type:[facility] Follow Up [facility] 11-15-2021 Miscellaneous Notes* Telephone Encounter - Nadege DexterMADYSON - 02/25/2021 10:13 AM EST Pharmacy faxed requesting the following refill Refill(s) Requested: Pending Prescriptions Disp Refills LOSARTAN 50 MG TABLET 30 tablet 0 Sig: TAKE ONE TABLET BY MOUTH DAILY NEGRA: Yes ALLERGIES Allergen Reactions Shellfish Derived Anaphylaxis Pepper (Genus Capsi* Unknown (home) [phone] (cell) Last Office Visit Date: 09/20/2020 Last Distance Health Visit: 04/17/2020 Future Appointment: 03/22/2021 The patients preferred pharmacy has been captured for this encounter? yes Request is for script(s) to be escript to pharmacy. Nadege Dexter LPN documented in this encounterOhio[facility]08-11-2021 Miscellaneous Notes* Telephone Encounter - Evi Hardin - 11/21/2020 10:17 AM EDT Pt wants: Metoprolol succinate ER 50 mg. Taking 1 per day Pt wants this script to go to [facility] Evi Hardin documented in this encounterOhiohealth [facility]06-10-2021 NoteHNO ID: [id number] Author: Radha Ding Service: ? Author Type: ? Type: Procedures Filed: 09/26/2020 8:26 PM Note Text: After discussion of the risks and benefits, the patient elected to proceed with a cortisone injection into the right shoulder. Confirmed that the patient does not have history of prior adverse reactions, active infections, or relevant allergies. There was no effusion, erythema, or warmth, and the skin was clear. The skin was sterilized with alcohol and betadine. A 25 gauge needle was inserted into the joint via a lateral approach. The site was injected with a mixture of 40 mg Kenalog and 1 cc Marcaine . The injection was completed without complication, and a bandage was applied. The patient tolerated the procedure well and was instructed to avoid strenuous activity for the next 24 - 48 hours and to use ice for pain as needed. The patient will call immediately with any signs of infection or allergic reaction. The patient will return as needed.[facility]06-10-2021 NoteHNO ID: [id number] Author: Narendra Zaman DO Service: ? Author Type: Physician Type: Progress Notes Filed: 09/26/2020 8:26 PM Note Text: [facility] [place] Narendra DO Austyn [address] [place] [address] Date of Evaluation: 09/20/2020 Patient Name: David Balderrama : 1950 Chief Complaint: Hypertension (4 week follow after change in medications ) and Pain (Shoulder Pain) (right) Nursing Intake: There are no exam notes on file for this visit. Subjective Mr. Balderrama is a 69 year old male who presents with the following complaint(s): The history is provided by the patient. No floor framer was used. Hypertension This is a chronic problem. The current episode started more than 1 year ago. Pertinent negatives include no blurred vision, chest pain, headaches, malaise/fatigue, orthopnea, palpitations, PND or shortness of breath. Pain (Shoulder Pain) This is a chronic (Right shoulder ) problem. The current episode started more than 1 year ago. The problem occurs daily. The problem has been unchanged. Pertinent negatives include no abdominal pain, chest pain, coughing, headaches, myalgias or weakness. Review of Systems Constitutional: Negative for malaise/fatigue and weight loss. HENT: Negative for nosebleeds. Eyes: Negative for blurred vision and double vision. Respiratory: Negative for cough and shortness of breath. Cardiovascular: Negative for chest pain, palpitations, orthopnea, claudication, leg swelling and PND. Gastrointestinal: Negative for abdominal pain. Genitourinary: Negative for hematuria. Musculoskeletal: Positive for joint pain (Right shoulder ). Negative for myalgias. Skin: Negative. Neurological: Negative for dizziness, tingling, sensory change, focal weakness, weakness and headaches. Endo/Heme/Allergies: Does not bruise/bleed easily. Psychiatric/Behavioral: Negative for depression. The patient is not nervous/anxious and does not have insomnia. PAST MEDICAL HISTORY Diagnosis Date - Anaphylaxis - Body mass index (BMI) 29.0-29.9, adult - Cancer (HCC) appendix diagnosed 07/2020 - Chronic obstructive pulmonary disease, unspecified (HCC) - Elevated prostate specific antigen (PSA) - Essential (primary) hypertension - Fatigue - Gastro-esophageal reflux disease without esophagitis - Major depressive disorder, recurrent episode, moderate (HCC) - Mixed hyperlipidemia - Myalgia - Other male erectile dysfunction - Testicular hypofunction - Vitamin D deficiency PAST SURGICAL HISTORY Procedure Laterality Date - APPENDECTOMY HX - COLONOSCOPY 08/23/2010 - EYE SURGERY HX Cataract - TONSILLECTOMY HX FAMILY HISTORY Problem Relation Age of Onset - Coronary Artery Disease Mother - Prostate Cancer Father Social History Tobacco Use - Smoking status: Former Smoker Packs/day: 1.00 Types: Cigarettes Quit date: 04/2006 Years since quittin.4 - Smokeless tobacco: Never Used Vaping Use - Vaping Use: Never used Substance Use Topics - Alcohol use: Yes Comment: Beer daily - Drug use: Yes Types: Marijuana Current Meds losartan (COZAAR) 100 mg tablet Take 1 tablet by mouth once daily. metoprolol succinate ER (TOPROL XL) 50 mg 24 hr tablet Take 1 tablet by mouth once daily. buPROPion XL (WELLBUTRIN XL) 300 mg 24 hr tablet TAKE 1 TABLET BY MOUTH DAILY lovastatin 40 mg tablet TAKE 1 TABLET BY MOUTH DAILY omeprazole (PRILOSEC) 40 mg capsule TAKE 1 CAPSULE BY MOUTH DAILY tadalafil 20 mg kwame (CPD) Take 1 Kwame by mouth as directed. Dissolve 1 kwame under the tongue 30-60 minutes prior to sexual activity diphenhydrAMINE (BENADRYL) 25 mg capsule Take 25 mg by mouth daily at bedtime. niacin ER (NIASPAN) 500 mg tablet Take 500 mg by mouth once daily. I have confirmed and edited as necessary the past medical, family and social histories, HPI, and ROS obtained by others. Objective BP 134/84 (BP Site: Left Arm, BP Position: Sitting) Pulse 81 Temp 36.3 ?C (97.4 ?F) Ht 5' 8 (1.727 m) Wt 203 lb (92.1 kg) SpO2 98% BMI 30.87 kg/m? Physical Exam Vitals and nursing note reviewed. Constitutional: General: He is not in acute distress. Appearance: Normal appearance. He is well-developed. He is not ill-appearing. HENT: Head: Normocephalic. Right Ear: Tympanic membrane, ear canal and external ear normal. There is no impacted cerumen. Left Ear: Tympanic membrane, ear canal and external ear normal. There is no impacted cerumen. Nose: Nose normal. Mouth/Throat: Mouth: Mucous membranes are moist. Pharynx: Oropharynx is clear. Uvula midline. No oropharyngeal exudate or posterior oropharyngeal erythema. Eyes: General: Lids are normal. Vision grossly intact. Gaze aligned appropriately. No scleral icterus. Right eye: No discharge. Left eye: No discharge. Ex (more content not included)...[facility]06-10-2021 Procedure note* Radha Ding - 09/20/2020 9:35 AM EDT After discussion of the risks and benefits, the patient elected to proceed with a cortisone injection into the right shoulder. Confirmed that the patient does not have history of prior adverse reactions, active infections, or relevant allergies. There was no effusion, erythema, or warmth, and the skin was clear. The skin was sterilized with alcohol and betadine. A 25 gauge needle was inserted into the joint via a lateral approach. The site was injected with a mixture of 40 mg Kenalog and 1 cc Marcaine . The injection was completed without complication, and a bandage was applied. The patient tolerated the procedure well and was instructed to avoid strenuous activity for the next 24 - 48 hours and to use ice for pain as needed. The patient will call immediately with any signs of infection or allergic reaction. The patient will return as needed. documented in this encounter[facility] History of Present illness Narrative* Narendra Zaman DO - 09/20/2020 8:40 AM EDT Images from the original note were not included. [facility] Norma Zaman DO [address] [place] [address] Date of Evaluation: 09/20/2020 Patient Name: David Balderrama : 1950 Chief Complaint: Hypertension (4 week follow after change in medications ) and Pain (Shoulder Pain) (right) Nursing Intake: There are no exam notes on file for this visit. Subjective Mr. Balderrama is a 69 year old male who presents with the following complaint(s): The history is provided by the patient. No floor framer was used. Hypertension This is a chronic problem. The current episode started more than 1 year ago. Pertinent negatives include no blurred vision, chest pain, headaches, malaise/fatigue, orthopnea, palpitations, PND or shortness of breath. Pain (Shoulder Pain) This is a chronic (Right shoulder ) problem. The current episode started more than 1 year ago. The problem occurs daily. The problem has been unchanged. Pertinent negatives include no abdominal pain,chest pain, coughing, headaches, myalgias or weakness. Review of Systems Constitutional: Negative for malaise/fatigue and weight loss. HENT: Negative for nosebleeds. Eyes: Negative for blurred vision and double vision. Respiratory: Negative for cough and shortness of breath. Cardiovascular: Negative for chest pain, palpitations, orthopnea, claudication, leg swelling and PND. Gastrointestinal: Negative for abdominal pain. Genitourinary: Negative for hematuria. Musculoskeletal: Positive for joint pain (Right shoulder ). Negative for myalgias. Skin: Negative. Neurological: Negative for dizziness, tingling, sensory change, focal weakness, weakness and headaches. Endo/Heme/Allergies: Does not bruise/bleed easily. Psychiatric/Behavioral: Negative for depression. The patient is not nervous/anxious and does not have insomnia. PAST MEDICAL HISTORY Diagnosis Date Anaphylaxis Body mass index (BMI) 29.0-29.9, adult Cancer (HCC) appendix diagnosed 07/2020 Chronic obstructive pulmonary disease, unspecified (HCC) Elevated prostate specific antigen (PSA) Essential (primary) hypertension Fatigue Gastro-esophageal reflux disease without esophagitis Major depressive disorder, recurrent episode, moderate (HCC) Mixed hyperlipidemia Myalgia Other male erectile dysfunction Testicular hypofunction Vitamin D deficiency PAST SURGICAL HISTORY Procedure Laterality Date APPENDECTOMY HX COLONOSCOPY 08/23/2010 EYE SURGERY HX Cataract TONSILLECTOMY HX FAMILY HISTORY Problem Relation Age of Onset Coronary Artery Disease Mother Prostate Cancer Father Social History Tobacco Use Smoking status: Former Smoker Packs/day: 1.00 Types: Cigarettes Quit date: 04/2006 Years since quittin.4 Smokeless tobacco: Never Used Vaping Use Vaping Use: Never used Substance Use Topics Alcohol use: Yes Comment: Beer daily Drug use: Yes Types: Marijuana Current Meds losartan (COZAAR) 100 mg tablet Take 1 tablet by mouth once daily. metoprolol succinate ER (TOPROL XL) 50 mg 24 hr tablet Take 1 tablet by mouth once daily. buPROPion XL (WELLBUTRIN XL) 300 mg 24 hr tablet TAKE 1 TABLET BY MOUTH DAILY lovastatin 40 mg tablet TAKE 1 TABLET BY MOUTH DAILY omeprazole (PRILOSEC) 40 mg capsule TAKE 1 CAPSULE BY MOUTH DAILY tadalafil 20 mg kwame (CPD) Take 1 Kwame by mouth as directed. Dissolve 1 kwame under the [id number] minutes prior to sexual activity diphenhydrAMINE (BENADRYL) 25 mg capsule Take 25 mg by mouth daily at bedtime. niacin ER (NIASPAN) 500 mg tablet Take 500 mg by mouth once daily. I have confirmed and edited as necessary the past medical, family and social histories, HPI, and ROS obtained by others. Objective BP 134/84 (BP Site: Left Arm, BP Position: Sitting) Pulse 81 Temp 36.3 C (97.4 F) Ht 5' 8 (1.727 m) Wt 203 lb (92.1 kg) SpO2 98% BMI 30.87 kg/m Physical Exam Vitals and nursing note reviewed. Constitutional: General: He is not in acute distress. Appearance: Normal appearance. He is well-developed. He is not ill-appearing. HENT: Head: Normocephalic. Right Ear: Tympanic membrane, ear canal and external ear normal. There is no impacted cerumen. Left Ear: Tympanic membrane, ear canal and external ear normal. There is no impacted cerumen. Nose: Nose normal. Mouth/Throat: Mouth: Mucous membranes are moist. Pharynx: Oropharynx is clear. Uvula midline. No oropharyngeal exudate or posterior oropharyngeal erythema. Eyes: General: Lids are normal. Vision grossly intact. Gaze aligned appropriately. No scleral icterus. Right eye: No discharge. Left eye: No discharge. Extraocular Movements: Extraocular movements intact. Conjunctiva/sclera: Conjunctivae normal. Pupils: Pupils are equal, round, and reactive to light. Neck: Thyroid: No thyroid mass, thyromegaly or thyroid tenderness. Vascular: No carotid bruit. Trachea: Trachea and phonation normal. Cardiovascular: Rate and Rhythm: Normal rate and regular rhythm. Pulses: Normal pulses. Heart sounds: Normal heart sounds. Pulmonary: Effort: Pulmonary effort is normal. Breath sounds: Normal breath sounds. Abdominal: General: Abdomen is flat. Bowel sounds are normal. Palpations: Abdomen is soft. Musculoskeletal: General: Normal range of motion. Right shoulder: Normal. Left shoulder: Normal. Cervical back: Normal, full passive range of motion without pain and neck supple. No tenderness. Nospinous process tenderness. Thoracic back: Normal. Lumbar back: Normal. Right knee: Normal. Left knee: Normal. Right lower leg: No edema. Left lower leg: No edema. Lymphadenopathy: Cervical: No cervical adenopathy. Skin: General: Skin is warm and dry. Neurological: General: No focal deficit present. Mental Status: He is alert and oriented to person, place, and time. Mental status is at baseline. Cranial Nerves: Cranial nerves are intact. Sensory: Sensation is intact. Motor: Motor function is intact. Psychiatric: Attention and Perception: Attention and perception normal. Mood and Affect: Mood normal. Speech: Speech normal. Behavior: Behavior normal. Thought Content: Thought content normal. Judgment: Judgment normal. Data Reviewed: No new labs ASSESSMENT/PLAN: 1. Essential (primary) hypertension - ICD9: 401.9, ICD10: I10 (primary diagnosis) - good control - Continue current medication(s) - Recommended regular aerobic exercise. - Recommend home blood pressure monitoring, to bring results in on next visit - Goal of BP <130/80 2. Mixed hyperlipidemia - ICD9: 272.2, ICD10: E78.2 - Encouraged following a low fat, low cholesterol diet. - Discussed the benefits of regular aerobic exercise and weight loss. 3. Arthritis, shoulder region - ICD9: 716.91, ICD10: M19.019 - Injection Given - See procedure notes - TRIAMCINOLONE ACETONIDE 40 MG/ML SUSPENSION FOR INJECTION - BUPIVACAINE (PF) 0.25 % (2.5 MG/ML) INJECTION SOLUTION - LIDOCAINE HCL 20 MG/ML (2 %) INJECTION SOLUTION Narendra Zaman DO Return in about 6 months (around 03/22/2021). Attestation: Scribe Statement: Julia Ding am scribing for, and in the presence of, Narendra Zaman DO September 20, 2020 9:07 AM. Physician Statement: I, Narendra Zaman DO, personally performed the services described in the documentation, as scribed by Radha Estrella in my presence, and it is both accurate and complete September 20, 2020 9:14 AM. documented in this encounterOhio[facility]05-13-[facility]21 History of Present illness Narrative* Narendra Zaman DO - 08/23/2020 8:48 AM EDT Images from the original note were not included. [facility] [place] Narendra Zaman DO [address] [place] [address] Date of Evaluation: 08/23/2020 Patient Name: David Balderrama : 1950 Subjective Mr. Balderrama is a 69 year old male who presents to follow up for Hypertension (follow up after change in BP medication ) and Follow Up (after appendix removed. diagnosed with cancer ). The history is provided by the patient. No floor framer was used. Hypertension This is a chronic problem. The current episode started more than 1 year ago. [facility]. Pertinent negatives include no blurred vision, chest pain, headaches, malaise/fatigue, orthopnea, palpitations, PND or shortness of breath. Review of Systems Constitutional: Negative for malaise/fatigue and weight loss. HENT: Negative for nosebleeds. Eyes: Negative for blurred vision and double vision. Respiratory: Negative for cough and shortness of breath. Cardiovascular: Negative for chest pain, palpitations, orthopnea, claudication, leg swelling and PND. Gastrointestinal: Negative for abdominal pain. Genitourinary: Negative for hematuria. Musculoskeletal: Negative for joint pain and myalgias. Skin: Negative. Neurological: Negative for dizziness, tingling, sensory change, focal weakness, weakness and headaches. Endo/Heme/Allergies: Does not bruise/bleed easily. Psychiatric/Behavioral: Negative for depression. The patient is not nervous/anxious and does not have insomnia. PAST MEDICAL HISTORY Diagnosis Date Anaphylaxis Body mass index (BMI) 29.0-29.9, adult Cancer (HCC) appendix diagnosed 07/2020 Chronic obstructive pulmonary disease, unspecified (HCC) Elevated prostate specific antigen (PSA) Essential (primary) hypertension Fatigue Gastro-esophageal reflux disease without esophagitis Major depressive disorder, recurrent episode, moderate (HCC) Mixed hyperlipidemia Myalgia Other male erectile dysfunction Testicular hypofunction Vitamin D deficiency PAST SURGICAL HISTORY Procedure Laterality Date APPENDECTOMY HX COLONOSCOPY 08/23/2010 EYE SURGERY HX Cataract TONSILLECTOMY HX FAMILY HISTORY Problem Relation Age of Onset Coronary Artery Disease Mother Prostate Cancer Father Social History Tobacco Use Smoking status: Former Smoker Packs/day: 1.00 Types: Cigarettes Quit date: 04/2006 Years since quittin.3 Smokeless tobacco: Never Used Vaping Use Vaping Use: Never used Substance Use Topics Alcohol use: Yes Comment: Beer daily Drug use: Yes Types: Marijuana Current Meds losartan (COZAAR) 50 mg tablet Take 1 tablet by mouth once daily. metoprolol succinate ER (TOPROL XL) 50 mg 24 hr tablet Take 1 tablet by mouth once daily. buPROPion XL (WELLBUTRIN XL) 300 mg 24 hr tablet TAKE 1 TABLET BY MOUTH DAILY lovastatin 40 mg tablet TAKE 1 TABLET BY MOUTH DAILY omeprazole (PRILOSEC) 40 mg capsule TAKE 1 CAPSULE BY MOUTH DAILY tadalafil 20 mg kwame (CPD) Take 1 Kwame by mouth as directed. Dissolve 1 kwame under the -34 minutes prior to sexual activity diphenhydrAMINE (BENADRYL) 25 mg capsule Take 25 mg by mouth daily at bedtime. niacin ER (NIASPAN) 500 mg tablet Take 500 mg by mouth once daily. testosterone cypionate (DEPO-TESTOSTERONE) 200 mg/mL injection Inject 1 mL intramuscularly every 4 weeks for 30 days. evolocumab (REPATHA SURECLICK) 140 mg/mL pen injector Inject 140 mg subcutaneously every 2 weeks. metoprolol succinate ER (TOPROL XL) 100 mg Take 1 tablet by mouth once daily. EPINEPHrine (EPIPEN 2-THOMAS) 0.3 mg/0.3 mL auto-injector Inject 0.3 mg intramuscularly as needed. Objective BP 138/88 (BP Site: Left Arm, BP Position: Sitting) Pulse 92 Temp 36.4 C (97.5 F) Ht 5' 8 (1.727 m) Wt 202 lb (91.6 kg) SpO2 97% BMI 30.71 kg/m Physical Exam Vitals and nursing note reviewed. HENT: Head: Normocephalic and atraumatic. Right Ear: Tympanic membrane, ear canal and external ear normal. Left Ear: Tympanic membrane, ear canal and external ear normal. Nose: Nose normal. Eyes: General: Lids are normal. Conjunctiva/sclera: Conjunctivae normal. Pupils: Pupils are equal, round, and reactive to light. Cardiovascular: Rate and Rhythm: Normal rate and regular rhythm. Heart sounds: Normal heart sounds. Pulmonary: Effort: Pulmonary effort is normal. Breath sounds: Normal breath sounds. Abdominal: General: Bowel sounds are normal. Palpations: Abdomen is soft. Tenderness: There is no abdominal tenderness. Musculoskeletal: General: Normal range of motion. Cervical back: Normal range of motion and neck supple. Skin: General: Skin is warm and dry. Neurological: Mental Status: He is alert and oriented to person, place, and time. Gait: Gait is intact. Deep Tendon Reflexes: Reflexes are normal and symmetric. Psychiatric: Mood and Affect: Mood and affect normal. Cognition and Memory: Memory normal. Judgment: Judgment normal. Data Reviewed: No new labs ASSESSMENT/PLAN: 1. Hypertension, essential - ICD9: 401.9, ICD10: I10 - suboptimal control - Continue current medication(s) - Recommended regular aerobic exercise. - Recommend home blood pressure monitoring, to bring results in on next visit - Goal of BP <130/80 - LOSARTAN 100 MG TABLET Patient awaiting results of testing done after appendix removal. Return in about 6 months (around 02/23/2021). Narendra Zaman DO Attestation: Scribe Statement: Julia Ding am scribing for, and in the presence of, Narendra Zaman DO August 23, 2020 9:06 AM. Physician Statement: I, Narendra Zaman DO, personally performed the services described in the documentation, as scribed by Radha Estrella in my presence, and it is both accurate and complete August 23, 2020 9:12 AM. I have confirmed and edited as necessary the past medical, family and social histories, HPI, and ROS obtained by others. documented in this encounterOhio[facility]04-22-[facility]21 History of Present illness Narrative* Narendra Zaman - 08/02/2020 9:13 AM EDT Images from the original note were not included. [facility] [place] Narendra Zaman DO [address] [place] [address] Date of Evaluation: 08/02/2020 Patient Name: David Balderrama : 1950 Subjective Mr. Balderrama is a 69 year old male who presents to follow up for Hypertension (discuss changing medications ). The history is provided by the patient. Hypertension This is a chronic problem. The current episode started more than 1 year ago. Condition status: patient does not feel Metoprolol is controlling Blood pressure. Medication also causing Fatigue. Associated symptoms include malaise/fatigue. Pertinent negatives include no blurred vision, chest pain, head aches, orthopnea, palpitations, PND or shortness of breath. There are no compliance problems. Review of Systems Constitutional: Positive for malaise/fatigue. Negative for weight loss. HENT: Negative for nosebleeds. Eyes: Negative for blurred vision and double vision. Respiratory: Negative for cough and shortness of breath. Cardiovascular: Negative for chest pain, palpitations, orthopnea, claudication, leg swelling and PND. Gastrointestinal: Negative for abdominal pain. Genitourinary: Negative for hematuria. Musculoskeletal: Negative for joint pain and myalgias. Skin: Negative. Neurological: Negative for dizziness, tingling, sensory change, focal weakness, weakness and headaches. Endo/Heme/Allergies: Does not bruise/bleed easily. Psychiatric/Behavioral: Negative for depression. The patient is not nervous/anxious and does not have insomnia. PAST MEDICAL HISTORY Diagnosis Date Anaphylaxis Body mass index (BMI) 29.0-29.9, adult Chronic obstructive pulmonary disease, unspecified (HCC) Elevated prostate specific antigen (PSA) Essential (primary) hypertension Fatigue Gastro-esophageal reflux disease without esophagitis Major depressive disorder, recurrent episode, moderate (HCC) Mixed hyperlipidemia Myalgia Other male erectile dysfunction Testicular hypofunction Vitamin D deficiency PAST SURGICAL HISTORY Procedure Laterality Date APPENDECTOMY HX COLONOSCOPY 08/23/2010 EYE SURGERY HX Cataract TONSILLECTOMY HX FAMILY HISTORY Problem Relation Age of Onset Coronary Artery Disease Mother Prostate Cancer Father Social History Tobacco Use Smoking status: Former Smoker Packs/day: 1.00 Types: Cigarettes Quit date: 04/2006 Years since quittin.3 Smokeless tobacco: Never Used Vaping Use Vaping Use: Never used Substance Use Topics Alcohol use: Yes Comment: Beer daily Drug use: Yes Types: Marijuana Current Meds buPROPion XL (WELLBUTRIN XL) 300 mg 24 hr tablet TAKE 1 TABLET BY MOUTH DAILY lovastatin 40 mg tablet TAKE 1 TABLET BY MOUTH DAILY omeprazole (PRILOSEC) 40 mg capsule TAKE 1 CAPSULE BY MOUTH DAILY testosterone cypionate (DEPO-TESTOSTERONE) 200 mg/mL injection Inject 1 mL intramuscularly every 4 weeks for 30 days. metoprolol succinate ER (TOPROL XL) 100 mg Take 1 tablet by mouth once daily. tadalafil 20 mg kwame (CPD) Take 1 Kwame by mouth as directed. Dissolve 1 kwaem under the [id number] minutes prior to sexual activity diphenhydrAMINE (BENADRYL) 25 mg capsule Take 25 mg by mouth daily at bedtime. niacin ER (NIASPAN) 500 mg tablet Take 500 mg by mouth once daily. losartan (COZAAR) 50 mg tablet Take 1 tablet by mouth once daily. metoprolol succinate ER (TOPROL XL) 50 mg 24 hr tablet Take 1 tablet by mouth once daily. evolocumab (REPATHA SURECLICK) 140 mg/mL pen injector Inject 140 mg subcutaneously every 2 weeks. EPINEPHrine (EPIPEN 2-THOMAS) 0.3 mg/0.3 mL auto-injector Inject 0.3 mg intramuscularly as needed. Objective BP 144/90 (BP Site: Left Arm, BP Position: Sitting) Pulse 75 Temp 36.3 C (97.3 F) Ht 5' 8 (1.727 m) Wt 198 lb (89.8 kg) SpO2 97% BMI 30.11 kg/m Physical Exam Vitals and nursing note reviewed. HENT: Head: Normocephalic and atraumatic. Right Ear: Tympanic membrane, ear canal and external ear normal. Left Ear: Tympanic membrane, ear canal and external ear normal. Nose: Nose normal. Eyes: General: Lids are normal. Conjunctiva/sclera: Conjunctivae normal. Pupils: Pupils are equal, round, and reactive to light. Cardiovascular: Rate and Rhythm: Normal rate and regular rhythm. Heart sounds: Normal heart sounds. Pulmonary: Effort: Pulmonary effort is normal. Breath sounds: Normal breath sounds. Abdominal: General: Bowel sounds are normal. Palpations: Abdomen is soft. Tenderness: There is no abdominal tenderness. Musculoskeletal: General: Normal range of motion. Cervical back: Normal range of motion and neck supple. Skin: General: Skin is warm and dry. Neurological: Mental Status: He is alert and oriented to person, place, and time. Gait: Gait is intact. Deep Tendon Reflexes: Reflexes are normal and symmetric. Psychiatric: Mood and Affect: Mood and affect normal. Cognition and Memory: Memory normal. Judgment: Judgment normal. Data Reviewed: No new labs ASSESSMENT/PLAN: 1. Essential (primary) hypertension - ICD9: 401.9, ICD10: I10 - suboptimal control - Begin Losartan - Decrease metoprolol (Lopressor/Toprol) - Recommended regular aerobic exercise. - Recommend home blood pressure monitoring, to bring results in on next visit - Goal of BP <130/80 - LOSARTAN 50 MG TABLET - METOPROLOL SUCCINATE ER 50 MG TABLET,EXTENDED RELEASE 24 HR Return in about 3 weeks (around 08/23/2020) for bp check . Attestation: Scribe Statement: Julia Ding am scribing for, and in the presence of, Narendra Zaman, August 02, 2020 9:14AM. I have confirmed and edited as necessary the past medical, family and social histories, HPI, and ROS obtained by others. documented in this encounterOhiohealth [facility] HospitalEvaluation + Plan note Future Appointments Appointment Date:06/11/2021 11:30:00 AM Scheduled Provider:AVILA SHEA Location:[facility] Appointment Type:[facility] Follow-Up Appointment Date:09/10/2021 10:00:00 AM Scheduled Provider:AVILA SHEA Location:[facility] Appointment Type:[facility] Follow Up [facility] Evaluation + Plan note Future Appointments Appointment Date:09/10/2021 10:00:00 AM Scheduled Provider:AVILA SHEA Location:[facility] Appointment Type:[facility] Follow Up Future Scheduled Tests Laboratory* Prostate Specific Antigen 06/18/21 [facility] Evaluation + Plan note Future Appointments Appointment Date:09/10/2021 10:00:00 AM Scheduled Provider:AVILA SHEA Location:[facility] Appointment Type:[facility] Follow Up Future Scheduled Tests Laboratory* Prostate Specific Antigen 06/18/21 [facility] Evaluation + Plan note Future Appointments Appointment Date:03/14/2022 01:30:00 PM Scheduled Provider:AVILA SHEA Location:[facility] Appointment Type:[facility] Appointment Date:03/18/2022 10:30:00 AM Scheduled Provider:AVILA SHEA Location:[facility] Appointment Type:[facility] Wellness Medicare Future Scheduled Tests Laboratory* Prostate Specific Antigen 06/18/21 * Prostate Specific Antigen 09/10/21 * Hepatitis C Antibody IgG 09/10/21 [facility] Evaluation + Plan note Future Appointments Appointment Date:09/17/2023 10:30:00 AM Scheduled Provider:AVILA SHEA Location:[facility] Appointment Type:[facility] Wellness Medicare Future Scheduled Tests Laboratory* Basic Metabolic Panel 08/24/23 [facility] Evaluation + Plan note Future Appointments Appointment Date:03/18/2024 10:30:00 AM Scheduled Provider:AVILA HSEA Location:[facility] Appointment Type:[facility] Future Scheduled Tests Laboratory* Basic Metabolic Panel 08/24/23 [facility] Evaluation + Plan note Future Appointments Appointment Date:03/14/2025 11:00:00 AM Scheduled Provider:AVILA SHEA Location:[facility] Appointment Type:[facility] Wellness Medicare [facility] evaluation note* Diagnosis Essential (primary) hypertension- Primary Unspecified essential hypertension [facility]* Diagnosis Hypertension, essential- Primary Unspecified essential hypertension documented in this encounter [facility] note* Diagnosis Essential (primary) hypertension- Primary Unspecified essential hypertension Mixed hyperlipidemia Arthritis, shoulder region Unspecified arthropathy, shoulder region documented in this encounter [facility] note* Diagnosis Essential (primary) hypertension Unspecified essential hypertension documented in this encounter [facility] note* Diagnosis Essential (primary) hypertension Unspecified essential hypertension documented in this encounter [facility] note* Diagnosis Onset Date Resolution Status Admit Date Cellulitis acute September 25 11:54am [facility] Work Phone: Evaluation note* Diagnosis 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 documented in this encounter [facility] note* Diagnosis Pancreas cyst (HCC) Cyst and pseudocyst of pancreas documented in this encounter [facility] course Narrative No data available for this section [facility] Hospital Discharge instructions No data available for this section [facility] Progress note No data available for this section [facility] Reason for referral (narrative)No reason [facility]: Reason for visit Narrative* Outpatient Procedure (Routine) - Closed Specialty Diagnoses / Procedures Referred By Contac t Referred To Contact [facility] Diagnoses Pancreas cyst (HCC) Procedures EGD - THERAPEUTIC, EUS, OR TUBE INTERVENTIONS EDG US EXAM SURGICAL ALTER STOM DUODENUM/JEJUNUM Miguel Angel Ervin MD [address] [place] [address] Phone: tel: fax: [facility] [address] [place] [address] Referral ID Status Reason Start Date Expiration Date V isits Requested Visits Authorized [id number] Closed Auto-Generate d Referral 10/06/2024 10/06/2025 1 1 [facility] Assessments Diagnosis 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 Diagnosis Adult ADHD- Primary Attention deficit disorder with hyperactivity Diagnosis Essential hypertension- Primary Unspecified essential hypertension Mixed hyperlipidemia ED (erectile dysfunction) of organic origin Impotence of organic origin Screening for thyroid disorder Diagnosis Screening for lipid disorders- Primary Medications Administered Section Inactive Administered Medications - up to 3 most recent administrations Medication Order MAR Action Action Date Dose Rate Site testosterone cypionate 200 mg injection (DEPO-TESTOSTERONE) 200 mg, INTRAMUSCULAR, ONCE, 1 dose, Yarelis 03/01/20 at 0900, Hazardous Potential Reproductive Risk Drug: Use appropriate PPE. , Given 03/01/2020 9:02 AM EST 200 mg Buttocks, Left Inactive Administered Medications - up to 3 most recent administrations Medication Order MAR Action Action Date Dose Rate Site testosterone cypionate 200 mg injection (DEPO-TESTOSTERONE) 200 mg, INTRAMUSCULAR, ONCE, 1 dose, Yarelis 05/03/20 at 0930, Hazardous Potential Reproductive Risk Drug: Use appropriate PPE. , Given 05/03/2020 9:20 AM EST 200 mg Buttocks, Left Inactive Administered Medications - up to 3 most recent administrations Medication Order MAR Action Action Date Dose Rate Site testosterone cypionate 200 mg injection (DEPO-TESTOSTERONE) 200 mg, INTRAMUSCULAR, ONCE, 1 dose, Yarelis 05/31/20 at 0930, Hazardous Potential Reproductive Risk Drug: Use appropriate PPE. , Given 05/31/2020 9:09 AM EST 200 mg Buttocks, Right Inactive Administered Medications - up to 3 most recent administrations Medication Order MAR Action Action Date Dose Rate Site testosterone cypionate 200 mg injection (DEPO-TESTOSTERONE) 200 mg, INTRAMUSCULAR, ONCE, 1 dose, On 07/02/20 at 0930, Hazardous Potential Reproductive Risk Drug: Use appropriate PPE. Given 07/02/2020 9:10 AM EDT 200 mg Buttocks, Left Inactive Administered Medications - up to 3 most recent administrations Medication Order MAR Action Action Date Dose Rate Site testosterone cypionate 200 mg injection (DEPO-TESTOSTERONE) 200 mg, INTRAMUSCULAR, ONCE, 1 dose, Yarelis 03/29/20 at 0900, Hazardous Potential Reproductive Risk Drug: Use appropriate PPE. , Given 03/29/2020 9:00 AM EST 200 mg Buttocks, Right Inactive Administered Medications - up to 3 most recent administrations Medication Order MAR Action Action Date Dose Rate Site bupivacaine (PF) 0.25 % (2.5 mg/mL) 2.5 mg injection (SENSORCAINE MPF) 2.5 mg (1 mL), INTRA-ARTICULAR, ONCE, 1 dose, On Yarelis 09/20/20 at 0930 Given by LIP 09/20/2020 9:30 AM EDT 2.5 mg Shoulder, Right lidocaine 20 mg/mL (2 %) 60 mg injection (XYLOCAINE) 60 mg (3 mL), INJECTION(UNSPECIFIED PARENTERAL ROUTES), ONCE, 1 dose, On Yarelis 09/20/20 at 0930 Given by LIP 09/20/2020 9:30 AM EDT 60 mg Shoulder, Right triamcinolone acetonide 40 mg injection (KENALOG 40) 40 mg, INTRA-ARTICULAR, ONCE, 1 dose, On Yarelis 09/20/20 at 0930 Given by LIP 09/20/2020 9:31 AM EDT 40 mg Shoulder, Right History of Present Illness * Narendra Zaman - 04/17/2020 2:35 PM EST AMBULATORY TELEPHONE VISIT Beth Balderrama has consented to this telephone encounter. Persons Present: patient Chief Complaint/Reason: Medication Refills HPI: Patient requesting medication refills for maintenance medications for Hypertension and Erectile Dysfunction. Patient monitoring blood pressure at home and ranges 120-130's systolic daily. Data Reviewed: No new labs Assessment: (I10) Essential hypertension (primary encounter diagnosis) (N52.9) ED (erectile dysfunction) of organic origin ASSESSMENT/PLAN: 1. Essential hypertension - ICD9: 401.9, ICD10: I10 (primary diagnosis) - Continue current medication(s) - Encouraged dietary sodium restriction/DASH diet - Recommended regular aerobic exercise. - Recommend home blood pressure monitoring, to bring results in on next visit - Goal of BP <130/80 - METOPROLOL SUCCINATE ER 100 MG TABLET,EXTENDED RELEASE 24 HR - CBC + DIFF 2. Mixed hyperlipidemia - ICD9: 272.2, ICD10: E78.2 - to be determined upon return of lab results - COMP METABOLIC PANEL - LIPID PANEL BASIC 3. ED (erectile dysfunction) of organic origin - ICD9: 607.84, ICD10: N52.9 - TADALAFIL 20 MG KWAME 4. Screening for thyroid disorder - ICD9: V77.0, ICD10: Z13.29 - TSH BLD Total Time Spent: {DOCUMENT TOTAL TIME SPENT BUT CAN ONLY BILL for 5-30 MINUTES:15 minutes Narendra Zaman DO Attestation: Scribe Statement: I Radha Ding am scribing for, and in the presence of, Narendra Zaman DO April 17, 2020 2:35 PM. Physician Statement: I, Narendra Zaman DO, personally performed the services described in the documentation, as scribed by Radha Estrella in my presence, and it is both accurate and complete April 17, 2020 2:44 PM. documented in this encounter Summary Purpose Family History No Family History Records Found Relationship Condition Age at Onset Recorded Date/T leon Not Specified Cardiac disease Unknown Malignant neoplasm Unknown Advance Directives No Advanced Directives Records FoundNo Advanced Directives Records FoundNo Advanced Directives Records FoundNo Advanced Directives Records FoundNo Advanced Directives Records Found Chief Complaint and Reason for Visit Chief Complaint Admit Date BUG BITE L SHOULDER September 25, 2024 11:5 4am Reason for Visit Admit Date Cellulitis September 25, 2024 11:5 4am Additional Source Comments Source Comments (unrecognize d section and content) In the event this informatio n is protected by the Federal Confidentiality of Alcohol and Drug Abuse Patient Records regulations: The Federal rules restrict any use of the information to criminally investigate or prosecute any alcohol or drug abuse patient.[facility] the event this information is protected by the Federal Confidentiality of Alcohol and Drug Abuse Patient Records regulations: The Federal rules restrict any use of the information to criminally investigate or prosecute any alcohol or drug abuse patient.[facility] the event this information is protected by the Federal Confidentiality of Alcohol and Drug Abuse Patient Records regulations: The Federal rules restrict any use of the information to criminally investigate or prosecute any alcohol or drug abuse patient.[facility] the event this information is protected by the Federal Confidentiality of Alcohol and Drug Abuse Patient Records regulations: The Federal rules restrict any use of the information to criminally investigate or prosecute any alcohol or drug abuse patient.[facility] the event this information is protected by the Federal Confidentiality of Alcohol and Drug Abuse Patient Records regulations: The Federal rules restrict any use of the information to criminally investigate or prosecute any alcohol or drug abuse patient.[facility] the event this information is protected by the Federal Confidentiality of Alcohol and Drug Abuse Patient Records regulations: The Federal rules restrict any use of the information to criminally investigate or prosecute any alcohol or drug abuse patient.[facility] the event this information is protected by the Federal Confidentiality of Alcohol and Drug Abuse Patient Records regulations: The Federal rules restrict any use of the information to criminally investigate or prosecute any alcohol or drug abuse patient.[facility] the event this information is protected by the Federal Confidentiality of Alcohol and Drug Abuse Patient Records regulations: The Federal rules restrict any use of the information to criminally investigate or prosecute any alcohol or drug abuse patient.[facility] the event this information is protected by the Federal Confidentiality of Alcohol and Drug Abuse Patient Records regulations: The Federal rules restrict any use of the information to criminally investigate or prosecute any alcohol or drug abuse patient.[facility] the event this information is protected by the Federal Confidentiality of Alcohol and Drug Abuse Patient Records regulations: The Federal rules restrict any use of the information to criminally investigate or prosecute any alcohol or drug abuse patient.[facility] the event this information is protected by the Federal Confidentiality of Alcohol and Drug Abuse Patient Records regulations: The Federal rules restrict any use of the information to criminally investigate or prosecute any alcohol or drug abuse patient.[facility] the event this information is protected by the Federal Confidentiality of Alcohol and Drug Abuse Patient Records regulations: The Federal rules restrict any use of the information to criminally investigate or prosecute any alcohol or drug abuse patient.[facility] the event this information is protected by the Federal Confidentiality of Alcohol and Drug Abuse Patient Records regulations: The Federal rules restrict any use of the information to criminally investigate or prosecute any alcohol or drug abuse patient.[facility] the event this information is protected by the Federal Confidentiality of Alcohol and Drug Abuse Patient Records regulations: The Federal rules restrict any use of the information to criminally investigate or prosecute any alcohol or drug abuse patient.[facility] the event this information is protected by the Federal Confidentiality of Alcohol and Drug Abuse Patient Records regulations: The Federal rules restrict any use of the information to criminally investigate or prosecute any alcohol or drug abuse patient.[facility] the event this information is protected by the Federal Confidentiality of Alcohol and Drug Abuse Patient Records regulations: The Federal rules restrict any use of the information to criminally investigate or prosecute any alcohol or drug abuse patient.[facility] the event this information is protected by the Federal Confidentiality of Alcohol and Drug Abuse Patient Records regulations: The Federal rules restrict any use of the information to criminally investigate or prosecute any alcohol or drug abuse patient.[facility] the event this information is protected by the Federal Confidentiality of Alcohol and Drug Abuse Patient Records regulations: The Federal rules restrict any use of the information to criminally investigate or prosecute any alcohol or drug abuse patient.[facility] the event this information is protected by the Federal Confidentiality of Alcohol and Drug Abuse Patient Records regulations: The Federal rules restrict any use of the information to criminally investigate or prosecute any alcohol or drug abuse patient.[facility] the event this information is protected by the Federal Confidentiality of Alcohol and Drug Abuse Patient Records regulations: The Federal rules restrict any use of the information to criminally investigate or prosecute any alcohol or drug abuse patient.[facility] the event this information is protected by the Federal Confidentiality of Alcohol and Drug Abuse Patient Records regulations: The Federal rules restrict any use of the information to criminally investigate or prosecute any alcohol or drug abuse patient.[facility] the event this information is protected by the Federal Confidentiality of Alcohol and Drug Abuse Patient Records regulations: The Federal rules restrict any use of the information to criminally investigate or prosecute any alcohol or drug abuse patient.[facility] the event this information is protected by the Federal Confidentiality of Alcohol and Drug Abuse Patient Records regulations: The Federal rules restrict any use of the information to criminally investigate or prosecute any alcohol or drug abuse patient.[facility] the event this information is protected by the Federal Confidentiality of Alcohol and Drug Abuse Patient Records regulations: The Federal rules restrict any use of the information to criminally investigate or prosecute any alcohol or drug abuse patient.[facility] Reason for Visit (unrecogniz ed section and content) Reason Comments Injections testosterone Reason Onset Date Comments Refill Request 03/05/2020 Reason Comments Rx Refills Reason Comments Hypertension Hyperlipidemia Erectile Dysfunction Reason Comments Patient Question Reason Comments Results psa Reason Comments Refill Request Reason Comments Diverticulitis Reason Comments Results Reason Comments Hypertension discuss changing med ications Reason Comments Hypertension follow up after devlin ge in BP medication Follow Up after appendix remov ed. diagnosed with cancer Reason Comments Hypertension 4 week follow after change in medications Pain (Shoulder Pain) right Reason Comments Rx Refills metoprolol succinate Reason Comments Appointment Reason Comments Orders Referral Dr. Hill Reason Comments Results Lab Results Telephone Encounter - Fe Austin - 03/05/2020 5:07 PM ESTTelephone Encounter - Nadege Dexter (Madyson)MADYSON - 04/18/2020 9:05 AM ESTTelephone Encounter - Evi Hardin - 04/18/2020 8:39 AM EST Miscellaneous Notes (unrecog nized section and content) Patient called requesting the following refill Refill(s) Requested: Pending Prescriptions Disp Refills METOPROLOL SUCCINATE ER 100 MG TABLET,EXTENDED RELEASE 24 HR 30 tablet 1 Sig: Take 1 tablet by mouth once daily. NEGRA: No ALLERGIES Allergen Reactions Shellfish Derived Anaphylaxis Pepper (Genus Capsi* Unknown (home) [phone] (cell) Last Visit date: 03/01/2020 Future appointment: 03/29/2020 The patients preferred pharmacy has been captured for this encounter? yes Request is for script(s) to be escript to pharmacy. patient states he is waiting on mail order to arrive and needs a local Rx sent. Fe Austin LPN documented in this encounter Pharmacy faxed requesting the following refill Refill(s) Requested: Pending Prescriptions Disp Refills TESTOSTERONE CYPIONATE 200 MG/ML INTRAMUSCULAR OIL 1 mL 0 Sig: Inject 1 mL intramuscularly every 4 weeks for 31 days. CHRISTA Class: C-III NEGRA: No ALLERGIES Allergen Reactions Shellfish Derived Anaphylaxis Pepper (Genus Capsi* Unknown (home) [phone] (cell) Last Visit date: 04/17/2020 Future appointment: 05/03/2020 The patients preferred pharmacy has been captured for this encounter? yes Request is for script(s) to be escript to pharmacy. Nadege Dexter LPN Pt needs a script for: Testosterone for his injections. Zeenta Strauss Evi Hardin documented in this encounter Patient called stated false alarm, doing okay. Patient left a voicemail saying he felt alittle under the weather and wanted to talk about the COVID vaccine and getting it. Left message for patient to call to clarify message. documented in this encounter Patient updated. 2nd attempt, left message to call Left message to call ----- Message from Narendra Zaman sent at 06/12/2020 3:47 PM EST ----- Psa normal documented in this encounter Rx mail pharmacy faxed requesting the following refill Refill(s) Requested: Pending Prescriptions Disp Refills BUPROPION XL 300 MG 24 HR TAB 90 tablet 3 Sig: TAKE 1 TABLET BY MOUTH DAILY NEGRA: Yes LOVASTATIN 40 MG TABLET 90 tablet 3 Sig: TAKE 1 TABLET BY MOUTH DAILY NEGRA: Yes OMEPRAZOLE 40 MG CAPSULE,DELAYED RELEASE 90 capsule 3 Sig: TAKE 1 CAPSULE BY MOUTH DAILY NEGRA: Yes ALLERGIES Allergen Reactions Shellfish Derived Anaphylaxis Pepper (Genus Capsi* Unknown (home) [phone] (cell) Last Visit date: 06/13/2020 Future appointment: 06/28/2020 The patients preferred pharmacy has been captured for this encounter? yes Request is for script(s) to be escript to pharmacy Please notify patient.. Fe Austin LPN documented in this encounter meds written Patient called in and left a voicemail saying he is having a bought of diverticulitis and is wanting an AT[facility] sent [facility] to [facility] [place]. Please advise. documented in this encounter Chol not great I dont think he can tolerate statin. I wrote repatha If he can afford it. Liver lipids 3 mon documented in this encounter Called patient and advised and seen the Rxes went to mail away pharmacy and not [facility] [place]. [phone]. Called pharmacist and gave verbal Cipro 500mg BID # 14 no refill and Flagyl 500mg TID # 21. FYI Patient called in and states he has history of diverticulitis and would like an antibiotic called in. Called patient back states he has bloating and slight pain on the right lower abdomen. Has had several times in the past. Patient uses [facility] [place]. Will you Rx? Or what to do? documented in this encounter Care Teams (unrecognized sec tion and content) Candle Extrusion Machine Operator Relationship Specialty Start Date End Date Narendra Zaman DO [address] [place] [address] PCP - General Family Practice 01/31/20 Team Status: Active Member Role Status Dates Josy Zaman [facility] Family Provider Active Dr. Josy Zaman DO Primary Care Provider Acti ve Team Status: Inactive Member Role Status Dates Dr. Josy Zaman DO Primary Care Provider Acti ve Start: September 25, 2024 End: September 25, 2024 Dr. Josy Zaman DO Referring Provider Active Start: September 25, 2024 End: September 25, 2024 Tito Abad BURLAP WORKER, BURLAP WORKER-C Attending Provider Active S tart: September 25, 2024 End: September 25, 2024 (unrecognized sect ion and content) No Status Records FoundNo Status Records FoundNo Status Records FoundNo Status Records FoundNo Status Records Found INFORMATION SOURCE (unrecogn ized section and content) DATE CREATED AUTHOR 08/25/2021 [facility] DATE CREATED AUTHOR AUTHOR'S ORGANIZ ATION 09/20/2023 [facility] ([place]) DATE CREATED AUTHOR AUTHOR'S ORGANIZ ATION 09/27/2024 [facility] DATE CREATED AUTHOR AUTHOR'S ORGANIZ ATION 10/02/2024 [facility] DATE CREATED AUTHOR AUTHOR'S ORGANIZ ATION 10/29/2024 [facility] [place] Care Team (unrecognized sect ion and content) Care Team Personnel Name: AVILA SHEA Position: P4 Advanced Practice Nurse Med Service: Active Provider Member Role: Primary Care Physician Address: Address: [address] [place] [address]- Name: SHELLY RANDHAWA MD Position: P4 Physician - General Surgery Med Service: Tiff Webster M.D. Member Role: Surgeon Address: Address: [address] [place], [place] [id number]- Name: DELIO MCDONALD MD Med Service: Dermatology Member Role: Paraffin Plant Sweater Operator Address: Address: [facility] [address] [place] [address]- Care Team Related Persons Name: ISHA BALDERRAMA Address: Home [address] [place], [place] [id number] Care Team Personnel Name: AVILA SHEA Position: P4 Advanced Practice Nurse Member Role: Primary Care Physician Address: Address: [address] [place] [address]- Name: SHELLY RANDHAWA MD Position: P4 Physician - General Surgery Member Role: Surgeon Address: Address: [address] [place], [place] [id number]- Name: DELIO MCDONALD MD Member Role: Paraffin Plant Sweater Operator Address: Address: [facility] [address] [place] [address]- Care Team Related Persons Name: ISHA BALDERRAMA Address: Home [address] [place], [place] [id number] Goals (unrecognized section and content) Goals may be documented in a n alternate section FOR RECORDS PERTAINING TO PATIENTS WHO ARE OR HAVE BEEN ENROLLED IN A CHEMICAL DEPENDENCY/SUBSTANCEABUSE PROGRAM, SOME INFORMATION MAY BE OMITTED. This clinical summary was aggregated from multiple sources. Caution should be exercised in using it in the provision of clinical care. This summary normalizes information from multiple sources, and as a consequence, information in this document may materially change the coding, format and clinical context of patient data. In addition, data may be omitted in some cases. CLINICAL DECISIONS SHOULD BE BASED ON THE PRIMARY CLINICAL RECORDS. [facility] [employer] [facility]. provides no warranty or guarantee of the accuracy or completeness of information in this document.
--- OUTSIDE RECORDS SUMMARY | 2024-11-02 01:22 | XMS RPT_ITS | CCD ---
Author Organization [facility] Care Team Providers Care Continuity Clerk Name Role Phone Narendra Zaman Primary Care Provider MONSE RACK PUSHERROSITA, AVILA Primary Care Physician [phone] Narendra Zaman DO Primary Care Provid er MONSE RACK PUSHERROSITA, AVILA Primary Care Physician [phone] KEYURTES RACK PUSHER-TRANSPORT SPECIALIST, AVILA Attending Unavailabl e BALTES RACK PUSHER-TRANSPORT SPECIALIST, AVILA Primary Care Unavailabl e BALTES RACK PUSHER-TRANSPORT SPECIALIST, AVILA Attending Unavailabl e BALTES RACK PUSHER-TRANSPORT SPECIALIST, AVILA Primary Care Unavailabl DR BILL Okeefe MD Attending Unavailabl e BALTES RACK PUSHER-TRANSPORT SPECIALIST, AVILA Primary Care Unavailabl e BALTES RACK PUSHER-TRANSPORT SPECIALIST, AVILA Attending Unavailabl e BALTES RACK PUSHER-TRANSPORT SPECIALIST, AVILA Primary Care Unavailabl e JOSE LOPEZ DO Attending Unavailable MONSE RACK PUSHER-TRANSPORT SPECIALIST, AVILA Primary Care UnavailDr. Josy Centeno DO Primary Care Provider Dr. Josy Zaman DO Referring Provider [phone] Tito Rodriguez Attending Provider Tito Abad NP Attending Unavailable Josy Zaman Referring Unavailable Josy Zaman Primary Care Unavailable MONSE RACK PUSHER-TRANSPORT SPECIALIST, AVILA Primary Care Unavailabl e BALTES RACK PUSHER-TRANSPORT SPECIALIST, AVILA Attending Unavailabl e BALTES RACK PUSHER-TRANSPORT SPECIALIST, AVILA Primary Care Unavailabl e BALTES RACK PUSHER-TRANSPORT SPECIALIST, AVILA Attending Unavailabl e BALTES RACK PUSHER-TRANSPORT SPECIALIST, AVILA Attending Unavailabl e BALTES RACK PUSHER-TRANSPORT SPECIALIST, AVILA Primary Care UnavailDR BILL Montez MD Attending Unavailabl e BALTES RACK PUSHER-TRANSPORT SPECIALIST, AVILA Primary Care Unavailabl e BALTES RACK PUSHER-TRANSPORT SPECIALIST, AVILA Attending Jimi SHEA APRN-TRANSPORT SPECIALIST, AVILA Primary Care Unavailabl e MONSE RACK PUSHER-TRANSPORT SPECIALIST, AVILA Attending Jimi SHEA APRN-TRANSPORT SPECIALIST, AVILA Primary Care Unavailabl e Unavailable Primary Care Provider MIGUEL ANGEL Fall Referring Unavailable DAVID VORA Attending Unavailable Allergies Allergy Classification Reported Allergen(s) Allergy Type Date of Onset Reaction(s) Facility Shellfish (4 sources) Shellfish Food Allergy 0 Anaphylaxis [facility] (20 sources) Shellfish; Translations: [shellfish derived] Drug Allergy 0 Anaphylaxis [facility] (20 sources) Pepper (Genus Capsicum); Translations: [PEPPER (GENUS CAPSICUM)] Propensity to adverse reactions to drug 0 Unknown [facility] (14 sources) Bee/Wasp/Ant venom Allergy to substance [...] day(s), # 12 tab(s), 0 Refill(s), Pharmacy: [facility] [place], Abdominal pain Pancreatitis, 169, cm, 09/13/24 9:56:00 EDT, Height, 78.8, kg, 09/13/24 9:56:00 EDT, Dosing Weight Start Date: 09/13/24 Stop Date: 09/19/24 Status: Ordered Quantity: 12.0 Unit: tab(s) Repeat number: 1 Indications: Unspecified abdominal pain; Acute pancreatitis without necrosis or infection, unspecified; amylase 082666 unt / lipase 29497 unt / protease [id number] unt delayed release oral capsule (4 sources) Start: 09-13-2024 Feiiii-Cdpcittc-Qgn lase (Creon) 36,000-114,000- 180,000 unit capsule,delayed release(DR/EC) [...] tab(s), 3 Refill(s), Pharmacy: [facility] ([facility]), Mood disorder, 170.2, cm, 11/26/22 [...] tab(s), 3 Refill(s), Pharmacy: [facility] ([facility] ), Mood disorder, 170.2, cm, [...] qHS, # 90 tab(s), 1 Refill(s), [facility]), Mood disorder, [...] qHS, # 90 tab(s), 1 Refill(s), Pharmacy: [facility], Mood disorder, 168.91, cm, 09/10/21 [...] tab(s), 3 Refill(s), Pharmacy: [facility] ([facility] ), Hypertension, 170.2, cm, 09/12/22 9:56:00 EDT, Height, kg, 09/12/22 9:56:00 EDT, Dosing Weight Start Date: 6/3/23 Status: Ordered Start: 01-16-2022 Metoprolol Suc cinate ER 50 mg oral TABLET extended release Dose : 50 mg = 1 tab(s), Oral, qDay, # 90 tab(s), 1 Refill(s), Pharmacy: [facility] ([facility]), Hypertension, 168.91, cm, 01/16/22 10:58:00 EDT, Height, kg, 01/16/22 10:58:00 EDT, Dosing Weight Start Date: 01/16/22 Status: Ordered Start: 09-10-2021 Metoprolol Suc cinate ER 50 mg oral TABLET extended release Dose : 50 mg = 1 tab(s), Oral, qDay, # 90 tab(s), 1 Refill(s), Pharmacy: [facility], Hypertension, 168.91, cm, 09/10/21 9:56:00 [...] qDay, # 90 cap(s), 3 Refill(s), Pharmacy: [facility], 169, cm, 03/18/24 10:24:00 EST, Height, kg, 03/18/24 10:24:00 EST, Dosing Weight Start Date: 09/06/24 Status: Ordered Quantity: 90.0 Unit: cap(s) Repeat number: 4 Start: 01-16-2022 omeprazole 20 mg oral delayed release capsule Dose : 20 mg = 1 cap(s), Oral, qDay, # 90 cap(s), 0 Refill(s), Pharmacy: [facility] ([facility]), GERD (gastroesophageal reflux disease), 168.91, [...] qDay, # 90 cap(s), 3 Refill(s), [facility], 169, cm, 09/17/23 10:26:00 EDT, Height, kg, 09/17/23 10:26:00 EDT, Dosing Weight Start Date: 09/17/23 Status: Ordered Comment on above: Take 1 capsule by [facility] once daily. TAKE 1 CAPSULE BY [facility] DAILY tadalafil 20 mg kwame (CPD) (20 [...] Comment on above: Take 1 Kwame by [facility] as directed. Dissolve 1 kwame under [...] harini th twice daily for 14 doses. [id number] 0.3 ml EPINEPHrine 1 mg/ml auto-injector (18 [...] Test Name Value Interpretation Reference Range Facility [facility] 10-19-2024 [facility] Telephone ([facility]) -- DAVID BALDERRAMA ([id number]) 1950 M Date Time Provider Department 10/19/24 MIGUEL ANGEL ERVIN [facility] During your visit today, we recorded the following information about you: Alberto Ng 10/19/2024 4:47 PM Signed calling #[phone] Patient stated he missed a call regarding [...] asked him to have the MRI from [facility] sent to me for review in [...] Status:Closed by ALBERTO NG on 10/21/24 Normal [facility] ANES POSTPROC EVALon 025 ANES POSTPROC EVAL HNO ID: [id number] Author: TITO SEWELL MD Service: ? Author [...] Ervin MD; Tito Sewell MD; David Vora APRN.CATTLE KILLER Responsible Provider: Tito Sewell MD Anesthesia Type: [...] October 13, 2024 TIME: 12:05 PM CSN: [id number] Normal [facility] ANES PRE-OPon 10-13-2024 ANES PRE-OP HNO ID: [id number] Author: TITO SEWELL MD Service: ? Author Type: Anesthesiologist Type: Anesthesia Preprocedure Evaluation Filed: 10/13/2024 10:31 Note Text: ANESTHESIOLOGY DAY OF SURGERY NOTE : 1950 Procedure Information Date/Time: 10/13/24 1100 Scheduled providers: Miguel Angel Ervin MD; Tito Sewell MD; David Vora APRN.CATTLE KILLER Procedure: EGD - THERAPEUTIC, EUS, OR TUBE [...] and consent discussed: yes. Patient / Responsible Libertarian agrees to proceed: yes Patient / Surrogate [...] October 13, 2024 TIME: 10:30 AM CSN: [id number] Normal [facility] CEA, FLUIDon 10-13-2024 CEA, BODY FLUID 31.2 ng/mL Normal [facility] Comment on above: Order Comment: Speci men Type: FLUID SPECIMEN Ordering Facility: [facility] Address: [address] [place] [address] Result Comment: INTE RPRETIVE INFORMATION: Carcinoembryonic Antigen, Fluid The Jannette CEA electrochemiluminescent immunoassay was used. Results obtained with different assay methods or kits cannot be used interchangeably. The CEA assay value, regardless of level, should not be interpreted as evidence for the presence or absence of malignant disease. For information on body fluid reference ranges and/or interpretive guidance visit [email or web address] This test was developed and its performance characteristics determined by [facility]. It has not been cleared or approved by the US Food and Drug Administration. This test was performed in a CLIA certified laboratory and is intended for clinical purposes. Performed By: [facility] [address] [place] [address] Video Tape Duplicator: Aaron Jackson MD, PhD CLIA Number: [id number] Performed By: #### C EANM #### [facility] CLIA [id number] [address] [place], [place] [id number] SOURCE, FLUID Pancreatic Normal [facility] Comment on above: Order Comment: Speci men Type: FLUID SPECIMEN Ordering Facility: [facility] Address: [address] [place] [address] Result Comment: Cyst of Pancreas Performed By: #### C EAFL #### [facility] CLIA [id number] [address] [place] [address] CYTOLOGY NON-GYNon 5 AP DISCLAIMER Normal [facility] Comment on above: Order Comment: Speci men Type: SPECIMEN OBTAINED BY [facility] Ordering Facility: [facility] Address: [address] [place] [address] Result Comment: Garcia palacios Developed Test (LDT) Disclaimer: Performance characteristics of immunohistochemical, immunofluorescent, and chromogenic in-situ hybridization tests have been determined by the performing laboratory within [facility] Pathology and Laboratory Medicine Department ([facility], [facility], [facility], [facility], [facility], [facility], or [facility] [place]) in a manner consistent with CLIA requirements. One or more of these tests may not have been cleared or approved by the FDA. [facility] is regulated under CLIA as qualified to perform high-complexity testing. These tests are used for clinical purposes. These should not be regarded as investigational or for research. Positive and negative controls stain appropriately. Performed By: #### C YTONON #### [facility] CLIA [id number] [address] [place] [address] [place] CASE REPORT Normal [facility] Comment on above: Order Comment: Speci men Type: SPECIMEN OBTAINED BY [facility] Ordering Facility: [facility] Address: [address] [place] [address] Result Comment: [facility] Cytology Report Case: [id number] Authorizing Provider: Miguel Angel Ervin MD Collected: 10/13/2024 11:17 AM Ordering Location: Gastroenterology Received: 10/13/2024 04:03 PM Pathologist: Fiordaliza Armstrong MD Specimen: Pancreas, pancreatic cyst Performed By: #### C YTONON #### [facility] CLIA [id number] [address] [place], [place] [address] [place] CLINICAL HISTORY Pancreatic cyst r/o cancer Normal [facility] Comment on above: Order Comment: Speci men Type: SPECIMEN OBTAINED BY [facility] Ordering Facility: [facility] Address: [address] [place] [address] Performed By: #### C YTONON #### [facility] CLIA [id number] [address] [place], [place] [address] [place] FINAL DIAGNOSIS Normal [facility] Comment on above: Order Comment: Speci men Type: SPECIMEN OBTAINED BY [facility] Ordering Facility: [facility] Address: [address] [place] [address] Result Comment: A - Pancreas, FNA - pancreatic cyst Negative for malignant cells. Cyst contents. No mucin identified on routine stain. at 1052 EDT Performed By: #### C YTONON #### [facility] CLIA [id number] [address] [place] [address] [place] FINAL PERFORMING LAB Normal [facility] Comment on above: Order Comment: Speci men Type: SPECIMEN OBTAINED BY [facility]IRATION Ordering Facility: [facility] Address: [address] [place] [address] Result Comment: Tech nical component, air hammer stripper screening performed at: [facility], [address] [place], [place] [address] CLIA: [id number] Diagnostic interpretation performed at: [facility], [address] [place] [address] [place] [address] CLIA# [id number] Video Tape Duplicator: Zeeshan Liu MD Performed By: #### C YTONON #### [facility] CLIA [id number] [address] [place], [place] [address] [place] GROSS DESCRIPTION A. Pancreas Normal [facility] Comment on above: Order Comment: Speci men Type: SPECIMEN OBTAINED BY [facility]IR[facility] Ordering Facility: [facility] Address: [address] [place] [address] Result Comment: 25 c c hazy red CytoLyt . ThinPrep prepared Performed By: #### C BELEN #### [facility] CLIA [id number] [address] [place] [address] [place] [address] [place] EGD Study observation Narrat iveon 10-13-2024 [facility] Radiology Study observation (narrative) [facility] GLUCOSE, BODY FLUIDon 2024 Glucose (Body fld) [Mass/Vol] 77 mg/dL See Comment [facility] Comment on above: Synovial fluid: Syno vial [...] document C49A. FRANKIE Betancourt: Clinical Laboratory Standards [place]: 2007. Glucose (Body fld) [Mass/Vol ]on 10-13-2024 [facility] Glucose Fld-mCncon Glucose (Body fld) [Mass/Vol] 77 mg/dL Normal See Comment [facility] Comment on above: Order Comment: Speci men Type: FLUID SPECIMEN Ordering Facility: [facility] Address: [address] [place] [address] Result Comment: Syno vial fluid: Synovial fluid [...] document C49A. FRANKIE Betancourt: Clinical Laboratory Standards [place]: 2007. Performed By: #### 2 344-0 #### [facility] CLIA [id number] [address] [place] [address] [place] HISTORY PHYSICALon HISTORY PHYSICAL HNO ID: [id number] Author: MIGUEL ANGEL ERVIN MD Service: Gastroenterology [...] added pain relief. Miguel Angel Ervin MD [facility] NURSING PROGon 10-13-2024 NURSING PROG HNO ID: [id number] Author: ANALIA BOOTHE RN Service: ? Author [...] None Electronically Signed By: Analia Boothe RN [facility] NURSING PROG HNO ID: [id number] Author: CHINA TAFOYA RN Service: Nursing Author [...] By: China Tafoya RN In Department: GASTROENTEROLOGY [facility] NURSING PROGon 10-06-2024 NURSING PROG HNO ID: [id number] Author: PASCUAL FARIAS RN Service: ? Author Type: Registered Nurse Type: Nursing Progress Note Filed: 10/06/2024 12:51 Note Text: Attempted to reach the patient at the contact number that they provided [phone] (home) . 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 education courses they must have a responsible adult accompany [...] Number to call with questions or concerns [phone] Number to call to cancel their procedure [phone] Pascual Farias RN [facility] Joseph 10-05-2024 CNPN Telephone ([facility]) -- DAVID BALDERRAMA ([id number]) 1950 M Date Time Provider Department 10/05/24 [...] EUS, OR TUBE INTERVENTIONS [GI2] Order #: [id number] FUTURE Prescriptions as of 10/06/2024 - buPROPion [...] by MIGUEL ANGEL ERVIN on 10/06/24 Normal [facility] MRI PANCREASon 09-30-2024 MRI PANCREAS ORIGINAL EXAMINATION: [...] 09/30/2024 11:18:39 AM Ordering Provider: AVILA Gill [facility] Urgent Care Visit Reporton 0 09-25-2024 Urgent Care Visit Report [facility] [address], [address] [place] [address] OFFICE VISIT Date of Service: 09/25/24 MR#: [id number] Acct: [id number] Name: DAVID BALDERRAMA Rep #: [id number] : 1950 Provider: ANGELES montaño Age/Sex: 73/M [place] [facility] Status: Signed Intake Vital Signs 02/23/19 06:17 [...] BITE L SHOULDER Chief Complaint: left shoulder Scheduling Agent Required: No Is patient in pain?: Yes [...] (Updated 09/25/24 @ 12:15 by Tito Abad EMERGENCY CARE TECH, EMERGENCY CARE TECH-C) History of prostate cancer History of malignant [...] No 09/25/24 1217 Date Tito Abad NP EMERGENCY CARE TECH-C Cosigner Signature: Date (if applicable) CC: Dr. Josy Zaman, [facility] CT ABDOMEN/PELVIS W/CONTRAST on 09-14-2024 CT ABDOMEN/PELVIS [...] 5 months, constipation, hx colon ca FINDINGS: Uoxg-gq-syybkqju degenerative changes are noted in the spine. [...] 09/14/2024 12:52:48 PM Ordering Provider: AVILA Gill [facility] XR CHEST 2 VIEWSon XR CHEST [...] 09/14/2024 11:01:42 AM Ordering Provider: AVILA Gill [facility] .Auto Diffon 09-13-2024 Basophil, Absolute 0.1 10 3/mcL Normal 0.0-0.3 [facility] Comment on above: Performed By: #### C RP, GFR, CMP, ANEU, PREET, CBC, ADIFF, LIP, ESR #### [address] [address] Basophils/100 WBC (Bld) 0.6 % Normal 0.0-2.5 [facility] Comment on above: Performed By: #### C RP, GFR, CMP, ANEU, PREET, CBC, ADIFF, LIP, ESR #### [address] [address] Eosinophil, Absolute 0.3 10 3/mcL Normal 0.0-0.7 [facility] Comment on above: Performed By: #### C RP, GFR, CMP, ANEU, PREET, CBC, ADIFF, LIP, ESR #### [address] [address] Eosinophils/100 WBC (Bld) 2.7 % Normal 0.0-6.0 [facility] Comment on above: Performed By: #### C RP, GFR, CMP, ANEU, PREET, CBC, ADIFF, LIP, ESR #### [address] [address] Lymphocyte, Absolute 1.9 10 3/mcL Normal 0.9-4.3 [facility] Comment on above: Performed By: #### C RP, GFR, CMP, ANEU, PREET, CBC, ADIFF, LIP, ESR #### [address] [address] Lymphocytes/100 WBC (Bld) 17.8 % Low 20.0-40.0 [facility] Comment on above: Performed By: #### C RP, GFR, CMP, ANEU, PREET, CBC, ADIFF, LIP, ESR #### [address] [address] Monocyte, Absolute 0.9 10 3/mcL Normal 0.1-1.4 [facility] Comment on above: Performed By: #### C RP, GFR, CMP, ANEU, PREET, CBC, ADIFF, LIP, ESR #### [address] [address] Monocytes/100 WBC (Bld) 8.3 % Normal 2.0-13.0 [facility] Comment on above: Performed By: #### C RP, GFR, CMP, ANEU, RPEET, CBC, ADIFF, LIP, ESR #### [address] [address] Neutrophils/100 WBC (Bld) 70.6 % Normal 50.0-75.0 [facility] Comment on above: Performed By: #### C RP, GFR, CMP, ANEU, PREET, CBC, ADIFF, LIP, ESR #### [address] [address] .GFRon 09-13-2024 Estimated Glomerular Filtration Rate 77 ml/min/1.73sqm Normal [facility] Comment on above: Result Comment: Stages [...] CMP, ANEU, PREET, CBC, ADIFF, LIP, ESR ####[address] [address] .NEUABSon 09-13-2024 Neutrophil, Absolute 7.5 10 3/mcL Normal 2.3-8.1 [facility] Comment on above: Performed By: #### C RP, GFR, CMP, ANEU, PREET, CBC, ADIFF, LIP, ESR #### [address] [address] AMYon 09-13-2024 Amylase [Catalytic activity/Vol] 72 U/L Normal 25-115 [facility] Comment on above: Performed By: #### C RP, GFR, CMP, ANEU, PREET, CBC, ADIFF, LIP, ESR #### [place] [address] CBCon 09-13-2024 Erythrocyte distribution width (RBC) [Ratio] 13.6 % Normal 11.5-15.5 [facility] Comment on above: Performed By: #### C RP, GFR, CMP, ANEU, PREET, CBC, ADIFF, LIP, ESR #### [place] [id number] Hematocrit (Bld) [Volume fraction] 42.7 % Normal 40.0-52.0 [facility] Comment on above: Performed By: #### C RP, GFR, CMP, ANEU, PREET, CBC, ADIFF, LIP, ESR #### [place] [id number] Hgb 14.4 G/dL Normal 13.0-17.5 [facility] Comment on above: Performed By: #### C RP, GFR, CMP, ANEU, PREET, CBC, ADIFF, LIP, ESR #### [place] [address] MCH (RBC) [Entitic mass] 31.6 pg Normal 27.0-33.0 [facility] Comment on above: Performed By: #### C RP, GFR, CMP, ANEU, PREET, CBC, ADIFF, LIP, ESR #### [place] [address] MCHC 33.8 G/dL Normal 32.0-36.0 [facility] Comment on above: Performed By: #### C RP, GFR, CMP, ANEU, PREET, CBC, ADIFF, LIP, ESR #### [address] [address] MCV (RBC) [Entitic vol] 93.6 fL Normal 81.0-100.0 [facility] Comment on above: Performed By: #### C RP, GFR, CMP, ANEU, PREET, CBC, ADIFF, LIP, ESR #### [address] [address] Platelet 216 10 3/mcL Normal 150-450 [facility] Comment on above: Performed By: #### C RP, GFR, CMP, ANEU, PREET, CBC, ADIFF, LIP, ESR #### [address] [address] Platelet mean volume (Bld) [Entitic vol] 10.3 fL Normal 6.4-10.5 [facility] Comment on above: Performed By: #### C RP, GFR, CMP, ANEU, PREET, CBC, ADIFF, LIP, ESR #### [address] [address] RBC 4.57 10 6/mcL Normal 4.50-6.00 [facility] Comment on above: Performed By: #### C RP, GFR, CMP, ANEU, PREET, CBC, ADIFF, LIP, ESR #### [address] [address] WBC 10.6 10 3/mcL Normal 4.5-10.8 [facility] Comment on above: Performed By: #### C RP, GFR, CMP, ANEU, PREET, CBC, ADIFF, LIP, ESR #### [address] [address] CMPon 09-13-2024 Albumin Level 4.1 G/dL Normal 3.4-4.8 [facility] Comment on above: Performed By: #### C RP, GFR, CMP, ANEU, PREET, CBC, ADIFF, LIP, ESR ####[facility] [place], [place] [address] Albumin/Globulin [Mass ratio] 1.2 {ratio} Normal 1.1-2.5 [facility] Comment on above: Performed By: #### C RP, GFR, CMP, ANEU, PREET, CBC, ADIFF, LIP, ESR ####[address] [place], [place] [address] ALP [Catalytic activity/Vol] 76 U/L Normal 40-135 [facility] Comment on above: Performed By: #### C RP, GFR, CMP, ANEU, PREET, CBC, ADIFF, LIP, ESR ####[address] [place], [place] [address] ALT [Catalytic activity/Vol] 36 U/L Normal 16-63 [facility] Comment on above: Performed By: #### C RP, GFR, CMP, ANEU, PREET, CBC, ADIFF, LIP, ESR ####[place] [address] [place], [place] [address] AST [Catalytic activity/Vol] 22 U/L Normal 10-40 [facility] Comment on above: Performed By: #### C RP, GFR, CMP, ANEU, PREET, CBC, ADIFF, LIP, ESR ####[address] [place], [place] [address] Bili Total 0.5 mg/dL Normal 0.2-1.0 [facility] Comment on above: Result Comment: Use of this assay is not recommended for patients undergoing treatment with eltrombopag due to the potential for falsely elevated results. Performed By: #### C RP, GFR, CMP, ANEU, PREET, CBC, ADIFF, LIP, ESR ####[facility] [place], [place] [address] BUN/Creatinine Ratio 15 ratio Normal 7-27 [facility] Comment on above: Performed By: #### C RP, GFR, CMP, ANEU, PREET, CBC, ADIFF, LIP, ESR ####[facility] [place], [place] [address] Calcium [Mass/Vol] 9.8 mg/dL Normal 8.4-10.2 [facility] Comment on above: Performed By: #### C RP, GFR, CMP, ANEU, PREET, CBC, ADIFF, LIP, ESR ####[address] [address] Chloride [Moles/Vol] 104 mmol/L Normal 98-107 [facility] Comment on above: Performed By: #### C RP, GFR, CMP, ANEU, PREET, CBC, ADIFF, LIP, ESR ####[address] [address] CO2 [Moles/Vol] 28 mmol/L Normal 23-31 [facility] Comment on above: Performed By: #### C RP, GFR, CMP, ANEU, PREET, CBC, ADIFF, LIP, ESR ####[place] [address] [place], [place] [address] Creatinine [Mass/Vol] 1.03 mg/dL Normal 0.67-1.17 [facility] Comment on above: Performed By: #### C RP, GFR, CMP, ANEU, PREET, CBC, ADIFF, LIP, ESR ####[address] [address] Electrolyte Balance 7.0 mEq/L Normal 4.0-15.0 [facility] Comment on above: Performed By: #### C RP, GFR, CMP, ANEU, PREET, CBC, ADIFF, LIP, ESR ####[address] [address] Globulin 3.5 G/dL Normal 2.7-4.4 [facility] Comment on above: Performed By: #### C RP, GFR, CMP, ANEU, PREET, CBC, ADIFF, LIP, ESR ####[place] [address] [place], [place] [address] Glucose [Mass/Vol] 104 mg/dL Normal 83-110 [facility] Comment on above: Performed By: #### C RP, GFR, CMP, ANEU, PREET, CBC, ADIFF, LIP, ESR ####[address] [address] Potassium [Moles/Vol] 4.4 mmol/L Normal 3.5-5.1 [facility] Comment on above: Performed By: #### C RP, GFR, CMP, ANEU, PREET, CBC, ADIFF, LIP, ESR ####[address] [address] Sodium [Moles/Vol] 139 mmol/L Normal 136-145 [facility] Comment on above: Performed By: #### C RP, GFR, CMP, ANEU, PREET, CBC, ADIFF, LIP, ESR ####[id number] [place], [place] [address] Total Protein 7.6 G/dL Normal 6.4-8.2 [facility] Comment on above: Performed By: #### C RP, GFR, CMP, ANEU, PREET, CBC, ADIFF, LIP, ESR ####[place] [address] Urea nitrogen [Mass/Vol] 15 mg/dL Normal 7-18 [facility] Comment on above: Performed By: #### C RP, GFR, CMP, ANEU, PREET, CBC, ADIFF, LIP, ESR ####[address] [address] CRPon 09-13-2024 C-Reactive Protein 0.2 mg/dL Normal 0.0-0.3 [facility] Comment on above: Performed By: #### C RP, GFR, CMP, ANEU, PREET, CBC, ADIFF, LIP, ESR #### [address] [address] ESRon 09-13-2024 Erythrocyte Sed Rate 21 mm/hr High 0-20 [facility] Comment on above: Performed By: #### C RP, GFR, CMP, ANEU, PREET, CBC, ADIFF, LIP, ESR #### [address] [place], [place] [address] LABORATORYOrdered By: SYSTEM SYSTEM on 09-13-2024 Albumin [...] 09-13-2024 Lipase Level 185 U/L High 16-77 [facility] Comment on above: Performed By: #### C RP, GFR, CMP, ANEU, PREET, CBC, ADIFF, LIP, ESR #### [address] [place], [place] [address] .Auto Diffon 09-02-2024 Basophil, Absolute 0.0 10 3/mcL Normal 0.0-0.3 [facility] Comment on above: Performed By: #### A UYEN, ADIFF, A1C, GFR, CMP, LIP, CBC ####[facility] [place], [place] [address] Basophils/100 WBC (Bld) 0.4 % Normal 0.0-2.5 [facility] Comment on above: Performed By: #### A UYEN, ADIFF, A1C, GFR, CMP, LIP, CBC ####[facility] [place], [place] [address] Eosinophil, Absolute 0.1 10 3/mcL Normal 0.0-0.7 [facility] Comment on above: Performed By: #### A UYEN, ADIFF, A1C, GFR, CMP, LIP, CBC ####[id number] [place], [place] [address] Eosinophils/100 WBC (Bld) 0.5 % Normal 0.0-6.0 [facility] Comment on above: Performed By: #### A UYEN, ADIFF, A1C, GFR, CMP, LIP, CBC ####[address] [address] Lymphocyte, Absolute 1.5 10 3/mcL Normal 0.9-4.3 [facility] Comment on above: Performed By: #### A UYEN, ADIFF, A1C, GFR, CMP, LIP, CBC ####[address] [place], [place] [address] Lymphocytes/100 WBC (Bld) 12.7 % Low 20.0-40.0 [facility] Comment on above: Performed By: #### A UYEN, ADIFF, A1C, GFR, CMP, LIP, CBC ####[address] [address] Monocyte, Absolute 0.8 10 3/mcL Normal 0.1-1.4 [facility] Comment on above: Performed By: #### A UYEN, ADIFF, A1C, GFR, CMP, LIP, CBC ####[address] [address] Monocytes/100 WBC (Bld) 6.6 % Normal 2.0-13.0 [facility] Comment on above: Performed By: #### A UYEN, ADIFF, A1C, GFR, CMP, LIP, CBC ####[address] [address] Neutrophils/100 WBC (Bld) 79.8 % High 50.0-75.0 [facility] Comment on above: Performed By: #### A UYEN, ADIFF, A1C, GFR, CMP, LIP, CBC ####[address] [address] .GFRon 09-02-2024 Estimated Glomerular Filtration Rate 87 ml/min/1.73sqm Normal [facility] Comment on above: Result Comment: Stages [...] UYEN, ADIFF, A1C, GFR, CMP, LIP, CBC ####[address] [place], [place] [address] .NEUABSon 09-02-2024 Neutrophil, Absolute 9.5 10 3/mcL High 2.3-8.1 [facility] Comment on above: Performed By: #### A UYEN, ADIFF, A1C, GFR, CMP, LIP, CBC ####[address] [place], [place] [address] A1Con 09-02-2024 Glucose [Mass/Vol] 117 mg/dL Normal [facility] Comment on above: Result Comment: June mated Average Glucose calculated by equation ((28.7xA1C)-46.7) Estimated average glucose (eAG) is a calculated value from Hemoglobin A1C and is sales representative education courses of the average blood glucose level in the last 2-3 month period. Normal range: less than 114 mg/dL Performed By: #### A UYEN, ADIFF, A1C, GFR, CMP, LIP, CBC ####[id number] [place], [place] [address] HbA1c (Bld) [Mass fraction] 5.7 % Normal 4.3-6.4 [facility] Comment on above: Performed By: #### A UYEN, ADIFF, A1C, GFR, CMP, LIP, CBC ####[address] [place], [place] [address] CBCon 09-02-2024 Erythrocyte distribution width (RBC) [Ratio] 13.9 % Normal 11.5-15.5 [facility] Comment on above: Order Comment: STAT Performed By: #### A UYEN, ADIFF, A1C, GFR, CMP, LIP, CBC ####[address] [address] Hematocrit (Bld) [Volume fraction] 41.9 % Normal 40.0-52.0 [facility] Comment on above: Order Comment: STAT Performed By: #### A UYEN, ADIFF, A1C, GFR, CMP, LIP, CBC ####[address] [address] Hgb 14.1 G/dL Normal 13.0-17.5 [facility] Comment on above: Order Comment: STAT Performed By: #### A UYEN, ADIFF, A1C, GFR, CMP, LIP, CBC ####[place] [id number] MCH (RBC) [Entitic mass] 31.5 pg Normal 27.0-33.0 [facility] Comment on above: Order Comment: STAT Performed By: #### A UYEN, ADIFF, A1C, GFR, CMP, LIP, CBC ####[address] [address] MCHC 33.6 G/dL Normal 32.0-36.0 [facility] Comment on above: Order Comment: STAT Performed By: #### A UYEN, ADIFF, A1C, GFR, CMP, LIP, CBC ####[address] [address] MCV (RBC) [Entitic vol] 93.5 fL Normal 81.0-100.0 [facility] Comment on above: Order Comment: STAT Performed By: #### A UYEN, ADIFF, A1C, GFR, CMP, LIP, CBC ####[address] [address] Platelet 220 10 3/mcL Normal 150-450 [facility] Comment on above: Order Comment: STAT Performed By: #### A UYEN, ADIFF, A1C, GFR, CMP, LIP, CBC ####[address] [place], [place] [address] Platelet mean volume (Bld) [Entitic vol] 9.1 fL Normal 6.4-10.5 [facility] Comment on above: Order Comment: STAT Performed By: #### A UYEN, ADIFF, A1C, GFR, CMP, LIP, CBC ####[address] [place], [place] [address] RBC 4.49 10 6/mcL Low 4.50-6.00 [facility] Comment on above: Order Comment: STAT Performed By: #### A UYEN, ADIFF, A1C, GFR, CMP, LIP, CBC ####[address] [place], [place] [address] WBC 11.9 10 3/mcL High 4.5-10.8 [facility] Comment on above: Order Comment: STAT Performed By: #### A UYEN, ADIFF, A1C, GFR, CMP, LIP, CBC ####[address] [place], [place] [address] CMPon 09-02-2024 Albumin Level 4.0 G/dL Normal 3.4-4.8 [facility] Comment on above: Order Comment: STAT Performed By: #### A UYEN, ADIFF, A1C, GFR, CMP, LIP, CBC ####[address] [place], [place] [address] Albumin/Globulin [Mass ratio] 1.1 {ratio} Normal 1.1-2.5 [facility] Comment on above: Order Comment: STAT Performed By: #### A UYEN, ADIFF, A1C, GFR, CMP, LIP, CBC ####[facility] [place], [place] [address] ALP [Catalytic activity/Vol] 84 U/L Normal 40-135 [facility] Comment on above: Order Comment: STAT Performed By: #### A UYEN, ADIFF, A1C, GFR, CMP, LIP, CBC ####[facility] [place], [place] [address] ALT [Catalytic activity/Vol] 35 U/L Normal 16-63 [facility] Comment on above: Order Comment: STAT Performed By: #### A UYEN, ADIFF, A1C, GFR, CMP, LIP, CBC ####[address] [address] AST [Catalytic activity/Vol] 20 U/L Normal 10-40 [facility] Comment on above: Order Comment: STAT Performed By: #### A UYEN, ADIFF, A1C, GFR, CMP, LIP, CBC ####[address] [address] Bili Total 0.6 mg/dL Normal 0.2-1.0 [facility] Comment on above: Order Comment: STAT Result Comment: Use of this assay is not recommended for patients undergoing treatment with eltrombopag due to the potential for falsely elevated results. Performed By: #### A UYEN, ADIFF, A1C, GFR, CMP, LIP, CBC ####[place] [address] BUN/Creatinine Ratio 15 ratio Normal 7-27 [facility] Comment on above: Order Comment: STAT Performed By: #### A UYEN, ADIFF, A1C, GFR, CMP, LIP, CBC ####[address] [address] Calcium [Mass/Vol] 9.9 mg/dL Normal 8.4-10.2 [facility] Comment on above: Order Comment: STAT Performed By: #### A UYEN, ADIFF, A1C, GFR, CMP, LIP, CBC ####[address] [address] Chloride [Moles/Vol] 104 mmol/L Normal 98-107 [facility] Comment on above: Order Comment: STAT Performed By: #### A UYEN, ADIFF, A1C, GFR, CMP, LIP, CBC ####[address] [place], [place] [address] CO2 [Moles/Vol] 30 mmol/L Normal 23-31 [facility] Comment on above: Order Comment: STAT Performed By: #### A UYEN, ADIFF, A1C, GFR, CMP, LIP, CBC ####[address] [place], [place] [address] Creatinine [Mass/Vol] 0.93 mg/dL Normal 0.67-1.17 [facility] Comment on above: Order Comment: STAT Performed By: #### A UYEN, ADIFF, A1C, GFR, CMP, LIP, CBC ####[address] [place], [place] [address] Electrolyte Balance 5.0 mEq/L Normal 4.0-15.0 [facility] Comment on above: Order Comment: STAT Performed By: #### A UYEN, ADIFF, A1C, GFR, CMP, LIP, CBC ####[address] [place], [place] [address] Globulin 3.6 G/dL Normal 2.7-4.4 [facility] Comment on above: Order Comment: STAT Performed By: #### A UYEN, ADIFF, A1C, GFR, CMP, LIP, CBC ####[address] [address] Glucose [Mass/Vol] 137 mg/dL High 83-110 [facility] Comment on above: Order Comment: STAT Performed By: #### A UYEN, ADIFF, A1C, GFR, CMP, LIP, CBC ####[address] [place], [place] [address] Potassium [Moles/Vol] 4.4 mmol/L Normal 3.5-5.1 [facility] Comment on above: Order Comment: STAT Performed By: #### A UYEN, ADIFF, A1C, GFR, CMP, LIP, CBC ####[address] [place], [place] [address] Sodium [Moles/Vol] 139 mmol/L Normal 136-145 [facility] Comment on above: Order Comment: STAT Performed By: #### A UYEN, ADIFF, A1C, GFR, CMP, LIP, CBC ####[id number] [place], [place] [address] Total Protein 7.6 G/dL Normal 6.4-8.2 [facility] Comment on above: Order Comment: STAT Performed By: #### A UYEN, ADIFF, A1C, GFR, CMP, LIP, CBC ####[address] [place], [place] [address] Urea nitrogen [Mass/Vol] 14 mg/dL Normal 7-18 [facility] Comment on above: Order Comment: STAT Performed By: #### A UYEN, ADIFF, A1C, GFR, CMP, LIP, CBC ####[address] [place], [place] [address] LIPon 09-02-2024 Lipase Level >375 High 16-77 [facility] Comment on above: Order Comment: STAT Performed By: #### A UYEN, ADIFF, A1C, GFR, CMP, LIP, CBC ####[address] [place], [place] [address] HFPon 06-29-2024 Bili Indirect 0.8 mg/dL Normal [facility] Comment on above: Performed By: #### L IP, HFP ####[address] [place], [place] [address] Albumin Level 4.2 G/dL Normal 3.4-4.8 [facility] Comment on above: Performed By: #### L IP, HFP ####[address] [place], [place] [address] Albumin/Globulin [Mass ratio] 1.2 {ratio} Normal 1.1-2.5 [facility] Comment on above: Performed By: #### L IP, HFP ####[address] [place], [place] [address] ALP [Catalytic activity/Vol] 84 U/L Normal 40-135 [facility] Comment on above: Performed By: #### L IP, HFP ####[address] [place], [place] [address] ALT [Catalytic activity/Vol] 53 U/L Normal 16-63 [facility] Comment on above: Performed By: #### L IP, HFP ####[address] [place], [place] [address] AST [Catalytic activity/Vol] 30 U/L Normal 10-40 [facility] Comment on above: Performed By: #### L IP, HFP ####[address] [place], [place] [address] Bili Direct 0.2 mg/dL Normal 0.0-0.2 [facility] Comment on above: Result Comment: Use of this assay is not recommended for patients undergoing treatment with eltrombopag due to the potential for falsely elevated results. Performed By: #### L IP, HFP ####[address] [place], [place] [address] Bili Total 1.0 mg/dL Normal 0.2-1.0 [facility] Comment on above: Result Comment: Use of this assay is not recommended for patients undergoing treatment with eltrombopag due to the potential for falsely elevated results. Performed By: #### L IP, HFP ####[address] [place], [place] [address] Globulin 3.5 G/dL Normal 1.5-3.8 [facility] Comment on above: Performed By: #### L IP, HFP ####[address] [place], [place] [address] Total Protein 7.7 G/dL Normal 6.4-8.2 [facility] Comment on above: Performed By: #### L IP, HFP ####[address] [place], [place] [address] LIPon 06-29-2024 Lipase Level 203 U/L High 16-77 [facility] Comment on above: Performed By: #### L IP, HFP ####[address] [place], [place] [address] .Auto Diffon 03-24-2024 Basophil, Absolute 0.1 10 3/mcL Normal 0.0-0.2 [facility] Comment on above: Performed By: #### C MP, PSA, ANEU, ADIFF, CBC, LIPID, GFR ####[address] [place], [place] [address] Basophils/100 WBC (Bld) 0.9 % Normal 0.0-2.5 [facility] Comment on above: Performed By: #### C MP, PSA, ANEU, ADIFF, CBC, LIPID, GFR ####[facility] [place], [place] [address] Eosinophil, Absolute 0.2 10 3/mcL Normal 0.0-0.7 [facility] Comment on above: Performed By: #### C MP, PSA, ANEU, ADIFF, CBC, LIPID, GFR ####[address] [address] Eosinophils/100 WBC (Bld) 3.1 % Normal 0.0-7.0 [facility] Comment on above: Performed By: #### C MP, PSA, ANEU, ADIFF, CBC, LIPID, GFR ####[address] [place], [place] [address] Lymphocyte, Absolute 2.2 10 3/mcL Normal 0.9-4.3 [facility] Comment on above: Performed By: #### C MP, PSA, ANEU, ADIFF, CBC, LIPID, GFR ####[address] [address] Lymphocytes/100 WBC (Bld) 27.9 % Normal 20.0-40.0 [facility] Comment on above: Performed By: #### C MP, PSA, ANEU, ADIFF, CBC, LIPID, GFR ####[address] [place], [place] [address] Monocyte, Absolute 0.7 10 3/mcL Normal 0.1-1.4 [facility] Comment on above: Performed By: #### C MP, PSA, ANEU, ADIFF, CBC, LIPID, GFR ####[address] [address] Monocytes/100 WBC (Bld) 8.4 % Normal 2.0-13.0 [facility] Comment on above: Performed By: #### C MP, PSA, ANEU, ADIFF, CBC, LIPID, GFR ####[address] [address] Neutrophils/100 WBC (Bld) 59.7 % Normal 50.0-75.0 [facility] Comment on above: Performed By: #### C MP, PSA, ANEU, ADIFF, CBC, LIPID, GFR ####[address] [place], [place] [address] .GFRon 03-24-2024 GFR 77 ml/min/1.73sqm Normal [facility] Comment on above: Result Comment: GFR [...] MP, PSA, ANEU, ADIFF, CBC, LIPID, GFR ####[facility] [place], [place] [address] GFR Non- 64 ml/min/1.73sqm Normal [facility] Comment on above: Result Comment: GFR [...] PSA, ANEU, ADIFF, CBC, LIPID, GFR ####[address] [place], [place] [address] .NEUABSon 03-24-2024 Neutrophil, Absolute 4.7 10 3/mcL Normal 2.3-8.1 [facility] Comment on above: Performed By: #### C MP, PSA, ANEU, ADIFF, CBC, LIPID, GFR ####[facility] [place], [place] [address] CBCon 03-24-2024 Erythrocyte distribution width (RBC) [Ratio] 13.3 % Normal 11.5-15.5 [facility] Comment on above: Performed By: #### C MP, PSA, ANEU, ADIFF, CBC, LIPID, GFR ####[address] [address] Hematocrit (Bld) [Volume fraction] 42.7 % Normal 40.0-52.0 [facility] Comment on above: Performed By: #### C MP, PSA, ANEU, ADIFF, CBC, LIPID, GFR ####[place] [id number] Hgb 14.6 G/dL Normal 13.0-17.5 [facility] Comment on above: Performed By: #### C MP, PSA, ANEU, ADIFF, CBC, LIPID, GFR ####[address] [address] MCH (RBC) [Entitic mass] 32.0 pg Normal 27.0-33.0 [facility] Comment on above: Performed By: #### C MP, PSA, ANEU, ADIFF, CBC, LIPID, GFR ####[place] [id number] MCHC 34.3 G/dL Normal 32.0-36.0 [facility] Comment on above: Performed By: #### C MP, PSA, ANEU, ADIFF, CBC, LIPID, GFR ####[address] [address] MCV (RBC) [Entitic vol] 93.4 fL Normal 81.0-100.0 [facility] Comment on above: Performed By: #### C MP, PSA, ANEU, ADIFF, CBC, LIPID, GFR ####[address] [place], [place] [address] Platelet 173 10 3/mcL Normal 150-450 [facility] Comment on above: Performed By: #### C MP, PSA, ANEU, ADIFF, CBC, LIPID, GFR ####[address] [place], [place] [address] Platelet mean volume (Bld) [Entitic vol] 9.8 fL Normal 6.4-10.5 [facility] Comment on above: Performed By: #### C MP, PSA, ANEU, ADIFF, CBC, LIPID, GFR ####[address] [place], [place] [address] RBC 4.58 10 6/mcL Normal 4.50-6.00 [facility] Comment on above: Performed By: #### C MP, PSA, ANEU, ADIFF, CBC, LIPID, GFR ####[address] [place], [place] [address] WBC 7.9 10 3/mcL Normal 4.5-10.8 [facility] Comment on above: Performed By: #### C MP, PSA, ANEU, ADIFF, CBC, LIPID, GFR ####[facility] [place], [place] [address] CMPon 03-24-2024 Albumin Level 4.0 G/dL Normal 3.4-4.8 [facility] Comment on above: Performed By: #### C MP, PSA, ANEU, ADIFF, CBC, LIPID, GFR ####[address] [place], [place] [address] Albumin/Globulin [Mass ratio] 1.4 {ratio} Normal 1.1-2.5 [facility] Comment on above: Performed By: #### C MP, PSA, ANEU, ADIFF, CBC, LIPID, GFR ####[address] [place], [place] [address] ALP [Catalytic activity/Vol] 81 U/L Normal 40-135 [facility] Comment on above: Performed By: #### C MP, PSA, ANEU, ADIFF, CBC, LIPID, GFR ####[address] [address] ALT [Catalytic activity/Vol] 71 U/L High 16-63 [facility] Comment on above: Performed By: #### C MP, PSA, ANEU, ADIFF, CBC, LIPID, GFR ####[address] [address] AST [Catalytic activity/Vol] 39 U/L Normal 10-40 [facility] Comment on above: Performed By: #### C MP, PSA, ANEU, ADIFF, CBC, LIPID, GFR ####[address] [address] Bili Total 0.6 mg/dL Normal 0.2-1.0 [facility] Comment on above: Result Comment: Use of this assay is not recommended for patients undergoing treatment with eltrombopag due to the potential for falsely elevated results. Performed By: #### C MP, PSA, ANEU, ADIFF, CBC, LIPID, GFR ####[address] [address] BUN/Creatinine Ratio 15 ratio Normal 7-27 [facility] Comment on above: Performed By: #### C MP, PSA, ANEU, ADIFF, CBC, LIPID, GFR ####[address] [address] Calcium [Mass/Vol] 9.7 mg/dL Normal 8.4-10.2 [facility] Comment on above: Performed By: #### C MP, PSA, ANEU, ADIFF, CBC, LIPID, GFR ####[address] [address] Chloride [Moles/Vol] 105 mmol/L Normal 98-107 [facility] Comment on above: Performed By: #### C MP, PSA, ANEU, ADIFF, CBC, LIPID, GFR ####[address] [address] CO2 [Moles/Vol] 27 mmol/L Normal 23-31 [facility] Comment on above: Performed By: #### C MP, PSA, ANEU, ADIFF, CBC, LIPID, GFR ####[address] [address] Creatinine [Mass/Vol] 1.13 mg/dL Normal 0.70-1.30 [facility] Comment on above: Result Comment: Test ing performed on Siemens Dimension EXL analyzer using a modified kinetic Audra technique. Performed By: #### C MP, PSA, ANEU, ADIFF, CBC, LIPID, GFR ####[address] [address] Electrolyte Balance 8.0 mEq/L Normal 4.0-15.0 [facility] Comment on above: Performed By: #### C MP, PSA, ANEU, ADIFF, CBC, LIPID, GFR ####[address] [address] Globulin 2.9 G/dL Normal [facility] Comment on above: Performed By: #### C MP, PSA, ANEU, ADIFF, CBC, LIPID, GFR ####[address] [address] Glucose [Mass/Vol] 117 mg/dL High 83-110 [facility] Comment on above: Performed By: #### C MP, PSA, ANEU, ADIFF, CBC, LIPID, GFR ####[address] [address] Potassium [Moles/Vol] 4.7 mmol/L Normal 3.5-5.1 [facility] Comment on above: Performed By: #### C MP, PSA, ANEU, ADIFF, CBC, LIPID, GFR ####[address] [address] Sodium [Moles/Vol] 140 mmol/L Normal 136-145 [facility] Comment on above: Performed By: #### C MP, PSA, ANEU, ADIFF, CBC, LIPID, GFR ####[address] [address] Total Protein 6.9 G/dL Normal 6.4-8.2 [facility] Comment on above: Performed By: #### C MP, PSA, ANEU, ADIFF, CBC, LIPID, GFR ####[address] [place], [place] [address] Urea nitrogen [Mass/Vol] 17 mg/dL Normal 7-18 [facility] Comment on above: Performed By: #### C MP, PSA, ANEU, ADIFF, CBC, LIPID, GFR ####[facility] [place], [place] [address] LABORATORYOrdered By: SYSTEM SYSTEM on 03-24-2024 Albumin [...] 03-24-2024 Cholesterol [Mass/Vol] 107 mg/dL Normal 0-200 [facility] Comment on above: Result Comment: Chol esterol Reference Interval: Less than 200 Desirable 200-239 Borderline high risk 240 and above High risk Performed By: #### C MP, PSA, ANEU, ADIFF, CBC, LIPID, GFR ####[place] [id number] [place], [place] [address] Cholesterol in HDL [Mass/Vol] 37 mg/dL Low 40-60 [facility] Comment on above: Performed By: #### C MP, PSA, ANEU, ADIFF, CBC, LIPID, GFR ####[facility] [place], [place] [address] Cholesterol in LDL [Mass/Vol] 50 mg/dL Normal 0-130 [facility] Comment on above: Performed By: #### C MP, PSA, ANEU, ADIFF, CBC, LIPID, GFR ####[facility] [place], [place] [address] Triglyceride [Mass/Vol] 101 mg/dL Normal 0-150 [facility] Comment on above: Result Comment: Trig lyceride Reference Interval: Less than 150 Normal 150-199 Borderline high risk 200-499 High risk 500 or higher Very high risk Performed By: #### C MP, PSA, ANEU, ADIFF, CBC, LIPID, GFR ####[address] [place], [place] [address] PSAon 03-24-2024 Prostate Specific Antigen 0.21 ng/mL Normal 0.00-4.00 [facility] Comment on above: Performed By: #### C MP, PSA, ANEU, ADIFF, CBC, LIPID, GFR ####[address] [place], [place] [address] .GFRon 09-18-2023 GFR 74 ml/min/1.73sqm Normal [facility] ([place]) Comment on above: Result Comment: GFR Population [...] Performed By: #### G FR, BMP #### [place] [address] [place], [place] [address] #### HCV1 #### [address] [address] GFR Non- 61 ml/min/1.73sqm Normal [facility] ([place]) Comment on above: Result Comment: GFR Population [...] Performed By: #### G FR, BMP #### [address] [address] #### HCV1 #### [address] [address] BMPon 09-18-2023 BUN/Creatinine Ratio 15 ratio Normal 7-27 [facility] ([place]) Comment on above: Performed By: #### Beth PEARSON, BMP #### [place] [address] #### HCV1 #### [address] [address] Calcium [Mass/Vol] 9.6 mg/dL Normal 8.4-10.2 [facility] ([place]) Comment on above: Performed By: #### Beth FR, BMP #### [place] [address] #### HCV1 #### [address] [address] Chloride [Moles/Vol] 105 mmol/L Normal 98-107 [facility] ([place]) Comment on above: Performed By: #### Beth PEARSON, BMP #### [place] [address] #### HCV1 #### [address] [address] CO2 [Moles/Vol] 31 mmol/L Normal 23-31 [facility] ([place]) Comment on above: Performed By: #### Beth FR, BMP #### [address] [address] #### HCV1 #### [address] [address] Creatinine [Mass/Vol] 1.17 mg/dL Normal 0.70-1.30 [facility] ([place]) Comment on above: Performed By: #### G FR, BMP #### [address] [address] #### HCV1 #### [address] [address] Electrolyte Balance 7.0 mEq/L Normal 4.0-15.0 [facility] ([place]) Comment on above: Performed By: #### G FR, BMP #### [place] [address] #### HCV1 #### [address] [address] Glucose [Mass/Vol] 151 mg/dL High 83-110 [facility] ([place]) Comment on above: Performed By: #### G FR, BMP #### [place] [address] #### HCV1 #### [address] [address] Potassium [Moles/Vol] 5.3 mmol/L High 3.5-5.1 [facility] ([place]) Comment on above: Performed By: #### Beth FR, BMP #### [place] [address] #### HCV1 #### [address] [address] [address] Sodium [Moles/Vol] 143 mmol/L Normal 136-145 [facility] ([place]) Comment on above: Performed By: #### G FR, BMP #### [place] [address] #### HCV1 #### [address] [address] Urea nitrogen [Mass/Vol] 18 mg/dL Normal 7-18 [facility] ([place]) Comment on above: Performed By: #### G FR, BMP #### [place] [id number] #### HCV1 #### [address] [address] HCVon 09-18-2023 Hep C Ab Non-Reactive Normal Non-Reactiv e [facility] ([place]) Comment on above: Performed By: #### G FR BMP #### [address] [address] #### HCV1 #### [place] [address] Hep C Ab Int Normal [facility] ([place]) Comment on above: Result Comment: Nonr eactive: Samples with a value < 0.80 are considered nonreactive (negative) for antibodies to HCV. A negative test result does not exclude the possibility of exposure to or infection with HCV. HCV antibodies may be undetectable in some stages of the infection and in some clinical conditions. See Interp Performed By: #### G FR BMP #### [place] [id number] #### HCV1 #### [address] [address] LABORATORYOrdered By: Andrew Roberts on 09-17-2023 Albumin DL <= 20 mg/L (U) [Mass/Vol] 1318 mcg/dL Invalid Interpretation Code AO ADM SS Albumin/Creatinine DL <= 20 mg/L (U) [Mass ratio] 11 mcg/mg Normal 0 - 30 mcg/mg AO ADM SS Creatinine (U) [Mass/Vol] 122.7 mg/dL Normal 39.0 - 259.0 mg/dL AO ADM SS MALBRon 09-17-2023 U Creatinine 122.7 mg/dL Normal 39.0-259.0 [facility] ([place]) Comment on above: Performed By: #### M ALBR #### [address] [address] U Microalb 1318 mcg/dL Normal [facility] ([place]) Comment on above: Performed By: #### M ALBR #### [address] [address] U Ratio Alb/Cre 11 mcg/mg Normal 0-30 [facility] ([place]) Comment on above: Performed By: #### M ALBR #### [address] [address] HFPon 08-14-2023 Bili Indirect 0.7 mg/dL Normal [facility] ([place]) Comment on above: Performed By: #### Beth FR, BMP #### [address] [address] #### HCV1 #### [place] [address] Albumin Level 4.5 G/dL Normal 3.4-4.8 [facility] ([place]) Comment on above: Performed By: #### Beth FR, BMP #### [place] [id number] #### HCV1 #### [place] [address] Albumin/Globulin [Mass ratio] 1.4 {ratio} Normal 1.1-2.5 [facility] ([place]) Comment on above: Performed By: #### Beth FR, BMP #### [place] [address] #### HCV1 #### [address] [address] ALP [Catalytic activity/Vol] 77 U/L Normal 40-135 [facility] ([place]) Comment on above: Performed By: #### Beth FR, BMP #### [address] [address] #### HCV1 #### [address] [address] ALT [Catalytic activity/Vol] 58 U/L Normal 16-63 [facility] ([place]) Comment on above: Performed By: #### Beth FR, BMP #### [address] [address] #### HCV1 #### [address] [address] AST [Catalytic activity/Vol] 28 U/L Normal 10-40 [facility] ([place]) Comment on above: Performed By: #### Beth FR, BMP #### [place] [id number] #### HCV1 #### [address] [address] Bili Direct 0.2 mg/dL Normal 0.0-0.2 [facility] ([place]) Comment on above: Result Comment: Use of this assay is not recommended for patients undergoing treatment with eltrombopag due to the potential for falsely elevated results. Performed By: #### G FR, BMP #### [address] [address] #### HCV1 #### [place] [address] Bili Total 0.9 mg/dL Normal 0.2-1.0 [facility] ([place]) Comment on above: Result Comment: Use of this assay is not recommended for patients undergoing treatment with eltrombopag due to the potential for falsely elevated results. Performed By: #### G , BMP #### [address] [address] #### HCV1 #### [place] [address] Globulin 3.2 G/dL Normal [facility] ([place]) Comment on above: Performed By: #### G , BMP #### [place] [address] #### HCV1 #### [place] [address] Total Protein 7.7 G/dL Normal 6.4-8.2 [facility] ([place]) Comment on above: Performed By: #### G FR, BMP #### [place] [address] #### HCV1 #### [place] [address] LABORATORYOrdered By: SYSTEM SYSTEM on 08-14-2023 Albumin [...] Level 193 U/L High 16-77 [facility] ([place]) Comment on above: Performed By: #### G FR, BMP #### [address] [address] #### HCV1 #### [address] [address] .Auto Diffon 03-17-2023 Basophil, Absolute 0.0 10 3/mcL Normal 0.0-0.2 [facility] ([place]) Comment on above: Performed By: #### P SA, ADIFF, GFR, LIPID, ANEU, CMP, CBC #### [address] [address] Basophils/100 WBC (Bld) 0.5 % Normal 0.0-2.5 [facility] ([place]) Comment on above: Performed By: #### P SA, ADIFF, GFR, LIPID, ANEU, CMP, CBC #### [address] [address] Eosinophil, Absolute 0.3 10 3/mcL Normal 0.0-0.4 [facility] ([place]) Comment on above: Performed By: #### P SA, ADIFF, GFR, LIPID, ANEU, CMP, CBC #### [address] [address] Eosinophils/100 WBC (Bld) 2.6 % Normal 0.0-7.0 [facility] ([place]) Comment on above: Performed By: #### P SA, ADIFF, GFR, LIPID, ANEU, CMP, CBC #### [address] [address] Lymphocyte, Absolute 2.8 10 3/mcL Normal 0.8-3.9 [facility] ([place]) Comment on above: Performed By: #### P SA, ADIFF, GFR, LIPID, ANEU, CMP, CBC #### [address] [address] Lymphocytes/100 WBC (Bld) 28.6 % Normal 10.0-50.0 [facility] ([place]) Comment on above: Performed By: #### P SA, ADIFF, GFR, LIPID, ANEU, CMP, CBC #### [address] [address] Monocyte, Absolute 0.8 10 3/mcL Normal 0.2-1.0 [facility] ([place]) Comment on above: Performed By: #### P SA, ADIFF, GFR, LIPID, ANEU, CMP, CBC #### [address] [address] Monocytes/100 WBC (Bld) 8.5 % Normal 1.7-13.0 [facility] ([place]) Comment on above: Performed By: #### P SA, ADIFF, GFR, LIPID, ANEU, CMP, CBC #### [address] [address] Neutrophils/100 WBC (Bld) 59.8 % Normal 37.0-80.0 [facility] ([place]) Comment on above: Performed By: #### P SA, ADIFF, GFR, LIPID, ANEU, CMP, CBC #### [address] [address] .GFRon 03-17-2023 GFR 64 ml/min/1.73sqm Normal [facility] ([place]) Comment on above: Result Comment: GFR Population [...] ADIFF, GFR, LIPID, ANEU, CMP, CBC #### [address] [address] GFR Non- 52 ml/min/1.73sqm Normal [facility] ([place]) Comment on above: Result Comment: GFR Population [...] ADIFF, GFR, LIPID, ANEU, CMP, CBC #### [address] [address] .NEUABSon 03-17-2023 Neutrophil, Absolute 5.8 10 3/mcL Normal 2.9-6.2 [facility] ([place]) Comment on above: Performed By: #### P SA, ADIFF, GFR, LIPID, ANEU, CMP, CBC #### [address] [address] CBCon 03-17-2023 Erythrocyte distribution width (RBC) [Ratio] 13.3 % Normal 11.5-14.5 [facility] ([place]) Comment on above: Performed By: #### P SA, ADIFF, GFR, LIPID, ANEU, CMP, CBC #### [place] [address] Hematocrit (Bld) [Volume fraction] 43.7 % Normal 42.0-52.0 [facility] ([place]) Comment on above: Performed By: #### P SA, ADIFF, GFR, LIPID, ANEU, CMP, CBC #### [place] [id number] Hgb 14.6 G/dL Normal 14.0-18.0 [facility] ([place]) Comment on above: Performed By: #### P SA, ADIFF, GFR, LIPID, ANEU, CMP, CBC #### [address] [address] MCH (RBC) [Entitic mass] 31.2 pg Normal 27.0-31.2 [facility] ([place]) Comment on above: Performed By: #### P SA, ADIFF, GFR, LIPID, ANEU, CMP, CBC #### [address] [address] MCHC 33.4 G/dL Normal 31.8-35.4 [facility] ([place]) Comment on above: Performed By: #### P SA, ADIFF, GFR, LIPID, ANEU, CMP, CBC #### [address] [address] MCV (RBC) [Entitic vol] 93.3 fL Normal 80.0-94.0 [facility] ([place]) Comment on above: Performed By: #### P SA, ADIFF, GFR, LIPID, ANEU, CMP, CBC #### [place] [id number] Platelet 219 10 3/mcL Normal 130-400 [facility] ([place]) Comment on above: Performed By: #### P SA, ADIFF, GFR, LIPID, ANEU, CMP, CBC #### [address] [address] Platelet mean volume (Bld) [Entitic vol] 9.5 fL Normal 7.4-10.4 [facility] ([place]) Comment on above: Performed By: #### P SA, ADIFF, GFR, LIPID, ANEU, CMP, CBC #### [address] [address] RBC 4.68 10 6/mcL Normal 4.04-6.13 [facility] ([place]) Comment on above: Performed By: #### P SA, ADIFF, GFR, LIPID, ANEU, CMP, CBC #### [address] [address] WBC 9.7 10 3/mcL Normal 4.6-10.8 [facility] ([place]) Comment on above: Performed By: #### P SA, ADIFF, GFR, LIPID, ANEU, CMP, CBC #### [address] [address] CMPon 03-17-2023 Albumin Level 4.2 G/dL Normal 3.4-4.8 [facility]) Comment on above: Performed By: #### P SA, ADIFF, GFR, LIPID, ANEU, CMP, CBC #### [address] [address] Albumin/Globulin [Mass ratio] 1.2 {ratio} Normal 1.1-2.5 [facility]) Comment on above: Performed By: #### P SA, ADIFF, GFR, LIPID, ANEU, CMP, CBC #### [address] [address] ALP [Catalytic activity/Vol] 77 U/L Normal 40-135 [facility]) Comment on above: Performed By: #### P SA, ADIFF, GFR, LIPID, ANEU, CMP, CBC #### [address] [address] ALT [Catalytic activity/Vol] 73 U/L High 16-63 [facility] ([place]) Comment on above: Performed By: #### P SA, ADIFF, GFR, LIPID, ANEU, CMP, CBC #### [address] [address] AST [Catalytic activity/Vol] 34 U/L Normal 10-40 [facility] ([place]) Comment on above: Performed By: #### P SA, ADIFF, GFR, LIPID, ANEU, CMP, CBC #### [address] [address] Bili Total 0.5 mg/dL Normal 0.2-1.0 [facility] ([place]) Comment on above: Result Comment: Use of this assay is not recommended for patients undergoing treatment with eltrombopag due to the potential for falsely elevated results. Performed By: #### P SA, ADIFF, GFR, LIPID, ANEU, CMP, CBC #### [address] [address] BUN/Creatinine Ratio 15 ratio Normal 7-27 [facility] ([place]) Comment on above: Performed By: #### P SA, ADIFF, GFR, LIPID, ANEU, CMP, CBC #### [address] [address] Calcium [Mass/Vol] 10.1 mg/dL Normal 8.4-10.2 [facility] ([place]) Comment on above: Performed By: #### P SA, ADIFF, GFR, LIPID, ANEU, CMP, CBC #### [address] [address] Chloride [Moles/Vol] 103 mmol/L Normal 98-107 [facility] ([place]) Comment on above: Performed By: #### P SA, ADIFF, GFR, LIPID, ANEU, CMP, CBC #### [address] [address] CO2 [Moles/Vol] 27 mmol/L Normal 23-31 [facility] ([place]) Comment on above: Performed By: #### P SA, ADIFF, GFR, LIPID, ANEU, CMP, CBC #### [address] [address] Creatinine [Mass/Vol] 1.34 mg/dL High 0.70-1.30 [facility] ([place]) Comment on above: Performed By: #### P SA, ADIFF, GFR, LIPID, ANEU, CMP, CBC #### [address] [address] Electrolyte Balance 13.0 mEq/L Normal 4.0-15.0 [facility] ([place]) Comment on above: Performed By: #### P SA, ADIFF, GFR, LIPID, ANEU, CMP, CBC #### [address] [address] Globulin 3.5 G/dL Normal [facility] ([place]) Comment on above: Performed By: #### P SA, ADIFF, GFR, LIPID, ANEU, CMP, CBC #### [address] [address] Glucose [Mass/Vol] 116 mg/dL High 83-110 [facility] ([place]) Comment on above: Performed By: #### P SA, ADIFF, GFR, LIPID, ANEU, CMP, CBC #### [address] [address] Potassium [Moles/Vol] 4.9 mmol/L Normal 3.5-5.1 [facility] ([place]) Comment on above: Performed By: #### P SA, ADIFF, GFR, LIPID, ANEU, CMP, CBC #### [address] [address] Sodium [Moles/Vol] 143 mmol/L Normal 136-145 [facility] ([place]) Comment on above: Performed By: #### P SA, ADIFF, GFR, LIPID, ANEU, CMP, CBC #### [address] [address] Total Protein 7.7 G/dL Normal 6.4-8.2 [facility] ([place]) Comment on above: Performed By: #### P SA, ADIFF, GFR, LIPID, ANEU, CMP, CBC #### [address] [address] Urea nitrogen [Mass/Vol] 20 mg/dL High 7-18 [facility] ([place]) Comment on above: Performed By: #### P SA, ADIFF, GFR, LIPID, ANEU, CMP, CBC #### [address] [address] LIPIDon 03-17-2023 Cholesterol [Mass/Vol] 120 mg/dL Normal 0-200 [facility] ([place]) Comment on above: Result Comment: Chol esterol Reference Interval: Less than 200 Desirable 200-239 Borderline high risk 240 and above High risk Performed By: #### G FR, BMP #### [address] [address] #### HCV1 #### [address] [address] Cholesterol in HDL [Mass/Vol] 37 mg/dL Low 40-60 [facility] ([place]) Comment on above: Performed By: #### G FR, BMP #### [address] [address] #### HCV1 #### [address] [address] Cholesterol in LDL [Mass/Vol] 57 mg/dL Normal 0-130 [facility] ([place]) Comment on above: Performed By: #### G FR, BMP #### [place] [address] #### HCV1 #### [address] [address] Triglyceride [Mass/Vol] 129 mg/dL Normal 0-150 [facility] ([place]) Comment on above: Result Comment: Trig lyceride Reference Interval: Less than 150 Normal 150-199 Borderline high risk 200-499 High risk 500 or higher Very high risk Performed By: #### G FR, BMP #### [address] [address] #### HCV1 #### [address] [address] PSAon 03-17-2023 Prostate Specific Antigen 0.05 ng/mL Normal 0.00-4.00 [facility] ([place]) Comment on above: Performed By: #### P SA, ADIFF, GFR, LIPID, ANEU, CMP, CBC #### [place] [address] [place], [place] [address] LABORATORYOrdered By: Modesta Aggarwal on 02-17-2022 Cholesterol [...] 08-23-2021 CNPN Telephone (FPDOYL) -- DAVID BALDERRAMA ([id number]) 1950 M Date Time Provider Department 08/23/21 [...] Encounter Status:Closed by BASIA MASTERS on 08/23/21 [facility] LABORATORYOrdered By: Doreen Bruner on 06-06-2021 Albumin [...] 02-25-2021 OBSOLETE Refill (FPDOYL) -- DAVID BALDERRAMA ([id number]) 1950 Date Time Provider Department 02/25/21 NARENDRA [...] Anaphylaxis - Pepper (Genus Capsi* Unknown (home) [phone] (cell) Last Office Visit Date: 09/20/2020 Last [facility] Health Visit: 04/17/2020 Future Appointment: 03/22/2021 The [...] Encounter Status:Closed by NARENDRA ZAMAN on 02/25/21 [facility] OBSOLETEon 11-21-2020 OBSOLETE Refill (FPDOYL) -- DAVID BALDERRAMA ([id number]) 1950 M Date Time Provider Department 11/21/20 [...] Encounter Status:Closed by NARENDRA ZAMAN on 11/21/20 [facility] Elsi 09-20-2020 [facility] Office Visit (FPDOYL ) -- BALDERRAMADAVID HAMEED ([id number]) 1950 M Date Time Provider Department 09/20/20 8:45 AM NARENDRA ZAMANYL During your visit today, we recorded the following information about you: Temperature Pulse Blood pressure Weight 97.4 degrees 81/minute 134/84 92.1 kg Height 1.727 m Narendra Zaman DO 09/26/2020 8:26 PM Signed [facility] Medicine [place] Narendra Zaman DO [address] [place] [address] Date of Evaluation: 09/20/2020 Patient Name: David Balderrama : 1950 Chief Complaint: Hypertension (4 week follow after change in medications ) and Pain (Shoulder Pain) (right) Nursing Intake: There are no exam notes on file for this visit. Subjective Mr. Balderrama is a 69 year old male who presents with the following complaint(s): The history is provided by the patient. No speech language pathologist was used. Hypertension This is a chronic [...] Mucous memb (more content not included)... Normal [facility] 04-18-2020 Cholesterol [Mass/Vol] 115 mg/dL <200 mg/dL [facility] Cholesterol in HDL [Mass/Vol] 27 mg/dL Low >39 mg/dL [facility] Cholesterol in LDL [Mass/Vol] 43 mg/dL <100 mg/dL [facility] Triglyceride [Mass/Vol] 225 mg/dL High <150 mg/dL [facility] Hematologyon 04-18-2020 Basophils (Bld) [#/Vol] 0.09 10*3/uL <0.11 k/uL [facility] Basophils/100 WBC (Bld) 1.0 % [facility] Eosinophils (Bld) [#/Vol] 0.31 10*3/uL <0.46 k/uL [facility] Eosinophils/100 WBC (Bld) 3.5 % [facility] Hematocrit (Bld) [Volume fraction] 49.7 % 39.0 - 51.0 % [facility] Hemoglobin (Bld) [Mass/Vol] 16.7 g/dL 13.0 - 17.0 g/dL [facility] Lymphocytes (Bld) [#/Vol] 2.32 10*3/uL 1.00 - 4.00 k/uL [facility] Lymphocytes/100 WBC (Bld) 26.0 % [facility] MCH (RBC) [Entitic mass] 30.6 pg 26.0 - 34.0 pg [facility] MCV (RBC) [Entitic vol] 91.2 fL 80.0 - 100.0 fL [facility] Monocytes (Bld) [#/Vol] 0.78 10*3/uL <0.87 k/uL [facility] Monocytes/100 WBC (Bld) 8.8 % [facility] Neutrophils (Bld) [#/Vol] 5.35 10*3/uL 1.45 - 7.50 k/uL [facility] Neutrophils/100 WBC (Bld) 60.0 % [facility] Nucleated RBC (Bld) [#/Vol] 10*3/uL <0.01 k/uL [facility] Platelets (Bld) [#/Vol] 194 10*3/uL 150 - 400 k/uL [facility] RBC (Bld) [#/Vol] 5.45 10*6/uL 4.20 - 6.0 0 m/uL [facility] WBC (Bld) [#/Vol] 8.91 10*3/uL 3.70 - 11.00 k/uL [facility] Metabolic Panelon 04-18-2020 Albumin [Mass/Vol] 4.6 g/dL 3.9 - 4.9 g/dL [facility] ALP [Catalytic activity/Vol] 71 U/L 38 - 113 U/L [facility] Anion gap [Moles/Vol] 9 mmol/L 9 - 18 mmol/L [facility] Bilirubin [Mass/Vol] 0.7 mg/dL 0.2 - 1 .3 mg/dL [facility] Calcium [Mass/Vol] 9.5 mg/dL 8.5 - 10. 2 mg/dL [facility] Chloride [Moles/Vol] 103 mmol/L 97 - 10 5 mmol/L [facility] CO2 [Moles/Vol] 27 mmol/L 22 - 30 mmol/L [facility] Creatinine [Mass/Vol] 1.11 mg/dL 0.73 - 1.22 mg/dL [facility] Glucose [Mass/Vol] 102 mg/dL High 74 - 99 mg/dL [facility] Potassium [Moles/Vol] 4.6 mmol/L 3.7 - 5.1 mmol/L [facility] Protein [Mass/Vol] 6.9 g/dL 6.3 - 8.0 g/dL [facility] Sodium [Moles/Vol] 139 mmol/L 136 - 144 mmol/L [facility] Urea nitrogen [Mass/Vol] 12 mg/dL 9 - 24 mg/dL [facility] Otheron 04-18-2020 Cholesterol in LDL/Cholesterol in HDL [Mass ratio] 1.59 <2.54 [facility] Cholesterol in VLDL [Mass/Vol] 45 mg/dL High <30 mg/dL [facility] Cholesterol non HDL [Mass/Vol] 88 mg/dL <130 mg/dL [facility] Cholesterol.total/Ch olesterol in HDL [Mass ratio] 4.26 {ratio} <5.10 [facility] Fasting Time 12 hrs [facility] ALT With P-5'-P [Catalytic activity/Vol] 30 U/L 10 - 54 U/L [facility] AST With P-5'-P [Catalytic activity/Vol] 27 U/L 14 - 40 U/L [facility] GFR/1.73 sq M.predicted MDRD (S/P/Bld) [Vol rate/Area] mL/min/{1.73_m2} [facility] Abs Immature Gran 0.06 k/uL <0.10 k/uL [facility] Differential cell count method Nom (Bld) Auto [facility] Erythrocyte distribution width (RBC) [Ratio] 13.8 % 11.5 - 15.0 % [facility] Immature Gran % 0.7 % [facility] MCHC (RBC) [Mass/Vol] 33.6 g/dL 30.5 - 36.0 g/dL [facility] Nucleated RBC/100 WBC (Bld) [Ratio] 0.0 /100 WBC 0.0 /100 WBC [facility] Platelet mean volume (Bld) [Entitic vol] 11.3 fL 9.0 - 12.7 fL [facility] Thyroidon 04-18-2020 TSH Qn 2.180 uU/mL 0.270 - 4.200 uU/mL [facility] Metabolic Panelon 11-29-2018 Anion gap [Moles/Vol] 5 mmol/L [facility] Calcium [Mass/Vol] 9.3 mg/dL [facility] Chloride [Moles/Vol] 111 mmol/L [facility] CO2 [Moles/Vol] 25 mmol/L [facility] Creatinine [Mass/Vol] 1.75 mg/dL [facility] Glucose [Mass/Vol] 101 mg/dL [facility] Potassium [Moles/Vol] 4.5 mmol/L [facility] Sodium [Moles/Vol] 141 mmol/L [facility] Urea nitrogen [Mass/Vol] 18 mg/dL [facility] Vital Signs Date Time Vital Sign Value Performing Clinician Facility 10-13-2024 13:29-0400 Diastolic blood pressure 68 mm[Hg] Miguel Angel Ervin MD Work Phone: [facility] Comment on above: STANDING 10-13-2024 13:29-0400 Heart rate 81 /min Miguel Angel Ervin MD Work Phone: [facility] 10-13-2024 13:29-0400 SaO2% (BldA) [Mass fraction] 97 % Miguel Angel Ervin MD Work Phone: [facility] 10-13-2024 13:29-0400 Systolic blood pressure 125 mm[Hg] Miguel Angel Ervin MD Work Phone: [facility] Comment on above: STANDING 10-13-2024 12:40-0400 Respiratory rate 16 /min Miguel Angel Ervin MD Work Phone: [facility] 10-13-2024 11:47-0400 Body temperature 97.9 [degF] Miguel Angel Ervin MD Work Phone: [facility] 10-13-2024 10:35-0400 Body height 172.7 cm Miguel Angel Ervin MD Work Phone: [facility] 10-13-2024 10:35-0400 Body mass index (BMI) [Ratio] 30.87 kg/m2 Miguel Angel Ervin MD Work Phone: [facility] 10-13-2024 10:35-0400 Body weight 92.08 kg Miguel Angel Ervin MD Work Phone: [facility] 09-25-2024 11:56-0400 Body height 172.[address] Josy Zaman DO Work Phone: [facility] 09-25-2024 11:56-0400 Body mass index (BMI) [Ratio] 26.6 kg/m2 Dr. Josy Zaman DO Work Phone: [facility] 09-25-2024 11:56-0400 Body temperature 98.8 [degF] Dr. Josy Zaman DO Work Phone: [facility] 09-25-2024 11:56-0400 Body weight 79.[address] Josy Zaman DO Work Phone: [facility] 09-25-2024 11:56-0400 Diastolic blood pressure 60 mm[Hg] Dr. Josy Zaman DO Work Phone: [facility] 09-25-2024 11:56-0400 Heart rate 92 /min Dr. Josy Zaman DO Work Phone: [facility] 09-25-2024 11:56-0400 Respiratory rate 16 /min Dr. Josy Zaman DO Work Phone: [facility] 09-25-2024 11:56-0400 SaO2% (BldA) [Mass fraction] 95 % Dr. Josy Zaman DO Work Phone: [facility] 09-25-2024 11:56-0400 Systolic blood pressure 108 mm[Hg] Dr. Josy Zaman DO Work Phone: [facility] 10-01-2022 09:49-0400 Diastolic Blood Pressure Non-Invasive 68 [...] 12:31-0400 Body temperature 98.06 [degF] RILEY COWAN [employer] [facility] 11-15-2021 12:31-0400 Diastolic blood pressure 72 mm[Hg] RILEY COWAN [employer] [facility] 11-15-2021 12:31-0400 Heart rate 69 /min RILEY COWAN [employer] [facility] 11-15-2021 12:31-0400 Reason For Taking VItal Signs RILEY COWAN [employer] [facility] 11-15-2021 12:31-0400 Respiratory rate 18 /min RILEY COWAN [employer] [facility] 11-15-2021 12:31-0400 Systolic blood pressure 140 mm[Hg] RILEY COWAN [employer] [facility] 11-15-2021 08:42-0400 Heart rate 74 /min RILEY COWAN [employer] [facility] 11-15-2021 07:17-0400 Body temperature 97.7 [degF] RILEY BURNETTN [employer]IST [facility] 11-15-2021 07:17-0400 Diastolic blood pressure 68 mm[Hg] RILEY COWAN [employer] [facility] 11-15-2021 07:17-0400 Heart rate 73 /min RILEY COWAN [employer] [facility] 11-15-2021 07:17-0400 Reason For Taking VItal Signs RILEY COWAN [employer] [facility] 11-15-2021 07:17-0400 Respiratory rate 18 /min RILEY COWAN [employer] [facility] 11-15-2021 07:17-0400 Systolic blood pressure 130 mm[Hg] RILEY BURNETTN [employer] [facility] 11-15-2021 04:10-0400 Body temperature 98.06 [degF] RILEY COWAN [employer] [facility] 11-15-2021 04:10-0400 Diastolic blood pressure 45 mm[Hg] RILEY BURNETTN [employer] [facility] 11-15-2021 04:10-0400 Heart rate 89 /min RILEY BURNETTN [employer] [facility] 11-15-2021 04:10-0400 Mean blood pressure 68 mm[Hg] RILEY BURNETTN [employer] [facility] 11-15-2021 04:10-0400 Reason For Taking VItal Signs RILEY COWAN [employer] [facility] 11-15-2021 04:10-0400 Respiratory rate 18 /min RILEY COWAN [employer] [facility] 11-15-2021 04:10-0400 Systolic blood pressure 114 mm[Hg] RILEY COWAN [employer] [facility] [facility]14[facility]21 22:52-0400 Heart rate 85 /min RILEY COWAN RACK PUSHER-TRANSPORT SPECIALIST [facility] 11-14-2021 19:13-0400 Heart rate 80 /min RILEY COWAN RACK PUSHER-TRANSPORT SPECIALIST [facility] 11-14-2021 13:18-0400 Heart rate 78 /min RILEY COWAN RACK PUSHER-TRANSPORT SPECIALIST [facility] 11-14-2021 10:32-0400 Body height 172.7 cm RILEY COWAN RACK PUSHER-TRANSPORT SPECIALIST [facility] 11-14-2021 10:32-0400 Body weight 88.6 kg RILEY COWAN RACK PUSHER-TRANSPORT SPECIALIST [facility] 11-14-2021 10:32-0400 Body weight 29.71 kg/m2 RILEY COWAN RACK PUSHER-TRANSPORT SPECIALIST [facility] 07-22-2021 17:35-0400 Body temperature 96.08 [degF] DR SHELLY RANDHAWA MD [facility] 07-22-2021 17:35-0400 Diastolic blood pressure 77 mm[Hg] DR SHELLY RANDHAWA MD [facility] 07-22-2021 17:35-0400 Heart rate 66 /min DR SHELLY RANDHAWA MD [facility] 07-22-2021 17:35-0400 Respiratory rate 16 /min DR SHELLY RANDHAWA MD [facility] 07-22-2021 17:35-0400 Systolic blood pressure 135 mm[Hg] DR SHELLY RANDHAWA MD [facility] 07-22-2021 15:46-0400 Body temperature 96.44 [degF] DR SHELLY RANDHAWA MD [facility] 07-22-2021 15:46-0400 Diastolic blood pressure 80 mm[Hg] DR SHELLY RANDHAWA MD [facility] 07-22-2021 15:46-0400 Heart rate 66 /min DR SHELLY RANDHAWA MD [facility] 07-22-2021 15:46-0400 Reason For Taking VItal Signs DR SHELLY RANDHAWA MD [facility] 07-22-2021 15:46-0400 Respiratory rate 16 /min DR SHELLY RANDHAWA MD [facility] 07-22-2021 15:46-0400 Systolic blood pressure 120 mm[Hg] DR SHELLY RANDHAWA MD [facility] 07-22-2021 14:55-0400 Body temperature 95.9 [degF] DR SHELLY RANDHAWA MD [facility] 07-22-2021 14:55-0400 Diastolic blood pressure 77 mm[Hg] DR SHELLY RANDHAWA MD [facility] 07-22-2021 14:55-0400 Heart rate 68 /min DR SHELLY RANDHAWA MD [facility] 07-22-2021 14:55-0400 Mean blood pressure 97 mm[Hg] DR SHELLY RANDHAWA MD [facility] 07-22-2021 14:55-0400 Reason For Taking VItal Signs DR SHELLY RANDHAWA MD [facility] 07-22-2021 14:55-0400 Respiratory rate 16 /min DR SHELLY RANDHAWA MD [facility] 07-22-2021 14:55-0400 Systolic blood pressure 137 mm[Hg] DR SHELLY RANDHAWA MD [facility] 07-22-2021 14:39-0400 Body temperature 96.98 [degF] DR SHELLY RANDHAWA MD [facility] 07-22-2021 14:39-0400 Diastolic Blood Pressure NBP [address] SHELLY RANDHAWA MD [facility] 07-22-2021 14:39-0400 Heart rate 53 /min DR SHELLY RANDHAWA MD [facility] 07-22-2021 14:39-0400 Mean blood pressure 94 mm[Hg] DR SHELLY RANDHAWA MD [facility] 07-22-2021 14:39-0400 Systolic Blood Pressure NBP [address] SHELLY RANDHAWA MD [facility] 07-22-2021 14:33-0400 Diastolic Blood Pressure NBP [address] SHELLY RANDHAWA MD [facility] 07-22-2021 14:33-0400 Heart rate 54 /min DR SHELLY RANDHAWA MD [facility] 07-22-2021 14:33-0400 Mean blood pressure 97 mm[Hg] DR SHELLY RANDHAWA MD [facility] 07-22-2021 14:33-0400 Systolic Blood Pressure NBP [address] SHELLY RANDHAWA MD [facility] 07-22-2021 14:19-0400 Diastolic Blood Pressure NBP [address] SHELLY RANDHAWA MD [facility] 07-22-2021 14:19-0400 Heart rate 60 /min DR SHELLY RANDHAWA MD [facility] 07-22-2021 14:19-0400 Mean blood pressure 115 mm[Hg] DR SHELLY RANDHAWA MD [facility] 07-22-2021 14:19-0400 Systolic Blood Pressure NBP [address] SHELLY RANDHAWA MD [facility] 07-22-2021 13:50-0400 Body temperature 96.67 [degF] DR SHELLY RANDHAWA MD [facility] 07-22-2021 13:45-0400 Body temperature 96.71 [degF] DR SHELLY RANDHAWA MD [facility] 07-22-2021 13:40-0400 Body temperature 96.76 [degF] DR SHELLY RANDHAWA MD [facility] 07-22-2021 11:06-0400 Body height 172.[address] SHELLY RANDHAWA MD [facility] 07-22-2021 11:06-0400 Body weight 90.[address] SHELLY RANDHAWA MD [facility] 07-22-2021 11:06-0400 Mean blood pressure 105 mm[Hg] DR SHELLY RANDHAWA MD [facility] 06-04-2021 08:35-0500 Heart rate 68 /min KALLI JESSE RACK PUSHER-TRANSPORT SPECIALIST [facility] 06-04-2021 06:54-0500 Body temperature 97.7 [degF] KALLI JESSE RACK PUSHER-TRANSPORT SPECIALIST [facility] 06-04-2021 06:54-0500 Diastolic blood pressure 90 mm[Hg] KALLI JESSE RACK PUSHER-TRANSPORT SPECIALIST [facility] 06-04-2021 06:54-0500 Heart rate 80 /min KALLI JESSE RACK PUSHER-TRANSPORT SPECIALIST [facility] 06-04-2021 06:54-0500 Reason For Taking VItal Signs KALLI JESSE RACK PUSHER-TRANSPORT SPECIALIST [facility] 06-04-2021 06:54-0500 Respiratory rate 18 /min KALLI MOLINA RACK PUSHER-TRANSPORT SPECIALIST [facility] 06-04-2021 06:54-0500 Systolic blood pressure 164 mm[Hg] KALLI ARDONELY RACK PUSHER-TRANSPORT SPECIALIST [facility] 06-04-2021 03:55-0500 Body temperature 97.88 [degF] KALLI JESSE RACK PUSHER-TRANSPORT SPECIALIST [facility] 06-04-2021 03:55-0500 Diastolic blood pressure 68 mm[Hg] KALLI JESSE RACK PUSHER-TRANSPORT SPECIALIST [facility] 06-04-2021 03:55-0500 Heart rate 80 /min KALLI ARDONELY RACK PUSHER-TRANSPORT SPECIALIST [facility] 06-04-2021 03:55-0500 Reason For Taking VItal Signs KALLI ARDONELY RACK PUSHER-TRANSPORT SPECIALIST [facility] 06-04-2021 03:55-0500 Respiratory rate 18 /min KALLI ARDONELY RACK PUSHER-TRANSPORT SPECIALIST [facility] 06-04-2021 03:55-0500 Systolic blood pressure 140 mm[Hg] KALLI JESSE RACK PUSHER-TRANSPORT SPECIALIST [facility] 06-03-2021 18:33-0500 Body temperature 98.06 [degF] KALLI JESSE RACK PUSHER-TRANSPORT SPECIALIST [facility] 06-03-2021 18:33-0500 Diastolic blood pressure 75 mm[Hg] KALLI MOLINA RACK PUSHER-TRANSPORT SPECIALIST [facility] 06-03-2021 18:33-0500 Heart rate 77 /min KALLI MOLINA RACK PUSHER-TRANSPORT SPECIALIST [facility] 06-03-2021 18:33-0500 Reason For Taking VItal Signs KALLI MOLINA RACK PUSHER-TRANSPORT SPECIALIST [facility] 06-03-2021 18:33-0500 Respiratory rate 18 /min KALLI MOLINA RACK PUSHER-TRANSPORT SPECIALIST [facility] 06-03-2021 18:33-0500 Systolic blood pressure 153 mm[Hg] KALLI MOLINA RACK PUSHER-TRANSPORT SPECIALIST [facility] 06-03-2021 12:00-0500 Heart rate 65 /min KALLI MOLINA RACK PUSHER-TRANSPORT SPECIALIST [facility] 06-03-2021 08:52-0500 Heart rate 68 /min KALLI MOLINA RACK PUSHER-TRANSPORT SPECIALIST [facility] 06-03-2021 04:03-0500 Heart rate 71 /min KALLI MOLINA RACK PUSHER-TRANSPORT SPECIALIST [facility] 06-02-2021 21:06-0500 Body height 170 cm KALLI MOLINA RACK PUSHER-TRANSPORT SPECIALIST [facility] 06-02-2021 21:06-0500 Body weight 94 kg KALLI MOLINA RACK PUSHER-TRANSPORT SPECIALIST [facility] 06-02-2021 21:06-0500 Body weight 32.53 kg/m2 KALLI MOLINA RACK PUSHER-TRANSPORT SPECIALIST [facility] 06-02-2021 20:56-0500 Body height 170 cm KALLI MOLINA RACK PUSHER-TRANSPORT SPECIALIST [facility] 06-02-2021 20:56-0500 Body weight 94 kg KALLI MOLINA RACK PUSHER-TRANSPORT SPECIALIST [facility] 06-02-2021 20:56-0500 Body weight 32.53 kg/m2 KALLI MOLINA RACK PUSHER-TRANSPORT SPECIALIST [facility] 06-02-2021 17:59-0500 Body weight 94 kg KALLI MOLINA RACK PUSHER-TRANSPORT SPECIALIST [facility] 09-20-2020 08:34-0400 Body height 172.7 cm Mankato Austyn DO Work Phone: [facility] 09-20-2020 08:34-0400 Body temperature 97.39 [degF] Mankato Austyn DO Work Phone: [facility] 09-20-2020 08:34-0400 Body weight 92.08 kg Mank[place] Austyn DO Work Phone: [facility] 09-20-2020 08:34-0400 Diastolic blood pressure 84 mm[Hg] Mankato Austyn DO Work Phone: [facility] 09-20-2020 08:34-0400 Heart rate 81 /min Narendra Austyn DO Work Phone: [facility] 09-20-2020 08:34-0400 SaO2% (BldA) [Mass fraction] 98 % [place] Austyn DO Work Phone: [facility] 09-20-2020 08:34-0400 Systolic blood pressure 134 mm[Hg] Narendra Austyn DO Work Phone: [facility] 08-23-2020 09:10-0400 Diastolic blood pressure 80 mm[Hg] Mankato Austyn DO Work Phone: [facility] 08-23-2020 09:10-0400 Systolic blood pressure 150 mm[Hg] [place] Austyn DO Work Phone: [facility] 08-23-2020 08:44-0400 Body height 172.7 cm M[place] Austyn DO Work Phone: [facility] 08-23-2020 08:44-0400 Body temperature 97.5 [degF] Narendra Austyn DO Work Phone: [facility] 08-23-2020 08:44-0400 Body weight 91.63 kg Narendra Austyn DO Work Phone: [facility] 08-23-2020 08:44-0400 Heart rate 92 /min M[place] Austyn DO Work Phone: [facility] 08-23-2020 08:44-0400 SaO2% (BldA) [Mass fraction] 97 % [place] Austyn DO Work Phone: [facility] 08-02-2020 08:48-0400 Body height 172.7 cm Mankato Austyn Work Phone: [facility] 08-02-2020 08:48-0400 Body temperature 97.3 [degF] Mank[place] Austyn Work Phone: [facility] 08-02-2020 08:48-0400 Body weight 89.81 kg Narendra Austyn Work Phone: [facility] 08-02-2020 08:48-0400 Diastolic blood pressure 90 mm[Hg] M[place] Austyn Work Phone: [facility] 08-02-2020 08:48-0400 Heart rate 75 /min Narendra Austyn Work Phone: [facility] 08-02-2020 08:48-0400 SaO2% (BldA) [Mass fraction] 97 % [place] Austyn Work Phone: [facility] 08-02-2020 08:48-0400 Systolic blood pressure 144 mm[Hg] Mank[place] Austyn Work Phone: [facility] 07-02-2020 09:02-0400 Body Temperature 96.91 [degF] Nurse [place] [facility] 07-02-2020 09:02-0400 Body weight 91.63 kg Nurse [place] [facility] 07-02-2020 09:02-0400 BP Diastolic 82 mm[Hg] Nurse [facility] 07-02-2020 09:02-0400 BP Systolic 138 mm[Hg] Nurse [facility] 07-02-2020 09:02-0400 Pulse (Heart Rate) 74 /min Nurse [place] [facility] in 07-02-2020 09:02-0400 Pulse Oximetry 98 % Nurse [place] [facility] 05-31-2020 09:06-0500 Body Temperature 97.3 [degF] Nurse [facility] 05-31-2020 09:06-0500 Body weight 92.99 kg Nurse [place] [facility] 05-31-2020 09:06-0500 BP Diastolic 84 mm[Hg] Nurse [place] [facility] 05-31-2020 09:06-0500 BP Systolic 156 mm[Hg] Nurse [facility] 05-31-2020 09:06-0500 Pulse (Heart Rate) 88 /min Nurse [place] [facility] 05-31-2020 09:06-0500 Pulse Oximetry 97 % Nurse [place] [facility] 05-03-2020 09:06-0500 Body Temperature 96.91 [degF] Nurse [place] [facility] 05-03-2020 09:06-0500 Body weight 92.53 kg Nurse [place] [facility] 05-03-2020 09:06-0500 BP Diastolic 78 mm[Hg] Nurse [place] [facility] 05-03-2020 09:06-0500 BP Systolic 142 mm[Hg] Nurse [place] [facility] 05-03-2020 09:06-0500 Pulse (Heart Rate) 76 /min Nurse [place] [facility] 05-03-2020 09:06-0500 Pulse Oximetry 96 % Nurse [place] [facility] 03-29-2020 08:52-0500 Body Temperature 97.59 [degF] Nurse [facility] 03-29-2020 08:52-0500 BP Diastolic 88 mm[Hg] Nurse [place] [facility] 03-29-2020 08:52-0500 BP Systolic 158 mm[Hg] Nurse [place] [facility] 03-29-2020 08:52-0500 Pulse (Heart Rate) 81 /min Nurse [place] [facility] 03-29-2020 08:52-0500 Pulse Oximetry 97 % Nurse [facility] 03-01-2020 08:52-0500 Body Temperature 97.7 [degF] Nurse [place] [facility] 03-01-2020 08:52-0500 BP Diastolic 94 mm[Hg] Nurse [place] [facility] 03-01-2020 08:52-0500 BP Systolic 154 mm[Hg] Nurse [place] [facility] 03-01-2020 08:52-0500 Pulse (Heart Rate) 78 /min Nurse [place] [facility] 03-01-2020 08:52-0500 Pulse Oximetry 95 % [facility] 01-30-2020 13:13-0400 Body weight 94.8 kg [facility] 01-30-2020 13:13-0400 BP Diastolic 84 mm[Hg] [facility] 01-30-2020 13:13-0400 BP Systolic 160 mm[Hg] [facility] 01-30-2020 13:13-0400 Height 172.7 cm [facility] 12-22-2019 13:15-0400 Body Temperature 97.7 [degF] [facility] sil[facility]re 12-22-2019 13:15-0400 Pulse (Heart Rate) 80 /min [facility] 12-22-2019 13:15-0400 Pulse Oximetry 95 % [facility] 12-22-2019 13:15-0400 Respiratory Rate 22 /min [facility] silvestre Encounters Encounter Date Encounter Type Care Provider Facility Start: 10-19-2024 End: 10-21-2024 Telephone encounter Miguel Angel Ervin MD Work Phone: Gastroenterology Comment on above: Results (Lab Results ) Start: 10-13-2024 ambulatory MIGUEL ANGEL ERVIN Facilit y:[facility] Start: 10-13-2024 End: 10-13-2024 Subsequent hospital visit by physician Miguel Angel Ervin MD Work Phone: Gastroenterology Comment on above: 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 Hill) Start: 09-30-2024 End: 09-30-2024 ambulatory AVILA SHEA RACK PUSHER-TRANSPORT SPECIALIST Facility:[facility] Start: 09-30-2024 End: 09-30-2024 Patient encounter procedure AVILA SHEA RACK PUSHER-TRANSPORT SPECIALIST [facility] Start: 09-25-2024 End: 09-25-2024 Patient encounter procedure Tito [facility]YNOS[facility] Work Phone: Start: 09-25-2024 End: 09-25-[address] Josy Zaman DO Work Phone: [facility] Work Phone: Start: 09-13-2024 End: 09-13-2024 ambulatory AVILA BALTES RACK PUSHER-TRANSPORT SPECIALIST Facility:[facility] Start: 09-13-2024 End: 09-13-2024 Patient encounter procedure AVILA BALTES RACK PUSHER-TRANSPORT SPECIALIST [facility] Start: 09-02-2024 End: 09-02-2024 ambulatory AVILA KEYURTES RACK PUSHER-TRANSPORT SPECIALIST Facility:[facility] Start: 06-29-2024 End: 06-29-[address] BILL HILL MD Facility:[facility] Start: 03-24-2024 End: 03-24-2024 ambulatory AVILA KEYURTES RACK PUSHER-TRANSPORT SPECIALIST Facility:[facility] Start: 03-24-2024 End: 03-24-2024 Patient encounter procedure AVILA MONSE RACK PUSHER-TRANSPORT SPECIALIST [facility] Start: 09-18-2023 End: 09-18-2023 ambulatory AVILA BALTES RACK PUSHER-TRANSPORT SPECIALIST Facility:[facility] Start: 09-17-2023 ambulatory AVILA MONSE RACK PUSHER-TRANSPORT SPECIALIST Facility:[facility] Start: 09-17-2023 End: 09-21-2023 Outreach Lab AVILA BALEZEQUIEL RACK PUSHER-TRANSPORT SPECIALIST [facility] Start: 08-14-2023 End: 08-14-[address] BILL HILL MD Facility:[facility] Start: 08-14-2023 End: 08-14-[address] BILL HILL MD [facility] Start: 03-17-2023 End: 03-17-2023 ambulatory AVILA BAEREZEQUIEL RACK PUSHER-TRANSPORT SPECIALIST Facility:[facility] Start: 10-01-2022 End: 10-01-2022 ambulatory JOSE Fer STEWARTY DO Facility:[facility] Start: 10-01-2022 End: 10-01-2022 Minor Procedure JOSE Fer JOHN DO [facility] Start: 02-17-2022 End: 02-17-2022 Patient encounter procedure AVILA SHEA RACK PUSHER-TRANSPORT SPECIALIST [facility] Start: 11-14-2021 End: 11-15-2021 Evaluation and management of inpatient RILEY COWAN RACK PUSHER-TRANSPORT SPECIALIST [facility] Start: 08-23-2021 Telephone encounter Narendra Zaman DO Work Phone: [facility] [place] Comment on above: Appointment Start: 08-14-2021 End: 08-14-[address] SHELLY RANDHAWA MD [facility] Start: 07-22-2021 End: 07-22-[address] SHELLY RANDHAWA MD [facility] Start: 07-03-2021 End: 07-03-[address] SHELLY RANDHAWA MD [facility] Start: 06-06-2021 End: 06-06-[address] BILL HILL MD [facility] Start: 06-02-2021 End: 06-04-2021 Observation KALLI MOLINA RACK PUSHER-TRANSPORT SPECIALIST [facility] Start: 02-25-2021 Refill Narendra Zaman DO Work Phone: [facility] [place] Comment on above: Refill Request Start: 11-21-2020 End: 11-21-2020 Refill Narendra Zaman DO Work Phone: [facility] [place] Comment on above: Rx Refills (metoprol ol succinate ) Start: 09-20-2020 End: 09-20-2020 Patient encounter procedure Narendra Zaman DO Work Phone: [facility] [place] Comment on above: Essential (primary) hypertension (Primary Dx); Mixed hyperlipidemia; Arthritis, shoulder region Start: 08-23-2020 End: 08-23-2020 Patient encounter procedure Narendra Zaman DO Work Phone: [facility] [place] Comment on above: Hypertension, essent ial (Primary Dx) Start: 08-02-2020 End: 08-02-2020 Patient encounter procedure Narendra Zaman Work Phone: [facility] [place] Comment on above: Essential (primary) hypertension (Primary Dx) Start: 07-02-2020 End: 07-02-2020 Nursing evaluation of patient and report Nurse Romel Chao [place] Work Phone: [facility] [place] Comment on above: Testicular hypofunct ion (Primary Dx) Start: 06-28-2020 End: 06-28-2020 Telephone encounter Narendra Zaman Work Phone: [facility] [place] Comment on above: Diverticulitis Start: 06-26-2020 End: 06-26-2020 Refill Narendra Zaman Work Phone: [facility] [place] Comment on above: Refill Request Start: 06-13-2020 End: 06-13-2020 Telephone encounter Narendra Zaman Work Phone: [facility] [place] Comment on above: Results (psa) Start: 06-08-2020 End: 06-08-2020 Patient encounter procedure [facility] Provider [facility] Start: 06-08-2020 Results Only [facility] Provider [facility] Department Start: 05-31-2020 End: 05-31-2020 Nursing evaluation of patient and report Nurse Romel Green Work Phone: [facility] [place] Comment on above: Testicular hypofunct ion (Primary Dx) Start: 05-23-2020 End: 05-23-2020 Telephone encounter Narendra Navaluiz Zaman Work Phone: [facility] [place] Comment on above: Patient Question Start: 05-03-2020 End: 05-03-2020 Nursing evaluation of patient and report Nurse Romel Green Work Phone: [facility] [place] Comment on above: Testicular hypofunct ion (Primary Dx) Start: 04-19-2020 End: 04-19-2020 Telephone encounter Mankato Ricoluiz Zaman Work Phone: [facility] [place] Comment on above: Results Start: 04-18-2020 End: 04-18-2020 Refill [place] Ricoluiz Zaman Work Phone: [facility] [place] Comment on above: Rx Refills Start: 04-17-2020 End: 04-17-2020 [facility] Narendra Gómez Austyn Work Phone: [facility] [place] Comment on above: Essential hypertensi on (Primary Dx); Mixed hyperlipidemia; ED (erectile dysfunction) of organic origin; Screening for thyroid disorder Start: 03-29-2020 End: 03-29-2020 Nursing evaluation of patient and report Nurse Romel Green Work Phone: [facility] Comment on above: Testicular hypofunct ion (Primary Dx) Start: 03-13-2020 End: 03-13-2020 Telephone encounter Narendra Zaman Work Phone: [facility] Comment on above: Diverticulitis Start: 03-05-2020 End: 03-05-2020 Refill Narendra Zaman Work Phone: [facility] Comment on above: Refill Request Start: 03-01-2020 End: 03-01-2020 Nursing evaluation of patient and report Nurse F[facility] Work Phone: [facility] Comment on above: Testicular hypofunct ion (Primary Dx) Start: 01-31-2020 End: 01-31-2020 Chart abstracting Narendra Gómez Austyn Work Phone: [facility] Procedures Date Procedure Procedure Detail Performing Clinician Start: 10-13-2024 Esophagoscp rig nicole soral hypopharynx crv esoph Miguel Angel Ervin MD Work Phone: Start: 10-13-2024 Glucose body fluid o ther than blood Miguel Angel Ervin MD Work Phone: Start: 07-22-[address] LUCI RANDHAWA MD Comment on above: Robotically assisted laparoscopic cholecystectomy Start: 09-25-2020 Excision of colon IVA MOLINA RACK PUSHER-TRANSPORT SPECIALIST Comment on above: Robotically assisted laparoscopic ascending colectomy with intracorporeal anastomosis Intraoperative fluorescent angiography Start: 08-02-2020 Adult depression scr eening assessment Narendra Zaman Work Phone: Start: 07-21-2020 Laparoscopic appendectomy KALLI JESSE RACK PUSHER-TRANSPORT SPECIALIST Start: 06-08-2020 LAB [facility] Provid er Start: 04-18-2020 Lipid 1996 panel - S grace or Plasma Miguel Angel Ervin MD Work Phone: Start: 04-13-[address] SHELLY RANDHAWA MD Start: 11-29-2018 BMP EXTERNAL QAI [facility] Pr ovider Start: 04-13-[address] SHELLY RANDHAWA MD Cataract care KALLI JESSE Scott PRN-TRANSPORT SPECIALIST Comment on above: bilateral Cataract extraction and insertion of intraocular lens KALLI JESSE RACK PUSHER-TRANSPORT SPECIALIST Comment on above: Hany Dentition (body structure) A LEIA MOLINA RACK PUSHER-TRANSPORT SPECIALIST Comment on above: dental surgery Excision KALLI MOLINA AP RN-TRANSPORT SPECIALIST Comment on above: nose, cheek, right s lesvia excision for melonoma History of appendectomy S/P appe ndectomy( Confirmed ) KALLI MOLINA RACK PUSHER-TRANSPORT SPECIALIST Prostatectomy KALLI MOLINA Sonia PRN-TRANSPORT SPECIALIST Tonsillectomy KALLI JESSE Sonia PRN-TRANSPORT SPECIALIST Plan of Treatment Date Care Activity Detail Author Start: 04-18-2025 Lipid panel Lipid Screening [facility] Start: 04-18-2025 LIPID SCREEN LIPID SCREEN [facility] Start: 12-12-2024 [facility] Start: 10-13-2024 End: 10-13-2024 Patient encounter procedure 10/13/2024 11:00 AM EDT Appointment Gastroenterology [address] [id number] Miguel Angel Ervin MD [address] [place] [address] 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] Gastroenterology Comment on above: 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] Start: 07-04-2024 Covid-19 Vaccine ( season) Covid-19 Vaccine () [facility] Start: 04-13-2024 Advance Directive Discussion Advance Directive Discussion [facility] Start: 12-13-2023 Covid-19 Vaccine () Covid-19 Vaccine () [facility] Start: 04-18-2023 DIABETES SCREEN DIABETES SCREEN [facility] Start: 04-18-2023 Diabetes Screening Diabetes Screening [facility] Start: 11-29-2021 DIABETES SCREEN DIABETES SCREEN [facility] Start: 09-20-2021 ANNUAL PCP TEAM CHRONIC DISEASE VISIT ANNUAL PCP TEAM CHRONIC DISEASE VISIT [facility] Start: 08-23-2021 ANNUAL PCP TEAM CHRONIC DISEASE VISIT ANNUAL PCP TEAM CHRONIC DISEASE VISIT [facility] Start: 08-02-2021 Adult depression screening assessment DEPRESSION SCREENING [facility] Start: 08-02-2021 ANNUAL PCP TEAM CHRONIC DISEASE VISIT ANNUAL PCP TEAM CHRONIC DISEASE VISIT [facility] Start: 04-17-2021 ANNUAL PCP TEAM CHRONIC DISEASE VISIT ANNUAL PCP TEAM CHRONIC DISEASE VISIT [facility] Start: 04-13-2021 ADVANCE DIRECTIVE DISCUSSION ADVANCE DIRECTIVE DISCUSSION [facility] Start: 12-27-2020 COVID-19 VACCINE (3 - Booster for Moderna series) COVID-19 VACCINE (3 - Booster for Moderna series) [facility] Start: 12-12-2020 Influenza vaccination INFLUENZA (#1) [facility] Start: 06-26-2020 COVID-19 VACCINE (2 - Moderna 2-dose series) COVID-19 VACCINE (2 - Moderna 2-dose series) [facility] Start: 06-26-2020 COVID-19 VACCINE (2 of 2 - Moderna series) COVID-19 VACCINE (2 of 2 - Moderna series) [facility] Start: 12-13-2019 Influenza vaccination INFLUENZA (#1) [facility] Start: 10-15-2015 ADVANCE DIRECTIVE DISCUSSION ADVANCE DIRECTIVE DISCUSSION [facility] Start: 10-15-2015 PNEUMOVAX AGE 65 AND OVER WITH 5YR LOOKBACK (#1) PNEUMOVAX AGE 65 AND OVER WITH 5YR LOOKBACK (#1) [facility] Start: 10-12-2015 Medicare Annual Wellness Visit Medicare Annual Wellness Visit [facility] Start: 2000 COLORECTAL CANCER SCREENING,SEE MODIFIER COLORECTAL CANCER SCREENING,SEE MODIFIER [facility] Start: 2000 Screening for malignant neoplasm of colon [facility] Start: 2000 SHINGRIX VACCINE (1 of 2) SHINGRIX VACCINE (1 of 2) [facility] Start: 2000 Tuberculosis screening COLORECTAL CANCER SCREENING,SEE MODIFIER [facility] Start: 10-15-1995 COLOGUARD (FIT-DNA) COLOGUARD (FIT-DNA) [facility] Start: 10-15-1995 Colonoscopy COLONOSCOPY [facility] Start: 10-15-1995 COLORECTAL CANCER SCREENING COLORECTAL CANCER SCREENING [facility] Start: 10-15-[address] COLONOGRAPHY [facility] Start: 10-15-1995 FECAL OCCULT BLOOD FECAL OCCULT BLOOD [facility] Start: 10-15-1995 Screening for malignant neoplasm of colon [facility] Start: 10-15-1995 SIGMOIDOSCOPY SIGMOIDOSCOPY [facility] Start: 1985 LIPID SCREEN LIPID SCREEN [facility] Start: 1969 Urine microalbumin profile [facility] Start: 1968 ANNUAL PCP TEAM CHRONIC DISEASE VISIT ANNUAL PCP TEAM CHRONIC DISEASE VISIT [facility] Start: 1968 Anxiety Screening Anxiety Screening [facility] Start: 1968 BP CONTROLLED (<130/80) BP CONTROLLED (<130/80) [facility] Start: 1968 Depression Screening Depression Screening [facility] Start: 1968 HEPATITIS C SCREENING HEPATITIS C SCREENING [facility] Start: 1968 Hepatitis C screening Hepatitis C Screening [facility] Start: 1962 Adult depression screening assessment DEPRESSION SCREENING [facility] Start: 1950 ABDOMINAL AORTIC ANEURYSM SCREENING ABDOMINAL AORTIC ANEURYSM SCREENING [facility] Start: 1950 Abdominal aortic aneurysm screening Abdominal Aortic Aneurysm Screening [facility] End: 04-19-2021 ALP [Catalytic activity/Vol] ALKALINE PHOSPHATASE Lab Routine Screening for lipid disorders 1 Occurrences starting 04/19/2020 until 04/19/2021 [facility] Comment on above: 1 Occurrences starting 04/19/2020 until 04/19/2021 End: 04-19-2021 ALT [Catalytic activity/Vol] ALT/SGPT Lab Routine Screening for lipid disorders 1 Occurrences starting 04/19/2020 until 04/19/2021 [facility] Comment on above: 1 Occurrences starting 04/19/2020 until 04/19/2021 End: 04-19-2021 AST [Catalytic activity/Vol] AST/SGOT BLD Lab Routine Screening for lipid disorders 1 Occurrences starting 04/19/2020 until 04/19/2021 [facility] Comment on above: 1 Occurrences starting 04/19/2020 until 04/19/2021 End: 04-19-2021 Bilirubin [Mass/Vol] BILIRUBIN TOTAL BLD Lab Routine Screening for lipid disorders 1 Occurrences starting 04/19/2020 until 04/19/2021 [facility] Comment on above: 1 Occurrences starting 04/19/2020 until 04/19/2021 CEA, FLUID [facility] Work Phone: Comment on above: Release Upon Ordering for 1 Occurrences starting 10/13/[address] 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 Comment on above: Release Upon Ordering for 1 Occurrences starting 10/13/2024, 1 completed End: 10-06-2025 EGD - THERAPEUTIC, EUS, OR TUBE INTERVENTIONS EGD - THERAPEUTIC, EUS, OR TUBE INTERVENTIONS Endoscopy Routine Pancreas cyst (HCC) 1 Occurrences starting 10/06/2024 until 10/06/2025 [facility] Work Phone: Comment on above: 1 Occurrences starting 10/06/2024 until 10/06/2025 End: 04-19-2021 LIPID PANEL BASIC LIPID PANEL BASIC Lab Routine Screening for lipid disorders 1 Occurrences starting 04/19/2020 until 04/19/2021 [facility] Comment on above: 1 Occurrences starting 04/19/2020 until 04/19/2021 [facility] Immunizations Immunization Date Immunization Notes Care Provider [facility] 01-05-2024 influenza virus vaccine, unspecified formulation AVILA SHEA [employer]ACK [employer] [facility] 01-05-2024 SARS-CoV-2 (COVID-19 ) [id number] AVILA SHEA [employer] [facility] 06-27-2023 SARS-CoV-2 (COVID-19 ) [id number] AVILA SHEA [employer]ACK [employer] [facility] 02-03-2023 influenza virus vaccine, unspecified formulation DR BILL H[facility] 02-03-2023 pneumococcal 20-anton nt conjugate vaccine [facility] 01-12-2023 respiratory syncytia l virus (RSV) vaccine, adjuvanted (AREXVY) Miguel Angel Ervin MD Work Phone: [facility] 01-12-2023 RSV vaccine preF3, recombinant [facility] 01-12-2023 SARS-CoV-2 (COVID-19 ) [id number] DR [facility] 12-18-2021 influenza (HD-IIV4) vaccine, age 65+ yr, high dose, quadrivalent, PF (FLUZONE HIGH-DOSE) Miguel Angel Ervin MD Work Phone: [facility] 12-18-2021 influenza nasal, unspecified formulation Miguel Angel Ervin MD Work Phone: [facility] 12-18-2021 influenza virus vaccine, unspecified formulation AVILA SHEA [employer] [facility] 07-30-2021 COVID-19 vaccine, fu ll dose (MODERNA) Narendra Austyn DO Work Phone: [facility] 02-07-2021 SARS-CoV-2 (COVID-19 ) [id number] vaccine KALLI JESSE RACK [employer]IST [facility] 01-11-2021 influenza (aIIV4) vaccine, age 65+ yr, quadrivalent, PF (FLUAD QUADRIVALENT) Narendra Austyn DO Work Phone: [facility] 01-11-2021 influenza nasal, unspecified formulation Miguel Angel Ervin MD Work Phone: [facility] 01-11-2021 influenza virus vaccine, unspecified formulation KALLI MOLINA [employer] [facility] 06-26-2020 COVID-19 vaccine (MODERNA) [facility] 05-29-2020 COVID-19 vaccine (MODERNA) Nurse [facility] 01-26-2020 influenza (aIIV4) vaccine, age 65+ yr, quadrivalent, PF (FLUAD QUADRIVALENT) [facility] Work Phone: [facility] 01-26-2020 influenza nasal, unspecified formulation Miguel Angel Ervin MD Work Phone: [facility] 01-26-2020 influenza virus vaccine, unspecified formulation KALLI MOLINA [employer] [facility] 01-26-2020 influenza, high dose seasonal, preservative-free Nurse [facility] 01-12-2019 influenza nasal, unspecified formulation Miguel Angel Ervin MD Work Phone: [facility] 01-12-2019 influenza virus vaccine, unspecified formulation KALLI MOLINA [employer] [facility] 01-12-2019 influenza, high dose seasonal, preservative-free [facility] 01-12-2019 influenza, injectabl e, quadrivalent, contains preservative Nurse [facility] 01-03-2019 influenza nasal, unspecified formulation Miguel Angel Ervin MD Work Phone: [facility] 01-03-2019 influenza virus vaccine, unspecified formulation KALLI MOLINA [employer] [facility] 01-03-2019 Seasonal trivalent influenza vaccine, adjuvanted, preservative free Nurse [facility] 10-11-2018 zoster vaccine recombinant Nurse [facility] 06-03-2018 zoster vaccine recombinant Nurse [facility] Comment on above: Admin Note: administ ered at [employer] [address] 01-05-2018 influenza nasal, unspecified formulation Miguel Angel Ervin MD Work Phone: [facility] 01-05-2018 Seasonal trivalent influenza vaccine, adjuvanted, preservative free Nurse [facility] 01-05-2018 influenza virus vaccine, unspecified formulation KALLI MOLINA [employer] [facility] Comment on above: Admin Note: administ ered at [employer] [address] -information provided by [employer]. For vaccine administration record only 12-23-2016 pneumococcal conjuga te vaccine, 13 valent Nurse [facility] 12-22-2016 influenza nasal, unspecified formulation Miguel Angel Ervin MD Work Phone: [facility] 12-22-2016 influenza virus vaccine, unspecified formulation KALLI MOLINA [employer] [facility] 12-22-2016 influenza, high dose seasonal, preservative-free Nurse [facility] 01-16-2016 influenza nasal, unspecified formulation Miguel Angel Ervin MD Work Phone: [facility] 01-16-2016 influenza virus vaccine, unspecified formulation KALLI MOLINA [employer] [facility] 01-16-2016 influenza, seasonal, injectable Nurse [facility] 01-16-2016 pneumococcal polysaccharide vaccine, 23 valent Nurse [facility] 01-16-2016 zoster vaccine, live Nurse [facility] 01-12-2015 influenza nasal, unspecified formulation Miguel Angel Ervin MD Work Phone: [facility] 01-12-2015 influenza virus vaccine, unspecified formulation KALLI MOLINA [employer] [facility] 01-12-2015 influenza, seasonal, injectable Nurse [facility] 01-11-2015 influenza nasal, unspecified formulation Nurse [facility] 12-27-2013 influenza, high dose seasonal, preservative-free Nurse [facility] 01-13-2012 influenza nasal, unspecified formulation Miguel Angel Ervin MD Work Phone: [facility] 01-13-2012 influenza virus vaccine, unspecified formulation KALLI MOLINA [employer]ACK [employer] [facility] 01-13-2012 influenza, seasonal, injectable, preservative free Nurse [facility] 02-16-2009 influenza virus vaccine, whole virus Nurse [facility] Payers Date Payer Category Payer Self-pay [id number] 2022 Private Health Insurance [id number] 2019 Private Health Insurance [facility] [id number] 2019-Present [facility] [id number] 2015 Medicare [id number] 2015 Medicare [id number] 2015 Medicare [id number] 2013 Private Health Insurance [id number] 1950 Unknown [id number]. [id number] 1950 Unknown [id number] [id number]. 2.627 1950 Unknown [id number] [id number]. 2.62 1950 Unknown [id number] [id number]. 2. 1950 Unknown [id number] [id number]. 2. 1950 Unknown [id number] [id number]. 2. 1950 Unknown [id number] [id number]. 2. 1950 Unknown [id number] 2.16.840.1.217227.3.579. 2. 1950 Unknown [id number] [id number]. 2. 1950 Unknown [id number] [id number]. 2. 1950 Unknown [id number] [id number]. 2.627 Unknown [id number]. 2.462 Social History Date Type Detail Facility Start: 01-31-2020 End: 09-13-2024 Tobacco smoking status NHIS Former smoker [facility] End: 04-13-2006 History of tobacco use Current smoker [facility] End: 04-13-2006 History of tobacco use Cigarette Smoker [facility] Start: 01-31-2020 End: 04-17-2020 Cigarettes smoked current (pack per day) - Reported [facility] Start: 01-31-2020 End: 09-20-2020 Tobacco use and exposure Never used [facility] Start: 01-31-2020 End: 10-13-2024 Alcohol intake Current drinker of alcohol (finding) [facility] Start: 01-31-2020 Alcohol Comment [facility] Start: 1950 Sex Assigned At Not on file [facility] Exposure to SARS-CoV -2 (event) Not sure [facility] Sex Assigned At [facility] Start: 02-15-2019 Tobacco Use Tobacco Use [facility] Start: 1950 Sex Assigned At Male [facility] Start: 05-30-2018 Sex Male (finding) [facility] Start: 04-17-2020 End: 09-20-2020 Tobacco use panel [facility] Adult Depression Screening Assessment 0 [facility] Medical Equipment Procedure Code Equipment Code Equipment [...] Hospital 11-15-2021 Functional Status Room check performed [facility] 11-15-2021 Functional Status [facility] 11-15-2021 Functional Status bilateral knee high [facility] 11-15-2021 Functional Status [facility] 11-15-2021 Functional Status [facility] 11-14-2021 Functional Status [facility] 11-14-2021 Functional Status Steady without support [facility] 11-14-2021 Functional Status Assistive Device None A [facility] 07-22-2021 Functional Status [facility] 07-22-2021 Functional Status [facility] 07-22-2021 Functional Status [facility] 07-22-2021 Functional Status [facility] Mental Status Date Assessment Result Facility 10-01-2022 Mental Status Oriented x 4 [facility] 11-15-2021 Mental Status Oriented x 4 [facility] 11-14-2021 Mental Status [facility] 11-14-2021 Mental Status [facility] 07-22-2021 Mental Status [facility] 07-22-2021 Mental Status [facility] 07-22-2021 Mental Status [facility] Clinical Notes 08-02-2020 to 10-21-2024 Telephone [...] asked him to have the MRI from [facility] sent to me for review in [facility] conference. He has my office address and will do so jean. I asked him to contact my office 10 days after requesting the images if he has not heard from me. Miguel Anegl Ervin MD [facility] Work Phone: 10-21-2024 Miscellaneous Notes Spoke to patient and informed him that overall, the fluid analysis argues against a cancerous or precancerous cyst. The issue is his ongoing pain. He got ~1 week relief with celiac plexus block, then pain returns. I asked him to have the MRI from [facility] sent to me for review in [...] best number Thank you, Alberto R calling #[phone] Patient stated he missed a call regarding his lab results, wondering if he is able to still get those results via phone call. Verified call back number listed Thank you Alberto R documented in this encounter [facility] 10-21-2024 Telephone encounter Note Patient calling back to follow up on message on getting results, would like a phone call of some kind today. Number listed in pervious message is the best number Thank you, Alberto R [facility] 10-19-2024 Telephone encounter Note calling #[phone] Patient stated he missed a call regarding his lab results, wondering if he is able to still get those results via phone call. Verified call back number listed Thank you Alberto R [facility] 10-13-2024 Nurse Note AMBULATORY PATIENT EDUCATION NOTE [...] MATERIAL: Procedure Discharge Instructions REFERRAL (RECOMMENDATION): None [facility] 10-13-2024 Nurse Note AMBULATORY PATIENT EDUCATION NOTE [...] In Department: GASTROENTEROLOGY documented in this encounter [facility] 10-13-2024 Note HNO ID: [id number] Author: DAVID VORA APRN.CATTLE KILLER Service: ? Author Type: Nurse Screedman Type: Anesthesia Procedure Notes Filed: 10/13/2024 11:41 [...] Image in Chart: No SIGNATURE: David Vora APRN.CATTLE KILLER PATIENT NAME: David Balderrama DATE: October 13, 2024 TIME: 11:41 AM CSN: [id number] [facility] 10-13-2024 Note Q3 Patient Name: David Balderrama Procedure Date: 10/13/2024 10:39 AM Date of : 1950 Admit Type: Outpatient Age: 73 Gender: Male Note Status: Finalized Attending MD: Miguel Angel Ervin MD, [id number] Procedure: Upper EUS Indications: Pancreatic cyst on [...] Finalized Attending MD: Miguel Angel Ervin MD, [id number] Procedure: Upper EUS Indications: Pancreatic cyst on [...] 0 Note Initiated On: 10/13/2024 10:39 AM [facility] 10-13-2024 Nurse Note PRE OP LEARNING ASSESSMENT PROCEDURE/SURGERY: GI PROCEDURES: EGD READINESS TO LEARN COGNITIVE ABILITY: Alert and oriented MOTIVATION TO LEARN: Eager FAMILY SUPPORT: High - Very involved in pt care PATIENT LEARNS BEST BY: Individual Instruction FACTORS AFFECTING LEARNING: None PHYSICAL LIMITATIONS AFFECTING LEARNING: None Electronically Signed By: China Tafoya RN In Department: GASTROENTEROLOGY [facility] 10-13-2024 History and physical note HISTORY AND [...] added pain relief. Miguel Angel Ervin MD [facility] 10-13-2024 History and physical note HISTORY AND [...] Angel Ervin MD documented in this encounter [facility] 10-06-2024 Telephone encounter Note Schedulers, please call patient to arrange: EUS with me for evaluation of a pancreatic cystic lesion. Miguel Angel Ervin MD [facility] 10-06-2024 Miscellaneous Notes Schedulers, please call patient to arrange: EUS with me for evaluation of a pancreatic cystic lesion. Miguel Angel Ervin MD Images from the original note were not included. Scanned full doc into chart documented in this encounter [facility] 10-05-2024 Telephone encounter Note Images from the original note were not included. Scanned full doc into chart [facility] 09-30-2024 Note Exam Date Time Procedure Performing Provider Status 09/30/24 10:56 AM MRI Pancreas JESS CARRASCO MD; Auth (Verified) [id number] ORIGINAL EXAMINATION: MRI OF THE ABDOMEN WITHOUT [...] Sign Date: 09/30/2024 11:18:39 AM Ordering Provider: [facility]06-15-2025 [facility] [address], [address] [place] [address] OFFICE VISIT Date of Service: 09/25/24 MR#: [id number] Acct: [id number] Name: DAVID BALDERRAMA Rep #: [id number] : 1950 Provider: ANGELES Abad Age/Sex: 73/M [place] [facility] [place]: Signed Intake Vital Signs 02/23/19 06:17 [...] BITE L SHOULDER Chief Complaint: left shoulder Scheduling Agent Required: No Is patient in pain?: Yes Allergies shellfish derived Allergy (Verified 09/25/24 12:01) Swelling Have you fallen in the past year?: No Nurse's Note: c/o bug bite to left shoulder x 1 week. very large area of redness and warmth to left shoulder withwhat appears to be puncture wound. c/o tenderness to same. [facility] Medical History (Updated 09/25/24 @ 12:15 by Tito Abad EMERGENCY CARE TECH, EMERGENCY CARE TECH-C) History of prostate cancer History of malignant [...] the past year?: No 09/25/24 1217 P EMERGENCY CARE TECH-C> Date _ Tito Abad NP EMERGENCY CARE TECH-C Cosigner Signature: Date (if applicable) CC: Dr. Josy Zaman, DO ~ [facility]06-15-2025 Progress note Author Tito Abad [facility] Note Date/Time September 25, 2024 12:1 7pm [facility] [address], [address] [place] [address] OFFICE VISIT Date of Service: 09/25/24 MR#: [id number] Acct: [id number] Name: DAVID BALDERRAMA Rep #: [id number] : 1950 Provider: ANGELES Abad Age/Sex: 73/M [place] [facility] [place] Status: Signed Intake Vital Signs 02/23/19 06:17 [...] BITE L SHOULDER Chief Complaint: left shoulder Scheduling Agent Required: No Is patient in pain?: Yes Allergies shellfish derived Allergy (Verified 09/25/24 12:01) Swelling Have you fallen in the past year?: No Nurse's Note: c/o bug bite to left shoulder x 1 week. very large area of redness and warmth to left shoulder with what appears to be puncture wound. c/o tenderness to same. [facility] Medical History (Updated 09/25/24 @ 12:15 by Tito Abad EMERGENCY CARE TECH, EMERGENCY CARE TECH-C) History of prostate cancer History of malignant [...] Navarro NP-C> Date _ Tito Abad NP EMERGENCY CARE TECH-C Cosigner Signature: Date (if applicable) CC: Dr. Josy Zaman, DO ~ [facility] Work Phone: 1(371) 980-512305-13-2024 Evaluation + Plan note Future Scheduled Tests Laboratory* Basic Metabolic Panel 08/24/23 [facility] 06-21-2023 Evaluation + Plan noteExtracted from: Title:Clinical Document Author:JOSE LOPEZ ate:10/01/22 JENERA ADMISSION HISTORY AN D PHYSICIAL CHIEF COMPLAINT: Colorectal cancer screening HISTORY OF PRESENT ILLNESS: Colorectal cancer screening, history of appendiceal carcinoma, history of colon polyps REVIEW OF SYSTEMS: Constitutional: denies weight loss Cardiovascular:denies chest pain, palpitations Respiratory:denies shortness of breath Gastrointestinal:no abd pain Musculoskeletal: no arthralgias Skin: no rashes . ACTIVE PROBLEMS: (30) Anxiety (93656338) Arthritis (5161181) BMI 31.0-31.9,adult (075342432) Cancer of skin of face (5231645696) Cataract (775065212) Colon cancer screening (007815195) Decreased ROM of intervertebral discs of cervical spine (362796320) Depression (66935679) Diverticulitis (560731001) GERD (gastroesophageal reflux disease) (251602593) Glasses (4581687234) Hard of hearing (565227850) Hearing aid (74489000) Hip pain (05628216) History of diverticulitis (6358816735) History of pancreatitis (1932173118) History of prostate cancer (2171802393) Hypercholesteremia (95912022) Hyperlipidemia (98646710) Hypertension (1039541993) Marijuana use (6446904687) Mood disorder (43537343) Need for hepatitis C screening test (589938956) Pancreatitis (485390902) 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 General instructions Take dvne-mnc-bccfvue and prescription medicines only as told by [...] 07/20/2016 Document Revised: 06/28/2018 Document Reviewed: 07/20/2016 Singspiel Patient Education 2020 [employer]. 10/01/2022 09:40:11 Colonoscopy, Adult, Care After Colonoscopy, [...] a slower pace than normal. ?Eat soft, ffmc-dd-kpwcgr foods. Take nvzv-efu-hzhetak or prescription medicines only as told by [...] 11/11/2004 Document Revised: 01/20/2018 Document Reviewed: 06/10/2016 Singspiel Patient Education 2020 [employer]. Follow Up Care 09/24/2022 12:55:21 With:AVILA SHEA APRN-TRANSPORT SPECIALIST Address: [address] [facility] [place] [phone] When: Unknown [facility] 06-21-2023 Summary of episode note Discharge Instructions Thank you for allowing [facility] to assist you with your healthcare needs. The following is importantdischarge information regarding your hospital visit. Your Care Team AVILA SHEA What to do next Instructions From Your Doctor Colonoscopy in 5 years Scheduled Follow-Up Appointments Appointment Type When With Where Contact InformationPC 03/13/2023 10:00 AM EST AVILA SHEA [facility] [address] [address] Follow Up Appointments Follow Up with AVILA SHEA When Where: [address] [place] [phone] [phone] The Following Activity and Diet Have Been [...] before eating solid foods. General instructions Take tfla-bha-uforeoz and prescription medicines only as told by [...] 07/20/2016 Document Revised: 06/28/2018 Document Reviewed: 07/20/2016 Singspiel Patient Education 2020 [employer]. Colonoscopy, Adult, Care After This sheet gives [...] slower pace than normal. ? Eat soft, jvmi-mq-esfygo foods. Take zntw-cht-jmgwaco or prescription medicines only as told by [...] 11/11/2004 Document Revised: 01/20/2018 Document Reviewed: 06/10/2016 Singspiel Patient Education 2020 [employer]. Additional Information VACCINATE! IT SAVES LIVES! Members of the community who have not yet received the COVID-19 vaccine and would like to receive it can visit one of [facility] vaccine clinics. There are many vaccine clinic locations within the [facility]. For locations and available times, please visit https://[email or web address].gov/. It is important to note that some COVID mobile vaccine clinics are held outdoors and may be canceled in rainy or stormy conditions. To learn more about pediatric vaccinations (ages 5-11), we invite you to visit the [facility] webpage. https://www.[facility].org/pages/9599-Nnlou-Xqajjnfafdt-Ueehwiyeed-Hpult-Etu stions.htmlTo learn more about the COVID-19 vaccine, we invite you to visit the CDC website for a list of frequently asked questions.https://www.cdc.gov/coronavirus/2019-ncov/vaccines/faq.html [facility] Patient Portal Access Instructions: Stay connected with your healthcare team and access your personal medical information anytime with the [facility] Patient Portal. Please follow the directions below to create your [employer] account: 1.Access the email account you provided upon registration to the hospital/physician office.2.Look for an invitation email from [facility].3.Open the email and access the invitation link: AcceptInvitation to [employer].4.Fill in the required bashir to create your account. To access your account, visit [email or web address]. Click the blue button labeled Access Patient Portal and then log in with the username and password that you created in the steps above. You will be able to view your test results, lab results, a summary of your visits, upcoming appointments and more. There is also a convenient messaging option where you can send secure messages to your p Wireless Seismicvider. In addition, you will have the ability to download any documents or summaries to your computer and/or send the information securely to a physician. Remember that your healthcare information is confidential, so carefully consider who you will allowto register on the [facility] Patient Portal for access to your information. You can also access the [facility] Patient Portal on the [facility] Ideaxiswhere miller. Simply click on Patient Portal and then log into your account. If you would like to receive a full copy of your medical records, please contact the [facility] Medical Records Department by calling [phone], Thursday through Thursday between 8 a.m. and [...] Call your local pharmacy or go to http://bit.ly/3Y1Mw4e to find one close to you.3.Make use of household items: Use cat litter or old coffee grounds to dispose medications if other options arenot available. Mix your drugs with these household products, seal them in an airtight container andthrow it into the garbage. Call [facility]: [phone] to be sure your drugs can be [...] am aware that I should contactmy doctor. 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: Date/Time: Relationship to Patient: Witness Name/Signature: [...] as provided by your GI provider at [facility] 1 EA, 0 Refill(s) buPROPion 300 mg/24 [...] Medical Primary appendiceal adenocarcinoma / SNOMED CT 5259870869 / Confirmed Decreased ROM of intervertebral discs of cervical spine / SNOMED CT 666380148 / Confirmed S/P appendectomy / SNOMED CT 5077890022 / Confirmed History of diverticulitis / SNOMED CT 3694733661 / Confirmed History of prostate cancer / SNOMED CT 2962261412 / Confirmed History of pancreatitis / SNOMED CT 5941162558 / Confirmed S/P right hemicolectomy / SNOMED CT 5266540384 / Confirmed Hyperlipidemia / SNOMED CT 74809361 / Confirmed Mood disorder / SNOMED CT 23396699 / Confirmed Pancreatitis / SNOMED CT 778279174 / Confirmed Screening for prostate cancer / SNOMED CT 030824029 / Confirmed Colon cancer screening / SNOMED CT 369677020 / Confirmed Need for hepatitis C screening test / SNOMED CT 724368766 / Confirmed Resolved: Adenocarcinoma of appendix / SNOMED CT 6354331695 Canceled: Chemotherapy / SNOMED CT 311208462, Active Problems (30) Anxiety Arthritis BMI 31.0-31.9,adult [...] ROM of intervertebral discs of cervical spine (895723280) Resolved Adenocarcinoma of appendix (2177100383): Resolved. Family History: Diabetes mellitus Grandparent Hypertension Mother Father Grandparent Heart disease Grandparent Mother Diabetes mellitus type 1 Grandparent Arthritis Mother Father Grandparent Hypercholesterolemia Grandparent Cancer Grandparent Malignant tumor of prostate Father Malignant tumor of head and/or neck Mother High cholesterol Grandparent Mother Father Procedure history: Cholecystectomy (73726546) on 07/22/2021 at 70 Years. Comments: 08/12/2021 14:24 EDT - Lea Calero LPN Robotically assisted laparoscopic cholecystectomy Colectomy ([id number]) on 09/25/2020 at 69 Years. Comments: 10/09/2020 9:53 EDT - Cindy Watkins CMA Robotically assisted laparoscopic ascending colectomy with intracorporeal anastomosis Intraoperative fluorescent angiography Laparoscopic appendectomy (41716659) on 07/21/2020 at 69 Years. Prostatectomy (339279860) in 2020 at 69 Years. Tonsillectomy (383132753) in 1959 at 9 Years. Cataract care (0856421979). Comments: 10/10/2020 10:23 Krista Avina CMA bilateral Teeth (9923030184). Comments: 10/10/2020 10:23 Krista Avina CMA dental surgery Excision (751604858). Comments: 10/10/2020 10:24 Krista Avina CMA nose, cheek, right side excision for melonoma Cataract extraction and insertion of intraocular lens (6016283976). Comments: 03/12/2021 11:25 EST - Mónica Lopez [...] available , Lab results 10/01/2022 7:09 EDT [place] History and Physical 09/30/2022 13:00 EDT Endocrinology Phone Message General Message (Modified) 09/30/2022 10:52 EDT Primary Care Phone Message Primary Care Dept/Phone Message (Modified) . Assessment and Plan Citizen Of The [place] Society of Anesthesiologists (ASA) physical status classification: [...] AM [facility]06-21-2023 Note JENERA ADMISSION HISTORY AND PHYSICIAL CHIEF COMPLAINT: Colorectal cancer screening HISTORY OF PRESENT ILLNESS: Colorectal cancer screening, history of appendiceal carcinoma, history of colon polyps REVIEW OF SYSTEMS: Constitutional: denies weight loss Cardiovascular:denies chest pain, palpitations Respiratory:denies shortness of breath Gastrointestinal:no abd pain Musculoskeletal: no arthralgias Skin: no rashes . ACTIVE PROBLEMS: (30) Anxiety (01479925) Arthritis (4498785) BMI 31.0-31.9,adult (245427558) Cancer of skin of face (2825944708) Cataract (413455429) Colon cancer screening (139527509) Decreased ROM of intervertebral discs of cervical spine (730226625) Depression (59333753) Diverticulitis (681772574) GERD (gastroesophageal reflux disease) (166003064) Glasses (3628090089) Hard of hearing (892755827) Hearing aid (36652496) Hip pain (06764710) History of diverticulitis (3747617346) History of pancreatitis (9986318446) History of prostate cancer (8961596176) Hypercholesteremia (77774026) Hyperlipidemia (57473716) Hypertension (6695072897) Marijuana use (1924790936) Mood disorder (57368124) Need for hepatitis C screening test (902891034) Pancreatitis (870362312) Primary appendiceal adenocarcinoma (2630552018) S/P appendectomy (6829915201) S/P right hemicolectomy (4582212104) Screening for prostate cancer (217276594) Seasonal allergy (4726317195) Vertigo (2532785670) MEDICATIONS: Active Inpt Meds: None Active PRN [...] instructions Patient Education 11/15/2021 14:38:42 Acute Pancreatitis, Svtv-ia-Twns Acute Pancreatitis Acute pancreatitis happens when the [...] if it caused your condition. Medicines Take tpap-nyi-jdklzih and prescription medicines only as told by your doctor. Ask your doctor if the medicine prescribed to you: ?Requires you to avoid driving or using heavy machinery. ?Can cause trouble pooping (constipation). You may need to take steps to prevent or treat trouble pooping: ?Take erbt-eex-xksnjbe or prescription medicines. ?Eat foods that are [...] 09/15/2008 Document Revised: 01/17/2019 Document Reviewed: 01/17/2019 Singspiel Patient Education 2020 [employer].com. 11/14/2021 06:14:55 Abdominal Pain Abdominal Pain Abdominal [...] foods again, start with small amounts of lzkz-ek-wxedsn, low- fat foods. These include apple sauce, [...] increase stomach acid. Don't use aspirin or peqa-lse-mtnsuqw pain and fever medicines, if possible. This includes nonsteroidal anti-inflammatory drugs (NSAIDs). Lose excess weight. Finish eating at least 2 hours before you go to bed or lie down. Raise the head of your bed. 3738-8467 The dateIITians. [address] [place] [address], [place] [address]. All rights reserved. This information is not intended as a substitute for professional medical care. Always follow yourhealthcare professional's instructions. Follow Up Care 11/14/2021 06:02:31 With:AVILA SHEA Address: [address] [place] [phone] When:11/21/2021 13:00:00 Comments:Follow-up as scheduled [facility] 08-05-2022 Note Discharge Instructions Thank you for allowing [facility] to assist you with your healthcare needs. The following is importantdischarge information regarding your hospital visit. Your Care Team JENERA INPATIENT MEDICINE Your Diagnosis Acute pancreatitis Nausea [...] Appointments Appointment Type When With [facility]Up 11/21/2021 01:00 PM EDT AVILA SHEA [address] [phone] PC Wellness Medicare 03/18/2022 10:30 AM EST AVILA SHEA [address] [phone] Follow Up Appointments Follow Up with AVILA SHEA When 11/21/2021 01:00 PM EDT Why: Follow-up as scheduled Where: [address] [place] [phone] [phone] The Following Activity and Diet Have Been [...] if it caused your condition. Medicines Take ikyb-mnf-klgeqid and prescription medicines only as told by your doctor. Ask your doctor if the medicine prescribed to you: ? Requires you to avoid driving or using heavy machinery. ? Can cause trouble pooping (constipation). You may need to take steps to prevent or treat trouble pooping: ? Take plxu-htq-yyvjcwc or prescription medicines. ? Eat foods that [...] 09/15/2008 Document Revised: 01/17/2019 Document Reviewed: 01/17/2019 Singspiel Patient Education 2020 [employer].com. Abdominal Pain Abdominal pain is pain in [...] foods again, start with small amounts of uwvi-uc-loaniy, low- fat foods. These include apple sauce, [...] increase stomach acid. Don't use aspirin or vfjz-krd-oheavob pain and fever medicines, if possible. This includes nonsteroidal anti-inflammatory drugs (NSAIDs). Lose excess weight. Finish eating at least 2 hours before you go to bed or lie down. Raise the head of your bed. 8174-7666 The dateIITians. [address] [place] [address], [place] [address]. All rights reserved. This information is not intended as a substitute for professional medical care. Always follow yourhealthcare professional's instructions. Additional Information VACCINATE! IT SAVES LIVES! Members of the community who have not yet received the COVID-19 vaccine and would like to receive it can visit one of [facility] vaccine clinics. There are many vaccine clinic locations within the [facility]. For locations and available times, please visit https://gettheshot.coronavirus.[place].gov/. It is important to note that some COVID mobile vaccine clinics are held outdoors and may be canceled in rainy or stormy conditions. To learn more about pediatric vaccinations (ages 5-11), we invite you to visit the [facility] webpage. https://www.[employer].org/pages/7727-Esmcu-Drgygjlvrbv-Cynfbgylxk-Ktbjr-Ksq stions.htmlTo learn more about the COVID-19 vaccine, we invite you to visit the [facility] website for a list of frequently asked questions. [email or web address]/assets/Iomngajq-ldf-Cvdrawrt/zsdmn-Bohozep-Yntsablqqx _Asked-Questions.pdf [employer] Patient Portal Access Instructions: Stay connected with your healthcare team and access your personal medical information anytime with the [employer] Patient Portal.If you would like a full copy of your medical records, please contact the [facility] Medical Records Department, Thursday through Thursday between 8a.m. and 4:30p.m. Please follow the directions below to access the portal: 1.Access the email account you provided upon registration to the hospital.2.Look for an invitation email from [facility].3.Open the email and access the invitation link: Accept Invitation to [employer]4.Fill in the required bashir to create your account. Sign into [email or web address] with your username and password that you [...] you will allow to register on the [employer] Patient Portal for access to your information. You can also access the [employer] Patient Portal on the [address] [employer] miller. Simply click on Health Records under [place] and then click on the [facility] logo. HOW TO SAFELY DISPOSE OF PRESCRIPTION [...] Call your local pharmacy or go to http://[employer].Designer Material/[email or web address] to find one close to you.3.Make use of household items: Use cat litter or old coffee grounds to dispose medications if other options arenot available. Mix your drugs with these household products, seal them in an airtight container andthrow it into the garbage. Call [facility]: [phone] to be sure your drugs can be [...] COPY. Signatures Patient Education Materials Acute Pancreatitis, Wemu-wf-Hylt Abdominal Pain Medication Leaflets My discharge plan and instructions have been reviewed and explained to me and I,DAVID BALDERRAMA understand my current condition and have read and understand these discharge instructions. I have received a written copy of the plan/instructions. If I have questions, I am aware that I should contactmy doctor. 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: Date/Time: Relationship to Patient: Witness Name/Signature: [...] for hypertension, hyperlipidemia and depression, presents to [facility] emergency department with the chief complaint of [...] Appointment Date:11/21/2021 01:00:00 PM Scheduled Provider:AVILA SHEA Location:[facility] Appointment Type:[facility] Hospital Follow-Up Appointment Date:03/18/2022 10:30:00 AM Scheduled Provider:AVILA SHEA Location:[facility] Appointment Type:PC Wellness Medicare Diagnostic Tests Pending [...] Date: 11/14/2021 11:16:46 AM Ordering Provider: CHANTELLE [facility]08-04-2022 Note ORIGINAL EXAMINATION: CT OF THE ABDOMEN [...] Date: 11/14/2021 11:16:46 AM Ordering Provider: CHANTELLE [facility]05-13-2022 Miscellaneous Notes* Telephone Encounter - Basia Masters - 08/23/2021 1:05 PM EDT Left message for pt to return call to schedule and appt for 6 mos htn f/u Basia Masters documented [facility] Hospital Discharge instructions Patient Education 07/22/2021 14:00:26 [...] and water are not available, use 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 ?Change your dressing as told by your [...] health care provider approves. General instructions Take iery-lnh-lxnuzvv and prescription medicines only as told by your health care provider. To prevent or treat constipation while you are taking prescription pain medicine, your health care provider may recommend that you: ?Drink enough fluid to keep your urine clear or pale yellow. ?Take vipo-sif-rxvurxv or prescription medicines. ?Eat foods that are [...] 03/30/2006 Document Revised: 03/12/2018 Document Reviewed: 09/15/2016 Singspiel Patient Education 2020 [employer] Inc. Follow Up Care 07/03/2021 10:33:36 With:SHELLY RANDHAWA Address: [address] [place] [phone]- Business (1) When: Unknown Comments:Follow-up with Dr. Randhawa in 10-14 daysPlease call the office with any questions or concernsIbuprofen/Advil/Motrin 400 mg by mouth 4 times a day with meals; may alternate with 650 mg of Tylenol 4 times a day With:AVILA SHEA Address:Unknown When: Unknown [facility] 02-22-2022 Hospital Discharge instructions Patient Education 06/04/2021 14:26:24 Acute Pancreatitis, Odrc-fn-Fpgf Acute Pancreatitis Acute pancreatitis happens when the [...] if it caused your condition. Medicines Take pege-isw-musynqi and prescription medicines only as told by your doctor. Ask your doctor if the medicine prescribed to you: ?Requires you to avoid driving or using heavy machinery. ?Can cause trouble pooping (constipation). You may need to take steps to prevent or treat trouble pooping: ?Take eqkr-iwr-snhthkd or prescription medicines. ?Eat foods that are [...] 09/15/2008 Document Revised: 01/17/2019 Document Reviewed: 01/17/2019 Singspiel Patient Education 2020 [employer] Follow Up Care 06/02/2021 17:53:08 With:BILL HILL MD Address: [address] [place] [address] [address] [place] [phone] When:06/06/2021 15:45:00 Comments:This is your GI appointment. Please complete the paperwork and bring it with you. The office is in the Specialty Referral hallway behind therapy services. With:AVILA SHEA APRN-[facility] Address: [address] [facility] [place] [phone] When:06/11/2021 11:30:00 Comments:This is your post-hospital follow-up [...] Appointment Date:06/11/2021 11:30:00 AM Scheduled Provider:AVILA SHEA Location[facility] Appointment Type:[facility] Hospital Follow-Up Appointment Date:09/10/2021 10:00:00 AM Scheduled Provider:AVILA SHEA Location:[facility] Appointment Type:[facility] Follow Up [facility] 11-15-2021 Miscellaneous Notes* Telephone Encounter - Nadege DexterMADYSON - 02/25/2021 10:13 AM EST Pharmacy faxed requesting the following refill Refill(s) Requested: Pending Prescriptions Disp Refills LOSARTAN 50 MG TABLET 30 tablet 0 Sig: TAKE ONE TABLET BY MOUTH DAILY NEGRA: Yes ALLERGIES Allergen Reactions Shellfish Derived Anaphylaxis Pepper (Genus Capsi* Unknown (home) [phone] (cell) Last Office Visit Date: 09/20/2020 Last Distance Health Visit: 04/17/2020 Future Appointment: 03/22/2021 The patients preferred pharmacy has been captured for this encounter? yes Request is for script(s) to be escript to pharmacy. Nadege Dexter LPN documented in this encounterK[facility]08-11-2021 Miscellaneous Notes* Telephone Encounter - Evi Hardin - 11/21/2020 10:17 AM EDT Pt wants: Metoprolol succinate ER 50 mg. Taking 1 per day Pt wants this script to go to [facility] Evi Hardin documented in this encounterK[facility]06-10-2021 NoteHNO ID: [id number] Author: Radha Ding Service: ? Author Type: [...] allergic reaction. The patient will return as needed.[facility]06-10-2021 NoteHNO ID: [id number] Author: Narendra Zaman DO Service: ? Author Type: Physician Type: Progress Notes Filed: 09/26/2020 8:26 PM Note Text: [facility] Narendra DO Austyn [address] [place] [address] Date of Evaluation: 09/20/2020 Patient Name: David Balderrama : 1950 Chief Complaint: Hypertension (4 week follow after change in medications ) and Pain (Shoulder Pain) (right) Nursing Intake: There are no exam notes on file for this visit. Subjective Mr. Balderrama is a 69 year old male who presents with the following complaint(s): The history is provided by the patient. No speech language pathologist was used. Hypertension This is a chronic [...] eye: No discharge. Ex (more content not included)...[facility]06-10-2021 Procedure note* Radha Ding - 09/20/2020 9:35 [...] will return as needed. documented in this encounterKettering [facility]06-10-2021 History of Present illness Narrative* Narendra Zaman DO - 09/20/2020 8:40 AM EDT Images from the original note were not included. [facility] Medicine Norma Zaman DO [address] [place] [address] Date of Evaluation: 09/20/2020 Patient Name: David Balderrama : 1950 Chief Complaint: Hypertension (4 week follow after change in medications ) and Pain (Shoulder Pain) (right) Nursing Intake: There are no exam notes on file for this visit. Subjective Mr. Balderrama is a 69 year old male who presents with the following complaint(s): The history is provided by the patient. No speech language pathologist was used. Hypertension This is a chronic [...] as directed. Dissolve 1 kwame under the ocglzf30-93 minutes prior to sexual activity diphenhydrAMINE (BENADRYL) [...] 20, 2020 9:14 AM. documented in this encounterKet[facility]05-13-2021 History of Present illness Narrative* Narendra Zaman DO - 08/23/2020 8:48 AM EDT Images from the original note were not included. [facility] [place] Narendra Zaman DO [address] [place] [address] Date of Evaluation: 08/23/2020 Patient Name: David Balderrama : 1950 Subjective Mr. Balderrama is a 69 year old male who presents to follow up for Hypertension (follow up after change in BP medication ) and Follow Up (after appendix removed. diagnosed with cancer ). The history is provided by the patient. No speech language pathologist was used. Hypertension This is a chronic problem. The current episode started more than 1 year ago. [facility] Pertinent negatives include no blurred [...] as directed. Dissolve 1 kwame under the tvmsjy91-11 minutes prior to sexual activity diphenhydrAMINE (BENADRYL) [...] ROS obtained by others. documented in this encounterKet[facility]04-22-2021 History of Present illness Narrative* Narendra Zaman - 08/02/2020 9:13 AM EDT Images from the original note were not included. [facility] Medicine [place] Narendra Zaman DO [address] [place] [address] Date of Evaluation: 08/02/2020 Patient Name: David [...] as directed. Dissolve 1 kwame under the [id number] minutes prior to sexual activity diphenhydrAMINE (BENADRYL) [...] ROS obtained by others. [facility] note Future Appointments Appointment Date:06/11/2021 11:30:00 AM Scheduled Provider:AVILA SHEA Location:[facility] Appointment Type:[facility] Hospital Follow-Up Appointment Date:09/10/2021 10:00:00 AM Scheduled Provider:AVILA SHEA Location:[facility] Appointment Type:[facility] Follow Up [facility] Evaluation + Plan note Future Appointments Appointment Date:09/10/2021 10:00:00 AM Scheduled Provider:AVILA SHEA Location:[facility] Appointment Type:PC OV Follow Up Future Scheduled Tests Laboratory* Prostate Specific Antigen 06/18/21 [facility] Evaluation + Plan note Future Appointments Appointment Date:09/10/2021 10:00:00 AM Scheduled Provider:AVILA SHEA Location:[facility] Appointment Type:PC OV Follow Up Future Scheduled Tests Laboratory* Prostate Specific Antigen 06/18/21 [facility] Evaluation + Plan note Future Appointments Appointment Date:03/14/2022 01:30:00 PM Scheduled Provider:AVILA SHEA Location:[facility] Appointment Type:PC OV Appointment Date:03/18/2022 10:30:00 AM Scheduled Provider:AVILA SHEA Location:[facility] Appointment Type:PC Wellness Medicare Future Scheduled [...] Appointments Appointment Date:03/18/2024 10:30:00 AM Scheduled Provider:AVILA SHEA Location:[facility] Appointment Type:PC OV Future Scheduled Tests Laboratory* Basic Metabolic Panel 08/24/23 [facility] Evaluation + Plan note Future Appointments Appointment Date:03/14/2025 11:00:00 AM Scheduled Provider:AVILA SHEA Location:[facility] Appointment Type:PC Wellness Medicare [facility] evaluation note* Diagnosis Essential (primary) hypertension- Primary Unspecified essential hypertension [facility] Diagnosis Hypertension, essential- Primary Unspecified essential hypertension documented in this encounter [facility] note* Diagnosis Essential (primary) hypertension- Primary Unspecified essential hypertension Mixed hyperlipidemia Arthritis, shoulder region Unspecified arthropathy, shoulder region documented in this encounter [facility] note* Diagnosis Essential (primary) hypertension Unspecified essential hypertension documented in this encounter [facility] note* Diagnosis Essential (primary) hypertension Unspecified essential hypertension documented in this encounter 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 note* Diagnosis Pancreas cyst (HCC) Cyst and pseudocyst of pancreas documented in this encounter [facility] course Narrative No data available for this section [facility] Hospital Discharge instructions No data available for this section [facility] Progress note No data available for this section [facility] Reason for referral (narrative)No reason for referral information availableFair[facility] Work Phone: Reason for visit Narrative* Outpatient Procedure (Routine) - Closed Specialty Diagnoses / Procedures Referred By Contac t Referred To Contact [facility] Diagnoses Pancreas cyst (HCC) Procedures EGD - THERAPEUTIC, EUS, OR TUBE INTERVENTIONS EDG US EXAM SURGICAL ALTER STOM DUODENUM/JEJUNUM Miguel Angel Ervin MD [address] [place] [address] Phone: tel: fax: [facility] [address] [place] [address] Referral ID Status Reason Start Date Expiration Date V isits Requested Visits Authorized [id number] Closed Auto-Generate d Referral 10/06/2024 10/06/2025 1 1 [facility] Assessments Diagnosis Testicular hypofunction- Primary Other testicular [...] or prosecute any alcohol or drug abuse patient.[facility]burgIn the event this information is protected by the Federal Confidentiality of Alcohol and Drug Abuse Patient Records regulations: The Federal rules restrict any use of the information to criminally investigate or prosecute any alcohol or drug abuse patient.[facility] the event this information is protected by the Federal Confidentiality of Alcohol and Drug Abuse Patient Records regulations: The Federal rules restrict any use of the information to criminally investigate or prosecute any alcohol or drug abuse patient.[facility]burg[facility] the event this information is protected by the Federal Confidentiality of Alcohol and Drug Abuse Patient Records regulations: The Federal rules restrict any use of the information to criminally investigate or prosecute any alcohol or drug abuse patient.[facility]burgIn the event this information is protected by the Federal Confidentiality of Alcohol and Drug Abuse Patient Records regulations: The Federal rules restrict any use of the information to criminally investigate or prosecute any alcohol or drug abuse patient.[facility]burgIn the event this information is protected by the Federal Confidentiality of Alcohol and Drug Abuse Patient Records regulations: The Federal rules restrict any use of the information to criminally investigate or prosecute any alcohol or drug abuse patient.[facility]burgIn the event this information is protected by the Federal Confidentiality of Alcohol and Drug Abuse Patient Records regulations: The Federal rules restrict any use of the information to criminally investigate or prosecute any alcohol or drug abuse patient.[facility]burgIn the event this information is protected by the Federal Confidentiality of Alcohol and Drug Abuse Patient Records regulations: The Federal rules restrict any use of the information to criminally investigate or prosecute any alcohol or drug abuse patient.[facility]burgIn the event this information is protected by the Federal Confidentiality of Alcohol and Drug Abuse Patient Records regulations: The Federal rules restrict any use of the information to criminally investigate or prosecute any alcohol or drug abuse patient.[facility]burgIn the event this information is protected by the Federal Confidentiality of Alcohol and Drug Abuse Patient Records regulations: The Federal rules restrict any use of the information to criminally investigate or prosecute any alcohol or drug abuse patient.[facility]burg[facility] the event this information is protected by the Federal Confidentiality of Alcohol and Drug Abuse Patient Records regulations: The Federal rules restrict any use of the information to criminally investigate or prosecute any alcohol or drug abuse patient.[facility]burgIn the event this information is protected by the Federal Confidentiality of Alcohol and Drug Abuse Patient Records regulations: The Federal rules restrict any use of the information to criminally investigate or prosecute any alcohol or drug abuse patient.[facility]burgIn the event this information is protected by the Federal Confidentiality of Alcohol and Drug Abuse Patient Records regulations: The Federal rules restrict any use of the information to criminally investigate or prosecute any alcohol or drug abuse patient.[facility]burgIn the event this information is protected by the Federal Confidentiality of Alcohol and Drug Abuse Patient Records regulations: The Federal rules restrict any use of the information to criminally investigate or prosecute any alcohol or drug abuse patient.[facility]burgIn the event this information is protected by the Federal Confidentiality of Alcohol and Drug Abuse Patient Records regulations: The Federal rules restrict any use of the information to criminally investigate or prosecute any alcohol or drug abuse patient.[facility]burgIn the event this information is protected by the Federal Confidentiality of Alcohol and Drug Abuse Patient Records regulations: The Federal rules restrict any use of the information to criminally investigate or prosecute any alcohol or drug abuse patient.[facility]burgIn the event this information is protected by the Federal Confidentiality of Alcohol and Drug Abuse Patient Records regulations: The Federal rules restrict any use of the information to criminally investigate or prosecute any alcohol or drug abuse patient.[facility]burgIn the event this information is protected by the Federal Confidentiality of Alcohol and Drug Abuse Patient Records regulations: The Federal rules restrict any use of the information to criminally investigate or prosecute any alcohol or drug abuse patient.[facility]burgIn the event this information is protected by the Federal Confidentiality of Alcohol and Drug Abuse Patient Records regulations: The Federal rules restrict any use of the information to criminally investigate or prosecute any alcohol or drug abuse patient.[facility]burgIn the event this information is protected by the Federal Confidentiality of Alcohol and Drug Abuse Patient Records regulations: The Federal rules restrict any use of the information to criminally investigate or prosecute any alcohol or drug abuse patient.[facility]burgIn the event this information is protected by the Federal Confidentiality of Alcohol and Drug Abuse Patient Records regulations: The Federal rules restrict any use of the information to criminally investigate or prosecute any alcohol or drug abuse patient.[facility]burgIn the event this information is protected by the Federal Confidentiality of Alcohol and Drug Abuse Patient Records regulations: The Federal rules restrict any use of the information to criminally investigate or prosecute any alcohol or drug abuse patient.[facility]burgIn the event this information is protected by the Federal Confidentiality of Alcohol and Drug Abuse Patient Records regulations: The Federal rules restrict any use of the information to criminally investigate or prosecute any alcohol or drug abuse patient.[facility]burgIn the event this information is protected by the Federal Confidentiality of Alcohol and Drug Abuse Patient Records regulations: The Federal rules restrict any use of the information to criminally investigate or prosecute any alcohol or drug abuse patient.[facility] Reason for Visit (unrecogniz ed section and [...] Derived Anaphylaxis Pepper (Genus Capsi* Unknown (home) [phone] (cell) Last Visit date: 03/01/2020 Future appointment: [...] Derived Anaphylaxis Pepper (Genus Capsi* Unknown (home) [phone] (cell) Last Visit date: 04/17/2020 Future appointment: 05/03/2020 The patients preferred pharmacy has been captured for this encounter? yes Request is for script(s) to be escript to pharmacy. Nadege Dexter LPN Pt needs a script for: Testosterone for his injections. Zeenat Strauss Evi Hardin documented in this encounter [...] Sig: TAKE 1 TABLET BY MOUTH DAILY NGERA: Yes OMEPRAZOLE 40 MG CAPSULE,DELAYED RELEASE 90 capsule 3 Sig: TAKE 1 CAPSULE BY MOUTH DAILY NEGRA: Yes ALLERGIES Allergen Reactions Shellfish Derived Anaphylaxis Pepper (Genus Capsi* Unknown (home) [phone] (cell) Last Visit date: 06/13/2020 Future appointment: [...] ATB [facility] to [facility] [place]. Please advise. documented in this encounter Chol not great I dont think he can tolerate statin. I wrote repatha If he can afford it. Liver lipids 3 mon documented in this encounter Called patient and advised and seen the Rxes went to mail away pharmacy and not [facility] [place]. [phone]. Called pharmacist and gave verbal Cipro 500mg BID # 14 no refill and Flagyl 500mg TID # 21. FYI Patient called in and states he has history of diverticulitis and would like an antibiotic called in. Called patient back states he has bloating and slight pain on the right lower abdomen. Has had several times in the past. Patient uses [facility] [place]. Will you Rx? Or what to do? documented in this encounter Care Teams (unrecognized sec tion and content) Continuity Clerk Relationship Specialty Start Date End Date Narendra Zaman DO [address] [place] [address] PCP - General Family Practice 01/31/20 Team Status: Active Member Role Status Dates Josy Zaman [facility] [address] Family Provider Active Dr. Josy Zaman DO Primary Care Provider Acti ve Team Status: Inactive Member Role Status Dates Dr. Josy Zaman DO Primary Care Provider Acti ve Start: September 25, 2024 End: September 25, 2024 Dr. Josy Zaman DO Referring Provider Active Start: September 25, 2024 End: September 25, 2024 Tito Abda EMERGENCY CARE TECH, EMERGENCY CARE TECH-C Attending Provider Active S tart: September 25, 2024 End: September 25, 2024 (unrecognized sect ion and content) No Status Records FoundNo Status Records FoundNo Status Records FoundNo Status Records FoundNo Status Records Found INFORMATION SOURCE (unrecogn ized section and content) DATE CREATED AUTHOR 08/25/2021 [facility] DATE CREATED AUTHOR AUTHOR'S ORGANIZ ATION 09/20/2023 [facility] ([place]) DATE CREATED AUTHOR AUTHOR'S ORGANIZ ATION 09/27/2024 [facility] DATE CREATED AUTHOR AUTHOR'S ORGANIZ ATION 10/02/2024 [facility] DATE CREATED AUTHOR AUTHOR'S ORGANIZ ATION 10/29/2024 [facility] Care Team (unrecognized sect ion and content) Care Team Personnel Name: AVILA SHEA Position: P4 Advanced Practice Nurse Med Service: Active Provider Member Role: Primary Care Physician Address: Address: [address] [place] [address]- Name: SHELLY RANDHAWA MD Position: P4 Physician - General Surgery Med Service: Tiff Webster M.D. Member Role: Surgeon Address: Address: [address] [place], [place] [id number]- Name: DELIO MCDONALD MD Med Service: Dermatology Member Role: Entry Level Project Engineer Address: Address: [facility] [address] [place] [address]- Care Team Related Persons Name: ISHA BALDERRAMA Address: Home [address] [place], [place] [id number] Care Team Personnel Name: AVILA SHEA Position: P4 Advanced Practice Nurse Member Role: Primary Care Physician Address: Address: [address] [place] [id number]- Name: SHELLY RANDHAWA MD Position: P4 Physician - General Surgery Member Role: Surgeon Address: Address: [address] [place], [place] [id number]- Name: DELIO MCDONALD MD Member Role: Entry Level Project Engineer Address: Address: [facility] [address] [place] [address]- Care Team Related Persons Name: ISHA BALDERRAMA Address: Home [address] [place], [place] [id number] Goals (unrecognized section and content) Goals may [...] BE BASED ON THE PRIMARY CLINICAL RECORDS. [facility] [employer] [facility]. provides no warranty or guarantee of the accuracy or completeness of information in this document.
[2024-11-02] MEDS: Pantoprazole Sodium 40 MG in 0.9% Normal Saline (100mL MB+) 100 ML 330 MG IV ×3 (03:12→22:15)
[2024-11-02] MEDS: 0.9% Normal Saline (1000mL) 1,000 ML 150 ML IV ×2 (03:12→10:10)
[2024-11-02 05:51] LABS: Hematocrit 33.2 % (40-54); Hemoglobin 11.5 g/dL (13.0-16.5); Immature Granulocytes Count 0.050 X10^3/uL (0.0-0.0); Mean Corp Hgb Conc 34.6 g/dL (32-36); Mean Corpuscular Volume 90.2 fL (80-94); Mean Platelet Vol. 11.1 fl (6.2-12.0); NRBC Flagged by Analyzer 0 % (0-5); Platelet Count 250 K/mm3 (150-450); RBC Distribution Width CV 12.4 % (11.6-14.6); RBC Distribution Width SD 41.1 fl (35.1-43.9); Red Blood Count 3.68 M/mm3 (4.6-6.2); White Blood Count 8.1 K/mm3 (4.4-11.0)
[2024-11-02 06:34] LABS: AST(SGOT) 19 U/L (<=37); Alanine Aminotransfer ALT/SGPT 17 U/L (<=46); Albumin, Serum 3.6 g/dL (3.4-4.8); Alkaline Phosphatase 60 U/L (40-129); Anion Gap 14 (5-15); BUN 7 mg/dL (4-19); BUN/Creat Ratio 9.6 RATIO (10-20); Calcium,Total 9.6 mg/dL (7.6-11.0); Carbon Dioxide 20.4 mmol/L (21.0-32.0); Chloride 102 mmol/L (98-108); Estimated Creatinine Clearance 78.38 ml/min (50-250); Globulin 2.9 g/dL (2.2-4.2); Glucose 106 mg/dL (70-99); Lipase 135 U/L (13-75); Potassium 3.6 mmol/L (3.3-5.1)
--- NOTE | 2024-11-02 11:32 | CASEMGMT ---
RN?CM?ASSESSMENT ? RN?CM?to room to meet with patient for initial transition planning/care coordination?assessment.?RN?CM?introduced self and role at [facility].? Pt voices understanding and consents to?assessment?at this time.? Pt resting in bed in no distress at this time.? Pt is A/O at this time and answers all questions appropriately.?? Care providers, pharmacy, and demographics verified/updated at this time. ? Strata:2 PCP: Chin Warren NP Specialists: none Preferred Pharmacy: [facility] @ [place]. Otherwise, he goes to [facility] in [place] ([facility]) Insurance: [facility], [facility] Prescription Benefit:?yes LNOK: , Chhaya. 3 adult children. One son's name is Rick Living Arrangements: Lives w/ in 2-story home w/one step to enter. Bedroom and bathroom on 2nd floor and bathroom on main floor as well. Pt states does okay with the stairs. Independent. Transportation:?Pt states drives self and states no transportation concerns at this time.?Daughter will take him home @ [place]. DME: Pt has a BP machine. He denies needs for further DME. ? HHC/SNF: No hx of either and denies needs. ? Pt wishes to return home and states has no concerns with going home at time of discharge. CM?to follow for any discharge planning/needs.? Pt voices no further concerns/needs at this time.? Advised pt to ask for?CM?if any further questions/concerns/needs arise.? Voices understanding. ? PLAN:??Home ? James BSN?RN?CM ? ?
[2024-11-02] MEDS: 0.9% Normal Saline (1000mL) 1,000 ML 125 ML IV (16:34)
--- NOTE | 2024-11-02 18:26 | PN.HOSP_ITS ---
Hospitalist Note Patient was seen and examined today, he is following at the [facility] regarding a pancreatic mass that he says was biopsied and was not cancer. Presently patient has very little abdominal discomfort, his abdomen is soft and nondistended. I have decided to keep the patient on IV fluids for now and reevaluate him tomorrow for possible discharge. Patient denies any alcohol use for many years.
[2024-11-02] MEDS: 0.9% Saline Lock 10 ML Syringe IV (21:43)
[2024-11-02] MEDS: buPROPion (XL) 300 MG TABLET.XL PO (22:18)
[2024-11-02] MEDS: Metoprolol(XL)Succ 50 MG Tablet PO (22:18)
[2024-11-03] MEDS: 0.9% Normal Saline (1000mL) 1,000 ML 125 ML IV ×2 (01:07→11:12)
[2024-11-03 01:32] VITALS: BMI 26.0
[2024-11-03] MEDS: 0.9% Saline Lock 10 ML Syringe IV ×2 (01:57→11:12)
[2024-11-03 02:05] VITALS: BP 134/77; PULSE 76; RESP 16; TEMP 36.6; O2SAT 97
[2024-11-03] MEDS: Creon 24,000 unit DR Capsule 3 CAP PO (07:21)
[2024-11-03 08:09] VITALS: O2SAT 94
[2024-11-03 08:11] VITALS: BP 139/74; PULSE 79; RESP 16; TEMP 36.8; O2SAT 98
[2024-11-03] MEDS: Pantoprazole Sodium 40 MG in 0.9% Normal Saline (100mL MB+) 100 ML 330 MG IV (09:16)
--- NOTE | 2024-11-03 09:35 | CASEMGMT ---
BRE SIMPSON Assessment: Face to Face with pt for initial transition planning/care coordination assessment. RN CALVIN introduced self and role at [facility], pt voices understanding and consents to assessment. Pt is A&O x4 and answers all questions appropriately at this time. Pt sitting up in chair in no distress. Care providers, pharmacy, and demographics verified/updated. Admitting Dx: acute pancreatitis Strata Score: 2 PCP:CYN Warren Specialists:YANG Ervin Preferred Pharmacy: [facility] Insurance: [facility] Prescription Benefit: yes LNOK: Chhaya Balderrama, ; Rick Balderrama, son Living Arrangements: Pt lives with in a two story home with 1 step to enter. Pt reports he is I in ADL/IADLs and denies concerns at home. Transportation: Pt drives self and denies concerns with transportation. DME:susana reardon, [facility] HHC/SNF: Denies hx of Pt states no concerns with going home at time of dc. Pt states no further concerns/needs. CM to follow. Advised pt to ask CM if any further questions/concerns/needs arise, voices understanding. Pt Goal: Pt states as soon as he dc's from here, he is driving directly to [facility] for admission Plan: Mo Li RN, CM
[2024-11-03 11:24] VITALS: BP 162/79; PULSE 70; RESP 16; TEMP 36.6; O2SAT 99
[2024-11-03 15:13] VITALS: BP 133/74; PULSE 79; RESP 16; TEMP 36.8; O2SAT 99
--- NOTE | 2024-11-03 15:13 | DCINST_ITS ---
Discharge Instructions DC O2, CPAP, BIPAP needs Home O2 Discharge instructions: No Dressing / Incision Discharge Activity: Return to Normal Activity Weight Bearing Status: Full weight bearing Follow Up Care Test Results: Test results from this visit will be discussed in further detail at your follow- up appointment, if applicable. Discharge Plan Admission Admit Date/Time: 11/02/24 01:03 Primary Reason for Your Visit: pancreatitis Attending Provider: Marv Gilman Primary Care Provider: Chin Warren NP Consulting Providers: Hanna [place] Instructions Additional Instructions / Restrictions: Follow up at the [facility] Discharge Orders/Prescriptions Prescriptions: Continued Creon 36,000-114,000- 180,000 unit capsule,delayed release(DR/EC) PO niacin 500 MG tablet extended release 24 hr 500 mg PO QHS omeprazole 20 MG capsule 40 mg PO QHS bupropion HCl 300 MG tablet extended release 24 hr 300 mg PO QHS Lovastatin [Mevacor] 40 MG tablet 40 mg PO QHS ibuprofen 600 MG tablet 600 mg PO Q6H PRN PRN (Reason: Pain Score 1-10/10) Qty: 20 0RF metoprolol succinate 50 MG tablet extended release 24 hr 50 mg PO QHS losartan 100 mg tablet 100 mg PO DAILY diphenhydramine HCl [Benadryl] 25 mg capsule 50 mg PO QHS Referrals / Follow Up: Josy Zaman DO [Non-Staff] - Chin Warren QUILL PICKING MACHINE OPERATOR, QUILL PICKING MACHINE OPERATOR-C [Primary Care Provider] - Disposition Disposition (needs filled in before D/C Order can be placed): Home, Self Care
--- NOTE | 2024-11-03 15:17 | DS.PCM_ITS ---
Providers Date of Admission: 11/02/24 Date of Discharge: 11/03/24 Primary Care Physician: ANGELES Martinez Reason For Visit: ACUTE PANCREATITIS Diagnosis Discharge Diagnosis (1) Pancreatitis: Status: Acute Code(s): K85.90 - Acute pancreatitis without necrosis or infection, unspecified Plan 1. Acute pancreatitis secondary to pancreatitis mass #2 acute on chronic abdominal pain secondary to acute pancreatitis with pancreatic mass #3 essential hypertension #4 GERD Medications at Discharge Home Medications Lovastatin [Mevacor] 40 mg PO QHS cholesterol 02/15/19 bupropion HCl 300 mg 24 hr tablet, extended release 300 mg PO QHS depression 02/15/19 niacin 500 mg tablet,extended release 24 hr 500 mg PO QHS heart health 02/15/19 omeprazole 20 mg capsule,delayed release 40 mg PO QHS gerd 02/15/19 ibuprofen 600 mg tablet 600 mg PO Q6H PRN PRN Pain Score 1-10/10 #20 tabs 02/23/19 metoprolol succinate 50 mg tablet,extended release 24 hr 50 mg PO QHS bp/hr 02/23/19 [id number] 36,000-114,000-180,000 unit capsule,delay rel (Creon) cap PO pancreatic enzymes 09/25/24 diphenhydramine HCl 25 mg capsule (Benadryl) 50 mg PO QHS sleep 11/02/24 losartan 100 mg tablet 100 mg PO DAILY BP 11/02/24 Hospital Course Operations None Procedures None Summary of Care Provided Minutes Spent on Discharge: 31 Hospital Course: 74-year-old white male was seen in the emergency room [facility] with complaints of mid abdominal pain. Patient had a past history of pancreatitis recently and was diagnosed with a pancreatic mass that was being worked up at the [facility]. Chronic to the patient biopsies have been obtained through endoscopy and these biopsies did not show any actual cancer, he states that the physicians at the [facility] were trying to decide how to treat the patient and whether to take him to surgery. Patient was admitted to [place] [address], he was given IV fluids and IV analgesics. Patient's pain somewhat improved during his hospitalization and the patient was able to eat. Patient decided the best course of action would be to drive to the [facility] and be seen in the emergency room there for further care. On 11/03/2024, patient was seen and examined: On examination he appeared in good health and spirits. Vital signs as documented. Skin warm and dry and without overt rashes. Neck without JVD, neck was supple, trachea midline, thyroid was normal. Lungs clear bilaterally, normal air movement was noted. Heart exam notable for regular rhythm, normal sounds and absence of murmurs, rubs or gallops. Abdomen unremarkable and without evidence of organomegaly, masses, or abdominal aortic enlargement. Bowel sounds are present, abdomen is not distended. Extremities nonedematous, no cyanosis was noted, no clubbing was noted. Neuro: Cranial nerves II through XII are grossly intact, no focal motor deficits were noted, sensation to light touch and pinprick intact, motor exam 5/5 throughout. Psych: Patient is alert and oriented x3, he does not appear anxious or depressed, he does not appear agitated. Patient appears stable for discharge on 11/03/2024 Weight / BMI Weight Weight: 77.8 kg Body Mass Index (BMI) 26.0 ABG / Lab / Microbiology Data 11/02/24 04:53 11/02/24 04:53 D/C Instructions Weight Bearing Status: Full weight bearing DC O2, CPAP, BIPAP Needs Home O2 Discharge instructions: No Meaningful Use Info Meaningful Use Meaningful Use Diagnoses (Choose all that apply): None applicable Discharge Plan Admission Admit Date/Time: 11/02/24 01:03 Primary Reason for Your Visit: pancreatitis Attending Provider: Marv Gilman Primary Care Provider: Chin Warren NP Consulting Providers: Hanna Holt Instructions Additional Instructions / Restrictions: Follow up at the [facility] Discharge Orders/Prescriptions Prescriptions: Continued Creon 36,000-114,000- 180,000 unit capsule,delayed release(DR/EC) PO niacin 500 MG tablet extended release 24 hr 500 mg PO QHS omeprazole 20 MG capsule 40 mg PO QHS bupropion HCl 300 MG tablet extended release 24 hr 300 mg PO QHS Lovastatin [Mevacor] 40 MG tablet 40 mg PO QHS ibuprofen 600 MG tablet 600 mg PO Q6H PRN PRN (Reason: Pain Score 1-10/10) Qty: 20 0RF metoprolol succinate 50 MG tablet extended release 24 hr 50 mg PO QHS losartan 100 mg tablet 100 mg PO DAILY diphenhydramine HCl [Benadryl] 25 mg capsule 50 mg PO QHS Referrals / Follow Up: Josy Zaman DO [Non-Staff] - Chin Warren IUSS ACOUSTIC ANALYST, IUSS ACOUSTIC ANALYST-C [Primary Care Provider] - Disposition Disposition (needs filled in before D/C Order can be placed): Home, Self Care Charges/Coding Visit Charges Inpatient E&M: 04554 Disch Hosp >30min
== END 2024-11-03 16:00 | disposition home or self-care (01) | DRG 439 ==
LOC: ED 11-02 01:13 → MS3 11-02 01:19
PROVIDERS: Admitting Provider Family Medicine; Emergency Provider Emergency Medicine; PCP Nurse Practitioner Primary Care; Visit Provider Internal Medicine
DX: K85.91 Acute pancreatitis with uninfected necrosis, unspecified (principal); E87.1 Hypo-osmolality and hyponatremia; I12.9 Hypertensive chronic kidney disease with stage 1 through stage 4 chronic kidney disease, or unspecified chronic kidney disease; F32.A Depression, unspecified; E78.5 Hyperlipidemia, unspecified; N18.2 Chronic kidney disease, stage 2 (mild); K21.9 Gastro-esophageal reflux disease without esophagitis; E86.0 Dehydration; F41.9 Anxiety disorder, unspecified; Z79.899 Other long term (current) drug therapy; Z87.891 Personal history of nicotine dependence; K86.89 Other specified diseases of pancreas
CPT/HCPCS: 36415; 74177; 80048; 80053; 80076; 83690; 83735; 84100; 85025; 94668; 97802; 99284; Q9967; A4216; J2405

== ENCOUNTER → 2024-11-21 | Outpatient (CLI) | payer MEDICARE, OTHER, SELFPAY | END | disposition home or self-care (01) | PROVIDERS: PCP Nurse Practitioner Primary Care | DX: K86.1 Other chronic pancreatitis (principal) | CPT/HCPCS: 36415 ==